=== PATIENT | male | born 1970 | race Caucasian/White ===

== ENCOUNTER → 2020-04-05 09:06 | Outpatient (BNVA) | payer OTHER, SELFPAY | PROVIDERS: Visit Provider Anesthesiology | DX: R10.31 Right lower quadrant pain (principal); R20.0 Anesthesia of skin; M16.11 Unilateral primary osteoarthritis, right hip; M79.602 Pain in left arm | CPT/HCPCS: 99204 ==

== ENCOUNTER → 2020-04-11 11:51 | Outpatient (BNVA) | payer OTHER, SELFPAY | PROVIDERS: PCP Family Medicine; Referring Provider Nurse Practitioner Adult Health; Visit Provider Physician Assistant | DX: Z01.818 Encounter for other preprocedural examination (principal); K52.9 Noninfective gastroenteritis and colitis, unspecified; Z87.19 Personal history of other diseases of the digestive system | CPT/HCPCS: 99204 ==

== ENCOUNTER → 2020-04-24 10:17 | Outpatient (BNVA) | payer OTHER, SELFPAY | PROVIDERS: PCP Family Medicine; Referring Provider Family Medicine; Visit Provider Internal Medicine Pulmonary Disease | DX: Z01.811 Encounter for preprocedural respiratory examination (principal); J44.9 Chronic obstructive pulmonary disease, unspecified; F17.210 Nicotine dependence, cigarettes, uncomplicated; Z79.52 Long term (current) use of systemic steroids; Z79.899 Other long term (current) drug therapy | CPT/HCPCS: 99204 ==

== ENCOUNTER 2020-05-02 08:07 | Outpatient (REF) | payer OTHER, SELFPAY ==
--- NOTE | 2020-05-02 09:42 | XR_ITS ---
EXAMINATION: XR HIP, RIGHT CLINICAL INFORMATION: Right hip pain. COMPARISON: Pelvis and right hip radiographs 09/16/2019, CT pelvis 10/03/2019. TECHNIQUE: Two views of the right hip. FINDINGS: There is no fracture, dislocation, destructive process. No right hip joint narrowing or erosive change or visible chondrocalcinosis. Soft tissue planes appear normal. There are some degenerative changes again noted lower lumbar spine. Bowel gas unremarkable. Change lester seen right lower quadrant. XR/XR hip RT min 2V IMPRESSION: 1. Unremarkable right hip. No joint narrowing or erosive change. 2. Mild degenerative changes lower lumbar spine.
== END 2020-05-02 08:08 | disposition home or self-care (01) ==
LOC: HO.XRAY 08:07
PROVIDERS: Visit Provider Anesthesiology
DX: R10.31 Right lower quadrant pain (principal); M79.602 Pain in left arm; M16.11 Unilateral primary osteoarthritis, right hip; G56.00 Carpal tunnel syndrome, unspecified upper limb
CPT/HCPCS: 73502; 99212

== ENCOUNTER 2020-05-03 11:12 | Outpatient (REF) | payer OTHER, SELFPAY ==
--- NOTE | 2020-05-03 | PFT_ITS ---
Forced vital capacity, FEV1, NYA16-38, and MVV are all markedly decreased. Post bronchodilator therapy, there is significant improvement in FEV1 and FCC17-71. Total lung capacity is slightly decreased. Residual volume is markedly increased. Diffusion capacity is markedly decreased. CONCLUSION: Severe obstructive airway disorder. There is a mild response to bronchodilator therapy. The patient may also have a mild degree of restrictive pulmonary disorder. Clinical correlation is recommended. MD GUEVARA Crowley/VINI / [id number]
== END 2020-05-03 11:13 | disposition home or self-care (01) ==
LOC: HO.RESP 11:12
PROVIDERS: Visit Provider Internal Medicine Pulmonary Disease
DX: J44.9 Chronic obstructive pulmonary disease, unspecified (principal)
CPT/HCPCS: 94060; 94727; 94729

== ENCOUNTER 2020-05-03 12:20 | Outpatient (REF) | payer OTHER, SELFPAY | END 2020-05-03 12:21 | disposition home or self-care (01) | LOC: HO.HAP 12:20 | PROVIDERS: PCP Family Medicine; Visit Provider Family Medicine | DX: Z13.89 Encounter for screening for other disorder (principal) | CPT/HCPCS: 92700 ==

== ENCOUNTER 2020-05-10 09:38 | Inpatient (IN) | payer OTHER, SELFPAY ==
[2020-05-10] VITALS (7 sets, daily range): BP systolic 114–144; BP diastolic 77–84; PULSE 85–107; RESP 14–20; TEMP 36.6–38.4; O2SAT 95–99; BMI 25.1
--- NOTE | 2020-05-10 10:33 | XR_ITS ---
EXAMINATION: XR CHEST CLINICAL INFORMATION: Fever, cough COMPARISON: Chest radiographs 03/28/2020, CTA chest 03/28/2020 TECHNIQUE: Portable upright AP view of the chest was obtained. FINDINGS: The lungs are clear. The vascularity is normal. There is no airspace consolidation or effusion or visible groundglass opacity. The costophrenic sulci are clear. The heart is normal in size. The hilar and mediastinal contours are normal. No visible acute bony abnormality. XR/XR chest 1V IMPRESSION: Unremarkable examination.
--- NOTE | 2020-05-10 10:35 | CT_ITS ---
EXAMINATION: CT ABDOMEN AND PELVIS WITH CONTRAST CLINICAL INFORMATION: Diffuse abdominal pain. Worse in the epigastric and suprapubic region. COMPARISON: CT abdomen 10/03/2019 TECHNIQUE: Multidetector volumetric images were obtained from the superior aspect of the liver through the pubic symphysis following administration 85 mL of Omnipaque 350 intravenous contrast. Sagittal and coronal reformatted images were obtained on the technologist's workstation. Oral contrast: No This CT examination was performed using dose optimization techniques as appropriate, variously including the following: *Automated exposure control *Adjustment of mA and/or kV according to patient size (this includes techniques or standardized protocols for targeted exams where dose is matched to indication/reason for exam; i.e. extremities or head) *Use of iterative reconstruction technique DLP: 471 mGy-cm FINDINGS: LUNG BASES: The lung bases are clear. The heart size is normal. LIVER, GALLBLADDER, AND BILIARY TREE: The liver is normal in size, shape, and hypoattenuation. No focal hepatic lesion or biliary ductal dilatation is present. The gallbladder is unremarkable with no evidence of radiopaque gallstones, gallbladder wall thickening, or obvious pericholecystic inflammatory changes. PANCREAS: Unremarkable. SPLEEN: Unremarkable. ADRENAL GLANDS: Unremarkable. KIDNEYS AND URETERS: The kidneys are normal in size, shape, and attenuation. No hydronephrosis, hydroureter, or calculi seen. No perinephric stranding. There is a 1.4 cm cyst midpole right kidney. BLADDER: Unremarkable. GASTROINTESTINAL TRACT: There is scattered stool and gas seen throughout the colon without significant distention. There is diffuse mural thickening involving the sigmoid colon the rectum likely proctitis/colitis. Incidental noted is a small area of air-fluid collection adjacent to sigmoid colon, likely diverticuli or small abscess. The small bowel loops are normal caliber. There are surgical sutures at the base of the appendix likely from previous appendectomy. No free air or free fluid seen. There is not a mild mural thickening of gastric pylorus. This could be from underdistention. ABDOMINAL WALL: No significant hernia is appreciated. LYMPH NODES: Normal. VASCULAR: Unremarkable. PELVIC VISCERA: The prostate is a normal size. Periprostatic fat planes are slightly hazy. OSSEOUS STRUCTURES: There are degenerative disc changes interconnecting disc phenomenon at the L2-L3 disc level and mild loss of L5-S1 disc heights. Grade 1 retrolisthesis L2 over L3 and L3 over L4 is noted. CT/CT abdomen pelvis w con IMPRESSION: Mild mural thickening sigmoid colon with perisigmoid air-fluid collection likely small abscess or diverticula. No pericolic fat stranding seen. Also visualized is mild mural thickening involving the rectum and sigmoid colon likely from colitis. No pericolic fat stranding seen. There is no bowel obstruction. Mild mural thickening of the pylorus, likely from underdistention of the stomach. Diffuse fatty liver. Surgical sutures at the base of appendix likely from previous appendectomy.
--- NOTE | 2020-05-10 10:36 | ED_ITS ---
HPI - General Adult General Chief complaint: Fever Stated complaint: sob Time Seen by Provider: 05/10/20 10:23 Source: patient Mode of arrival: ambulatory Limitations: no limitations History of Present Illness HPI narrative: patient comes to emergency room complaining of fever of 102, shortness of breath, dysuria, hematuria and diffuse abdominal pain worse in the epigastric region. patient states ill started 4 days ago. Patient came to emergency room because his family made him come. Patient denies vomiting, no diarrhea. Patient states approximately 6 months ago he had a surgery for internal hemorrhoids, no rectal blood reported per patient. MD complaint: dyspnea, abdominal pain, hematuria Related Data Home Medications Medication Instructions Recorded Confirmed ibuprofen 200 mg capsule 400 mg PO Q8H 04/05/20 04/05/20 prednisone 5 mg tablet 5 mg PO DAILY 04/24/20 Previous Rx's Medication Instructions Recorded ipratropium 0.5 mg-albuterol 3 mg 3 ml INHALATION Q6-8H PRN 30 Days 04/24/20 (2.5 mg base)/3 mL nebulization #270 ml soln cholestyramine (with sugar) 4 gram 4 g PO BID #378 g 05/07/20 oral powder Allergies Allergy/AdvReac Type Severity Reaction Status Date / Time dog dander [dogs] Allergy Unknown Verified 05/10/20 10:01 mold Allergy Unknown Verified 04/24/20 10:27 Review of Systems Review of Systems: Constitutional : No Weight loss, complaining of fever, chills, fatigue and general malaise ENT/Mouth : No Hearing loss, No Ear Pain, No Nasal Congestion, No Sinus Pain, No Hoarseness, No sore throat, No Rhinorrhea, No Swallowing Difficulty Eyes: No Eye Pain, No Swelling, No Redness, No Foreign Body, No Discharge, No Vision Changes Cardiovascular : no chest pain or shortness of breath abdomen: complaining diffuse abdominal pain, worse in the epigastric and suprapubic area. Genitourinary : no irregular bleeding, No Dysuria, No Urinary Frequency, No Hematuria, No Urinary Incontinence, Complaining of dysuria and hematuria Musculoskeletal : No joint pain, No Myalgias, No Joint Swelling Skin : No Skin Lesions, No rash Neuro : No Weakness, No Numbness, No Paresthesias, No Loss of Consciousness, No Dizziness, No Headache Psych : No Anxiety/Panic, No Depression, No SI/HI/AH/VH, No Social Issues, Heme/Lymph: No Bruising, No Bleeding,No Lymphadenopathy Endocrine : No Polyuria, No Polydipsia, No Temperature Intolerance [facility] Past Medical History Medical History (Updated 05/10/20 @ 13:55 by Kat Heath MD) Abdominal distension Asthma Carpal tunnel syndrome Diarrhea, unspecified Elevated ALT measurement Hepatic steatosis Internal and external bleeding hemorrhoids Pelvic abscess Rectal pain Screen for colon cancer (~04/11/20) Substance abuse Surgical History H/O hemorrhoidectomy History of appendectomy History of colon resection Family History Family History Father No problems noted. Mother No problems noted. Brother No problems noted. Social History Social History Alcohol intake: current Alcohol intake frequency: 3 or more drinks per day Smoking Status: Current every day smoker Tobacco Type: Cigarette Packs Per Day: 0.5 Cigarettes Per Day: 10.0 Use of substances other than those prescribed or required for medical reasons: Yes Substance Use Type: Marijuana Advance Directives: No Advance Directives Information Provided: No Physical Exam Vital Signs: Vital Signs: Vital Signs Temp Pulse Resp BP Pulse Ox 05/10/20 10:30 99.0 F 88 20 114/79 96 05/10/20 10:01 99.0 F 85 20 114/79 97 Body Mass Index 25.1 Course Course Course Narrative: at this time, 13:53, sepsis is being considered. Patient already received 3 L of normal saline and Zosyn. Patient's source of infection is likely proctitis versus colitis versus small abscesses in the colon versus diverticula, no perforation noted at this time. I discussed the above- mentioned with the hospitalist, patient being admitted. Initially patient mentioned that he had blood in his urine, only trace red blood cells as were noted. Unlikely to have a UTI. Medical Decision Making Lab Data Result diagrams: 05/10/20 10:43 05/10/20 10:42 Labs: Lab Results 05/10/20 05/10/20 05/10/20 Range/Units 10:42 10:42 10:42 WBC (4.8-10.8) X10*3/uL RBC (4.60-5.80) X10*6/uL Hgb (14.0-18.0) g/dl Hct (42-52) % MCV (80-98) fL MCH (27.0-33.0) pg MCHC (31.0-36.0) g/dl RDW (11.0-16.0) % Plt Count (160-400) X10*3/uL MPV (9.4-12.4) fL Immature Gran % (Auto) (0.0-0.4) % Neut % (Auto) (45-73) % Lymph % (Auto) (20-40) % [place] % (Auto) (2-11) % Eos % (Auto) (0-4) % Baso % (Auto) (0-2) % Lymph # (Auto) (1.2-4.9) X10*3/uL [place] # (Auto) (0.1-1.2) X10*3/uL Eos # (Auto) (0.0-0.4) X10*3/uL Baso # (Auto) (0.0-0.2) X10*3/uL Abs Immat Gran (auto) (0.00-0.03) X10*3/uL Absolute Neuts (auto) (2.0-8.3) X10*3/uL Absolute Nucleated RBC (0.0-0.012) X10*3/uL Nucleated RBC % (auto) (0.0-0.2) /100WBC Sodium 135 (135-145) mmol/L Potassium 2.4 L* (3.3-5.1) mmol/l Chloride 94 L (96-108) mmol/L Carbon Dioxide 19 L (22-29) mmol/L Anion Gap 24 H (12-20) BUN 4 L (9-16) mg/dL Creatinine 0.81 (0.5-1.4) mg/dL Estim Creat Clear Calc 112.6 Estimated GFR > 60 Random Glucose 146 H (60-115) mg/dL Lactic Acid 7.8 H* (0.5-2.0) mmol/L Lactic Acid Fup @ 2Hr (0.5-2.0) mmol/L Calcium 7.2 L (8.4-10.2) mg/dL Total Bilirubin 1.9 H (0.0-1.0) mg/dL Direct Bilirubin 1.6 H (0.0-0.5) mg/dL AST 139 H (5-37) U/L ALT 91 H (0-40) U/L Alkaline Phosphatase 178 H (39-117) U/L Total Protein 6.3 L (6.5-8.0) g/dL Albumin 3.4 L (3.5-5.0) g/dL Lipase 8 (8-78) U/L Urine Color Urine Appearance Urine pH (5.0-8.0) Ur Specific [place] (1.005-1.025) Urine Protein (NEG-TRACE) MG/DL Urine Glucose (UA) (NEG) MG/DL Urine Ketones (NEG) MG/DL Urine Blood (NEG) Urine Nitrite (NEG) Ur Leukocyte Esterase (NEG) Urine RBC (0) /HPF Urine WBC (0-4) /HPF Ur Squamous Epith Cells /LPF Urine Bacteria /LPF Urine Mucus /LPF Coronavirus (PCR) NEGATIVE (Negative) 05/10/20 05/10/20 05/10/20 Range/Units 10:43 12:36 13:14 WBC 13.7 H (4.8-10.8) X10*3/uL RBC 3.95 L (4.60-5.80) X10*6/uL Hgb 14.3 (14.0-18.0) g/dl Hct 39.8 L (42-52) % MCV 100.8 H (80-98) fL MCH 36.2 H (27.0-33.0) pg MCHC 35.9 (31.0-36.0) g/dl RDW 13.1 (11.0-16.0) % Plt Count 111 L (160-400) X10*3/uL MPV 9.8 (9.4-12.4) fL Immature Gran % (Auto) 0.7 H (0.0-0.4) % Neut % (Auto) 84.1 H (45-73) % Lymph % (Auto) 5.1 L (20-40) % [place] % (Auto) 9.7 (2-11) % Eos % (Auto) 0.0 (0-4) % Baso % (Auto) 0.4 (0-2) % Lymph # (Auto) 0.7 L (1.2-4.9) X10*3/uL [place] # (Auto) 1.3 H (0.1-1.2) X10*3/uL Eos # (Auto) 0.0 (0.0-0.4) X10*3/uL Baso # (Auto) 0.1 (0.0-0.2) X10*3/uL Abs Immat Gran (auto) 0.09 H (0.00-0.03) X10*3/uL Absolute Neuts (auto) 11.5 H (2.0-8.3) X10*3/uL Absolute Nucleated RBC 0.000 (0.0-0.012) X10*3/uL Nucleated RBC % (auto) 0.0 (0.0-0.2) /100WBC Sodium (135-145) mmol/L Potassium (3.3-5.1) mmol/l Chloride (96-108) mmol/L Carbon Dioxide (22-29) mmol/L Anion Gap (12-20) BUN (9-16) mg/dL Creatinine (0.5-1.4) mg/dL Estim Creat Clear Calc Estimated GFR Random Glucose (60-115) mg/dL Lactic Acid (0.5-2.0) mmol/L Lactic Acid Fup @ 2Hr 5.5 H* (0.5-2.0) mmol/L Calcium (8.4-10.2) mg/dL Total Bilirubin (0.0-1.0) mg/dL Direct Bilirubin (0.0-0.5) mg/dL AST (5-37) U/L ALT (0-40) U/L Alkaline Phosphatase (39-117) U/L Total Protein (6.5-8.0) g/dL Albumin (3.5-5.0) g/dL Lipase (8-78) U/L Urine Color YELLOW Urine Appearance HAZY Urine pH 6.0 (5.0-8.0) Ur Specific [place] <= 1.005 (1.005-1.025) Urine Protein NEG (NEG-TRACE) MG/DL Urine Glucose (UA) NEG (NEG) MG/DL Urine Ketones NEG (NEG) MG/DL Urine Blood TRACE (NEG) Urine Nitrite NEG (NEG) Ur Leukocyte Esterase 1+ H (NEG) Urine RBC 0-2 (0) /HPF Urine WBC 5-9 H (0-4) /HPF Ur Squamous Epith Cells TRACE /LPF Urine Bacteria NONE /LPF Urine Mucus TRACE /LPF Coronavirus (PCR) (Negative) Imaging Data Chest x-ray: Radiologist's impression: The lungs are clear. The vascularity is normal. There is no airspace consolidation or effusion or visible groundglass opacity. The costophrenic sulci are clear. The heart is normal in size. The hilar and mediastinal contours are normal. No visible acute bony abnormality. ECG Data Attestation: I personally reviewed and interpreted this ECG as follows: ( sinus rhythm, heart rate 85, no ST segment depressions or elevations, no T-wave inversions.) Discharge Plan Discharge Clinical Impression: Colitis, Acute hypokalemia Sepsis Qualifiers: Sepsis type: sepsis due to unspecified organism Sepsis acute organ dysfunction status: unspecified Qualified Code(s): A41.9 - Sepsis, unspecified organism Prescriptions: No Action cholestyramine (with sugar) 4 gram powder 4 g PO BID Qty: 378 RF: 0 ipratropium-albuterol 0.5 mg-3 mg(2.5 mg base)/3 mL solution for nebulization 3 ml inhalation Q6-8H PRN (Reason: wheezing) 30 Days Qty: 270 RF: 6 ibuprofen 200 mg capsule 400 mg PO Q8H RF: 0
[2020-05-10 10:53] LABS: MANUAL DIFF FLAG NO
[2020-05-10 10:55] LABS: Basophils Absolute Auto 0.1 X10*3/uL (0.0-0.2); Basophils Percent Auto 0.4 % (0-2); Hematocrit 39.8 % (42-52); Hemoglobin 14.3 g/dl (14.0-18.0); Imm Gran Abs Auto 0.09 X10*3/uL (0.00-0.03); Imm Gran Pct Auto 0.7 % (0.0-0.4); Lymphocytes Absolute Auto 0.7 X10*3/uL (1.2-4.9); Lymphocytes Percent Auto 5.1 % (20-40); Mean Corpuscular HGB Conc 35.9 g/dl (31.0-36.0); Mean Corpuscular Hemoglobin 36.2 pg (27.0-33.0); Mean Corpuscular Volume 100.8 fL (80-98); Mean Platelet Volume 9.8 fL (9.4-12.4); Monocytes Absolute Auto 1.3 X10*3/uL (0.1-1.2); Monocytes Percent Auto 9.7 % (2-11); Neutrophils Absolute Auto 11.5 X10*3/uL (2.0-8.3); Neutrophils Percent Auto 84.1 % (45-73); Platelet Count 111 X10*3/uL (160-400); Red Blood Count 3.95 X10*6/uL (4.60-5.80); Red Cell Distribution Width 13.1 % (11.0-16.0); White Blood Count 13.7 X10*3/uL (4.8-10.8)
[2020-05-10 11:24] LABS: Lactic Acid 7.8 mmol/L (0.5-2.0)
[2020-05-10 11:38] LABS: Alanine Aminotransferase 91 U/L (0-40); Albumin Level 3.4 g/dL (3.5-5.0); Alkaline Phosphatase 178 U/L (39-117); Anion Gap 24 (12-20); Aspartate Amino Transferase 139 U/L (5-37); Bilirubin Direct 1.6 mg/dL (0.0-0.5); Bilirubin Total 1.9 mg/dL (0.0-1.0); Blood Urea Nitrogen 4 mg/dL (9-16); Calcium 7.2 mg/dL (8.4-10.2); Carbon Dioxide 19 mmol/L (22-29); Chloride 94 mmol/L (96-108); Creatinine Clr Calc Pharmacy 112.6; Estimated Glomerular Filt Rate > 60; Glucose Random 146 mg/dL (60-115); Lipase 8 U/L (8-78); Potassium 2.4 mmol/l (3.3-5.1); Sodium 135 mmol/L (135-145); Total Protein 6.3 g/dL (6.5-8.0)
[2020-05-10] MEDS: 0.9 % Sodium Chloride 1,000 ML 999 ML IVCONT ×3 (11:39→13:29)
[2020-05-10] MEDS: Piperacillin Sodium/Tazobactam 3.375 GM in 0.9 % Sodium Chloride 50 ML IV ×2 (11:39→18:25)
--- NOTE | 2020-05-10 11:40 | PC.NURSE ---
computer in bed 2, will not scan meds properly.
[2020-05-10 11:52] LABS: SARS COV2 PCR INHOUSE NEGATIVE (Negative)
[2020-05-10] MEDS: iohexoL 350 MG/ML 100 ML INFUS..BTL IV (12:25)
[2020-05-10 12:53] LABS: Reflex Lactate? Lactic Acid Added
[2020-05-10 13:10] LABS: Glucose Urine UA NEG (NEG); Leukocyte Esterase Urine 1+ (NEG); Nitrite Urine NEG (NEG); Specific Gravity - Urine <= 1.005 (1.005-1.025); Urine Blood TRACE (NEG); Urine Ketones NEG (NEG); Urine Protein NEG (NEG-TRACE)
[2020-05-10 13:11] LABS: Appearance Urine HAZY; Color Urine YELLOW
[2020-05-10 13:18] LABS: Mucus Urine TRACE /LPF; RBC Urine 0-2 /HPF (0); Squamous Epithelial Cell Urine TRACE /LPF
[2020-05-10 13:49] LABS: ~Lactic Acid-LAB USE ONLY 5.5 mmol/L (0.5-2.0)
--- NOTE | 2020-05-10 14:02 | ECG_ITS ---
Test Reason : CHEST PAIN Blood Pressure : / mmHG Vent. Rate : 085 BPM Atrial Rate : 085 BPM P-R Int : 152 ms QRS Dur : 090 ms QT Int : 380 ms P-R-T Axes : 075 092 076 degrees QTc Int : 452 ms Normal sinus rhythm Rightward axis Borderline ECG When compared with ECG of 28-MAR-2020 12:15, No significant change was found Referred By: Kat Heath Electronically Signed By:TAYE RODRIGUEZ MD
[2020-05-10] MEDS: Potassium Chloride ER 20 MEQ TAB.ER.PRT 60 MEQ PO (14:08)
--- NOTE | 2020-05-10 14:49 | PM.EVENT ---
Event Note Date of Service: 05/10/2020 Event Note: Patient seen and examined. Case discussed with ELDON Garcia. Agree with her history and physical + plan. This is a 50-year-old male with a past medical history of alcohol abuse and dependence, reports he drinks 1 pt daily and has had previous withdrawal seizures. He presents to the hospital with cough fevers for the last 3 days for which he has taken ibuprofen. He also reports hematuria, kenzie and so he presents to the hospital. Workup in the hospital shows CT findings of ? small perisigmoid abscess versus small diverticula. afebrile in the emergency room but does have leukocytosis. Also lactate is significantly elevated. He reports chronic diarrhea and chronic abdominal pain which is unchanged. Abdominal examine difficult but has diffuse tenderness without rebound, +bowel sounds. A/P 50 yo M with history of EtOh abuse/dependence being admitted for multiple issues. Colitis/? perisigmoid abscess -- d/w Dr. Mao, will see the patient in the ED -- IV zosyn for now, f/u cultures Electrolyte abnormalitis - replete K IV and PO; check Mag and replete if needed Abrnomal LFTs -- 2/2 to alcohol abuse, advised him to stop drinking. reported hematuria -- UA does not show this, recheck if it reoccurs Alcohol abuse/dependence -- low dose phenobarb Remainder per H&P
--- NOTE | 2020-05-10 15:04 | P.CONGS_ITS ---
History of Present Illness Consult details Narrative: 50-year-old male who is in the emergency room referred to me because of an abdominal CAT scan of the colon. He is well known to me for hemorrhoid surgery earlier this year. He has multiple medical problems including alcohol abuse, mood disorder and came in the emergency room today because of what he described as hematuria. He said he had seen blood at the tip of his meatus. In the ER he still so mention that he was having abdominal pain. He describes mostly in the epigastric area. He had some fever of 102. He did not have any diarrhea,constipation nor rectal bleeding although he does have a history of chronic diarrhea. He denied vomiting at home although states that here in the ER, he had 1 episode of emesis. He had a history of me in [facility] last year for what was described a perforated ileitis. He had bowel resection at that time. I have been consulted because of a CT scan finding showing thickening of a part of the sigmoid along with what seems to be a fluid filled area that may be a diverticulum or small abscess. He however states this pain is on the epigastric area at this time. He denies any pain in the left lower quadrant. Review of Systems Constitutional: Constitutional: Denies chills and Reports fever(s) Cardiovascular: Cardiovascular: Denies chest pain, Denies dyspnea and Denies dyspnea on exertion Respiratory: Respiratory: Denies cough, Denies dyspnea and Denies dyspnea on exertion Gastrointestinal: Gastrointestinal: Denies hematochezia and Denies change in bowel habits Genitourinary: Genitourinary: Reports hematuria (At the meatus) and Denies difficulty urinating Musculoskeletal: Musculoskeletal: Denies back pain and Denies limited range of motion Neurologic: Denies focal weakness and Denies convulsions Psychiatric: Psychiatric: Denies depression and Denies mood swings [facility] Past Medical History Medical History Abdominal distension Asthma Carpal tunnel syndrome Diarrhea, unspecified Elevated ALT measurement Hepatic steatosis Internal and external bleeding hemorrhoids Mood disorder Pelvic abscess Rectal pain Screen for colon cancer (~04/11/20) Substance abuse Family History Family History Father No problems noted. Mother No problems noted. Brother No problems noted. Surgical History Surgical History H/O hemorrhoidectomy History of appendectomy History of colon resection Social History Social History Alcohol intake: current Alcohol intake frequency: 3 or more drinks per day Smoking Status: Current every day smoker Tobacco Type: Cigarette Packs Per Day: 0.5 Cigarettes Per Day: 10.0 Use of substances other than those prescribed or required for medical reasons: Yes Substance Use Type: Marijuana Advance Directives: No Advance Directives Information Provided: No Meds Allergies Allergy/AdvReac Type Severity Reaction Status Date / Time dog dander [dogs] Allergy Unknown Verified 05/10/20 10:01 mold Allergy Unknown Verified 04/24/20 10:27 Home Medications Medication Instructions Recorded Confirmed Type ibuprofen 200 mg capsule 400 mg PO Q8H 04/05/20 04/05/20 History prednisone 5 mg tablet 5 mg PO DAILY 04/24/20 History Physical Exam Vital Signs: Vital Signs: Last Vital Signs Temp 99.0 F 05/10/20 10:30 Pulse 88 05/10/20 10:30 Resp 20 05/10/20 10:30 BP 114/79 05/10/20 10:30 Pulse Ox 96 05/10/20 10:30 Body Mass Index 25.1 Const: Other: Appears she is however and intoxicated a little bit General: no acute distress Orientation/consciousness: patient oriented x3 Neck: Neck: Yes no lymphadenopathy Resp: Auscultation: clear to auscultation bilaterally Cardio: Rhythm: regular rhythm GI: Palpation (GI): Soft to palpation, Tenderness to palpation present (GI) (On the epigastric area) and no guarding Rectal Exam - Male: Yes Visual inspection abnormal (External hemorrhoid, not inflamed, nonthrombosed) Neuro: General: patient oriented x3 Results Labs Result diagrams: 05/10/20 10:43 05/10/20 10:42 Labs: Abnormal lab results 05/10/20 05/10/20 05/10/20 Range/Units 10:42 10:42 10:43 WBC 13.7 H (4.8-10.8) X10*3/uL RBC 3.95 L (4.60-5.80) X10*6/uL Hct 39.8 L (42-52) % MCV 100.8 H (80-98) fL MCH 36.2 H (27.0-33.0) pg Plt Count 111 L (160-400) X10*3/uL Immature Gran % (Auto) 0.7 H (0.0-0.4) % Neut % (Auto) 84.1 H (45-73) % Lymph % (Auto) 5.1 L (20-40) % Lymph # (Auto) 0.7 L (1.2-4.9) X10*3/uL [place] # (Auto) 1.3 H (0.1-1.2) X10*3/uL Abs Immat Gran (auto) 0.09 H (0.00-0.03) X10*3/uL Absolute Neuts (auto) 11.5 H (2.0-8.3) X10*3/uL Potassium 2.4 L* (3.3-5.1) mmol/l Chloride 94 L (96-108) mmol/L Carbon Dioxide 19 L (22-29) mmol/L Anion Gap 24 H (12-20) BUN 4 L (9-16) mg/dL Random Glucose 146 H (60-115) mg/dL Lactic Acid 7.8 H* (0.5-2.0) mmol/L Lactic Acid Fup @ 2Hr (0.5-2.0) mmol/L Calcium 7.2 L (8.4-10.2) mg/dL Total Bilirubin 1.9 H (0.0-1.0) mg/dL Direct Bilirubin 1.6 H (0.0-0.5) mg/dL AST 139 H (5-37) U/L ALT 91 H (0-40) U/L Alkaline Phosphatase 178 H (39-117) U/L Total Protein 6.3 L (6.5-8.0) g/dL Albumin 3.4 L (3.5-5.0) g/dL Ur Leukocyte Esterase (NEG) Urine WBC (0-4) /HPF 05/10/20 05/10/20 Range/Units 12:36 13:14 WBC (4.8-10.8) X10*3/uL RBC (4.60-5.80) X10*6/uL Hct (42-52) % MCV (80-98) fL MCH (27.0-33.0) pg Plt Count (160-400) X10*3/uL Immature Gran % (Auto) (0.0-0.4) % Neut % (Auto) (45-73) % Lymph % (Auto) (20-40) % Lymph # (Auto) (1.2-4.9) X10*3/uL [place] # (Auto) (0.1-1.2) X10*3/uL Abs Immat Gran (auto) (0.00-0.03) X10*3/uL Absolute Neuts (auto) (2.0-8.3) X10*3/uL Potassium (3.3-5.1) mmol/l Chloride (96-108) mmol/L Carbon Dioxide (22-29) mmol/L Anion Gap (12-20) BUN (9-16) mg/dL Random Glucose (60-115) mg/dL Lactic Acid (0.5-2.0) mmol/L Lactic Acid Fup @ 2Hr 5.5 H* (0.5-2.0) mmol/L Calcium (8.4-10.2) mg/dL Total Bilirubin (0.0-1.0) mg/dL Direct Bilirubin (0.0-0.5) mg/dL AST (5-37) U/L ALT (0-40) U/L Alkaline Phosphatase (39-117) U/L Total Protein (6.5-8.0) g/dL Albumin (3.5-5.0) g/dL Ur Leukocyte Esterase 1+ H (NEG) Urine WBC 5-9 H (0-4) /HPF Short CBC 05/10/20 Range/Units 10:43 WBC 13.7 H (4.8-10.8) X10*3/uL Hgb 14.3 (14.0-18.0) g/dl Hct 39.8 L (42-52) % Plt Count 111 L (160-400) X10*3/uL BMP 05/10/20 10:42 Sodium 135 Potassium 2.4 L* Chloride 94 L Carbon Dioxide 19 L BUN 4 L Creatinine 0.81 Calcium 7.2 L Liver Function 05/10/20 Range/Units 10:42 Total Bilirubin 1.9 H (0.0-1.0) mg/dL Direct Bilirubin 1.6 H (0.0-0.5) mg/dL AST 139 H (5-37) U/L ALT 91 H (0-40) U/L Alkaline Phosphatase 178 H (39-117) U/L Albumin 3.4 L (3.5-5.0) g/dL Urine 05/10/20 Range/Units 12:36 Urine Color YELLOW Urine Appearance HAZY Urine pH 6.0 (5.0-8.0) Ur Specific [place] <= 1.005 (1.005-1.025) Urine Protein NEG (NEG-TRACE) MG/DL Urine Glucose (UA) NEG (NEG) MG/DL All other labs normal. Assessment and Plan (1) Colitis: Status: Acute 50-year-old male admitted by the hospitalist service because of multiple complaints. He has known alcohol abuse and had a binge last night until 02:00 o'clock this morning. He came in today because of what he said was blood in his urethra. He was also noted to have fever earlier at 01:02. He is currently afebrile. He describes pain and tenderness epigastric area. I have reviewed his CAT scan and there was note of some thickening of the sigmoid along with what appears to be an area with air-fluid level suggestive of a diverticulum versus a small abscess. In view of his fever, I would recommend doing this as an abscess with IV Zosyn. This does not appear to require CT drainage at this time. He also also has other issues including his ETOH abuse, blood in the urethral meatus, and electrolyte imbalance. These are all being addressed by the primary service. I will follow along while he is in the hospital. Thank you for the courtesy of the referral.
--- NOTE | 2020-05-10 15:09 | P.HPIM_ITS ---
History of Present Illness Date of Service: 05/10/20 Chief Complaint: Fever this is a 50-year-old male presents to the emergency department with multiple complaints. He reports a fever for the past 3 days. He also reports hematuria and blood dripping from his penis. he reports shortness of breath which has b een ongoing for the past 4 months. He also reports abdominal pain. He has been recently seen by outpatient pulmonology. In the emergency department he underwent a cat scan of the abdomen which showed mural thickening of the sigmoid colon with possible small abscess. lab work was significant for leukocytosis of 13.7. He was given a dose of IV Zosyn. He was also noted to have elevated lactic acid, elevated LFTs, potassium of 2.4. he received oral potassium replacement and IV fluid and the decision was made to admit him for further management. Review of Systems Review of Systems: Yes all other systems are reviewed and are negative Cardiovascular: Cardiovascular: Reports dyspnea Respiratory: Respiratory: Denies cough and Reports dyspnea Gastrointestinal: Gastrointestinal: Reports abdominal pain, Denies nausea and Denies vomiting Genitourinary: Genitourinary: Reports hematuria [facility] Medical History (Updated 05/10/20 @ 15:37 by ELDON Trinidad) Alcohol dependence Alcohol withdrawal seizure Asthma Carpal tunnel syndrome Diarrhea, unspecified Elevated ALT measurement Hepatic steatosis Internal and external bleeding hemorrhoids Mood disorder Pelvic abscess Rectal pain Screen for colon cancer (~04/11/20) Functional capacity: independent ambulation Family History Father No problems noted. Mother No problems noted. Brother No problems noted. Surgical History H/O hemorrhoidectomy History of appendectomy History of colon resection Social History (Updated 05/10/20 @ 15:36 by ELDON Trinidad) Alcohol intake: current Alcohol intake frequency: 3 or more drinks per day Alcohol type: hard liquor Smoking Status: Current every day smoker Tobacco Type: Cigarette Packs Per Day: 0.5 Cigarettes Per Day: 10.0 Use of substances other than those prescribed or required for medical reasons: Yes Substance Use Type: Marijuana Advance Directives: No Advance Directives Information Provided: No Meds Allergies Allergy/AdvReac Type Severity Reaction Status Date / Time dog dander [dogs] Allergy Unknown Verified 05/10/20 10:01 mold Allergy Unknown Verified 04/24/20 10:27 Home Medications Medication Instructions Recorded Confirmed Type prednisone 5 mg tablet 5 mg PO DAILY 04/24/20 History Physical Exam Vital Signs and Narrative: Vital Signs: Last Vital Signs Temp 99.0 F 05/10/20 10:30 Pulse 88 05/10/20 10:30 Resp 20 05/10/20 10:30 BP 114/79 05/10/20 10:30 Pulse Ox 96 05/10/20 10:30 Body Mass Index 25.1 Const: Nutritional Appearance: well nourished Orientation/consciousness: patient oriented x3 HENMT: Head: Yes normocephalic and Yes atraumatic Eyes: Sclerae: sclerae normal Chest: Chest palpation & inspection: normal inspection of the chest Resp: Effort & Inspection: normal respiratory effort and no respiratory distress Auscultation: clear to auscultation bilaterally Cardio: Rate: regular rate Rhythm: regular rhythm GI: Palpation (GI): Soft to palpation and Tenderness to palpation present (GI) Skin: General skin exam: no rashes or lesions noted Neuro: General: patient oriented x3 Cranial nerves: Yes CN's II-XII intact bilaterally and Yes Bilaterally intact EOM present Extrem: General: Yes normal to inspection Results Labs Labs: Laboratory Tests 05/10/20 05/10/20 05/10/20 10:42 10:42 10:42 WBC RBC Hgb Hct MCV MCH MCHC RDW Plt Count MPV Immature Gran % (Auto) Neut % (Auto) Lymph % (Auto) Hemphill % (Auto) Eos % (Auto) Baso % (Auto) Lymph # (Auto) Hemphill # (Auto) Eos # (Auto) Baso # (Auto) Abs Immat Gran (auto) Absolute Neuts (auto) Absolute Nucleated RBC Nucleated RBC % (auto) Sodium 135 Potassium 2.4 L* Chloride 94 L Carbon Dioxide 19 L Anion Gap 24 H BUN 4 L Creatinine 0.81 Estim Creat Clear Calc 112.6 Estimated GFR > 60 Random Glucose 146 H Lactic Acid 7.8 H* Lactic Acid Fup @ 2Hr Calcium 7.2 L Total Bilirubin 1.9 H Direct Bilirubin 1.6 H AST 139 H ALT 91 H Alkaline Phosphatase 178 H Total Protein 6.3 L Albumin 3.4 L Lipase 8 Urine Color Urine Appearance Urine pH Ur Specific Pfeifer Urine Protein Urine Glucose (UA) Urine Ketones Urine Blood Urine Nitrite Ur Leukocyte Esterase Urine RBC Urine WBC Ur Squamous Epith Cells Urine Bacteria Urine Mucus Coronavirus (PCR) NEGATIVE 05/10/20 05/10/20 05/10/20 10:43 12:36 13:14 WBC 13.7 H RBC 3.95 L Hgb 14.3 Hct 39.8 L MCV 100.8 H MCH 36.2 H MCHC 35.9 RDW 13.1 Plt Count 111 L MPV 9.8 Immature Gran % (Auto) 0.7 H Neut % (Auto) 84.1 H Lymph % (Auto) 5.1 L Hemphill % (Auto) 9.7 Eos % (Auto) 0.0 Baso % (Auto) 0.4 Lymph # (Auto) 0.7 L Hemphill # (Auto) 1.3 H Eos # (Auto) 0.0 Baso # (Auto) 0.1 Abs Immat Gran (auto) 0.09 H Absolute Neuts (auto) 11.5 H Absolute Nucleated RBC 0.000 Nucleated RBC % (auto) 0.0 Sodium Potassium Chloride Carbon Dioxide Anion Gap BUN Creatinine Estim Creat Clear Calc Estimated GFR Random Glucose Lactic Acid Lactic Acid Fup @ 2Hr 5.5 H* Calcium Total Bilirubin Direct Bilirubin AST ALT Alkaline Phosphatase Total Protein Albumin Lipase Urine Color YELLOW Urine Appearance HAZY Urine pH 6.0 Ur Specific Pfeifer <= 1.005 Urine Protein NEG Urine Glucose (UA) NEG Urine Ketones NEG Urine Blood TRACE Urine Nitrite NEG Ur Leukocyte Esterase 1+ H Urine RBC 0-2 Urine WBC 5-9 H Ur Squamous Epith Cells TRACE Urine Bacteria NONE Urine Mucus TRACE Coronavirus (PCR) Imaging Radiologist's Impressions: Impressions Chest X-Ray 05/10/20 10:33 IMPRESSION: Unremarkable examination. Abdomen/Pelvis CT 05/10/20 10:35 IMPRESSION: Mild mural thickening sigmoid colon with perisigmoid air-fluid collection likely small abscess or diverticula. No pericolic fat stranding seen. Also visualized is mild mural thickening involving the rectum and sigmoid colon likely from colitis. No pericolic fat stranding seen. There is no bowel obstruction. Mild mural thickening of the pylorus, likely from underdistention of the stomach. Diffuse fatty liver. Surgical sutures at the base of appendix likely from previous appendectomy. Assessment and Plan (1) Colitis: Status: Acute (2) Alcohol dependence: Status: Acute this is a 50-year-old male with a history of alcohol dependence, asthma, chronic pain who presents to the emergency department with multiple complaints found to have colitis colitis with ?abscess pain, diarrhea chronic however given his CT scan will treat - clear liquid diet, IV fluid - pain management - General surgery consult - IV antibiotics alcohol dependence does not appear to be in alcohol withdrawal at this time although high risk due to history of alcohol withdrawal seizure - start phenobarbital, will lower dose given elevated LFTs. - thiamine, folate supplementation elevated lactic acid likely secondary to liver dysfunction. no severe sepsis hypokalemia - will replace prn - no EKG changes - check magnesium reported hematuria urinalysis unremarkable elevated LFTs related to alcohol use DVT prophylaxis- mechanical devices code status- full code this case was discussed with Dr. Dias
[2020-05-10 15:18] LABS: Reflex Lactate? 2 Y
[2020-05-10 15:31] LABS: Magnesium 0.9 mg/dL (1.6-2.6)
[2020-05-10] MEDS: Magnesium Sulfate/H2O 2 GM/50 ML PIGGYBACK IV ×2 (16:31→18:24)
[2020-05-10 17:20] LABS: ~Lactic Acid-LAB USE ONLY 4.3 mmol/L (0.5-2.0)
[2020-05-10 18:20] LABS: Hematocrit 37.1 % (42-52); Hemoglobin 13.2 g/dl (14.0-18.0); Mean Corpuscular HGB Conc 35.6 g/dl (31.0-36.0); Mean Corpuscular Hemoglobin 36.4 pg (27.0-33.0); Mean Corpuscular Volume 102.2 fL (80-98); Mean Platelet Volume 9.2 fL (9.4-12.4); Red Blood Count 3.63 X10*6/uL (4.60-5.80); Red Cell Distribution Width 13.2 % (11.0-16.0); White Blood Count 8.3 X10*3/uL (4.8-10.8)
[2020-05-10] MEDS: 0.9 % Sodium Chloride 1,000 ML 100 ML IVCONT (18:24)
[2020-05-10 18:30] LABS: Platelet Count 98 X10*3/uL (160-400)
[2020-05-10 18:46] LABS: Anion Gap 18 (12-20); Blood Urea Nitrogen 4 mg/dL (9-16); Calcium 6.8 mg/dL (8.4-10.2); Carbon Dioxide 24 mmol/L (22-29); Chloride 102 mmol/L (96-108); Estimated Glomerular Filt Rate > 60; Glucose Random 103 mg/dL (60-115); Potassium 3.3 mmol/l (3.3-5.1); Sodium 141 mmol/L (135-145)
[2020-05-10] MEDS: PHENobarbitaL sodium 130 MG/ML VIAL 175 MG IM (19:44)
[2020-05-10] MEDS: Albuterol Sulfate (0.042%) 1.25 MG/3 ML VIAL.NEB INHALE (21:39)
[2020-05-10] MEDS: Calcium Carbonate 750 MG TAB.CHEW PO (21:55)
[2020-05-10] MEDS: PHENobarbitaL sodium 130 MG/ML VIAL IM (23:06)
[2020-05-11] VITALS (7 sets, daily range): BP systolic 119–139; BP diastolic 72–80; PULSE 72–93; RESP 16–20; TEMP 36.7–37.2; O2SAT 96–99
[2020-05-11] MEDS: Acetaminophen 325 MG TABLET 650 MG PO ×3 (00:02→17:43)
[2020-05-11] MEDS: Magnesium Hydrox/Alum Hydrox 30 ML ORAL.SUSP 15 ML PO (00:03)
[2020-05-11] MEDS: 0.9 % Sodium Chloride Flush 3 ML SYRINGE IVFLUSH ×3 (00:05→16:33)
[2020-05-11] MEDS: Piperacillin Sodium/Tazobactam 3.375 GM in 0.9 % Sodium Chloride 50 ML IV ×4 (00:05→20:30)
--- NOTE | 2020-05-11 00:36 | PC.NURSE ---
@ 2327, Oral temp 101.2, hr 107, pt also c/o heartburn. Notified Dr. Juan Cordova via [employer] [facility]. Order placed for tylenol and maalox. Continue to monitor vitals.
[2020-05-11] MEDS: PHENobarbitaL sodium 130 MG/ML VIAL IM (01:25)
[2020-05-11] MEDS: 0.9 % Sodium Chloride 1,000 ML 100 ML IVCONT ×2 (05:39→16:26)
[2020-05-11 06:52] LABS: Anion Gap 17 (12-20); Basophils Percent Auto 0.6 % (0-2); Blood Urea Nitrogen 3 mg/dL (9-16); Calcium 6.7 mg/dL (8.4-10.2); Carbon Dioxide 23 mmol/L (22-29); Chloride 98 mmol/L (96-108); Creatinine Clr Calc Pharmacy 147.1; Estimated Glomerular Filt Rate > 60; Glucose Random 82 mg/dL (60-115); Hematocrit 37.8 % (42-52); Hemoglobin 12.9 g/dl (14.0-18.0); Imm Gran Abs Auto 0.02 X10*3/uL (0.00-0.03); Imm Gran Pct Auto 0.4 % (0.0-0.4); Lymphocytes Absolute Auto 0.4 X10*3/uL (1.2-4.9); Lymphocytes Percent Auto 8.2 % (20-40); MANUAL DIFF FLAG SCAN; Magnesium 1.5 mg/dL (1.6-2.6); Mean Corpuscular HGB Conc 34.1 g/dl (31.0-36.0); Mean Corpuscular Hemoglobin 35.8 pg (27.0-33.0); Mean Platelet Volume 10.1 fL (9.4-12.4); Monocytes Absolute Auto 0.3 X10*3/uL (0.1-1.2); Monocytes Percent Auto 7.4 % (2-11); Neutrophils Absolute Auto 3.9 X10*3/uL (2.0-8.3); Neutrophils Percent Auto 83.4 % (45-73); Potassium 3.1 mmol/l (3.3-5.1); Red Cell Distribution Width 13.2 % (11.0-16.0); SCAN SMEAR FLAG 1; Sodium 135 mmol/L (135-145); White Blood Count 4.6 X10*3/uL (4.8-10.8)
[2020-05-11 07:43] LABS: Platelet Count 89 X10*3/uL (160-400)
[2020-05-11 07:44] LABS: SLIDE REVIEW VERIFIED
[2020-05-11] MEDS: PHENobarbitaL 15 MG TABLET 45 MG PO ×2 (09:04→20:31)
[2020-05-11] MEDS: Folic Acid 1 MG TABLET PO (09:05)
[2020-05-11] MEDS: Thiamine HCL 100 MG TABLET PO (09:05)
--- NOTE | 2020-05-11 09:31 | PM.PNGS ---
Subjective Subjective Interval history: much more calm today still anxious - says he has been drinking ETOH lately because of stress with dispute with neighbors c/o epigastric pain Physical Exam Vital Signs: Vital Signs: Last Vital Signs Temp 98.5 F 05/11/20 07:16 Pulse 91 05/11/20 07:16 Resp 19 05/11/20 07:16 BP 128/79 05/11/20 07:16 Pulse Ox 98 05/11/20 07:16 Body Mass Index 25.1 Chemistry 05/10/20 05/10/20 05/11/20 10:42 18:07 05:39 Sodium 135 141 135 Potassium 2.4 L* 3.3 D 3.1 L Carbon Dioxide 19 L 24 23 BUN 4 L 4 L 3 L Creatinine 0.81 0.73 0.62 Calcium 7.2 L 6.8 L 6.7 L Hematology 05/10/20 05/10/20 05/11/20 10:43 18:07 05:39 WBC 13.7 H 8.3 4.6 L Hgb 14.3 13.2 L 12.9 L Plt Count 111 L 98 L 89 L Urinalysis 05/10/20 12:36 Urine Color YELLOW Urine Appearance HAZY Urine pH 6.0 Ur Specific Gravit y <= 1.005 Urine Protein NEG Urine Glucose (UA) NEG Urine Ketones NEG Urine Blood TRACE Urine Nitrite NEG Ur Leukocyte Noemi ase 1+ H Urine RBC 0-2 Urine WBC 5-9 H Ur Squamous Epith Cells TRACE Const: Other: anxious, a little jittery Cardio: Rhythm: regular rhythm GI: Other: soft, some point tenderness on epig area, no guarding or rebound Progress Note: A&P Assessment and plan (1) Epigastric pain: Status: Acute Assessment and Plan: CT reviewed with Dr. Stewart - thickening of duodenal bulb c/w duodenitis from ETOH, can explain epig pain pt not tender on lower abdomen- ?diverticulum vs abscess in sigmoid some thickening in sigmoid suggestive of colitis keep on clear liquids today K still low WBC normal other medical issues managed by Hospitalist Fall Risk Details Current Medications: Current Medications Generic Name Dose Route Start Last Admin Trade Name Freq PRN Reason Stop Dose Admin Folic Acid 1 mg 05/11/20 09:00 05/11/20 09:05 Folic Acid 1 Mg Tablet PO 1 mg DAILY PHILL Administration Piperacillin Sod/Tazobactam 50 mls @ 100 mls/hr 05/10/20 19:00 05/11/20 06:39 Sod 3.375 gm/ Sodium Chloride IV Infused Q6H PHILL Infusion Sodium Chloride 1,000 mls @ 100 mls/hr 05/10/20 17:52 05/11/20 05:39 Ns IVCONT 100 mls/hr .Q10H PHILL Administration Medication 1 each 05/11/20 09:00 No Benzodiazepines MISCELLANE DAILY PHILL Morphine Sulfate 2 mg 05/10/20 17:52 Morphine Sulfate 2 Mg/Ml Cartridge IVPUSH Q4H PRN Pain, Severe (Pain Scale 7-10) Pharmacy Consult 1 each 05/10/20 14:15 Consult Rx Perform Med Rec MISCELLANE ONCE PRN Consult order Phenobarbital 45 mg 05/11/20 09:00 05/11/20 09:04 Phenobarbital 15 Mg Tablet PO 05/12/20 21:01 45 mg BID PHILL Administration Phenobarbital 15 mg 05/13/20 09:00 Phenobarbital 15 Mg Tablet PO 05/14/20 21:01 BID PHILL Phenobarbital 15 mg 05/15/20 09:00 Phenobarbital 15 Mg Tablet PO 05/16/20 09:01 DAILY PHILL Sodium Chloride 3 ml 05/10/20 17:52 05/11/20 09:04 0.9 % Sodium Chloride Flush 3 Ml Syringe IVFLUSH 3 ml QSHIFT PHILL Administration Thiamine HCl 100 mg 05/11/20 09:00 05/11/20 09:05 Thiamine Hcl 100 Mg Tablet PO 100 mg DAILY PHILL Administration Time Spent With Patient Time: Total time spent is greater than 50% in coordination of care (as documented) at patient's floor/unit and/or counseling patient: Time with patient: 15 - 24 minutes
--- NOTE | 2020-05-11 10:10 | MHC.CM.PN ---
met with pt who had no servciex priro to admisison and that he has his own transportaion [facility] he has a primary care dr in [facility] who he doesnt remeber the name of but has an appt in 2 months he has his own transportaion home
[2020-05-11] MEDS: Nicotine 14 MG PATCH.TD24 TRANSDERMA (10:32)
[2020-05-11] MEDS: Magnesium Sulfate/H2O 2 GM/50 ML PIGGYBACK IV (10:33)
[2020-05-11] MEDS: Potassium Chloride Packet 20 MEQ PACKET 40 MEQ PO (10:38)
[2020-05-11] MEDS: Omeprazole 20 MG CAPSULE.DR PO (10:39)
[2020-05-11 11:00] LABS: Alanine Aminotransferase 83 U/L (0-40); Alkaline Phosphatase 149 U/L (39-117); Aspartate Amino Transferase 173 U/L (5-37); Bilirubin Direct 1.9 mg/dL (0.0-0.5); Bilirubin Total 2.5 mg/dL (0.0-1.0); Total Protein 5.5 g/dL (6.5-8.0)
--- NOTE | 2020-05-11 14:40 | P.PNIM_ITS ---
Subjective Subjective Date of Service: 05/11/20 Interval History: seen and examined this Am no lower abd pain today, but more in the epigastric pain also reports multiple bouts of non-bloody, watery diarrhea also request nebs / nicoderm patch denies fvers or chills Review of Systems General - no fevers or chills Cardiovascular - no chest pain Respiratory - no shortness of breath or cough Abdominal- no abdominal pain, nausea, vomiting, diarrhea Physical Exam Vital Signs: Vital Signs: Last Vital Signs Temp 98.3 F 05/11/20 11:14 Pulse 87 05/11/20 11:14 Resp 19 05/11/20 11:14 BP 130/72 05/11/20 11:14 Pulse Ox 97 05/11/20 11:14 Body Mass Index 25.1 General - no acute distress, appears comfortable Cardiovascular - regular rate and rhythm, S1-S2 Lungs - normal respiratory effort, clear to auscultation bilaterally, no wheezing Abdomen - epigastric tenderness, no rebound; +mid line scar Extremities - no edema bilaterally Neuro - awake and alert, no focal deficits Objective Data Current Medications Generic Name Dose Route Start Last Admin Trade Name Freq PRN Reason Stop Dose Admin Albuterol/Ipratropium 3 ml 05/11/20 09:53 Albuterol/Iprat 2.5/0.5mg 3 Ml Ampul.Neb INHALE RQ4H PRN Shortness of Breath/Wheezing Folic Acid 1 mg 05/11/20 09:00 05/11/20 09:05 Folic Acid 1 Mg Tablet PO 1 mg DAILY PHILL Administration Piperacillin Sod/Tazobactam 50 mls @ 100 mls/hr 05/10/20 19:00 05/11/20 13:29 Sod 3.375 gm/ Sodium Chloride IV Infused Q6H PHILL Infusion Sodium Chloride 1,000 mls @ 100 mls/hr 05/10/20 17:52 05/11/20 05:39 Ns IVCONT 100 mls/hr .Q10H PHILL Administration Magnesium Oxide 400 mg 05/11/20 17:30 Magnesium Oxide 400 Mg Tablet PO BIDPC PHILL Medication 1 each 05/11/20 09:00 No Benzodiazepines MISCELLANE DAILY PHILL Morphine Sulfate 2 mg 05/10/20 17:52 Morphine Sulfate 2 Mg/Ml Cartridge IVPUSH Q4H PRN Pain, Severe (Pain Scale 7-10) Nicotine 14 mg 05/11/20 10:00 05/11/20 10:32 Nicotine 14 Mg Patch.Td24 TRANSDERMA 14 mg DAILY [facility] Administration Pantoprazole Sodium 40 mg 05/11/20 14:30 Pantoprazole Sodium 40 Mg/10 Ml Vial IVPUSH DAILY@0630 [facility] Pharmacy Consult 1 each 05/10/20 14:15 Consult Rx Perform Med Rec MISCELLANE ONCE PRN Consult order Phenobarbital 45 mg 05/11/20 09:00 05/11/20 09:04 Phenobarbital 15 Mg Tablet PO 05/12/20 21:01 45 mg BID [facility] Administration Phenobarbital 15 mg 05/13/20 09:00 Phenobarbital 15 Mg Tablet PO 05/14/20 21:01 BID [facility] Phenobarbital 15 mg 05/15/20 09:00 Phenobarbital 15 Mg Tablet PO 05/16/20 09:01 DAILY [facility] Sodium Chloride 3 ml 05/10/20 17:52 05/11/20 09:04 0.9 % Sodium Chloride Flush 3 Ml Syringe IVFLUSH 3 ml QSHIFT [facility] Administration Thiamine HCl 100 mg 05/11/20 09:00 05/11/20 09:05 Thiamine Hcl 100 Mg Tablet PO 100 mg DAILY [facility] Administration Labs CBC & Chem 7: 05/11/20 05:39 05/11/20 05:39 Microbiology Microbiology Results: Microbiology 05/10/20 10:44 Blood - Venous Blood Culture - Preliminary No growth after 24 hours. 05/10/20 10:41 Blood - Venous Blood Culture - Preliminary No growth after 24 hours. 05/10/20 11:47 Urine clean catch - Clean Catch Midstream Urine Culture - Preliminary Gram negative millie Assessment and Plan (1) Alcohol dependence: Status: Acute Assessment and Plan: This is a 50 yo M with a PMH of heavy alcohol use and dependence, prior intra- abdominal surgery, chronic abdominal pain and diarrhea who presented to the hospital with complaints hematuria (UA not indicative of this upon admission). His work up in the ED showed colitis +/- small abscess vs divierctiula. He was admitted for further treatment. 1. colitis/question perisigmoid abscess versus small diverticula on broad-spectrum IV antibiotics Check stool studies including C diff Follow cultures General surgery on board, recommendations appreciated thrombocytopenia - 2/2 liver disease and not sepsis 2. alcohol abuse and dependence Has prior withdrawal seizures, remains at high risk Continue phenobarbital Monitor electrolytes and replete as necessary Alcohol cessation has been strongly advised to the patient MVI/thiamin/folate check b12/folate 3. epigastric pain, suspect alcoholic gastritis/ duodenitis Change Prilosec to IV PPI for the time being If no improvement, will consult gastroenterology 4. alcoholic liver disease monitor lfts 5. HyopK and hypoMg replete IV and PO as needed 6. ? hematuria ( per patient report it was gross -- UA does not indicate this repeat UA if current Full Code DVT pptx, mechanical for now due to possible hematuria
[2020-05-11 15:04] LABS: Folate 2.4 ng/mL (> or = 4.0); Vitamin B12 1061 pg/mL (200-900)
[2020-05-11] MEDS: Magnesium Oxide 400 MG TABLET PO (16:26)
[2020-05-11] MEDS: Pantoprazole Sodium 40 MG/10 ML VIAL IVPUSH (16:26)
[2020-05-12] MEDS: Piperacillin Sodium/Tazobactam 3.375 GM in 0.9 % Sodium Chloride 50 ML IV ×5 (02:41→23:35)
[2020-05-12] MEDS: 0.9 % Sodium Chloride Flush 3 ML SYRINGE IVFLUSH ×4 (02:42→20:47)
[2020-05-12 03:57] VITALS: BP 130/91; PULSE 87; RESP 16; TEMP 36.7; O2SAT 98
[2020-05-12] MEDS: Pantoprazole Sodium 40 MG/10 ML VIAL IVPUSH (06:59)
[2020-05-12] MEDS: 0.9 % Sodium Chloride 1,000 ML 100 ML IVCONT ×3 (07:13→23:40)
[2020-05-12 07:19] LABS: Basophils Percent Auto 1.2 % (0-2); Eosinophils Percent Auto 0.9 % (0-4); Hematocrit 34.6 % (42-52); Imm Gran Abs Auto 0.03 X10*3/uL (0.00-0.03); Imm Gran Pct Auto 0.9 % (0.0-0.4); Lymphocytes Absolute Auto 0.5 X10*3/uL (1.2-4.9); Lymphocytes Percent Auto 14.8 % (20-40); MANUAL DIFF FLAG SCAN; Mean Corpuscular HGB Conc 34.7 g/dl (31.0-36.0); Mean Corpuscular Hemoglobin 35.6 pg (27.0-33.0); Mean Corpuscular Volume 102.7 fL (80-98); Mean Platelet Volume 10.5 fL (9.4-12.4); Monocytes Absolute Auto 0.4 X10*3/uL (0.1-1.2); Monocytes Percent Auto 11.8 % (2-11); Neutrophils Absolute Auto 2.3 X10*3/uL (2.0-8.3); Neutrophils Percent Auto 70.4 % (45-73); Red Blood Count 3.37 X10*6/uL (4.60-5.80); SCAN SMEAR FLAG 1; White Blood Count 3.3 X10*3/uL (4.8-10.8)
[2020-05-12 07:22] LABS: Platelet Count 97 X10*3/uL (160-400)
[2020-05-12 07:32] VITALS: BP 124/83; PULSE 85; RESP 18; TEMP 37.7; O2SAT 96
[2020-05-12 08:03] LABS: SLIDE REVIEW VERIFIED
[2020-05-12 08:16] LABS: Alanine Aminotransferase 73 U/L (0-40); Albumin Level 2.8 g/dL (3.5-5.0); Alkaline Phosphatase 117 U/L (39-117); Anion Gap 11 (12-20); Aspartate Amino Transferase 155 U/L (5-37); Bilirubin Direct 1.9 mg/dL (0.0-0.5); Bilirubin Total 2.3 mg/dL (0.0-1.0); Blood Urea Nitrogen 3 mg/dL (9-16); Calcium 6.8 mg/dL (8.4-10.2); Carbon Dioxide 25 mmol/L (22-29); Chloride 99 mmol/L (96-108); Estimated Glomerular Filt Rate > 60; Glucose Random 84 mg/dL (60-115); Magnesium 1.3 mg/dL (1.6-2.6); Potassium 2.9 mmol/l (3.3-5.1); Sodium 132 mmol/L (135-145); Total Protein 5.1 g/dL (6.5-8.0)
[2020-05-12] MEDS: Potassium Chloride ER 20 MEQ TAB.ER.PRT 60 MEQ PO (08:39)
[2020-05-12] MEDS: Folic Acid 1 MG TABLET PO (08:40)
[2020-05-12] MEDS: PHENobarbitaL 15 MG TABLET 45 MG PO ×2 (08:40→20:49)
[2020-05-12] MEDS: Thiamine HCL 100 MG TABLET PO (08:40)
[2020-05-12] MEDS: Potassium Chloride/H20 10 MEQ/100 ML PIGGYBACK 100 MEQ IV ×2 (08:51→11:03)
[2020-05-12] MEDS: Magnesium Oxide 400 MG TABLET PO ×2 (08:52→19:09)
[2020-05-12] MEDS: Magnesium Sulfate/H2O 2 GM/50 ML PIGGYBACK IV (08:54)
[2020-05-12] MEDS: Nicotine 14 MG PATCH.TD24 TRANSDERMA (09:00)
[2020-05-12] MEDS: Albuterol/Iprat 2.5/0.5MG 3 ML AMPUL.NEB INHALE (09:39)
--- NOTE | 2020-05-12 10:23 | PM.PNGS ---
Subjective Subjective Interval history: Gustabo Morrow reports passing profuse watery, mucous diarrhea with minimal control. Abdominal pain is improved. Physical Exam Vital Signs: Vital Signs: Last Vital Signs Temp 99.8 F 05/12/20 07:32 Pulse 85 05/12/20 07:32 Resp 18 05/12/20 07:32 BP 124/83 05/12/20 07:32 Pulse Ox 96 05/12/20 07:32 Body Mass Index 25.1 Const: Other: Anxious appearing, pressured speech, jittery Resp: Other: breathing comfortably on room air GI: Other: soft, active bowel sounds, no tenderness, no rebound, no guarding Skin: Other: warm and dry, no rash Psych: Speech and movement: Pressured speech present Affect: Anxious affect present Attitude: cooperative Progress Note: A&P Assessment and plan (1) Epigastric pain: Status: Acute Assessment and Plan: Gustabo presents with profuse watery diarrhea, CT reveals thickening of the sigmoid colon wall suggestive of a localized colitis. Abdominal pain does seem improved, no peritoneal signs. C. diff pending. Fall Risk Details Current Medications: Current Medications Generic Name Dose Route Start Last Admin Trade Name Freq PRN Reason Stop Dose Admin Albuterol/Ipratropium 3 ml 05/11/20 09:53 05/12/20 09:39 Albuterol/Iprat 2.5/0.5mg 3 Ml Ampul.Neb INHALE 3 ml RQ4H PRN Administration Shortness of Breath/Wheezing Folic Acid 1 mg 05/11/20 09:00 05/12/20 08:40 Folic Acid 1 Mg Tablet PO 1 mg DAILY PHILL Administration Piperacillin Sod/Tazobactam 50 mls @ 100 mls/hr 05/10/20 19:00 05/12/20 07:40 Sod 3.375 gm/ Sodium Chloride IV Infused Q6H PHILL Infusion Sodium Chloride 1,000 mls @ 100 mls/hr 05/10/20 17:52 05/12/20 08:14 Ns IVCONT Infused .Q10H PHILL Infusion Potassium Chloride 10 meq in 100 mls @ 100 mls/hr 05/12/20 08:30 05/12/20 08:51 IV 05/12/20 10:29 100 mls/hr Q1H PHILL Administration Magnesium Oxide 400 mg 05/11/20 17:30 05/12/20 08:52 Magnesium Oxide 400 Mg Tablet PO 400 mg BIDPC PHILL Administration Medication 1 each 05/11/20 09:00 No Benzodiazepines MISCELLANE DAILY PHILL Morphine Sulfate 2 mg 05/10/20 17:52 Morphine Sulfate 2 Mg/Ml Cartridge IVPUSH Q4H PRN Pain, Severe (Pain Scale 7-10) Nicotine 14 mg 05/11/20 10:00 05/12/20 09:00 Nicotine 14 Mg Patch.Td24 TRANSDERMA 14 mg DAILY PHILL Administration Pantoprazole Sodium 40 mg 05/11/20 14:30 05/12/20 06:59 Pantoprazole Sodium 40 Mg/10 Ml Vial IVPUSH 40 mg DAILY@0630 PHILL Administration Pharmacy Consult 1 each 05/10/20 14:15 Consult Rx Perform Med Rec MISCELLANE ONCE PRN Consult order Phenobarbital 45 mg 05/11/20 09:00 05/12/20 08:40 Phenobarbital 15 Mg Tablet PO 05/12/20 21:01 45 mg BID PHILL Administration Phenobarbital 15 mg 05/13/20 09:00 Phenobarbital 15 Mg Tablet PO 05/14/20 21:01 BID PHILL Phenobarbital 15 mg 05/15/20 09:00 Phenobarbital 15 Mg Tablet PO 05/16/20 09:01 DAILY PHILL Sodium Chloride 3 ml 05/10/20 17:52 05/12/20 07:01 0.9 % Sodium Chloride Flush 3 Ml Syringe IVFLUSH 3 ml QSHIFT PHILL Administration Thiamine HCl 100 mg 05/11/20 09:00 05/12/20 08:40 Thiamine Hcl 100 Mg Tablet PO 100 mg DAILY PHILL Administration Time Spent With Patient Time: Total time spent is greater than 50% in coordination of care (as documented) at patient's floor/unit and/or counseling patient: Time with patient: 15 - 24 minutes
[2020-05-12 11:16] VITALS: BP 127/92; PULSE 80; RESP 18; TEMP 37.4; O2SAT 96
--- NOTE | 2020-05-12 14:04 | P.PNIM_ITS ---
Subjective Subjective Interval History: seen and examined this Am no lower abd pain today, but more in the epigastric pain also reports multiple bouts of non-bloody, watery diarrhea also request nebs / nicoderm patch denies fvers or chills Physical Exam Vital Signs: Vital Signs: Last Vital Signs Temp 99.3 F 05/12/20 11:16 Pulse 80 05/12/20 11:16 Resp 18 05/12/20 11:16 BP 127/92 H 05/12/20 11:16 Pulse Ox 96 05/12/20 11:16 Body Mass Index 25.1 General - no acute distress, appears comfortable Cardiovascular - regular rate and rhythm, S1-S2 Lungs - normal respiratory effort, clear to auscultation bilaterally, no wheezing Abdomen - epigastric tenderness, no rebound; +mid line scar Extremities - no edema bilaterally Neuro - awake and alert, no focal deficits Objective Data Current Medications Generic Name Dose Route Start Last Admin Trade Name Freq PRN Reason Stop Dose Admin Albuterol/Ipratropium 3 ml 05/11/20 09:53 05/12/20 09:39 Albuterol/Iprat 2.5/0.5mg 3 Ml Ampul.Neb INHALE 3 ml RQ4H PRN Administration Shortness of Breath/Wheezing Folic Acid 1 mg 05/11/20 09:00 05/12/20 08:40 Folic Acid 1 Mg Tablet PO 1 mg DAILY PHILL Administration Piperacillin Sod/Tazobactam 50 mls @ 100 mls/hr 05/10/20 19:00 05/12/20 07:40 Sod 3.375 gm/ Sodium Chloride IV Infused Q6H PHILL Infusion Sodium Chloride 1,000 mls @ 100 mls/hr 05/10/20 17:52 05/12/20 08:14 Ns IVCONT Infused .Q10H PHILL Infusion Magnesium Oxide 400 mg 05/11/20 17:30 05/12/20 08:52 Magnesium Oxide 400 Mg Tablet PO 400 mg BIDPC PHILL Administration Medication 1 each 05/11/20 09:00 No Benzodiazepines MISCELLANE DAILY PHILL Morphine Sulfate 2 mg 05/10/20 17:52 Morphine Sulfate 2 Mg/Ml Cartridge IVPUSH Q4H PRN Pain, Severe (Pain Scale 7-10) Nicotine 14 mg 05/11/20 10:00 05/12/20 09:00 Nicotine 14 Mg Patch.Td24 TRANSDERMA 14 mg DAILY PHILL Administration Pantoprazole Sodium 40 mg 05/11/20 14:30 05/12/20 06:59 Pantoprazole Sodium 40 Mg/10 Ml Vial IVPUSH 40 mg DAILY@0630 [facility] Administration Pharmacy Consult 1 each 05/10/20 14:15 Consult Rx Perform Med Rec MISCELLANE ONCE PRN Consult order Phenobarbital 45 mg 05/11/20 09:00 05/12/20 08:40 Phenobarbital 15 Mg Tablet PO 05/12/20 21:01 45 mg BID PHILL Administration Phenobarbital 15 mg 05/13/20 09:00 Phenobarbital 15 Mg Tablet PO 05/14/20 21:01 BID PHILL Phenobarbital 15 mg 05/15/20 09:00 Phenobarbital 15 Mg Tablet PO 05/16/20 09:01 DAILY [facility] Sodium Chloride 3 ml 05/10/20 17:52 05/12/20 07:01 0.9 % Sodium Chloride Flush 3 Ml Syringe IVFLUSH 3 ml QSHIFT [facility] Administration Thiamine HCl 100 mg 05/11/20 09:00 05/12/20 08:40 Thiamine Hcl 100 Mg Tablet PO 100 mg DAILY [facility] Administration Labs CBC & Chem 7: 05/12/20 05:49 05/12/20 05:49 Microbiology Microbiology Results: Microbiology 05/10/20 10:41 Blood - Venous Blood Culture - Preliminary No growth after 48 hours. 05/10/20 11:47 Urine clean catch - Clean Catch Midstream Urine Culture - Final Escherichia coli 05/10/20 10:44 Blood - Venous Blood Culture - Preliminary Gram negative millie Assessment and Plan (1) Alcohol dependence: Status: Acute Assessment and Plan: This is a 50 yo M with a PMH of heavy alcohol use and dependence, prior intra- abdominal surgery, chronic abdominal pain and diarrhea who presented to the hospital with complaints hematuria (UA not indicative of this upon admission). His work up in the ED showed colitis +/- small abscess vs divierctiula. He was admitted for further treatment. 1. Colitis/question perisigmoid abscess versus small diverticula on broad-spectrum IV antibiotics c. diff pending continue zosyn for now Follow cultures General surgery on board, recommendations appreciated 2. alcohol abuse and dependence phenobarb per protocol folate low - continue po repletion continue thiamin/mvi monitor lytes patient appears determined to stop drinking 3.Gastritis / duodenitis continue iv ppi slowly advance diet GI consult if no improvement 4. alcoholic liver disease monitor lfts, stable 5. HyopK and hypoMg continue monitoring and repleting with both IV and PO 6. ? hematuria ( no further episodes rpeorted by the patient outpatient repeat ua in a few months Full Code DVT pptx, mechanical for now due to possible hematuria
[2020-05-12 14:31] LABS: Leukocytes Stool Qualitative NEGATIVE (NEGATIVE)
[2020-05-12 14:46] LABS: CDIFF Ag Negative (Negative); CDIFF Internal ctrl Dots and bkg OK (V); CDiff Toxin Negative (Negative)
[2020-05-12 15:19] LABS: Magnesium 1.6 mg/dL (1.6-2.6); Potassium 3.8 mmol/l (3.3-5.1)
[2020-05-12 15:36] VITALS: BP 137/94; PULSE 82; RESP 18; TEMP 36.6; O2SAT 98
[2020-05-12] MEDS: Acetaminophen 325 MG TABLET PO (16:16)
[2020-05-12] MEDS: Potassium Chloride ER 20 MEQ TAB.ER.PRT 40 MEQ PO (19:09)
[2020-05-12] MEDS: Cholestyramine (With Sugar) 4 GM POWD.PACK PO (19:43)
[2020-05-12 20:00] VITALS: BP 127/91; PULSE 81; RESP 20; TEMP 37.1; O2SAT 98
[2020-05-12] MEDS: Morphine Sulfate 2 MG/ML CARTRIDGE IVPUSH (20:47)
[2020-05-12 23:21] VITALS: BP 132/95; PULSE 77; RESP 20; TEMP 36.2; O2SAT 98
[2020-05-13] MEDS: Morphine Sulfate 2 MG/ML CARTRIDGE IVPUSH (02:02)
[2020-05-13 03:51] VITALS: BP 125/79; PULSE 70; RESP 20; TEMP 36.9; O2SAT 98
[2020-05-13] MEDS: Pantoprazole Sodium 40 MG/10 ML VIAL IVPUSH (05:35)
[2020-05-13 07:11] LABS: MANUAL DIFF FLAG NO
[2020-05-13 07:28] LABS: Basophils Percent Auto 0.4 % (0-2); Eosinophils Absolute Auto 0.1 X10*3/uL (0.0-0.4); Eosinophils Percent Auto 1.9 % (0-4); Hematocrit 33.8 % (42-52); Hemoglobin 11.8 g/dl (14.0-18.0); Imm Gran Abs Auto 0.02 X10*3/uL (0.00-0.03); Imm Gran Pct Auto 0.4 % (0.0-0.4); Lymphocytes Absolute Auto 0.8 X10*3/uL (1.2-4.9); Lymphocytes Percent Auto 17.7 % (20-40); Mean Corpuscular HGB Conc 34.9 g/dl (31.0-36.0); Mean Corpuscular Hemoglobin 36.4 pg (27.0-33.0); Mean Corpuscular Volume 104.3 fL (80-98); Mean Platelet Volume 10.1 fL (9.4-12.4); Monocytes Absolute Auto 0.8 X10*3/uL (0.1-1.2); Monocytes Percent Auto 17.2 % (2-11); Neutrophils Absolute Auto 2.9 X10*3/uL (2.0-8.3); Neutrophils Percent Auto 62.4 % (45-73); Platelet Count 108 X10*3/uL (160-400); Red Blood Count 3.24 X10*6/uL (4.60-5.80); White Blood Count 4.6 X10*3/uL (4.8-10.8)
[2020-05-13] MEDS: 0.9 % Sodium Chloride Flush 3 ML SYRINGE IVFLUSH (07:41)
[2020-05-13] MEDS: Nicotine 14 MG PATCH.TD24 TRANSDERMA (07:41)
[2020-05-13] MEDS: Folic Acid 1 MG TABLET PO (07:41)
[2020-05-13] MEDS: Thiamine HCL 100 MG TABLET PO (07:41)
[2020-05-13] MEDS: Magnesium Oxide 400 MG TABLET PO ×2 (07:41→17:52)
[2020-05-13] MEDS: Piperacillin Sodium/Tazobactam 3.375 GM in 0.9 % Sodium Chloride 50 ML IV (07:42)
[2020-05-13] MEDS: 0.9 % Sodium Chloride 1,000 ML 100 ML IVCONT (07:43)
[2020-05-13 07:59] LABS: Alanine Aminotransferase 72 U/L (0-40); Albumin Level 2.9 g/dL (3.5-5.0); Alkaline Phosphatase 136 U/L (39-117); Anion Gap 11 (12-20); Aspartate Amino Transferase 167 U/L (5-37); Bilirubin Direct 1.6 mg/dL (0.0-0.5); Bilirubin Total 1.9 mg/dL (0.0-1.0); Blood Urea Nitrogen 4 mg/dL (9-16); Calcium 7.2 mg/dL (8.4-10.2); Carbon Dioxide 24 mmol/L (22-29); Chloride 101 mmol/L (96-108); Estimated Glomerular Filt Rate > 60; Glucose Random 71 mg/dL (60-115); Potassium 3.4 mmol/l (3.3-5.1); Sodium 133 mmol/L (135-145); Total Protein 5.2 g/dL (6.5-8.0)
[2020-05-13 08:00] VITALS: BP 119/86; PULSE 86; RESP 18; TEMP 37.2; O2SAT 98
[2020-05-13 10:03] LABS: Magnesium 1.4 mg/dL (1.6-2.6)
[2020-05-13] MEDS: PHENobarbitaL 15 MG TABLET PO ×2 (10:05→20:55)
[2020-05-13 11:34] VITALS: BP 143/89; PULSE 89; RESP 18; TEMP 36.4; O2SAT 99
--- NOTE | 2020-05-13 12:00 | HO.PM.IMPN ---
Subjective Subjective Date of Service: 05/13/20 Interval History: seen and examined withdrawal symptoms resolved reports he had 1 episode of hematuria last night -- at the end of his urination, but wasnt collected abdominal pain and diarrhea bout the same tolerating diet ROS: General - no fevers or chills Cardiovascular - no chest pain Respiratory - no shortness of breath or cough Abdominal- +pain and diarrhea, no n/v - hematuria Physical Exam Vital Signs: Vital Signs: Last Vital Signs Temp 97.5 F 05/13/20 11:34 Pulse 89 05/13/20 11:34 Resp 18 05/13/20 11:34 BP 143/89 H 05/13/20 11:34 Pulse Ox 99 05/13/20 11:34 Body Mass Index 25.1 General - no acute distress, appears comfortable Cardiovascular - regular rate and rhythm, S1-S2 Lungs - normal respiratory effort, clear to auscultation bilaterally, no wheezing Abdomen - epigastric tenderness, no rebound; +mid line scar Extremities - no edema bilaterally Neuro - awake and alert, no focal deficits Objective Data Current Medications Generic Name Dose Route Start Last Admin Trade Name Freq PRN Reason Stop Dose Admin Acetaminophen 325 mg 05/12/20 14:44 05/12/20 16:16 Acetaminophen 325 Mg Tablet PO 325 mg Q6H PRN Administration Headache Albuterol/Ipratropium 3 ml 05/11/20 09:53 05/12/20 09:39 Albuterol/Iprat 2.5/0.5mg 3 Ml Ampul.Neb INHALE 3 ml RQ4H PRN Administration Shortness of Breath/Wheezing Cholestyramine Resin 4 gm 05/13/20 17:00 Cholestyramine (With Sugar) 4 Gm Powd.Pack PO BIDWM PHILL Folic Acid 1 mg 05/11/20 09:00 05/13/20 07:41 Folic Acid 1 Mg Tablet PO 1 mg DAILY PHILL Administration Sodium Chloride 1,000 mls @ 100 mls/hr 05/10/20 17:52 05/13/20 07:43 Ns IVCONT 100 mls/hr .Q10H PHILL Administration Magnesium Sulfate 2 gm in 50 mls @ 25 mls/hr 05/13/20 13:00 IV 05/13/20 14:59 ONCE ONE Ceftriaxone Sodium 1 gm/ 50 mls @ 100 mls/hr 05/13/20 12:00 Sodium Chloride IV Q24H [facility] Magnesium Oxide 400 mg 05/11/20 17:30 05/13/20 07:41 Magnesium Oxide 400 Mg Tablet PO 400 mg BIDPC [facility] Administration Medication 1 each 05/11/20 09:00 No Benzodiazepines MISCELLANE DAILY [facility] Morphine Sulfate 2 mg 05/10/20 17:52 05/13/20 02:02 Morphine Sulfate 2 Mg/Ml Cartridge IVPUSH 2 mg Q4H PRN Administration Pain, Severe (Pain Scale 7-10) Nicotine 14 mg 05/11/20 10:00 05/13/20 07:41 Nicotine 14 Mg Patch.Td24 TRANSDERMA 14 mg DAILY [facility] Administration Nicotine 21 mg 05/14/20 09:00 Nicotine 21 Mg Patch.Td24 TRANSDERMA DAILY [facility] Pantoprazole Sodium 40 mg 05/11/20 14:30 05/13/20 05:35 Pantoprazole Sodium 40 Mg/10 Ml Vial IVPUSH 40 mg DAILY@0630 [facility] Administration Pharmacy Consult 1 each 05/10/20 14:15 Consult Rx Perform Med Rec MISCELLANE ONCE PRN Consult order Phenobarbital 15 mg 05/13/20 09:00 05/13/20 10:05 Phenobarbital 15 Mg Tablet PO 05/14/20 21:01 15 mg BID [facility] Administration Phenobarbital 15 mg 05/15/20 09:00 Phenobarbital 15 Mg Tablet PO 05/16/20 09:01 DAILY [facility] Sodium Chloride 3 ml 05/10/20 17:52 05/13/20 07:41 0.9 % Sodium Chloride Flush 3 Ml Syringe IVFLUSH 3 ml QSHIFT [facility] Administration Thiamine HCl 100 mg 05/11/20 09:00 05/13/20 07:41 Thiamine Hcl 100 Mg Tablet PO 100 mg DAILY [facility] Administration Labs CBC & Chem 7: 05/13/20 05:48 05/13/20 05:48 Microbiology Microbiology Results: Microbiology 05/11/20 12:05 Stool Stool Culture - Preliminary Culture in progress. 05/10/20 10:44 Blood - Venous Blood Culture - Preliminary Escherichia coli 05/10/20 10:41 Blood - Venous Blood Culture - Preliminary No growth after 48 hours. 05/10/20 11:47 Urine clean catch - Clean Catch Midstream Urine Culture - Final Escherichia coli Assessment and Plan (1) Alcohol dependence: Status: Acute Assessment and Plan: This is a 50 yo M with a PMH of heavy alcohol use and dependence, prior intra-abdominal surgery, chronic abdominal pain and diarrhea who presented to the hospital with complaints hematuria (UA not indicative of this upon admission). His work up in the ED showed colitis +/- small abscess vs divierctiula. He was admitted for further treatment. 1. Gram Negative bacteremia, ? colitis/small abscess His initial presentation was concerning for intraabdominl source of his infection due to CT findings. Now UA showing E. Coli and 1/2 Blood cx bottles -- sensitive to rocephin stop zosyn and switch to rocephin will get ID input Gen Surg input apprecaited 2. UTI / Hematuria reports another episode of hematuria yesterday, post void suspected 2/2 to UTI antibiotics as above and urology input as well 3. alcohol abuse and dependence, alcoholic liver dx phenobarb per protocol continue thiamin/mvi monitor lytes patient appears determined to stop drinking monitor LFTs 4.Gastritis / duodenitis tolerating solids change to PO PPI 5. HyopK and hypoMg continue monitoring and repleting with both IV and PO Full Code DVT pptx, mechanical due to hematuria
[2020-05-13] MEDS: cefTRIAXone sodium 1 GM in 0.9 % Sodium Chloride 50 ML IV (13:15)
[2020-05-13] MEDS: Magnesium Sulfate/H2O 2 GM/50 ML PIGGYBACK IV (14:26)
[2020-05-13 15:38] VITALS: BP 120/82; PULSE 75; RESP 18; TEMP 36.3; O2SAT 98
[2020-05-13] MEDS: Albuterol/Iprat 2.5/0.5MG 3 ML AMPUL.NEB INHALE (16:32)
[2020-05-13] MEDS: Potassium Chloride ER 20 MEQ TAB.ER.PRT PO (17:52)
[2020-05-13] MEDS: hydrOXYzine HCL 50 MG TABLET PO (17:53)
[2020-05-13] MEDS: Nicotine 21 MG PATCH.TD24 TRANSDERMA (18:34)
[2020-05-13 19:11] VITALS: BP 123/92; PULSE 88; RESP 22; TEMP 36.7; O2SAT 96
[2020-05-13 20:45] LABS: Glucose Urine UA NEG (NEG); Leukocyte Esterase Urine NEG (NEG); Nitrite Urine NEG (NEG); Urine Blood 3+ (NEG); Urine Ketones NEG (NEG); Urine Protein NEG (NEG-TRACE)
[2020-05-13 20:49] LABS: Appearance Urine HAZY; Color Urine YELLOW
[2020-05-13] MEDS: Melatonin 3 MG TABLET PO (20:55)
[2020-05-13 21:08] LABS: Bacteria Urine 1+ /LPF; RBC Urine 30-49 /HPF (0); WBC Urine 0 /HPF (0-4)
[2020-05-14] VITALS: BP 116/71; PULSE 78; RESP 19; TEMP 36.3; O2SAT 100
[2020-05-14] MEDS: Acetaminophen 325 MG TABLET PO (00:23)
[2020-05-14] MEDS: 0.9 % Sodium Chloride Flush 3 ML SYRINGE IVFLUSH ×2 (00:24→08:52)
[2020-05-14 03:05] VITALS: BP 128/90; PULSE 79; RESP 18; TEMP 36.6; O2SAT 100
[2020-05-14] MEDS: hydrOXYzine HCL 50 MG TABLET PO (03:07)
[2020-05-14 04:07] VITALS: RESP 20
[2020-05-14] MEDS: Morphine Sulfate 2 MG/ML CARTRIDGE IVPUSH (04:07)
--- NOTE | 2020-05-14 04:43 | PC.ADMIT ---
pt has c/o of 10/10 diffuse abdominal pain. he is very animated and conversational. he tells an extensive tale involving his bowel perforation and life events. he states that when he urinates and he will experience kenzie blood at the end of his urine stream. abdomen is semisoft and diffusely tender. pt has well healed medial and transverse abdominal scars. medicated with morphine 2 mg iv for 10/10 abdomnal pain.
[2020-05-14 06:20] LABS: Hematocrit 37.4 % (42-52); Hemoglobin 12.8 g/dl (14.0-18.0); Mean Corpuscular HGB Conc 34.2 g/dl (31.0-36.0); Mean Corpuscular Hemoglobin 35.8 pg (27.0-33.0); Mean Corpuscular Volume 104.5 fL (80-98); Mean Platelet Volume 10.3 fL (9.4-12.4); Platelet Count 123 X10*3/uL (160-400); Red Blood Count 3.58 X10*6/uL (4.60-5.80); Red Cell Distribution Width 13.2 % (11.0-16.0); White Blood Count 5.2 X10*3/uL (4.8-10.8)
[2020-05-14] MEDS: Pantoprazole Sodium 40 MG/10 ML VIAL IVPUSH (06:33)
[2020-05-14 06:57] LABS: Alanine Aminotransferase 84 U/L (0-40); Albumin Level 3.2 g/dL (3.5-5.0); Alkaline Phosphatase 163 U/L (39-117); Anion Gap 11 (12-20); Aspartate Amino Transferase 200 U/L (5-37); Bilirubin Direct 1.5 mg/dL (0.0-0.5); Bilirubin Total 1.8 mg/dL (0.0-1.0); Blood Urea Nitrogen 6 mg/dL (9-16); Carbon Dioxide 27 mmol/L (22-29); Chloride 100 mmol/L (96-108); Estimated Glomerular Filt Rate > 60; Glucose Random 106 mg/dL (60-115); Magnesium 1.5 mg/dL (1.6-2.6); Potassium 3.9 mmol/l (3.3-5.1); Sodium 134 mmol/L (135-145); Total Protein 5.7 g/dL (6.5-8.0)
[2020-05-14] MEDS: Albuterol/Iprat 2.5/0.5MG 3 ML AMPUL.NEB INHALE (06:59)
[2020-05-14 07:42] VITALS: BP 117/74; PULSE 84; RESP 18; TEMP 36.5; O2SAT 96
--- NOTE | 2020-05-14 08:26 | PM.UROCN ---
History of Present Illness Consult details Narrative: 50-year-old male admit through ER with multiple issues. He reports a fever for the past 3 days. He also reports hematuria and blood dripping from his penis. he reports shortness of breath which has been ongoing for the past 4 months. He also reports abdominal pain. Hematuria at begining and end of urination Treated with Abx Culture pending Add cytology Can do outpatient cystoscopy Review of Systems Review of Systems: Yes all other systems are reviewed and are negative Neurologic: Denies focal weakness and Denies convulsions [facility] Past Medical History Medical History (Updated 05/14/20 @ 08:24 by Rob Orlando MD) Alcohol dependence Alcohol withdrawal seizure Asthma Carpal tunnel syndrome Diarrhea, unspecified Elevated ALT measurement Epigastric pain Hepatic steatosis Internal and external bleeding hemorrhoids Mood disorder Pelvic abscess Rectal pain Screen for colon cancer (~04/11/20) Functional capacity: independent ambulation Family History Family History Father No problems noted. Mother No problems noted. Brother No problems noted. Surgical History Surgical History H/O hemorrhoidectomy History of appendectomy History of colon resection Social History Social History (Updated 05/10/20 @ 15:36 by ELDON Trinidad) Household Members: Significant Other Housing: House Alcohol intake: current Alcohol intake frequency: 3 or more drinks per day Alcohol type: hard liquor Smoking Status: Current every day smoker Tobacco Type: Cigarette Packs Per Day: 0.5 Cigarettes Per Day: 10.0 Use of substances other than those prescribed or required for medical reasons: Yes Substance Use Type: Marijuana Currently Displaying Signs/Symptoms of Drug Intoxication Withdrawal: No Have you been hit, kicked, punched, or otherwise hurt by someone within the past year? If so, by whom?: No Do you feel safe in your current relationship?: Yes Is there a partner from a previous relationship who is making you feel unsafe now?: No Are you made to feel afraid or neglected: No Advance Directives: No Advance Directives Information Provided: No Do you have thoughts of harming others: None Do you have a plan to hurt others: No Plan Recently lost weight without trying: No service: No Meds Allergies Allergy/AdvReac Type Severity Reaction Status Date / Time dog dander [dogs] Allergy Unknown Verified 05/10/20 10:01 mold Allergy Unknown Verified 04/24/20 10:27 Home Medications Medication Instructions Recorded Confirmed Type prednisone 5 mg tablet 5 mg PO DAILY 04/24/20 05/10/20 History Physical Exam Vital Signs: Vital Signs: Last Vital Signs Temp 97.7 F 05/14/20 07:42 Pulse 84 05/14/20 07:42 Resp 18 05/14/20 07:42 BP 117/74 05/14/20 07:42 Pulse Ox 96 05/14/20 07:42 Body Mass Index 25.1 Const: General: cooperative, healthy appearing, comfortable and no acute distress Nutritional Appearance: average body habitus Orientation/consciousness: oriented to person, oriented to place and oriented to time Eyes: General: appearance normal, both eyes and all related structures Chest: Chest palpation & inspection: normal inspection of the chest Resp: Effort & Inspection: normal respiratory effort Cardio: Rate: regular rate GI: Inspection: Yes normal to inspection Skin: Hair: normal Neuro: General: oriented to person, oriented to place and oriented to time Extrem: General: Yes normal to inspection Results Labs Result diagrams: 05/14/20 05:20 05/14/20 05:20 Labs: Abnormal lab results 05/13/20 05/13/20 05/14/20 Range/Units 05:48 20:00 05:20 RBC 3.58 L (4.60-5.80) X10*6/uL Hgb 12.8 L (14.0-18.0) g/dl Hct 37.4 L (42-52) % MCV 104.5 H (80-98) fL MCH 35.8 H (27.0-33.0) pg Plt Count 123 L (160-400) X10*3/uL Sodium (135-145) mmol/L Anion Gap (12-20) BUN (9-16) mg/dL Calcium (8.4-10.2) mg/dL Magnesium 1.4 L* (1.6-2.6) mg/dL Total Bilirubin (0.0-1.0) mg/dL Direct Bilirubin (0.0-0.5) mg/dL AST (5-37) U/L ALT (0-40) U/L Alkaline Phosphatase (39-117) U/L Total Protein (6.5-8.0) g/dL Albumin (3.5-5.0) g/dL Urine Blood 3+ H (NEG) Urine RBC 30-49 H (0) /HPF 05/14/20 Range/Units 05:20 RBC (4.60-5.80) X10*6/uL Hgb (14.0-18.0) g/dl Hct (42-52) % MCV (80-98) fL MCH (27.0-33.0) pg Plt Count (160-400) X10*3/uL Sodium 134 L (135-145) mmol/L Anion Gap 11 L (12-20) BUN 6 L (9-16) mg/dL Calcium 8.0 L D (8.4-10.2) mg/dL Magnesium 1.5 L (1.6-2.6) mg/dL Total Bilirubin 1.8 H (0.0-1.0) mg/dL Direct Bilirubin 1.5 H (0.0-0.5) mg/dL AST 200 H (5-37) U/L ALT 84 H (0-40) U/L Alkaline Phosphatase 163 H (39-117) U/L Total Protein 5.7 L (6.5-8.0) g/dL Albumin 3.2 L (3.5-5.0) g/dL Urine Blood (NEG) Urine RBC (0) /HPF Short CBC 05/14/20 Range/Units 05:20 WBC 5.2 (4.8-10.8) X10*3/uL Hgb 12.8 L (14.0-18.0) g/dl Hct 37.4 L (42-52) % Plt Count 123 L (160-400) X10*3/uL BMP 05/14/20 05:20 Sodium 134 L Potassium 3.9 Chloride 100 Carbon Dioxide 27 BUN 6 L Creatinine 0.60 Calcium 8.0 L D Liver Function 05/14/20 Range/Units 05:20 Total Bilirubin 1.8 H (0.0-1.0) mg/dL Direct Bilirubin 1.5 H (0.0-0.5) mg/dL AST 200 H (5-37) U/L ALT 84 H (0-40) U/L Alkaline Phosphatase 163 H (39-117) U/L Albumin 3.2 L (3.5-5.0) g/dL Urine 05/10/20 05/13/20 Range/Units 12:36 20:00 Urine Color YELLOW YELLOW Urine Appearance HAZY HAZY Urine pH 6.0 7.0 (5.0-8.0) Ur Specific [place] <= 1.005 1.010 (1.005-1.025) Urine Protein NEG NEG (NEG-TRACE) MG/DL Urine Glucose (UA) NEG NEG (NEG) MG/DL All other labs normal. Bladder and kidney normal on CT KIDNEYS AND URETERS: The kidneys are normal in size, shape, and attenuation. No hydronephrosis, hydroureter, or calculi seen. No perinephric stranding. There is a 1.4 cm cyst midpole right kidney. BLADDER: Unremarkable. Assessment and Plan (1) Gross hematuria: Status: Acute Hematuria Check cytology Cystoscopy as outpatient
--- NOTE | 2020-05-14 08:27 | PM.PNGS ---
Subjective Subjective Interval history: tolerating diet says he continues to have hematuria some epig pain but better Physical Exam Vital Signs: Vital Signs: Last Vital Signs Temp 97.7 F 05/14/20 07:42 Pulse 84 05/14/20 07:42 Resp 18 05/14/20 07:42 BP 117/74 05/14/20 07:42 Pulse Ox 96 05/14/20 07:42 Body Mass Index 25.1 Const: Other: looks anxious General: comfortable Cardio: Rate: regular rate GI: Palpation (GI): Soft to palpation, not firm and nontender Progress Note: A&P Assessment and plan (1) Epigastric pain: Status: Acute Assessment and Plan: epigastric pain likely from duodenitis, secondary to ETOH as suggested by CT ?diverticulum vs abscess next to sigmoid- no tenderness awaiting workup for hematuria - cysto as per abdominal exam benign Fall Risk Details Current Medications: Current Medications Generic Name Dose Route Start Last Admin Trade Name Freq PRN Reason Stop Dose Admin Acetaminophen 325 mg 05/12/20 14:44 05/14/20 00:23 Acetaminophen 325 Mg Tablet PO 325 mg Q6H PRN Administration Headache Albuterol/Ipratropium 3 ml 05/11/20 09:53 05/14/20 06:59 Albuterol/Iprat 2.5/0.5mg 3 Ml Ampul.Neb INHALE 3 ml RQ4H PRN Administration Shortness of Breath/Wheezing Cholestyramine Resin 4 gm 05/13/20 17:00 05/13/20 17:54 Cholestyramine (With Sugar) 4 Gm Powd.Pack PO Not Given BIDWM PHILL Folic Acid 1 mg 05/11/20 09:00 05/13/20 07:41 Folic Acid 1 Mg Tablet PO 1 mg DAILY PHILL Administration Hydroxyzine HCl 50 mg 05/13/20 12:09 05/14/20 03:07 Hydroxyzine Hcl 50 Mg Tablet PO 50 mg Q6H PRN Administration Anxiety Ceftriaxone Sodium 1 gm/ 50 mls @ 100 mls/hr 05/13/20 12:00 05/13/20 14:26 Sodium Chloride IV Infused Q24H PHILL Infusion Magnesium Sulfate 2 gm in 50 mls @ 25 mls/hr 05/14/20 07:11 IV 05/14/20 09:10 ONCE ONE Magnesium Oxide 400 mg 05/11/20 17:30 05/13/20 17:52 Magnesium Oxide 400 Mg Tablet PO 400 mg BIDPC PHILL Administration Medication 1 each 05/11/20 09:00 No Benzodiazepines MISCELLANE DAILY PHILL Melatonin 3 mg 05/13/20 21:00 05/13/20 20:55 Melatonin 3 Mg Tablet PO 3 mg BEDTIME PHILL Administration Nicotine 21 mg 05/13/20 18:05 05/13/20 18:34 Nicotine 21 Mg Patch.Td24 TRANSDERMA 21 mg DAILY PHILL Administration Pantoprazole Sodium 40 mg 05/11/20 14:30 05/14/20 06:33 Pantoprazole Sodium 40 Mg/10 Ml Vial IVPUSH 40 mg DAILY@0630 PHILL Administration Pharmacy Consult 1 each 05/10/20 14:15 Consult Rx Perform Med Rec MISCELLANE ONCE PRN Consult order Phenobarbital 15 mg 05/13/20 09:00 05/13/20 20:55 Phenobarbital 15 Mg Tablet PO 05/14/20 21:01 15 mg BID PHILL Administration Phenobarbital 15 mg 05/15/20 09:00 Phenobarbital 15 Mg Tablet PO 05/16/20 09:01 DAILY PHILL Potassium Chloride 20 meq 05/13/20 17:30 05/13/20 17:52 Potassium Chloride Er 20 Meq Tab.Er.Prt PO 20 meq BIDPC PHILL Administration Sodium Chloride 3 ml 05/10/20 17:52 05/14/20 00:24 0.9 % Sodium Chloride Flush 3 Ml Syringe IVFLUSH 3 ml QSHIFT PHILL Administration Thiamine HCl 100 mg 05/11/20 09:00 05/13/20 07:41 Thiamine Hcl 100 Mg Tablet PO 100 mg DAILY PHILL Administration Time Spent With Patient Time: Total time spent is greater than 50% in coordination of care (as documented) at patient's floor/unit and/or counseling patient: Time with patient: less than 15 minutes
[2020-05-14] MEDS: Magnesium Sulfate/H2O 2 GM/50 ML PIGGYBACK IV (08:49)
[2020-05-14] MEDS: Nicotine 21 MG PATCH.TD24 TRANSDERMA (08:51)
[2020-05-14] MEDS: Potassium Chloride ER 20 MEQ TAB.ER.PRT PO (08:51)
[2020-05-14] MEDS: Magnesium Oxide 400 MG TABLET PO (08:51)
[2020-05-14] MEDS: Cholestyramine (With Sugar) 4 GM POWD.PACK PO (08:51)
[2020-05-14] MEDS: PHENobarbitaL 15 MG TABLET PO (08:52)
[2020-05-14] MEDS: Thiamine HCL 100 MG TABLET PO (08:52)
[2020-05-14] MEDS: Folic Acid 1 MG TABLET PO (08:52)
[2020-05-14 11:16] VITALS: BP 121/75; PULSE 94; RESP 20; TEMP 36.6; O2SAT 98
[2020-05-14 12:18] LABS: Urine Cytology See Pathology rpt
--- NOTE | 2020-05-14 12:38 | MHC.CM.PN ---
Patient is being discharged home today no services. GF will be providing transport.
[2020-05-14 14:50] LABS: Urine Cytology See Pathology rpt
--- NOTE | 2020-05-14 18:41 | P.DS_ITS ---
DS: Providers Provider Date of admission: 05/10/20 15:06 Primary care physician: None Physician Consults: 05/10/20 14:53 Consult to General Surgery Routine Consulting Provider: Carlos Mao Reason for consultation: ? perisigmoid abscess 05/12/20 15:36 Consult to Infectious Diseases Routine Consulting Provider: Lyndsay Gagnon Reason for consultation: bacteremia -- urine vs gi source 05/13/20 11:38 Consult to Urology Routine Consulting Provider: Rob Orlando Reason for consultation: hematuria, uti DS: Diagnosis Discharge Diagnosis (1) Gross hematuria: Status: Acute (2) E coli bacteremia: Status: Acute (3) UTI (urinary tract infection): Status: Acute (4) Colitis: Status: Acute (5) Alcohol withdrawal: Status: Acute (6) Electrolyte abnormality: Status: Acute DS: Summary Hospital Course Hospital Course: Patient presented to the hospital with multitude full complaints including diarrhea and hematuria along with abdominal pain. His urinalysis at the time of admission was not impressive for hematuria however his CT scan of the abdomen and pelvis did show colitis with the possibility of a small helen sigmoid abscess versus Diverticula. He was evaluated by General surgery who felt that he could be treated with intravenous antibiotics and so he was admitted under the medical services for and started on IV Zosyn. Over the course of his hospitalization, patient's abdominal symptoms improved and his diet was advanced from clear liquids to solids which he tolerated. His hospital course further revealed that he did indeed have kenzie hematuria and his urine and blood cultures both grew E coli which was sensitive to cephalosporins. He was transitioned from IV Zosyn to IV ceftriaxone and ultimately to oral cefuroxime 500 mg twice daily for total of 14 days under the guidance of Infectious Disease. For his hematuria he was seen by Urology who recommended a outpatient cystoscopy and will be followed by Dr. Orlando. Additionally, cytology has been added to his urinalysis again to be followed by Dr. Orlando. His hospital course was further complicated by alcohol withdrawal for which he was initiated on phenobarbital. His electrolytes were monitored and repleted as necessary. Time Spent with Patient Time attestation: Total time spent providing and/or coordinating discharge services: Physical Exam Vital Signs: Vital Signs: Last Vital Signs Temp 97.8 F 05/14/20 11:16 Pulse 94 05/14/20 11:16 Resp 20 05/14/20 11:16 BP 121/75 11/09/20 11:16 Pulse Ox 98 05/14/20 11:16 Body Mass Index 25.1 General - no acute distress, appears comfortable Cardiovascular - regular rate and rhythm, S1-S2 Lungs - normal respiratory effort, clear to auscultation bilaterally, no wheezing Abdomen - soft, nontender, no rebound regarding Extremities - no edema bilaterally Neuro - awake and alert, no focal deficits DS: Data Data Completed and Pending Labs on day of discharge: 05/10/20 10:33 XR chest 1V Stat 05/10/20 10:35 CT abdomen pelvis w con Stat 05/10/20 10:42 Basic Metabolic Panel Stat Lactic Acid Stat Lipase Stat Liver Panel Stat Magnesium Stat SARS COV2 PCR INHOUSE Stat 05/10/20 10:43 Complete Blood Count Auto Diff Stat Piperacillin Sodium/Tazobactam [Zosyn] 3.375 gm 0.9 % Sodium Chloride [Ns] 50 ml IV ONCE 05/10/20 10:45 0.9 % Sodium Chloride [Ns] 1,000 ml IVCONT 999 mls/hr 05/10/20 11:24 Piperacillin Sodium/Tazobactam [Zosyn] 3.375 gm IV .STK-MED ONE 05/10/20 11:30 0.9 % Sodium Chloride [Ns] 1,000 ml IVCONT 999 mls/hr 0.9 % Sodium Chloride [Ns] 1,000 ml IVCONT 999 mls/hr 05/10/20 11:47 Urine Culture Routine 05/10/20 12:01 Communication Order NOW 05/10/20 12:25 iohexoL 350 MG/ML [Omnipaque 350 MG/ML] 100 ml IV ONCE ONE 05/10/20 13:14 ~Lactic Acid-LAB USE ONLY Stat 05/10/20 13:38 Potassium Chloride ER [Klor-con] 60 meq PO ONCE ONE 05/10/20 14:02 ECG 12 lead EKG Stat EKG Documentation DIRECTED 05/10/20 14:15 Consult Rx Perform Med Rec 1 each MISCELLANE ONCE PRN 05/10/20 14:47 Transfer Order Routine 05/10/20 14:48 Code Status Routine 05/10/20 15:15 Add Laboratory Test Stat KCl 20 mEq in 0.9 % Sodium Chl 20 meq in 1,000 ml IVCONT 42 mls/hr 05/10/20 15:30 Magnesium Sulfate/H2O 2 gm in 50 ml IV ONCE 05/10/20 Lunch Clear Liquid Diet 05/10/20 16:47 ~Lactic Acid-LAB USE ONLY Stat 05/10/20 17:52 0.9 % Sodium Chloride Flush [NS Flush] 3 ml IVFLUSH QSHIFT 0.9 % Sodium Chloride [Ns] 1,000 ml IVCONT 100 mls/hr Consult Rx EtOH Phenob Dosing 1 each MISCELLANE ONCE ONE Morphine Sulfate 2 mg IVPUSH Q4H PRN 05/10/20 17:52 Ambulate QSHIFT WHILE AWAKE Compression Therapy QSHIFT Cont. Telemetry w/Vital Sign limit Q4HR IV insert/maintain Q4HR Intake and Output QSHIFTE Pulse Oximetry Q4HR Vital Signs Q4HR 05/10/20 17:53 Magnesium Sulfate/H2O 2 gm in 50 ml IV ONCE 05/10/20 18:07 Basic Metabolic Panel Routine Complete Blood Count no Diff Stat 05/10/20 18:12 Piperacillin Sodium/Tazobactam [Zosyn] 3.375 gm IV .STK-MED ONE 05/10/20 18:30 PHENobarbitaL sodium 175 mg IM ONCE ONE 05/10/20 19:00 Piperacillin Sodium/Tazobactam [Zosyn] 3.375 gm 0.9 % Sodium Chloride [Ns] 50 ml IV Q6H 05/10/20 20:44 Albuterol Sulfate (0.042%) [Ventolin (0.042%)] 1.25 mg INHALE ONCE ONE Calcium Carbonate [Tums EX] 750 mg PO ONCE ONE Promethazine HCL [Phenergan] 6.25 mg 0.9 % Sodium Chloride [Ns] 50 ml IV ONCE 05/10/20 21:30 PHENobarbitaL sodium 130 mg IM Q3H 05/10/20 21:42 Promethazine HCL [Phenergan] 25 mg IV .STK-MED ONE 05/10/20 23:43 Acetaminophen [Tylenol] 650 mg PO ONCE ONE Magnesium Hydrox/Alum Hydrox [Maalox] 15 ml PO ONCE ONE 05/10/20 23:55 Piperacillin Sodium/Tazobactam [Zosyn] 3.375 gm IV .STK-MED ONE 05/11/20 05:39 Basic Metabolic Panel DAILY@0600 Complete Blood Count Auto Diff DAILY@0600 Liver Panel Routine Magnesium Routine SLIDE REVIEW Routine Vitamin B12 and Folate Routine 05/11/20 06:02 Acetaminophen [Tylenol] 650 mg PO ONCE ONE 05/11/20 06:05 Piperacillin Sodium/Tazobactam [Zosyn] 3.375 gm IV .STK-MED ONE 05/11/20 09:00 Folic Acid 1 mg PO DAILY NO Benzodiazepines 1 each MISCELLANE DAILY PHENobarbitaL 45 mg PO BID Thiamine HCL [Vitamin B-1] 100 mg PO DAILY 05/11/20 09:53 Albuterol/Iprat 2.5/0.5MG 3 ML [Duoneb] 3 ml INHALE RQ4H PRN 05/11/20 09:55 Magnesium Sulfate/H2O 2 gm in 50 ml IV ONCE Potassium Chloride Packet [Klor-Con Packet] 40 meq PO ONCE ONE 05/11/20 10:00 Nicotine [Nicoderm] 14 mg TRANSDERMA DAILY Omeprazole [PriLOSEC] 20 mg PO DAILY@0630 05/11/20 10:20 Add Laboratory Test Routine Add Laboratory Test Routine 05/11/20 12:41 Piperacillin Sodium/Tazobactam [Zosyn] 3.375 gm IV .STK-MED ONE 05/11/20 14:27 CDiff with Reflex to PCR Routine Leukocytes Stool Qualitative Routine 05/11/20 14:30 Pantoprazole Sodium [Protonix] 40 mg IVPUSH DAILY@0630 05/11/20 16:58 Acetaminophen [Tylenol] 650 mg PO ONCE ONE 05/11/20 17:30 Magnesium Oxide [Mag-Ox] 400 mg PO BIDPC 05/11/20 20:26 Piperacillin Sodium/Tazobactam [Zosyn] 3.375 gm IV .STK-MED ONE 05/12/20 02:36 Piperacillin Sodium/Tazobactam [Zosyn] 3.375 gm IV .STK-MED ONE 05/12/20 05:49 Basic Metabolic Panel DAILY@0600 Complete Blood Count Auto Diff DAILY@0600 Liver Panel DAILY@0600 Magnesium Routine SLIDE REVIEW Routine 05/12/20 06:47 Piperacillin Sodium/Tazobactam [Zosyn] 3.375 gm IV .STK-MED ONE 05/12/20 08:17 Magnesium Sulfate/H2O 2 gm in 50 ml IV ONCE 05/12/20 08:18 Potassium Chloride ER [Klor-con] 60 meq PO ONCE ONE 05/12/20 08:30 Potassium Chloride/H20 10 meq in 100 ml IV Q1H 05/12/20 14:14 Piperacillin Sodium/Tazobactam [Zosyn] 3.375 gm IV .STK-MED ONE 05/12/20 14:29 Magnesium Routine Potassium Routine 05/12/20 14:44 Acetaminophen [Tylenol] 325 mg PO Q6H PRN 05/12/20 16:55 Cholestyramine (With Sugar) [Questran] 4 gm PO ONCE ONE 05/12/20 17:23 Nicotine [Nicoderm] 7 mg TRANSDERMA ONCE ONE 05/12/20 17:24 Potassium Chloride ER [Klor-con] 40 meq PO ONCE ONE 05/12/20 19:03 Piperacillin Sodium/Tazobactam [Zosyn] 3.375 gm IV .STK-MED ONE 05/12/20 23:34 Piperacillin Sodium/Tazobactam [Zosyn] 3.375 gm IV .STK-MED ONE 05/13/20 05:48 Basic Metabolic Panel DAILY@0600 Complete Blood Count Auto Diff DAILY@0600 Liver Panel DAILY@0600 Magnesium Routine 05/13/20 07:36 Piperacillin Sodium/Tazobactam [Zosyn] 3.375 gm IV .STK-MED ONE 05/13/20 09:00 PHENobarbitaL 15 mg PO BID 05/13/20 09:37 Add Laboratory Test Routine 05/13/20 12:00 cefTRIAXone sodium [Rocephin] 1 gm 0.9 % Sodium Chloride [Ns] 50 ml IV Q24H 05/13/20 12:09 hydrOXYzine HCL [Atarax] 50 mg PO Q6H PRN 05/13/20 13:00 Magnesium Sulfate/H2O 2 gm in 50 ml IV ONCE 05/13/20 13:08 cefTRIAXone sodium [Rocephin] 1 gm .ROUTE .STK-MED ONE 05/13/20 17:00 Cholestyramine (With Sugar) [Questran] 4 gm PO BIDWM 05/13/20 17:30 Potassium Chloride ER [Klor-con] 20 meq PO BIDPC 05/13/20 18:05 Nicotine [Nicoderm] 21 mg TRANSDERMA DAILY 05/13/20 20:00 Urine Cytology Routine 05/13/20 21:00 Melatonin 3 mg PO BEDTIME 05/14/20 05:20 Basic Metabolic Panel DAILY@0600 Complete Blood Count no Diff DAILY@0600 Liver Panel DAILY@0600 Magnesium Routine 05/14/20 07:11 Magnesium Sulfate/H2O 2 gm in 50 ml IV ONCE 05/14/20 09:00 Nicotine [Nicoderm] 21 mg TRANSDERMA DAILY 05/14/20 14:48 Urine Cytology Routine 05/15/20 09:00 PHENobarbitaL 15 mg PO DAILY Laboratory Last Values WBC 5.2 X10*3/uL (4.8-10.8) 05/14/20 05:20 RBC 3.58 X10*6/uL (4.60-5.80) L 05/14/20 05:20 Hgb 12.8 g/dl (14.0-18.0) L 05/14/20 05:20 Hct 37.4 % (42-52) L 05/14/20 05:20 MCV 104.5 fL (80-98) H 05/14/20 05:20 MCH 35.8 pg (27.0-33.0) H 05/14/20 05:20 MCHC 34.2 g/dl (31.0-36.0) 05/14/20 05:20 RDW 13.2 % (11.0-16.0) 05/14/20 05:20 Plt Count 123 X10*3/uL (160-400) L 05/14/20 05:20 MPV 10.3 fL (9.4-12.4) 05/14/20 05:20 Immature Gran % (Auto) 0.4 % (0.0-0.4) 05/13/20 05:48 Neut % (Auto) 62.4 % (45-73) 05/13/20 05:48 Lymph % (Auto) 17.7 % (20-40) L 05/13/20 05:48 [place] % (Auto) 17.2 % (2-11) H 05/13/20 05:48 Eos % (Auto) 1.9 % (0-4) 05/13/20 05:48 Baso % (Auto) 0.4 % (0-2) 05/13/20 05:48 Lymph # (Auto) 0.8 X10*3/uL (1.2-4.9) L 05/13/20 05:48 [place] # (Auto) 0.8 X10*3/uL (0.1-1.2) 05/13/20 05:48 Eos # (Auto) 0.1 X10*3/uL (0.0-0.4) 05/13/20 05:48 Baso # (Auto) 0.0 X10*3/uL (0.0-0.2) 05/13/20 05:48 Abs Immat Gran (auto) 0.02 X10*3/uL (0.00-0.03) 05/13/20 05:48 Absolute Neuts (auto) 2.9 X10*3/uL (2.0-8.3) 05/13/20 05:48 Absolute Nucleated RBC 0.000 X10*3/uL (0.0-0.012) 05/14/20 05:20 Nucleated RBC % (auto) 0.0 /100WBC (0.0-0.2) 05/14/20 05:20 Smear Tech's Comments VERIFIED 05/12/20 05:49 D-Dimer Cancelled 05/13/20 19:44 Sodium 134 mmol/L (135-145) L 05/14/20 05:20 Potassium 3.9 mmol/l (3.3-5.1) 05/14/20 05:20 Chloride 100 mmol/L (96-108) 05/14/20 05:20 Carbon Dioxide 27 mmol/L (22-29) 05/14/20 05:20 Anion Gap 11 (12-20) L 05/14/20 05:20 BUN 6 mg/dL (9-16) L 05/14/20 05:20 Creatinine 0.60 mg/dL (0.5-1.4) 05/14/20 05:20 Estim Creat Clear Calc 152.0 05/14/20 05:20 Estimated GFR > 60 05/14/20 05:20 Random Glucose 106 mg/dL (60-115) D 05/14/20 05:20 Lactic Acid 7.8 mmol/L (0.5-2.0) H* 05/10/20 10:42 Lactic Acid Fup @ 2Hr 5.5 mmol/L (0.5-2.0) H* 05/10/20 13:14 Lactic Acid Fup @ 4Hr 4.3 mmol/L (0.5-2.0) H* 05/10/20 16:47 Calcium 8.0 mg/dL (8.4-10.2) L D 05/14/20 05:20 Magnesium 1.5 mg/dL (1.6-2.6) L 05/14/20 05:20 Total Bilirubin 1.8 mg/dL (0.0-1.0) H 05/14/20 05:20 Direct Bilirubin 1.5 mg/dL (0.0-0.5) H 05/14/20 05:20 AST 200 U/L (5-37) H 05/14/20 05:20 ALT 84 U/L (0-40) H 05/14/20 05:20 Alkaline Phosphatase 163 U/L (39-117) H 05/14/20 05:20 Total Protein 5.7 g/dL (6.5-8.0) L 05/14/20 05:20 Albumin 3.2 g/dL (3.5-5.0) L 05/14/20 05:20 Lipase 8 U/L (8-78) 05/10/20 10:42 Vitamin B12 1061 pg/mL (200-900) H 05/11/20 05:39 Folate 2.4 ng/mL (> or = 4.0) L 05/11/20 05:39 Urine Color YELLOW 05/13/20 20:00 Urine Appearance HAZY 05/13/20 20:00 Urine pH 7.0 (5.0-8.0) 05/13/20 20:00 Ur Specific Foley 1.010 (1.005-1.025) 05/13/20 20:00 Urine Protein NEG MG/DL (NEG-TRACE) 05/13/20 20:00 Urine Glucose (UA) NEG MG/DL (NEG) 05/13/20 20:00 Urine Ketones NEG MG/DL (NEG) 05/13/20 20:00 Urine Blood 3+ (NEG) H 05/13/20 20:00 Urine Nitrite NEG (NEG) 05/13/20 20:00 Ur Leukocyte Esterase NEG (NEG) 05/13/20 20:00 Urine RBC 30-49 /HPF (0) H 05/13/20 20:00 Urine WBC 0 /HPF (0-4) 05/13/20 20:00 Ur Squamous Epith Cells NONE /LPF 05/13/20 20:00 Urine Bacteria 1+ /LPF 05/13/20 20:00 Urine Mucus TRACE /LPF 05/10/20 12:36 Stool Leukocytes, Qual NEGATIVE (NEGATIVE) 05/12/20 12:05 C. difficile Toxin A&B Negative (Negative) 05/12/20 12:05 C. difficile Antigen Negative (Negative) 05/12/20 12:05 C. difficile Interpret SEE NOTE 05/12/20 12:05 Coronavirus (PCR) NEGATIVE (Negative) 05/10/20 10:42 Preliminary micro results at discharge 05/11/20 12:05 Stool Culture - Preliminary Stool Culture in progress. 05/10/20 10:44 Blood Culture - Preliminary Blood - Venous Escherichia coli 05/10/20 10:41 Blood Culture - Preliminary Blood - Venous No growth after 48 hours. Discharge Plan Discharge Patient Disposition: Home, Self-Care Referrals: Rob Orlando MD [Physician] - (Call office for appt) Physician,None [Primary Care Provider] - Discharge Medications: New hydroxyzine HCl 50 mg Tablet 50 mg PO Q6H PRN (Reason: Anxiety) Qty: 30 RF: 0 potassium chloride [Klor-Con M20] 20 mEq Tablet,Er Particles/Crystals 20 meq PO DAILY Qty: 10 RF: 0 magnesium oxide 400 mg (241.3 mg magnesium) Tablet 400 mg PO BIDPC Qty: 20 RF: 0 omeprazole 40 mg capsule,delayed release(DR/EC) 40 mg PO DAILY Qty: 30 RF: 0 cefuroxime axetil 500 mg tablet 500 mg PO Q12H Qty: 28 RF: 0 Continued cholestyramine (with sugar) 4 gram powder 4 g PO BID Qty: 378 RF: 0 ipratropium-albuterol 0.5 mg-3 mg(2.5 mg base)/3 mL solution for nebulization 3 ml inhalation Q6-8H PRN (Reason: wheezing) 30 Days Qty: 270 RF: 6 Discontinued prednisone 5 mg tablet 5 mg PO DAILY RF: 0 Discharge Orders: Discharge Order (Routine); Ordered 05/14/20 Ordered By: López Dias Diet: advance to your usual diet Activity on Discharge: As tolerated Discharge Date/Time: 05/14/20 14:03 Visit Report Forms: Patient Portal Discharge page Care Plan Goals: To stay healthy and out of the hospital. Health Concerns: Alcohol abuse and dependence -- do no drink alcohol. Follow up with addiction medicine. Blood stream infection / UTI / Blood in urine -- complete 14 more days of antibiotics. Follow up with Dr. Orlando for hematuria Diarrhea / abdominal pain -- follow up with Dr. Benitez Plan of Treatment: Alcohol abuse and dependence -- do no drink alcohol Blood stream infection / UTI / Blood in urine -- complete 14 more days of a ntibiotics. Follow up with Dr. Orlando for hematuria Diarrhea / abdominal pain -- follow up with Dr. Benitez
== END 2020-05-14 14:03 | disposition home or self-care (01) | DRG 720 ==
LOC: HO.ED 13:55 → HO.IMC 15:56
PROVIDERS: Physician Assistant Medical; Urology; Admitting Provider Family Medicine; Emergency Provider Emergency Medicine; Visit Provider Family Medicine
DX: A41.51 Sepsis due to Escherichia coli [E. coli] (principal); E83.42 Hypomagnesemia; N39.0 Urinary tract infection, site not specified; K29.20 Alcoholic gastritis without bleeding; K52.9 Noninfective gastroenteritis and colitis, unspecified; E87.6 Hypokalemia; J45.909 Unspecified asthma, uncomplicated; Z20.828 Contact with and (suspected) exposure to other viral communicable diseases; R31.9 Hematuria, unspecified; F10.239 Alcohol dependence with withdrawal, unspecified; K29.00 Acute gastritis without bleeding; F17.210 Nicotine dependence, cigarettes, uncomplicated; Z71.6 Tobacco abuse counseling; R31.0 Gross hematuria; B96.20 Unspecified Escherichia coli [E. coli] as the cause of diseases classified elsewhere; Z79.899 Other long term (current) drug therapy
CPT/HCPCS: 36415; 71045; 74177; 80048; 80076; 81001; 82607; 82746; 83605; 83690; 83735; 84132; 85025; 85027; 85379; 87040; 87045; 87046; 87077; 87086; 87088; 87186; 87324; 87449; 88112; 89055; 93005; 94640; 99284; 99285; J0696; J2270; J2543; J2560; J3475; Q9967; U0003

== ENCOUNTER 2020-05-17 07:51 | Outpatient (REF) | payer OTHER, SELFPAY | END 2020-05-17 07:52 | disposition home or self-care (01) | LOC: HO.HAP 07:51 | PROVIDERS: PCP Family Medicine; Referring Provider Family Medicine; Visit Provider Family Medicine | DX: Z46.1 Encounter for fitting and adjustment of hearing aid (principal); H90.3 Sensorineural hearing loss, bilateral; H93.13 Tinnitus, bilateral; F10.20 Alcohol dependence, uncomplicated | CPT/HCPCS: 92700; 99202; 99211 ==

== ENCOUNTER → 2020-05-24 13:18 | Outpatient (BNVA) | payer OTHER, SELFPAY | PROVIDERS: PCP Family Medicine; Visit Provider Internal Medicine Pulmonary Disease | DX: F10.20 Alcohol dependence, uncomplicated (principal); J44.9 Chronic obstructive pulmonary disease, unspecified; Z79.899 Other long term (current) drug therapy; Z91.09 Other allergy status, other than to drugs and biological substances | CPT/HCPCS: 80305; 99212 ==

== ENCOUNTER 2020-05-29 13:00 | Outpatient (REF) | payer OTHER, SELFPAY ==
--- NOTE | 2020-05-29 13:03 | FL_ITS ---
EXAMINATION: XR FLUOROSCOPY WITH IMAGES CLINICAL INFORMATION: M51.36 - Other intervertebral disc degeneration, lumbar region COMPARISON: CT abdomen and pelvis 05/10/2020 TECHNIQUE: Fluoroscopy performed by Kat Valentin NP. Fluoroscopy time: 0.67 minutes Total dose: 11.22 mGy Images: 1 FINDINGS: There is interlaminar spinal needle with epidural contrast seen upper lumbar region, approximately level L1-L2. FL/FL guidance in treatment room IMPRESSION: Fluoroscopy for pain management procedure.
== END 2020-05-29 13:01 | disposition home or self-care (01) ==
LOC: HO.RADIR 13:00
PROVIDERS: Visit Provider Anesthesiology
DX: M51.36 Other intervertebral disc degeneration, lumbar region (principal)
CPT/HCPCS: 64483; J1100; J2250; Q9967

== ENCOUNTER → 2020-06-07 09:58 | Outpatient (BNVA) | payer OTHER, SELFPAY | PROVIDERS: Visit Provider Urology | DX: N39.0 Urinary tract infection, site not specified (principal); F17.210 Nicotine dependence, cigarettes, uncomplicated; F12.90 Cannabis use, unspecified, uncomplicated | CPT/HCPCS: 52000; 99212 ==

== ENCOUNTER → 2020-06-14 14:59 | Outpatient (BNVA) | payer OTHER, SELFPAY | PROVIDERS: Visit Provider Nurse Practitioner Psychiatric/Mental Health | DX: F10.11 Alcohol abuse, in remission (principal) ==

== ENCOUNTER 2020-06-21 09:57 | Day surgery (SDC) | payer OTHER, SELFPAY ==
[2020-06-15 13:39] VITALS: BMI 25.0
--- NOTE | 2020-06-20 13:14 | P.CONAN_ITS ---
Documented by User: Michela Gay 06/20/20 13:21 HPI - Anesthesia Eval Consult details Narrative: 50yo M for Colonoscopy ETOH abuse PMFSH Past Medical History Medical History Alcohol dependence Alcohol withdrawal seizure Asthma Carpal tunnel syndrome Diarrhea, unspecified Disc degeneration, lumbar Elevated ALT measurement Epigastric pain Hepatic steatosis Internal and external bleeding hemorrhoids Mood disorder Pelvic abscess Rectal pain Screen for colon cancer (~04/11/20) Family History Family History Father No problems noted. Mother No problems noted. Brother No problems noted. Surgical History Surgical History H/O hemorrhoidectomy History of appendectomy History of colon resection Social History Social History Household Members: Significant Other Housing: House Alcohol intake: current Alcohol intake frequency: 3 or more drinks per day Alcohol type: hard liquor Smoking Status: Current every day smoker Tobacco Type: Cigarette Packs Per Day: 0.5 Cigarettes Per Day: 15 Years Smoked: 35 Use of substances other than those prescribed or required for medical reasons: Yes Substance Use Type: Marijuana Substance Use Frequency: Occasionally Advance Directives: No Advance Directives Information Provided: Yes service: No Meds Allergies Allergy/AdvReac Type Severity Reaction Status Date / Time horse dander Allergy Intermediate hives Verified 06/21/20 10:12 dog dander [dogs] Allergy Unknown Verified 06/21/20 10:12 mold Allergy Unknown Verified 06/21/20 10:12 Home Medications Medication Instructions Recorded Confirmed Type prazosin 1 mg capsule 1 mg PO BEDTIME 05/24/20 06/21/20 History sertraline 25 mg tablet 25 mg PO DAILY 05/24/20 06/21/20 History Exam Exam Date and Time: June 20, 2020 1314 Height,Weight and Vital Signs: Height 5 ft 10 in Weight 79 kg Pertinent Lab Results Pertinent Lab Results: Laboratory Tests 05/14/20 05/14/20 05:20 05:20 WBC 5.2 Hgb 12.8 L Hct 37.4 L Plt Count 123 L Sodium 134 L Potassium 3.9 Chloride 100 Carbon Dioxide 27 BUN 6 L Creatinine 0.60 Calcium 8.0 L D Magnesium 1.5 L Total Bilirubin 1.8 H Direct Bilirubin 1.5 H AST 200 H ALT 84 H Alkaline Phosphatase 163 H Narrative Narrative: EKG 05/2020: Normal sinus rhythm Rightward axis Borderline ECG When compared with ECG of 28-MAR-2020 12:15, No significant change was found Assessment and Plan Assessment Anesthesia Assessment: Chart Reviewed Documented by User: Nette Anti 06/21/20 12:02 [facility] Past Medical History Medical History Alcohol dependence Alcohol withdrawal seizure Asthma Carpal tunnel syndrome Diarrhea, unspecified Disc degeneration, lumbar Elevated ALT measurement Epigastric pain Hepatic steatosis Internal and external bleeding hemorrhoids Mood disorder Pelvic abscess Rectal pain Screen for colon cancer (~04/11/20) Family History Family History Father No problems noted. Mother No problems noted. Brother No problems noted. Surgical History Surgical History H/O hemorrhoidectomy History of appendectomy History of colon resection Social History Social History Household Members: Significant Other Housing: House Alcohol intake: current Alcohol intake frequency: 3 or more drinks per day Alcohol type: hard liquor Smoking Status: Current every day smoker Tobacco Type: Cigarette Packs Per Day: 0.5 Cigarettes Per Day: 15 Years Smoked: 35 Use of substances other than those prescribed or required for medical reasons: Yes Substance Use Type: Marijuana Substance Use Frequency: Occasionally Advance Directives: No Advance Directives Information Provided: Yes service: No Meds Allergies Allergy/AdvReac Type Severity Reaction Status Date / Time horse dander Allergy Intermediate hives Verified 06/21/20 10:12 dog dander [dogs] Allergy Unknown Verified 06/21/20 10:12 mold Allergy Unknown Verified 06/21/20 10:12 Home Medications Medication Instructions Recorded Confirmed Type prazosin 1 mg capsule 1 mg PO BEDTIME 05/24/20 06/21/20 History sertraline 25 mg tablet 25 mg PO DAILY 05/24/20 06/21/20 History Exam Airway Mallampati Class: II TM Dist: >3cm Neck ROM: Full Loose/Missing/Broken Teeth: No Heart: RRR Lungs: scattered wheezing and rhonchi Assessment and Plan Assessment Anesthesia Assessment: Anesthesia Plan Discussed Final Anesthetic Review NPO: Yes ASA Class: III Final Preanesthetic Review: Meds/Allgs Chart Reviewed, Consent Obtained/Reviewed and Anes Risks/Benef Reviewed Patient Risk: Intermediate Procedure Risk: Low Anesthetic Plan Anesthetic Plan: MAC: Disposition: Standard PACU
[2020-06-21 10:16] VITALS: BMI 25.1
[2020-06-21 10:29] VITALS: BP 124/71; PULSE 79; RESP 16; TEMP 36.5; O2SAT 94
[2020-06-21] MEDS: Lactated Ringers 1,000 ML 100 ML IVCONT (10:31)
--- NOTE | 2020-06-21 11:13 | P.HPSUR_ITS ---
Pre-Procedural Eval Section B Chief Complaint: Screening Details of Present Illness: colon cancer screening, hx rectal bleeding and diarrhea Relevant Family History (Specify if Yes): No Relevant Social History: Other (specify) (daily smoker, hx of ETOH, S/P substance use) Present Medications: see Short Stay Collaborative assessment Medical History: Significant History (Anxiety,Hepatic steatosis.) Allergies: Allergies Allergy/AdvReac Type Severity Reaction Status Date / Time horse dander Allergy Intermediate hives Verified 06/21/20 10:12 dog dander [dogs] Allergy Unknown Verified 06/21/20 10:12 mold Allergy Unknown Verified 06/21/20 10:12 Review of Systems Sugical H&P ROS: Negative: Constitution, Cardiovascular, Respiratory and Endocrine and Yes, Specify: Psychiatric (Panic attk, anxiety) and Gastrointestinal (diarrhea) Exam Surgical H&P Exam: Normal: HEENT, Normal: Heart, Normal: Lungs, Normal: Ex tremities, Normal: Abdomen and Normal: Skin Plan Diagnosis/Plan: Unchanged I have reviewed the history and physical and performed a pertinent physical examination on my patient. No changes have occurred unless specified.yes
--- NOTE | 2020-06-21 11:13 | PM.OP ---
Brief Operative Note Date of Service: 06/21/20 Pre-op diagnosis: Colon Cancer Screening, Diarrhea, intermittent rectal bleeding. Post-op diagnosis: other (Negative for polyps. BX done to assess for microscopic colitis.) Procedure: Colonoscopy with biopsies @ several levels Implants: NONE Surgeon: Elva Valerio MD Anesthesia: MAC (MD Kevan) Estimated blood loss (mL): 5 Pathology: other (BX ileal, transverse colon, descending, rectosigmoid) Condition: stable Disposition: PACU
[2020-06-21 11:51] VITALS: BP 106/63; PULSE 87; RESP 16; TEMP 37.1; O2SAT 97
[2020-06-21 12:06] VITALS: BP 113/72; PULSE 82; RESP 14; TEMP 37.1; O2SAT 98
[2020-06-21 12:12] LABS: MANUAL DIFF FLAG NO
[2020-06-21 12:14] LABS: Basophils Percent Auto 0.7 % (0-2); Eosinophils Absolute Auto 0.3 X10*3/uL (0.0-0.4); Eosinophils Percent Auto 7.6 % (0-4); Hematocrit 39.2 % (42-52); Hemoglobin 13.7 g/dl (14.0-18.0); Imm Gran Abs Auto 0.01 X10*3/uL (0.00-0.03); Imm Gran Pct Auto 0.2 % (0.0-0.4); Lymphocytes Absolute Auto 1.6 X10*3/uL (1.2-4.9); Lymphocytes Percent Auto 39.1 % (20-40); Mean Corpuscular HGB Conc 34.9 g/dl (31.0-36.0); Mean Corpuscular Hemoglobin 33.9 pg (27.0-33.0); Mean Platelet Volume 8.5 fL (9.4-12.4); Monocytes Absolute Auto 0.3 X10*3/uL (0.1-1.2); Monocytes Percent Auto 8.1 % (2-11); Neutrophils Absolute Auto 1.8 X10*3/uL (2.0-8.3); Neutrophils Percent Auto 44.3 % (45-73); Platelet Count 177 X10*3/uL (160-400); Red Blood Count 4.04 X10*6/uL (4.60-5.80); Red Cell Distribution Width 12.7 % (11.0-16.0); White Blood Count 4.1 X10*3/uL (4.8-10.8)
[2020-06-21 12:41] LABS: Alanine Aminotransferase 21 U/L (0-40); Albumin Level 3.5 g/dL (3.5-5.0); Alkaline Phosphatase 103 U/L (39-117); Anion Gap 14 (12-20); Aspartate Amino Transferase 36 U/L (5-37); Bilirubin Total 0.4 mg/dL (0.0-1.0); Blood Urea Nitrogen 5 mg/dL (9-16); Carbon Dioxide 23 mmol/L (22-29); Chloride 105 mmol/L (96-108); Creatinine Clr Calc Pharmacy 138.2; Estimated Glomerular Filt Rate > 60; Gamma Glutamyl Transpeptidase 180 U/L (11-51); Glucose Random 83 mg/dL (60-115); Potassium 3.4 mmol/l (3.3-5.1); Sodium 139 mmol/L (135-145); Total Protein 6.2 g/dL (6.5-8.0)
--- NOTE | 2020-06-21 12:49 | HO.POSTANES ---
Post Anesthesia Evaluation Post Anesthesia Evaluation Vital Signs: Vital Signs Temp Pulse Resp BP Pulse Ox 06/21/20 12:06 98.8 F 82 14 113/72 98 06/21/20 11:51 98.8 F 87 16 106/63 97 06/21/20 10:29 97.7 F 79 16 124/71 94 Anesthesia: Monitored Mental Status: Awake Pain Control: Satisfactory Hydration: Adequate Anesthesia-Related Issues: No Anes. Related Issues
--- NOTE | 2020-06-21 12:54 | PC.NURSE ---
critical magnesium level reported by MIGUEL ANGEL in chemistry. Mag level 1.[address] Valerio notified. to put in orders for 2gm IV magnesium.
[2020-06-21 12:55] LABS: Magnesium 1.4 mg/dL (1.6-2.6)
[2020-06-21] MEDS: Magnesium Sulfate/H2O 2 GM/50 ML PIGGYBACK IV (13:29)
--- NOTE | 2020-06-21 16:06 | OP_ITS ---
SURGEON: Elva Valerio MD PROCEDURE PERFORMED: Colonoscopy with multiple biopsies. ESTIMATED BLOOD LOSS: Less than 5 mL. COMPLICATIONS: No complications. ANESTHESIA: Monitored. ANESTHESIOLOGIST: Dr. Mathur ASSISTANTS: No licensed occupational therapy assistant. SPECIMENS: Specimens removed: biopsy--TI; biopsy--80 cm; biopsy-- rectosigmoid. PREOPERATIVE DIAGNOSES: Colon cancer screening, history of diarrhea, has had some intermittent episodes of rectal bleeding. The latter has resolved significant with removal of internal hemorrhoids prior to this procedure. POSTOPERATIVE DIAGNOSES: Normal mucosa, hemicolectomy from earlier in the summer, anastomosis well visualized. COMMERCIAL TIRE SERVICE TECHNICIAN: Dr. Valerio. CONDITION: Postprocedure, stable. FINDINGS: Digital rectal exam revealed prostate to be unremarkable. Video colonoscope was introduced without difficulty. It was navigated into the rectosigmoid and sigmoid on up through descending, transverse colon to the level of the anastomosis. As we approached the anastomosis, there was an area of postsurgical scarring and then immediately to the 9 o'clock position was the entrance of the small bowel. Villi appeared normal, but was intubated for approximately 15 cm. There was no clear inflammatory change. Biopsies of the terminal ileum were obtained and sequential biopsies were taken in the colon to assess for microscopic colitis. The patient did have a lot of motility during the procedure. Anorectal verge was clear. PLAN: I ordered blood work on the patient due to his history of anemia, his intermittent alcohol use/abuse, and past history of hypokalemia and hypomagnesemia. His Magnesium came back at 1.4. He was given 2 g of Magnesium IV at the completion of the procedure. The patient will be followed up by my office. Further imaging of his liver will be appropriate in the next 6 to 12 months. His repeat colon cancer screening with complexity of his underlying medical condition is going to be 5 years. GRAFT OR IMPLANTS: No grafts or implants. Elva Valerio MD MEN/MODL / [id number]
== END 2020-06-21 15:38 | disposition home or self-care (01) ==
PROVIDERS: Visit Provider Internal Medicine Gastroenterology
PROC: 0DJD8ZZ Inspection of Lower Intestinal Tract, Via Natural or Artificial Opening Endoscopic (ICD-10-PCS; CPT 45378; principal; 2020-06-21 12:10)
DX: Z12.11 Encounter for screening for malignant neoplasm of colon (principal); R19.7 Diarrhea, unspecified; D64.9 Anemia, unspecified; E87.6 Hypokalemia; E83.42 Hypomagnesemia; F10.20 Alcohol dependence, uncomplicated; K76.0 Fatty (change of) liver, not elsewhere classified; Z87.19 Personal history of other diseases of the digestive system; Z79.899 Other long term (current) drug therapy; Z98.0 Intestinal bypass and anastomosis status
CPT/HCPCS: 45380; 36415; 80053; 82977; 83735; 85025; 88305; J2250; J3475

== ENCOUNTER → 2020-06-28 10:17 | Outpatient (BNVA) | payer OTHER, SELFPAY | PROVIDERS: PCP Family Medicine; Visit Provider Nurse Practitioner Psychiatric/Mental Health | DX: F10.20 Alcohol dependence, uncomplicated (principal) | CPT/HCPCS: 99212 ==

== ENCOUNTER 2020-07-03 14:24 | Emergency (ER) | payer OTHER, SELFPAY ==
[2020-07-03 15:01] VITALS: BP 108/79; PULSE 81; RESP 20; TEMP 36.2; O2SAT 97; BMI 52.2
--- NOTE | 2020-07-03 16:46 | ED.EYEPROB ---
HPI - Eye Problem General Chief complaint: Eye Problems Stated complaint: vision problem Time Seen by Provider: 07/03/20 16:35 Source: patient Mode of arrival: ambulatory Limitations: no limitations History of Present Illness HPI Narrative: 50 y/o male presenting with bilateral eye pain, redness and discharge for the last 3 weeks. He was recently prescribed antibiotic drops with some resolution initially but it came back after he was using the same bottle in both eyes. He denies vision changes, foreign body sensation. Does not wear contact. chief complaint: eye pain and eye redness Onset (ago): week(s) (3) Onset description: gradual and awoke with symptoms Duration: constant Location: both eyes Eye Symptoms: burning, redness, pain and discharge Place: home Mechanism: none Severity: moderate If Pain, Quality: burning Associated symptoms: none Treatments Prior to Arrival: OTC eye drops Related Data Patient tetanus UTD: Yes Home Medications Medication Instructions Recorded Confirmed prazosin 1 mg capsule 1 mg PO BEDTIME 05/24/20 06/21/20 sertraline 25 mg tablet 25 mg PO DAILY 05/24/20 06/21/20 Previous Rx's Medication Instructions Recorded ipratropium 0.5 mg-albuterol 3 mg 3 ml INHALATION Q6-8H PRN 30 Days 04/24/20 (2.5 mg base)/3 mL nebulization #270 ml soln cefuroxime axetil 500 mg PO Q12H #28 tab 05/14/20 hydroxyzine HCl 50 mg PO Q6H PRN #30 tab 05/14/20 magnesium oxide 400 mg PO BIDPC #20 tab 05/14/20 omeprazole 40 mg PO DAILY #30 cap 05/14/20 potassium chloride [Klor-Con M20] 20 meq PO DAILY #10 tab 05/14/20 naltrexone 50 mg tablet 50 mg PO DAILY #30 tab 05/17/20 azithromycin 250 mg tablet See Rx Instructions PO .COMPLEX #6 05/24/20 tab fluticasone furoate 200 1 inh INHALATION Q24H 30 Days #1 ea 05/24/20 mcg-vilanterol 25 mcg/dose inhalation powder tamsulosin 0.4 mg capsule 0.4 mg PO BEDTIME #90 cap 06/07/20 bisacodyl 5 mg tablet,delayed 10 mg PO ONCE 1 Days #2 tab 06/14/20 release polyethylene glycol 3350 17 238 g PO ONCE 1 Days #238 g 06/14/20 gram/dose oral powder cholestyramine (with sugar) 4 gram 4 g PO BID #378 g 06/28/20 oral powder erythromycin 0.5 inch OPHTHALMIC (EYE) TID #3.5 07/03/20 g erythromycin 0.5 inch OPHTHALMIC-LEFT TID #3.5 g 07/03/20 Allergies Allergy/AdvReac Type Severity Reaction Status Date / Time horse dander Allergy Intermediate hives Verified 06/21/20 10:12 dog dander [dogs] Allergy Unknown Verified 06/21/20 10:12 mold Allergy Unknown Verified 06/21/20 10:12 Review of Systems Review of Systems: Constitutional: No Fever, No Chills ENT/Mouth: No sore throat, No Rhinorrhea, No Swallowing Difficulty Eyes: + Eye Pain, +No Swelling, + Redness, +discharge Cardiovascular: No Chest Pain, No SOB Respiratory: No Cough, No Sputum Gastrointestinal: No Nausea, No Vomiting Genitourinary: No Dysuria, No Urinary Frequency, No Hematuria Musculoskeletal: No joint pain, No Myalgias Skin: No Skin Lesions, No rash Neuro: No Weakness, No Numbness, No Dizziness, No Headache PMFSH Past Medical History Medical History Alcohol dependence Alcohol withdrawal seizure Asthma Carpal tunnel syndrome Diarrhea, unspecified Disc degeneration, lumbar Elevated ALT measurement Epigastric pain Hepatic steatosis Internal and external bleeding hemorrhoids Mood disorder Pelvic abscess Rectal pain Screen for colon cancer (~04/11/20) Surgical History H/O hemorrhoidectomy History of appendectomy History of colon resection Family History Family History Father No problems noted. Mother No problems noted. Brother No problems noted. Social History Social History Household Members: Significant Other Housing: House Alcohol intake: never Smoking Status: Current every day smoker Tobacco Type: Cigarette Packs Per Day: 0.5 Cigarettes Per Day: 15 Years Smoked: 35 Smoked in Last 30 Days: No Use of substances other than those prescribed or required for medical reasons: No Substance Use Type: Marijuana Advance Directives: No Advance Directives Information Provided: No service: No Physical Exam Vital Signs: Vital Signs: Last Vital Signs Temp 97.1 F 07/03/20 15:01 Pulse 81 07/03/20 15: Resp 20 07/03/20 15:01 BP 108/79 07/03/20 15:01 Pulse Ox 97 07/03/20 15:01 Body Mass Index 52.2 Appearance: Alert. Oriented X3. No acute distress. HEENT: bilateral conjunctival injection. negative fluoscene exam. EOMI, PERRLA. VA noted. CVS: Normal heart rate and rhythm. Pulses normal. Respiratory: No respiratory distress. Skin: Skin warm and dry. Normal skin color. Normal skin turgor. No rashes. Extremities: atraumatic. Neuro: Oriented X 3. No motor deficit. No sensory deficit. Course Course Course Narrative: 50 y/o presenting with redness, burning and discharge consistent with bacterial conjunctivitis. Will change treatment to Erythromycin ointment - 2 different Rx's were ordered so no cross contamination. Will refer to [facility]. Stable for d/c. MDM - Eye Problem Differential Diagnosis Differential diagnosis: Likely corneal abrasion, conjunctivitis, acute iritis, periorbital cellulitis, subconjunctival hemorrhage and glaucoma Discharge Plan Discharge Clinical Impression: Bacterial conjunctivitis Patient Disposition: Home, Self-Care Instructions: Conjunctivitis (ED) Additional Instructions: Your exam today is consistent with bacterial conjunctivitis. Use the prescribed eye ointment - use 1 tube for 1 eye and the other other for the other eye. Do not cross contaminate. Follow up with Dr. Ace tomorrow. If you develop worsening pain or vision changes come back to the ER for further evaluation. Prescriptions: New erythromycin 5 mg/gram (0.5 %) ointment 0.5 inch ophthalmic (eye) TID Qty: 3.5 RF: 0 erythromycin 5 mg/gram (0.5 %) ointment 0.5 inch ophthalmic-Left TID Qty: 3.5 RF: 0 No Action polyethylene glycol 3350 [Miralax] 17 gram/dose powder 238 g PO ONCE 1 Days Qty: 238 RF: 0 bisacodyl [Dulcolax (bisacodyl)] 5 mg tablet,delayed release (DR/EC) 10 mg PO ONCE 1 Days Qty: 2 RF: 0 cholestyramine (with sugar) 4 gram powder 4 g PO BID Qty: 378 RF: 0 hydroxyzine HCl 50 mg Tablet 50 mg PO Q6H PRN (Reason: Anxiety) Qty: 30 RF: 0 potassium chloride [Klor-Con M20] 20 mEq Tablet,Er Particles/Crystals 20 meq PO DAILY Qty: 10 RF: 0 magnesium oxide 400 mg (241.3 mg magnesium) Tablet 400 mg PO BIDPC Qty: 20 RF: 0 omeprazole 40 mg capsule,delayed release(DR/EC) 40 mg PO DAILY Qty: 30 RF: 0 cefuroxime axetil 500 mg tablet 500 mg PO Q12H Qty: 28 RF: 0 ipratropium-albuterol 0.5 mg-3 mg(2.5 mg base)/3 mL solution for nebulization 3 ml inhalation Q6-8H PRN (Reason: wheezing) 30 Days Qty: 270 RF: 6 Breo Ellipta 200-25 mcg/dose blister with device 1 inh inhalation Q24H 30 Days Qty: 1 RF: 6 azithromycin 250 mg tablet See Rx Instructions PO .COMPLEX Qty: 6 RF: 0 naltrexone 50 mg tablet 50 mg PO DAILY Qty: 30 RF: 1 tamsulosin 0.4 mg capsule 0.4 mg PO BEDTIME Qty: 90 RF: 0 prazosin 1 mg capsule 1 mg PO BEDTIME RF: 0 sertraline 25 mg tablet 25 mg PO DAILY RF: 0 Referrals: Nathaniel Ace [Physician] - 2 days (persistent conjunctivitis) Interventions: ED Discharge Assessment Last Done: 07/03/20 17:13 Discharge Date/Time: 07/03/20 17:15
[2020-07-03] MEDS: Fluorescein Sodium STRIP 2 STRIP EYE-BOTH (16:50)
[2020-07-03] MEDS: Tetracaine HCl/PF 0.5% Oph Sol 4 ML DROPS 3 DROP EYE-BOTH (16:50)
== END 2020-07-03 17:15 | disposition home or self-care (01) ==
PROVIDERS: Emergency Provider Emergency Medicine; PCP Family Medicine
DX: H10.33 Unspecified acute conjunctivitis, bilateral (principal); H57.13 Ocular pain, bilateral; Z79.899 Other long term (current) drug therapy; F17.210 Nicotine dependence, cigarettes, uncomplicated; Z71.6 Tobacco abuse counseling
CPT/HCPCS: 99283; 99284

== ENCOUNTER → 2020-07-18 11:56 | Outpatient (BNVA) | payer OTHER, SELFPAY | PROVIDERS: PCP Family Medicine; Visit Provider Internal Medicine Gastroenterology | DX: Z76.89 Persons encountering health services in other specified circumstances (principal) ==

== ENCOUNTER → 2020-07-19 10:29 | Outpatient (BNVA) | payer OTHER, SELFPAY | PROVIDERS: Visit Provider Nurse Practitioner Psychiatric/Mental Health | DX: Z76.89 Persons encountering health services in other specified circumstances (principal) ==

== ENCOUNTER → 2020-08-16 10:47 | Outpatient (BNVA) | payer OTHER, SELFPAY | PROVIDERS: Visit Provider Nurse Practitioner Psychiatric/Mental Health ==

== ENCOUNTER → 2020-08-23 14:54 | Outpatient (BNVA) | payer OTHER, SELFPAY | PROVIDERS: Visit Provider Nurse Practitioner Psychiatric/Mental Health | DX: F10.20 Alcohol dependence, uncomplicated (principal) | CPT/HCPCS: 99212 ==

== ENCOUNTER → 2020-08-24 09:37 | Outpatient (BNVA) | payer OTHER, SELFPAY | PROVIDERS: Visit Provider Nurse Practitioner Family | DX: M51.36 Other intervertebral disc degeneration, lumbar region (principal); R10.31 Right lower quadrant pain | CPT/HCPCS: 99212 ==

== ENCOUNTER 2020-09-24 08:47 | Outpatient (REF) | payer OTHER, SELFPAY ==
[2020-09-24 10:39] LABS: MANUAL DIFF FLAG NO
[2020-09-24 10:46] LABS: Basophils Absolute Auto 0.1 X10*3/uL (0.0-0.2); Basophils Percent Auto 1.2 % (0-2); Eosinophils Absolute Auto 0.2 X10*3/uL (0.0-0.4); Eosinophils Percent Auto 2.1 % (0-4); Hematocrit 38.5 % (42-52); Hemoglobin 13.3 g/dl (14.0-18.0); Imm Gran Abs Auto 0.04 X10*3/uL (0.00-0.03); Imm Gran Pct Auto 0.4 % (0.0-0.4); Lymphocytes Absolute Auto 1.9 X10*3/uL (1.2-4.9); Lymphocytes Percent Auto 21.6 % (20-40); Mean Corpuscular HGB Conc 34.5 g/dl (31.0-36.0); Mean Corpuscular Volume 98.5 fL (80-98); Mean Platelet Volume 9.4 fL (9.4-12.4); Monocytes Absolute Auto 0.7 X10*3/uL (0.1-1.2); Monocytes Percent Auto 7.8 % (2-11); Neutrophils Percent Auto 66.9 % (45-73); Platelet Count 230 X10*3/uL (160-400); Red Blood Count 3.91 X10*6/uL (4.60-5.80); Red Cell Distribution Width 20.5 % (11.0-16.0); White Blood Count 8.9 X10*3/uL (4.8-10.8)
== END 2020-09-24 08:48 | disposition home or self-care (01) ==
LOC: HO.LAB 08:47
PROVIDERS: Absent Provider Internal Medicine Pulmonary Disease; PCP Family Medicine; Visit Provider Surgery
DX: J44.9 Chronic obstructive pulmonary disease, unspecified (principal); Z91.09 Other allergy status, other than to drugs and biological substances; K60.3 Anal fistula; K64.9 Unspecified hemorrhoids
CPT/HCPCS: 36415; 82785; 85025; 86003; 99212

== ENCOUNTER 2020-09-28 08:21 | Day surgery (SDC) | payer OTHER, SELFPAY ==
--- NOTE | 2020-09-27 08:55 | HO.ANESPROP2 ---
Documented by User: Michela Gay 09/27/20 09:06 HPI - Anesthesia Eval Consult details Narrative: 50yo M for Exam Under Anesthesia, Poss Seton, Poss hemorrhoidectomy +ETOH Seen by pulm 09/24/20 with some exp wheezing. ? azithromycin rx PMFSH Active Problems Active Problems: All Active Problems (Updated 09/24/20 @ 09:18 by Carlos Mao MD) Anal fistula (Acute) Incomplete emptying of bladder due to benign prostatic hyperplasia (Acute) BPH w urinary obs/LUTS (Acute) Diarrhea (Acute) Right groin pain (Acute) Left arm pain (Acute) Unilateral primary osteoarthritis, right hip (Acute) Asthma-COPD overlap syndrome (Acute) Preop pulmonary/respiratory exam (Acute) DDD (degenerative disc disease), lumbar (Acute) Gross hematuria (Acute) E coli bacteremia (Acute) UTI (urinary tract infection) (Acute) Alcohol withdrawal (Acute) Electrolyte abnormality (Acute) Alcohol use disorder, severe, dependence (Acute) Environmental allergies (Acute) Bladder outlet obstruction (Acute) Disc degeneration, lumbar (Acute) Alcohol dependence (Acute) Carpal tunnel syndrome (Acute) Screen for colon cancer (Acute ~04/11/20) Past Medical History Medical History Alcohol dependence Alcohol withdrawal seizure Anal fistula Asthma Carpal tunnel syndrome Diarrhea, unspecified Disc degeneration, lumbar Elevated ALT measurement Epigastric pain Hepatic steatosis Internal and external bleeding hemorrhoids Mood disorder Pelvic abscess Rectal pain Screen for colon cancer (~04/11/20) Family History Family History Father No problems noted. Mother No problems noted. Brother No problems noted. Surgical History Surgical History H/O hemorrhoidectomy History of appendectomy History of colon resection History of colonoscopy Social History Social History Household Members: Significant Other Housing: House Alcohol intake: never Smoking Status: Current every day smoker Tobacco Type: Cigarette Packs Per Day: 0.5 Cigarettes Per Day: 15 Years Smoked: 35 Use of substances other than those prescribed or required for medical reasons: No Substance Use Type: Marijuana Have you been hit, kicked, punched, or otherwise hurt by someone within the past year? If so, by whom?: No Advance Directives: No Advance Directives Information Provided: Yes Recently lost weight without trying: No service: No Meds Allergies Allergy/AdvReac Type Severity Reaction Status Date / Time horse dander Allergy Intermediate hives Verified 09/24/20 09:38 dog dander [dogs] Allergy Unknown Verified 09/24/20 09:38 mold Allergy Unknown Verified 09/24/20 09:38 Home Medications Medication Instructions Recorded Confirmed Last Taken Type prazosin 1 mg capsule 1 mg PO BEDTIME 05/24/20 08/05/20 Unknown History sertraline 25 mg tablet 25 mg PO DAILY 05/24/20 08/24/20 Unknown History albuterol sulfate 90 mcg/actuation 2 puff INHALATION Q6H PRN 07/18/20 08/24/20 Unknown History aerosol inhaler gabapentin 300 mg capsule mg PO 07/18/20 08/05/20 Unknown History quetiapine 50 mg tablet 0 mg PO 07/18/20 08/24/20 Unknown History valacyclovir 1 gram tablet mg PO 07/18/20 08/05/20 Unknown History neomycin 3.5 mg/g-polymyxin B 0.25 OPHTHALMIC (EYE) TID 08/16/20 Unknown History 10,000 unit/g-dexameth 0.1 % eye oint erythromycin 5 mg/gram (0.5 %) eye OPHTHALMIC (EYE) BID 09/24/20 Unknown History ointment Exam Exam Date and Time: September 27, 2020 0855 Pertinent Lab Results Pertinent Lab Results: Laboratory Tests 09/24/20 10:17 WBC 8.9 Hgb 13.3 L Hct 38.5 L Plt Count 230 D Narrative Narrative: EKG 05/2020 Vent. Rate : 085 BPM Atrial Rate : 085 BPM P-R Int : 152 ms QRS Dur : 090 ms QT Int : 380 ms P-R-T Axes : 075 092 076 degrees QTc Int : 452 ms Normal sinus rhythm Rightward axis Borderline ECG When compared with ECG of 28-MAR-2020 12:15, No significant change was found Assessment and Plan Assessment Anesthesia Assessment: Chart Reviewed Documented by User: Cindi Menezes 09/28/20 11:54 [facility] Past Medical History Medical History Alcohol dependence Alcohol withdrawal seizure Anal fistula Asthma Carpal tunnel syndrome Diarrhea, unspecified Disc degeneration, lumbar Elevated ALT measurement Epigastric pain Hepatic steatosis Internal and external bleeding hemorrhoids Mood disorder Pelvic abscess Rectal pain Screen for colon cancer (~04/11/20) Family History Family History Father No problems noted. Mother No problems noted. Brother No problems noted. Surgical History Surgical History H/O hemorrhoidectomy History of appendectomy History of colon resection History of colonoscopy Social History Social History Household Members: Significant Other Housing: House Alcohol intake: never Smoking Status: Current every day smoker Tobacco Type: Cigarette Packs Per Day: 0.5 Cigarettes Per Day: 15 Years Smoked: 35 Use of substances other than those prescribed or required for medical reasons: No Substance Use Type: Marijuana Have you been hit, kicked, punched, or otherwise hurt by someone within the past year? If so, by whom?: No Advance Directives: No Advance Directives Information Provided: Yes Recently lost weight without trying: No service: No Meds Allergies Allergy/AdvReac Type Severity Reaction Status Date / Time horse dander Allergy Intermediate hives Verified 09/24/20 09:38 dog dander [dogs] Allergy Unknown Verified 09/24/20 09:38 mold Allergy Unknown Verified 09/24/20 09:38 Home Medications Medication Instructions Recorded Confirmed Last Taken Type prazosin 1 mg capsule 1 mg PO BEDTIME 05/24/20 08/05/20 Unknown History sertraline 25 mg tablet 25 mg PO DAILY 05/24/20 08/24/20 Unknown History albuterol sulfate 90 mcg/actuation 2 puff INHALATION Q6H PRN 07/18/20 08/24/20 Unknown History aerosol inhaler gabapentin 300 mg capsule mg PO 07/18/20 08/05/20 Unknown History quetiapine 50 mg tablet 0 mg PO 07/18/20 08/24/20 Unknown History valacyclovir 1 gram tablet mg PO 07/18/20 08/05/20 Unknown History neomycin 3.5 mg/g-polymyxin B 0.25 OPHTHALMIC (EYE) TID 08/16/20 Unknown History 10,000 unit/g-dexameth 0.1 % eye oint erythromycin 5 mg/gram (0.5 %) eye OPHTHALMIC (EYE) BID 09/24/20 Unknown History ointment Exam Airway Mallampati Class: II TM Dist: >3cm Neck ROM: Full Assessment and Plan Assessment Anesthesia Assessment: Anesthesia Plan Discussed and Chart Reviewed Final Anesthetic Review NPO: Yes ASA Class: III Final Preanesthetic Review: No Changes in Pt Med Stat, Meds/Allgs Chart Reviewed, Consent Obtained/Reviewed and Anes Risks/Benef Reviewed Patient Risk: Intermediate Procedure Risk: Low Assessment/Block/Sedation in SS: Assess/Block/Sedation-SS Anesthetic Plan Anesthetic Plan: MAC: Disposition: Standard PACU
[2020-09-27 10:04] VITALS: BMI 22.6
[2020-09-28 08:33] VITALS: BP 124/82; PULSE 94; RESP 20; TEMP 36.1; O2SAT 98
[2020-09-28] MEDS: Lactated Ringers 1,000 ML 100 ML IVCONT (09:14)
--- NOTE | 2020-09-28 09:14 | PC.NURSE ---
hold labs per dr tubbs anesthesia
--- NOTE | 2020-09-28 12:15 | MHC.SHP ---
Pre-Procedural Eval Section B Chief Complaint: Anal Fistula Allergies: Allergies Allergy/AdvReac Type Severity Reaction Status Date / Time horse dander Allergy Intermediate hives Verified 09/24/20 09:38 dog dander [dogs] Allergy Unknown Verified 09/24/20 09:38 mold Allergy Unknown Verified 09/24/20 09:38 Plan I have reviewed the history and physical and performed a pertinent physical examination on my patient. No changes have occurred unless specified.
--- NOTE | 2020-09-28 13:07 | W.PM.OPN ---
Operative Note Operative Note Date of Service: 09/28/20 Narrative: Preop diagnosis: Anal fistula Postop diagnosis: Anal fistula Procedure: Exam under anesthesia, placement of a seton Surgeon: Carlos Mao MD The patient is a 50-year-old male who was seen in the office because of anal pain and drainage. He describes drainage with what he described as pus whenever he applied pressure on the left side of his anus. He was also tender so I could not do a good examination in the office. I therefore explained to him that the best thing to do would be to bring him to the OR for an exam under anesthesia and likely seton placement. He understood the technique of procedure. He was aware of the risks, benefits, and alternatives. His was withhim during the discussion. He was brought to the operating room and placed in prone lisset-knife position under monitored anesthesia care. The buttocks were retracted with wide tape laterally. The perianal area was prepped and draped in the usual sterile fashion. A surgical time-out was done the patient received Cefotan 2 g IV preoperatively. Examination of the anal orifice revealed what appeared to be an external sinus opening in the left perianal area about 2 cm from the verge. I inserted the Troy Robison retractor. I examined the anal canal circumferentially. He did have bulky internal and external hemorrhoidal columns both on the left and the right side. I applied a probe through the external sinus and gently advanced through the tract. This seemed to lead into the left lateral anal canal along the dentate line. I injected the external sinus with hydrogen peroxide using an Angiocath and the effluent was noted radially at the level of the dentate line. This was therefore identified as the internal fistulous opening. I therefore reinserted the probe and this was gently advanced into the internal sinus opening. This came through without difficulty. We passed a yellow vessel loop as a seton through this anal fistula. We then looped this together using silk 2-0 ties. I shortened the fistula tract by cauterizing the overlying skin adjacent to the external sinus. The patient did have hemorrhoidal tissue surrounding this tract and there was note of significant oozing from these hemorrhoidal tissue. I therefore had to cauterize the inside of the tract to achieve hemostasis. I then observed for about 2 minutes. Hemostasis was eventually confirmed and I proceeded to infiltrate the perianal area with Marcaine 0.5% for postop analgesia. The procedure was then completed The patient tolerated the procedure well. There were no immediate complications noted. Initial and final counts of sponges and instruments were correct. Estimated blood loss was about 25 cc. The patient was awakened without difficulty and transferred to the recovery room with stable vital signs.
--- NOTE | 2020-09-28 13:12 | PM.OP ---
Brief Operative Note Date of Service: 09/28/20 Pre-op diagnosis: Anal fistula Post-op diagnosis: same Procedure: Exam under anesthesia, seton placement Surgeon: Carlos Mao MD Anesthesia: MAC Estimated blood loss (mL): 25 Pathology: none sent Condition: stable Disposition: PACU
[2020-09-28 13:14] VITALS: BP 148/72; PULSE 87; RESP 16; TEMP 37.1; O2SAT 96
[2020-09-28 13:29] VITALS: BP 133/86; PULSE 83; RESP 20; TEMP 37.1; O2SAT 97
== END 2020-09-28 14:09 ==
LOC: HO.SSS 08:23
PROVIDERS: PCP Family Medicine; Visit Provider Surgery
PROC: (CPT 46020; principal; 2020-09-28 11:40)
DX: K60.3 Anal fistula (principal); K64.8 Other hemorrhoids; K59.00 Constipation, unspecified; K76.0 Fatty (change of) liver, not elsewhere classified; J45.909 Unspecified asthma, uncomplicated; F10.20 Alcohol dependence, uncomplicated; Z90.49 Acquired absence of other specified parts of digestive tract; Z79.899 Other long term (current) drug therapy
CPT/HCPCS: 46020; J2250; J2405; J3010

== ENCOUNTER 2020-10-10 08:58 | Outpatient (REF) | payer OTHER, SELFPAY ==
[2020-10-10 11:47] LABS: MANUAL DIFF FLAG NO
[2020-10-10 11:54] LABS: Basophils Absolute Auto 0.1 X10*3/uL (0.0-0.2); Eosinophils Percent Auto 0.4 % (0-4); Hematocrit 37.1 % (42-52); Hemoglobin 12.8 g/dl (14.0-18.0); Imm Gran Abs Auto 0.01 X10*3/uL (0.00-0.03); Imm Gran Pct Auto 0.2 % (0.0-0.4); Lymphocytes Percent Auto 20.6 % (20-40); Mean Corpuscular HGB Conc 34.5 g/dl (31.0-36.0); Mean Corpuscular Hemoglobin 35.9 pg (27.0-33.0); Mean Corpuscular Volume 103.9 fL (80-98); Mean Platelet Volume 9.9 fL (9.4-12.4); Monocytes Absolute Auto 0.6 X10*3/uL (0.1-1.2); Monocytes Percent Auto 11.8 % (2-11); Neutrophils Absolute Auto 3.2 X10*3/uL (2.0-8.3); Platelet Count 143 X10*3/uL (160-400); Red Blood Count 3.57 X10*6/uL (4.60-5.80); Red Cell Distribution Width 14.5 % (11.0-16.0); White Blood Count 4.9 X10*3/uL (4.8-10.8)
[2020-10-10 18:04] LABS: Alanine Aminotransferase 114 U/L (0-40); Albumin Level 3.3 g/dL (3.5-5.0); Alkaline Phosphatase 363 U/L (39-117); Anion Gap 15 (12-20); Aspartate Amino Transferase 449 U/L (5-37); Bilirubin Total 6.2 mg/dL (0.0-1.0); Blood Urea Nitrogen 6 mg/dL (9-16); Calcium 8.2 mg/dL (8.4-10.2); Carbon Dioxide 35 mmol/L (22-29); Chloride 95 mmol/L (96-108); Estimated Glomerular Filt Rate > 60; Gamma Glutamyl Transpeptidase 1698 U/L (11-51); Glucose Random 127 mg/dL (60-115); Magnesium 1.6 mg/dL (1.6-2.6); Potassium 2.8 mmol/L (3.3-5.1); Sodium 142 mmol/L (135-145); Total Protein 6.5 g/dL (6.5-8.0)
[2020-10-12 21:07] LABS: Immunoglobulin E 2677 kU/L (<OR=114)
[2020-10-13 13:06] LABS: Vitamin B1 13 nmol/L (8-30)
== END 2020-10-10 08:59 | disposition home or self-care (01) ==
LOC: HO.LAB 08:58
PROVIDERS: Internal Medicine Pulmonary Disease; Absent Provider Internal Medicine Gastroenterology; PCP Family Medicine; Visit Provider Surgery
DX: F10.20 Alcohol dependence, uncomplicated (principal); R19.7 Diarrhea, unspecified; K60.3 Anal fistula; Z91.09 Other allergy status, other than to drugs and biological substances
CPT/HCPCS: 36415; 80053; 82785; 82977; 83735; 84425; 85025; 99212

== ENCOUNTER 2020-10-13 07:19 | Inpatient (IN) | payer OTHER, SELFPAY ==
[2020-10-13] VITALS (8 sets, daily range): BP systolic 101–126; BP diastolic 56–88; PULSE 73–114; RESP 12–20; TEMP 36.4–37.1; O2SAT 93–100; BMI 22.2
--- NOTE | ~2020-10-13 | XR_ITS ---
EXAMINATION: XR CHEST CLINICAL INFORMATION: Wheezing. Suspected pneumonia. COMPARISON: Chest done on 05/10/2020. TECHNIQUE: Frontal view of the chest was obtained. FINDINGS: No significant abnormality is noted involving the heart, lungs, mediastinum, bony thorax or soft tissues. XR/XR chest 1V IMPRESSION: Unremarkable examination. No radiographic evidence of pneumonia.
--- NOTE | ~2020-10-13 | US_ITS ---
EXAMINATION: US ABDOMEN COMPLETE CLINICAL INFORMATION: Liver failure. COMPARISON: Previous CT of the abdomen and pelvis May 2020 and abdominal ultrasound May 2019 TECHNIQUE: Real-time imaging of the abdominal viscera. FINDINGS: PANCREAS: Normal. ABDOMINAL AORTA: The proximal, mid, and distal segments are normal in caliber. INFERIOR VENA CAVA: Visualized portions are normal. LIVER: Liver echotexture is increased probably representing fatty infiltration. The liver is enlarged. The liver is normal in contour. No focal hepatic lesion. There is no intrahepatic biliary duct dilatation seen. GALLBLADDER: The patient is nonfasting. The gallbladder wall is thickened measuring 0.9 cm. No gallbladder wall thickening or pericholecystic fluid is seen. No gallstones are seen. The isotope technologist reports that the patient is tender over the gallbladder. COMMON BILE DUCT: Normal in caliber measuring 0.4 cm in diameter. RIGHT KIDNEY: Normal. No hydronephrosis. No renal calculi or focal parenchymal lesions. The kidney measures 12.9 cm in maximum dimension. LEFT KIDNEY: Normal. No hydronephrosis. No renal calculi or focal parenchymal lesions. The kidney measures 12 cm in maximum dimension. SPLEEN: Normal. The spleen measures 14.2 cm in maximum dimension. FREE FLUID: None. US/US abdomen complete IMPRESSION: Enlarged echogenic liver probably representing fatty infiltration. Gallbladder wall thickening. Differential would include nonfasting status, reactive changes related to liver disease, cholangitis, low albumin and acalculus cholecystitis. No gallstone seen. Enlarged spleen.
--- NOTE | 2020-10-13 08:04 | ECG_ITS ---
Test Reason : LOW POTASSIUM Blood Pressure : / mmHG Vent. Rate : 077 BPM Atrial Rate : 078 BPM P-R Int : 162 ms QRS Dur : 088 ms QT Int : 432 ms P-R-T Axes : 061 081 061 degrees QTc Int : 488 ms Normal sinus rhythm Prolonged QT Abnormal ECG When compared with ECG of 10-MAY-2020 14:24, QT has lengthened Referred By: Joaquín Saleem Electronically Signed By:BRANDI AMATO
--- NOTE | 2020-10-13 08:05 | ED_ITS ---
HPI - General Adult General Chief complaint: Recheck/Abnormal Lab/Rx Stated complaint: ABNORMAL LABS Time Seen by Provider: 10/13/20 07:49 Source: patient Mode of arrival: ambulatory Limitations: no limitations History of Present Illness HPI narrative: 50-year-old male who presents emergency department for evaluation of a low potassium. The patient states that he had a anal fistula repair done by Dr. Fox as 2 weeks prior. He had a follow-up appointment with his PCP Dr. Valerio 3 days prior and was informed that his potassium was low and that he needed to come to the emergency department for evaluation. The patient states that he is feeling weak. Patient states he has had low potassiums and low magnesium is a in the past secondary to alcohol abuse and has required hospitalization for IV magnesium and IV potassium. The patient states that he was having vomiting once a day for the last 2 weeks but was started on anti nausea an anti GERD medication with improvement of his symptoms. He states that he was having daily diarrhea but this is resolved since his fistula surgery. He states he has been feeling constipated is only had small bowel movements. He had a perforated bowel recently complicated by sepsis and since then he states that he has had no appetite. The patient continues to drink alcohol. He states that he drinks 8 nips of vodka per day and he last drank at 4:00 a.m. The patient has not had a COVID-19 infection. He has not been vaccinated for COVID-19. He denies fever, chills, chest pain, shortness of breath, nausea, vomiting or diarrhea. Related Data Home Medications Medication Instructions Recorded Confirmed prazosin 1 mg capsule 1 mg PO BEDTIME 05/24/20 10/13/20 sertraline 25 mg tablet 25 mg PO DAILY 05/24/20 10/13/20 albuterol sulfate 90 mcg/actuation 2 puff INHALATION Q6H PRN 07/18/20 10/13/20 aerosol inhaler quetiapine 50 mg tablet 50 mg PO DAILY 07/18/20 10/13/20 neomycin 3.5 mg/g-polymyxin B 0.25 inch OPHTHALMIC (EYE) TID 08/16/20 10/13/20 10,000 unit/g-dexameth 0.1 % eye oint erythromycin 5 mg/gram (0.5 %) eye 1 mg OPHTHALMIC (EYE) BID 09/24/20 10/13/20 ointment cholestyramine (with sugar) 4 g PO BID 10/13/20 10/13/20 fluticasone propionate 1 spray INTRANASAL DAILY 10/13/20 10/13/20 quetiapine 100 mg PO BEDTIME 10/13/20 10/13/20 Previous Rx's Medication Instructions Recorded ipratropium 0.5 mg-albuterol 3 mg 3 ml INHALATION Q6-8H PRN 30 Days 04/24/20 (2.5 mg base)/3 mL nebulization #270 ml soln magnesium oxide 400 mg PO BIDPC #20 tab 05/14/20 potassium chloride [Klor-Con M20] 20 meq PO DAILY #10 tab 05/14/20 nicotine (polacrilex) 2 mg gum 2 mg BUCCAL Q2H #50 ea 07/19/20 thiamine HCl (vitamin B1) 100 mg 100 mg PO DAILY #30 tab 07/19/20 tablet naltrexone 50 mg tablet 50 mg PO DAILY #30 tab 08/16/20 tamsulosin 0.4 mg capsule 0.4 mg PO BEDTIME #90 cap 08/31/20 lidocaine 5 % topical cream 1 appl TOPICAL TID PRN #15 g 09/24/20 montelukast 10 mg tablet 10 mg PO DAILY 30 Days #30 tab 09/24/20 tramadol 50 mg tablet 50 mg PO TID PRN #14 tab 09/24/20 oxycodone-acetaminophen [Percocet] 1 - 2 tab PO Q4-6H PRN #30 tab 09/28/20 docusate sodium 100 mg capsule 100 mg PO BID #60 cap 10/10/20 famotidine 40 mg tablet 40 mg PO BEDTIME 30 Days #30 tab 10/10/20 Allergies Allergy/AdvReac Type Severity Reaction Status Date / Time horse dander Allergy Intermediate hives Verified 10/10/20 09:06 dog dander [dogs] Allergy Unknown Verified 10/10/20 09:06 mold Allergy Unknown Verified 10/10/20 09:06 Review of Systems Review of Systems: Yes all other systems are reviewed and are negative FORMERLY [facility], [facility]–1983 Past Medical History FORMERLY [facility], [facility]–1983 Narrative: The patient does smoke cigarettes, he drinks alcohol daily, he smokes marijuana occasionally, he denies other drug use. Medical History Alcohol dependence Alcohol withdrawal seizure Anal fistula Asthma Carpal tunnel syndrome Diarrhea, unspecified Disc degeneration, lumbar Elevated ALT measurement Epigastric pain Hepatic steatosis History of anal fissures Internal and external bleeding hemorrhoids Mood disorder Pelvic abscess Rectal pain Screen for colon cancer (~04/11/20) Surgical History H/O hemorrhoidectomy History of appendectomy History of colon resection History of colonoscopy Family History Family History Father No problems noted. Mother No problems noted. Brother No problems noted. Social History Social History Household Members: Significant Other Housing: House Alcohol intake: current Alcohol intake frequency: 3 or more drinks per day Alcohol type: hard liquor Smoking Status: Current every day smoker Tobacco Type: Cigarette Packs Per Day: 0.5 Cigarettes Per Day: 15 Years Smoked: 35 Use of substances other than those prescribed or required for medical reasons: No Substance Use Type: Marijuana Advance Directives: No Advance Directives Information Provided: No service: No Physical Exam Vital Signs: Vital Signs: Last Vital Signs Temp 97.6 F 10/13/20 11:42 Pulse 79 10/13/20 11:42 Resp 12 10/13/20 11:42 BP 116/78 10/13/20 11:42 Pulse Ox 98 10/13/20 11:42 Body Mass Index 22.2 Const: General: cooperative and healthy appearing Orientation/consciousness: oriented to person and oriented to place Limitations: no limitations HENMT: Head: Yes normal to inspection, Yes normocephalic and Yes atraumatic Ears: external ears normal General nose exam: Normal external nose present Face and sinus: Yes normal facial exam Mouth: Normal oral and palatal mucosa present Throat: Yes posterior oropharynx normal Eyes: Periorbital: periorbital findings normal Eyelids: Yes eyelids normal Conjunctivae: conjunctivae normal Sclerae: sclerae normal Corneas: corneas normal Pupils: Equal, round and reactive pupils present Direct Ophthalmoscopy: normal light reflex Neck: Neck: Yes full ROM, Yes no lymphadenopathy, Yes no meningeal signs, Yes trachea midline and Yes supple Chest: Chest palpation & inspection: normal inspection of the chest and normal palpation of entire chest wall Resp: Effort & Inspection: normal respiratory effort and able to speak in complete sentences Auscultation: wheezes (Diffuse wheezing) Cardio: Rate: regular rate Rhythm: regular rhythm Heart sounds: S1 normal heart sound present, S2 normal heart sound present and no murmurs GI: Inspection: Yes normal to inspection Palpation (GI): Soft to palpation, Tenderness to palpation present (GI) (Moderate, diffuse tenderness), no guarding, not rigid and No hepatosplenomegaly present Auscultation: normal bowel sounds : General: Yes no CVA tenderness Back/Spine/Pelvis: Back: no CVA tenderness Cervical Spine: normal cervical lordosis Thoracic/Lumbar Spine: thoracic and lumbar spine normal to inspection Skin: Lesions: no lesions Rashes: no rashes Wounds: no wounds Neuro: General: oriented to person, oriented to place and no meningeal signs Cranial nerves: Yes CN's II-XII intact bilaterally and Yes Equal, round and reactive pupils present Cognition (Neuro): normal cognition Motor exam (neuro): 5/5 motor strength present throughout Extrem: General: Yes normal to inspection and Yes full ROM Psych: Appearance: well kempt Mental Status: mental status grossly normal Speech and movement: Normal speech and movement present Affect: normal affect Attitude: cooperative Thought process: Normal thought process present Thought content: Normal thought content present Course Course Course Narrative: 50-year-old male who presents emergency department for evaluation possible hypokalemia with a potassium 2.8 on October 10, 2020 with a normal magnesium of 1.6. The patient's physical examination did reveal diffuse abdominal tenderness and wheezing on his lung exam otherwise was unremarkable. I ordered a CBC, CMP, magnesium, alcohol level and EKG. Patient's wheezing will be treated with an albuterol inhaler 6 puffs. 0936: The patient's laboratory evaluation revealed a pancytopenia WBC 3000, H&H 11.8 and 34.7, platelet count a 104,000 with elevated MCV of 104 work consistent with his alcohol use disorder. Patient's potassium was low at 2.7, magnesium was low at 1.2. LFTs were abnormal with an AST and ALT of 321 and 97 with an alk-phos of 298. Total bilirubin was 6.4. Given these findings and the fact the patient has had to be admitted in the past for repletion of his magnesium and electrolytes, I will discuss the patient's presentation with the hospitalist. I did order magnesium 2 g IV, potassium 40 mEq orally, potassium 10 mEq IV x2 and Ativan 1 mg IV. I will check a chest x-ray on this patient and a COVID-19 test. 0945: Did discuss the patient's presentation with the covering hospitalist, Dr. Maxwell and the patient will be admitted for further management of his electrolyte abnormalities. 1237: Chest x-ray was unremarkable, COVID-19 test was negative. Medical Decision Making Lab Data Result diagrams: 10/13/20 08:22 10/13/20 08:22 Labs: Lab Results 10/13/20 10/13/20 10/13/20 Range/Units 08:22 08:22 08:22 WBC 3.0 L (4.8-10.8) X10*3/uL RBC 3.33 L (4.60-5.80) X10*6/uL Hgb 11.8 L (14.0-18.0) g/dl Hct 34.7 L (42-52) % MCV 104.2 H (80-98) fL MCH 35.4 H (27.0-33.0) pg MCHC 34.0 (31.0-36.0) g/dl RDW 14.2 (11.0-16.0) % Plt Count 105 L D (160-400) X10*3/uL MPV 10.1 (9.4-12.4) fL Immature Gran % (Auto) 0.3 (0.0-0.4) % Neut % (Auto) 62.8 (45-73) % Lymph % (Auto) 20.9 (20-40) % [place] % (Auto) 12.6 H (2-11) % Eos % (Auto) 1.7 (0-4) % Baso % (Auto) 1.7 (0-2) % Lymph # (Auto) 0.6 L (1.2-4.9) X10*3/uL [place] # (Auto) 0.4 (0.1-1.2) X10*3/uL Eos # (Auto) 0.1 (0.0-0.4) X10*3/uL Baso # (Auto) 0.1 (0.0-0.2) X10*3/uL Abs Immat Gran (auto) 0.01 (0.00-0.03) X10*3/uL Absolute Neuts (auto) 1.9 L (2.0-8.3) X10*3/uL Absolute Nucleated RBC 0.000 (0.0-0.012) X10*3/uL Nucleated RBC % (auto) 0.0 (0.0-0.2) /100WBC Smear Tech's Comments VERIFIED PT 14.0 H (10.8-13.0) SEC INR 1.2 H (0.9-1.1) APTT 37.2 (24.1-38.0) SEC Sodium 140 (135-145) mmol/L Potassium 2.7 L (3.3-5.1) mmol/L Chloride 97 (96-108) mmol/L Carbon Dioxide 27 (22-29) mmol/L Anion Gap 19 (12-20) BUN 6 L (9-16) mg/dL Creatinine 0.54 (0.5-1.4) mg/dL Estim Creat Clear Calc 162.7 Estimated GFR > 60 Random Glucose 80 D (60-115) mg/dL Calcium 7.6 L D (8.4-10.2) mg/dL Magnesium 1.2 L* (1.6-2.6) mg/dL Total Bilirubin 6.4 H (0.0-1.0) mg/dL AST 321 H (5-37) U/L ALT 92 H (0-40) U/L Alkaline Phosphatase 295 H (39-117) U/L Total Protein 5.8 L (6.5-8.0) g/dL Albumin 2.9 L (3.5-5.0) g/dL Lipase 7 L (8-78) U/L Ethyl Alcohol mg/dL 10/13/20 Range/Units 08:23 WBC (4.8-10.8) X10*3/uL RBC (4.60-5.80) X10*6/uL Hgb (14.0-18.0) g/dl Hct (42-52) % MCV (80-98) fL MCH (27.0-33.0) pg MCHC (31.0-36.0) g/dl RDW (11.0-16.0) % Plt Count (160-400) X10*3/uL MPV (9.4-12.4) fL Immature Gran % (Auto) (0.0-0.4) % Neut % (Auto) (45-73) % Lymph % (Auto) (20-40) % [place] % (Auto) (2-11) % Eos % (Auto) (0-4) % Baso % (Auto) (0-2) % Lymph # (Auto) (1.2-4.9) X10*3/uL [place] # (Auto) (0.1-1.2) X10*3/uL Eos # (Auto) (0.0-0.4) X10*3/uL Baso # (Auto) (0.0-0.2) X10*3/uL Abs Immat Gran (auto) (0.00-0.03) X10*3/uL Absolute Neuts (auto) (2.0-8.3) X10*3/uL Absolute Nucleated RBC (0.0-0.012) X10*3/uL Nucleated RBC % (auto) (0.0-0.2) /100WBC Smear Tech's Comments PT (10.8-13.0) SEC INR (0.9-1.1) APTT (24.1-38.0) SEC Sodium (135-145) mmol/L Potassium (3.3-5.1) mmol/L Chloride (96-108) mmol/L Carbon Dioxide (22-29) mmol/L Anion Gap (12-20) BUN (9-16) mg/dL Creatinine (0.5-1.4) mg/dL Estim Creat Clear Calc Estimated GFR Random Glucose (60-115) mg/dL Calcium (8.4-10.2) mg/dL Magnesium (1.6-2.6) mg/dL Total Bilirubin (0.0-1.0) mg/dL AST (5-37) U/L ALT (0-40) U/L Alkaline Phosphatase (39-117) U/L Total Protein (6.5-8.0) g/dL Albumin (3.5-5.0) g/dL Lipase (8-78) U/L Ethyl Alcohol 242 mg/dL ECG Data Attestation: I personally reviewed and interpreted this ECG as follows: Interpretation: 0822: Normal sinus rhythm with a rate of 77, norm ME and QRS intervals, prolonged QTC of 488 milliseconds. No T-wave abnormalities, no ST segment elevation or depression. No old EKG for comparison Discharge Plan Discharge Clinical Impression: Acute hypokalemia, Hypomagnesemia, Acute alcoholic hepatitis Alcohol intoxication Qualifiers: Complication of substance-induced condition: uncomplicated Qualified Code(s): F10.920 - Alcohol use, unspecified with intoxication, uncomplicated Patient Disposition: Home, Self-Care
--- NOTE | 2020-10-13 08:29 | PC.NURSE ---
PT RESTING ON STRETCHER, ALERT + ORIENTED, SKIN JAUNDICE, SCLERA JAUNDICE. PT REPORTS BEING CHRONIC DRINKER, LAST DRINK 4AM THIS MORNING, NORMAL SINUS ON MONITOR. GIRLFRIEND AT BEDSIDE LEFT PHONE NUMBER ([phone]).
[2020-10-13 08:32] LABS: Basophils Absolute Auto 0.1 X10*3/uL (0.0-0.2); Basophils Percent Auto 1.7 % (0-2); Eosinophils Absolute Auto 0.1 X10*3/uL (0.0-0.4); Eosinophils Percent Auto 1.7 % (0-4); Hematocrit 34.7 % (42-52); Hemoglobin 11.8 g/dl (14.0-18.0); Imm Gran Abs Auto 0.01 X10*3/uL (0.00-0.03); Imm Gran Pct Auto 0.3 % (0.0-0.4); Lymphocytes Absolute Auto 0.6 X10*3/uL (1.2-4.9); Lymphocytes Percent Auto 20.9 % (20-40); MANUAL DIFF FLAG SCAN; Mean Corpuscular Hemoglobin 35.4 pg (27.0-33.0); Mean Corpuscular Volume 104.2 fL (80-98); Mean Platelet Volume 10.1 fL (9.4-12.4); Monocytes Absolute Auto 0.4 X10*3/uL (0.1-1.2); Monocytes Percent Auto 12.6 % (2-11); Neutrophils Absolute Auto 1.9 X10*3/uL (2.0-8.3); Neutrophils Percent Auto 62.8 % (45-73); Platelet Count 105 X10*3/uL (160-400); Red Blood Count 3.33 X10*6/uL (4.60-5.80); Red Cell Distribution Width 14.2 % (11.0-16.0); SCAN SMEAR FLAG 1
[2020-10-13 08:38] LABS: INTERNATIONAL NORM RATIO 1.2 (0.9-1.1)
[2020-10-13 08:41] LABS: Partial Thromboplastin Time 37.2 SEC (24.1-38.0)
[2020-10-13 08:54] LABS: SLIDE REVIEW VERIFIED
[2020-10-13] MEDS: Albuterol Sulfate 90 MCG 8 GM INHALER 6 PUFF INHALE (08:54)
[2020-10-13 08:56] LABS: Ethanol 242 mg/dL
[2020-10-13 09:02] LABS: Alanine Aminotransferase 92 U/L (0-40); Albumin Level 2.9 g/dL (3.5-5.0); Alkaline Phosphatase 295 U/L (39-117); Anion Gap 19 (12-20); Aspartate Amino Transferase 321 U/L (5-37); Bilirubin Total 6.4 mg/dL (0.0-1.0); Blood Urea Nitrogen 6 mg/dL (9-16); Calcium 7.6 mg/dL (8.4-10.2); Carbon Dioxide 27 mmol/L (22-29); Chloride 97 mmol/L (96-108); Creatinine Clr Calc Pharmacy 162.7; Estimated Glomerular Filt Rate > 60; Glucose Random 80 mg/dL (60-115); Lipase 7 U/L (8-78); Magnesium 1.2 mg/dL (1.6-2.6); Potassium 2.7 mmol/L (3.3-5.1); Sodium 140 mmol/L (135-145); Total Protein 5.8 g/dL (6.5-8.0)
[2020-10-13] MEDS: LORazepam 2 MG/ML VIAL 1 MG IVPUSH (09:31)
[2020-10-13] MEDS: Thiamine HCL 100 MG TABLET PO (09:31)
[2020-10-13] MEDS: Folic Acid 1 MG TABLET PO (09:31)
[2020-10-13] MEDS: Potassium Chloride Packet 20 MEQ PACKET 40 MEQ PO (09:31)
[2020-10-13] MEDS: Magnesium Sulfate/H2O 2 GM/50 ML PIGGYBACK IV ×3 (10:13→11:49)
--- NOTE | 2020-10-13 10:16 | PC.NURSE ---
hospitalist at bedside evluating pt, pt appears to be sleepy after the ativan, needs to be awoke by touch, sats drop down to 89% when sleeping, pt put on nasal cannual 2l
[2020-10-13] MEDS: PHENobarbitaL sodium 130 MG/ML VIAL 225 MG IM (11:30)
[2020-10-13] MEDS: Potassium Chloride/H20 10 MEQ/100 ML PIGGYBACK 100 MEQ IV (11:45)
[2020-10-13 12:20] LABS: COVID-19 Test Negative (Negative); IDNOW Serial# 9DD0AD1C
--- NOTE | 2020-10-13 12:30 | PC.NURSE ---
pt refusing for this rn to check his wound draining that is located on the rectal area
[2020-10-13] MEDS: Dextrose 5 % and 0.9 % NaCl 1,000 ML 100 ML IVCONT ×2 (13:09→19:52)
[2020-10-13 14:09] LABS: Anion Gap 18 (12-20); Blood Urea Nitrogen 6 mg/dL (9-16); Carbon Dioxide 24 mmol/L (22-29); Chloride 99 mmol/L (96-108); Creatinine Clr Calc Pharmacy 195.2; Estimated Glomerular Filt Rate > 60; Glucose Random 70 mg/dL (60-115); Magnesium 2.1 mg/dL (1.6-2.6); Potassium 3.4 mmol/L (3.3-5.1); Sodium 138 mmol/L (135-145)
[2020-10-13] MEDS: PHENobarbitaL sodium 130 MG/ML VIAL 169 MG IM ×2 (14:21→18:17)
--- NOTE | 2020-10-13 15:58 | PC.NURSE ---
CALLED [facility] [place] STILL NO ANSWER AT THIS TIME
[2020-10-13] MEDS: 0.9 % Sodium Chloride Flush 3 ML SYRINGE IVFLUSH ×2 (16:18→20:15)
--- NOTE | 2020-10-13 16:22 | PC.NURSE ---
REPORT GIVEN TO HECTOR MARY
--- NOTE | 2020-10-13 17:41 | HP_ITS ---
DATE OF SERVICE: 10/13/2020 CHIEF COMPLAINT: Weakness. HISTORY OF PRESENTING ILLNESS: This is a 50-year-old gentleman with known history of alcohol abuse and alcohol withdrawal seizure, who underwent anal fistula repair by Dr. Mao 2 weeks ago and also had a followup with Dr. Valerio, director of premium seat sales 3 days ago and was informed that he has a low potassium and referred him to the ER, however, the patient continued to be at home and was drinking 8 nips daily. This morning, he felt weak, therefore came to the emergency room. According to the patient, he did have nausea, vomiting in the last several days, that has now resolved. He also had diarrhea that has resolved since his fistula surgery. He denies any abdominal pain. Denies any fever, chills, or rigors. His workup in the emergency room revealed a low magnesium of 1.2 and low potassium of 2.7. His calcium is low at 7.6. He was also noted to have elevated total bilirubin of 6.4, elevated AST, ALT, and alkaline phosphatase that has chronically been elevated. In the emergency room, the patient has been treated with IV magnesium 4 g p.o. and intravenous potassium. The patient also received Ativan this morning since he was noted to be intoxicated with alcohol. Currently, he is somnolent, arousable, but then goes back to sleep. His alcohol level is 242. The patient also complaining of bilateral eye infection, complaining of burning in eye and photophobia, therefore using dark glasses. Symptoms are going on for couple of weeks. PAST MEDICAL HISTORY: Significant for: 1. History of alcohol dependence and history of alcohol withdrawal seizure. 2. History of asthma. 3. History of carpal tunnel syndrome. 4. History of diarrhea. 5. History of hepatic steatosis. 6. History of mood disorder. 7. History of pelvic abscess. 8. History of internal and external bleeding hemorrhoids. FAMILY HISTORY: The patient's parents are . They had no medical issues. Brother also has no medical problems. PAST SURGICAL HISTORY: He is status post hemorrhoidectomy, status post appendectomy, and status post colon resection. SOCIAL HISTORY: The patient drinks alcohol daily, usually used hard liquor 8 nips per day. Last drink was 4 a.m. today. He also smokes half pack of cigarettes daily and also uses marijuana. ALLERGIES: HE IS ALLERGIC TO HORSE DANDER THAT CAUSE HIVES. ALSO, DOG DANDER AND MOLD, UNKNOWN ALLERGY. HOME MEDICATIONS: Albuterol 2 puff inhaler q.6 hours, cholestyramine 4 g p.o. b.i.d., Colace 100 mg b.i.d., erythromycin eye ointment twice daily, famotidine 40 mg at bedtime, fluticasone 1 spray intranasally daily, ipratropium inhalation every 6 to 8 hours as needed, topical lidocaine cream, magnesium 400 b.i.d., Singulair 10 mg daily, naltrexone 50 mg daily, neomycin eye ointment 3 times a day, nicotine gum every 2 hours as needed, Percocet 1 tablet every 4 to 6 hours, potassium chloride 20 mEq daily, prazosin 1 mg at bedtime, Seroquel 100 mg at bedtime and Seroquel 50 mg daily, Flomax 0.4 daily, thiamine 100 mg daily, and tramadol 50 mg t.i.d. p.r.n. Medications needs to be reconciled. PHYSICAL EXAMINATION: GENERAL: The patient is resting comfortably, somnolent, but easily arousable. Speech is stuttering likely due to intoxication. NECK: Supple. HEENT: Sclerae are icteric. There is no redness or drainage noted. CARDIOVASCULAR: Heart is regular rate and rhythm. LUNGS: Clear to auscultation bilaterally. No wheeze or rhonchi. ABDOMEN: Soft, nontender. EXTREMITIES: Without edema. NEURO: The patient is moving all 4 extremities. No tremors noted. SKIN: Jaundiced. LABORATORY DATA: Showed WBC of 3, hematocrit 34.7, MCV of 104, platelet count 105. Sodium 140, potassium 2.7, creatinine 0.54, magnesium 1.2, calcium 7.6, AST 321, alkaline phosphatase 295, albumin of 2.9. Chest x-ray showed no acute abnormality. ASSESSMENT AND PLAN: This is a 50-year-old gentleman with history of alcohol dependence, asthma, chronic pain, presented to ER with multiple complaints of weakness, nausea, vomiting, and diarrhea that has now resolved and the patient has been found to have hypomagnesemia and hypokalemia and has elevated alcohol level of 242. 1. Alcohol dependence and withdrawal. Since the patient has prior history of alcohol withdrawal seizure with high likelihood of withdrawal, the patient will be placed on phenobarbital protocol. We will place the patient on thiamine, folate, elevated MCV. We will review prior record of vitamin B12 and folate deficiency. 2. Elevated LFTs/alcoholic hepatitis will trend LFTs and strongly recommend to abstain from alcohol. 3. Hypokalemia likely due to poor p.o. intake and recent bout of GI loss. We will replace aggressively and follow potassium in 4 hours. 4. Hypomagnesemia. due to poor by mouth intake and GI loss, magnesium will be replaced aggressively and we will follow level at am. 5. Deep vein thrombosis prophylaxis with mechanical device. MD DYLLAN Mendiola/VINI / [id number] MTDD
[2020-10-13] MEDS: Magnesium Oxide 400 MG TABLET PO (18:18)
[2020-10-13] MEDS: Erythromycin Base 0.5% Oph Oin 1 GM TUBE 1 CM EYE-BOTH (20:13)
[2020-10-13] MEDS: Cholestyramine (With Sugar) 4 GM POWD.PACK PO (20:13)
[2020-10-13] MEDS: traMADoL HCL 50 MG TABLET PO (20:14)
[2020-10-13] MEDS: Tamsulosin HCL 0.4 MG CAPSULE PO (20:14)
[2020-10-13] MEDS: Docusate Sodium 100 MG CAPSULE PO (20:14)
[2020-10-13] MEDS: Albuterol Sulfate 90 MCG 8 GM INHALER 2 PUFF INHALE (20:15)
[2020-10-13 20:19] LABS: Glucose Urine UA NEG (NEG); Leukocyte Esterase Urine NEG (NEG); Nitrite Urine NEG (NEG); PH 6.5 (5.0-8.0); Specific Gravity - Urine >= 1.030 (1.005-1.025); Urine Blood NEG (NEG); Urine Ketones 15 MG/DL (NEG); Urine Protein NEG (NEG-TRACE)
[2020-10-13 20:21] LABS: Appearance Urine CLEAR; Color Urine AMBER
[2020-10-13] MEDS: Nicotine 21 MG PATCH.TD24 TRANSDERMA (20:23)
[2020-10-13] MEDS: Acetaminophen 325 MG TABLET 650 MG PO (23:32)
[2020-10-14] VITALS: BP 131/76; PULSE 97; RESP 16; TEMP 37.2; O2SAT 97
[2020-10-14] MEDS: Dextrose 5 % and 0.9 % NaCl 1,000 ML 100 ML IVCONT (03:34)
[2020-10-14] MEDS: Omeprazole 20 MG CAPSULE.DR PO (03:34)
[2020-10-14] MEDS: Lidocaine 5 % Ointment 35 GM 1 APPL TOPICAL (03:35)
[2020-10-14 03:38] VITALS: BP 117/80; PULSE 91; RESP 16; TEMP 36.6; O2SAT 99
[2020-10-14 07:47] VITALS: BP 112/77; PULSE 93; RESP 19; TEMP 36.6; O2SAT 96
[2020-10-14 07:59] LABS: Hematocrit 29.1 % (42-52); Hemoglobin 10.1 g/dl (14.0-18.0); Mean Corpuscular HGB Conc 34.7 g/dl (31.0-36.0); Mean Corpuscular Hemoglobin 36.5 pg (27.0-33.0); Mean Corpuscular Volume 105.1 fL (80-98); Mean Platelet Volume 10.6 fL (9.4-12.4); Platelet Count 103 X10*3/uL (160-400); Red Blood Count 2.77 X10*6/uL (4.60-5.80); White Blood Count 3.7 X10*3/uL (4.8-10.8)
[2020-10-14 08:42] LABS: Alanine Aminotransferase 68 U/L (0-40); Albumin Level 2.6 g/dL (3.5-5.0); Alkaline Phosphatase 247 U/L (39-117); Anion Gap 16 (12-20); Aspartate Amino Transferase 229 U/L (5-37); Bilirubin Direct 5.7 mg/dL (0.0-0.5); Bilirubin Total 7.8 mg/dL (0.0-1.0); Blood Urea Nitrogen 4 mg/dL (9-16); Calcium 7.3 mg/dL (8.4-10.2); Carbon Dioxide 25 mmol/L (22-29); Chloride 95 mmol/L (96-108); Creatinine Clr Calc Pharmacy 186.9; Estimated Glomerular Filt Rate > 60; Glucose Random 85 mg/dL (60-115); Magnesium 1.2 mg/dL (1.6-2.6); Potassium 2.9 mmol/L (3.3-5.1); Sodium 133 mmol/L (135-145); Total Protein 5.2 g/dL (6.5-8.0)
[2020-10-14] MEDS: Cholestyramine (With Sugar) 4 GM POWD.PACK PO ×2 (09:17→19:46)
[2020-10-14] MEDS: Folic Acid 1 MG TABLET PO (09:17)
[2020-10-14] MEDS: Erythromycin Base 0.5% Oph Oin 1 GM TUBE 1 CM EYE-BOTH ×2 (09:18→19:46)
[2020-10-14] MEDS: PHENobarbitaL 15 MG TABLET 45 MG PO ×3 (09:18→19:46)
[2020-10-14] MEDS: traMADoL HCL 50 MG TABLET PO ×3 (09:18→19:46)
[2020-10-14] MEDS: Montelukast Sodium 10 MG TABLET PO (09:19)
[2020-10-14] MEDS: Magnesium Oxide 400 MG TABLET PO ×2 (09:19→17:35)
[2020-10-14] MEDS: Docusate Sodium 100 MG CAPSULE PO ×2 (09:19→19:46)
[2020-10-14] MEDS: Nicotine 21 MG PATCH.TD24 TRANSDERMA (09:19)
[2020-10-14] MEDS: Thiamine HCL 100 MG TABLET PO (09:19)
[2020-10-14] MEDS: Fluticasone Propionate Nasal 16 GM SPRAY 1 SPRAY NOSTRIL-B (09:27)
--- NOTE | 2020-10-14 09:31 | PC.NURSE ---
Patient took morning medications and immediately vomited into trash. aware.
--- NOTE | 2020-10-14 11:13 | P.PNIM_ITS ---
Subjective Subjective Date of Service: 10/14/20 Interval History: Patient complaining of epigastric pain vomited his medication, no diarrhea, feels shaky and tremulous, no other acute issues, feels eye symptoms of burning and photophobia improving. ROS General no headache, no dizziness, no fever chills. CVS no chest pain, no palpitation. Respiratory no cough, no sob Gastrointestinal nausea, vomiting, epigastric pain Physical Exam Vital Signs: Vital Signs: Last Vital Signs Temp 97.9 F 10/14/20 07:47 Pulse 93 10/14/20 07:47 Resp 19 10/14/20 07:47 BP 112/77 10/14/20 07:47 Pulse Ox 96 10/14/20 07:47 Body Mass Index 22.2 General patient resting comfortably, no acute distress. eyes icteric sclera, no drainage Neck supple, no JVD. CVS regular rate rhythm, Respiratory lungs clear, to auscultation, no respiratory distress, no wheeze, no rhonchi. Gastrointestinal abdomen soft, epigastric tenderness, bowel sounds audible,no guarding , no rigidity. Extremities no clubbing, cyanosis or edema. Neuro nonfocal ,no tremors , speech clear. Skin no rash Objective Data Current Medications Generic Name Dose Route Start Last Admin Trade Name Freq PRN Reason Stop Dose Admin Acetaminophen 650 mg 10/13/20 12:52 10/13/20 23:32 Acetaminophen 325 Mg Tablet PO 650 mg Q6H PRN Administration Pain, Mild (Pain Scale 1-3) Al Hydroxide/Mg Hydroxide 30 ml 10/14/20 11:05 Magnesium Hydrox/Alum Hydrox 30 Ml Oral.Susp PO Q4H PRN heart burn Albuterol Sulfate 2 puff 10/13/20 12:52 10/13/20 20:15 Albuterol Sulfate 90 Mcg 8 Gm Inhaler INHALE 2 puff Q6H PRN Administration Wheezing Albuterol/Ipratropium 3 ml 10/13/20 12:52 Albuterol/Iprat 2.5/0.5mg 3 Ml Ampul.Neb INHALE Q6H PRN wheezing Cholestyramine Resin 4 gm 10/13/20 21:00 10/14/20 09:17 Cholestyramine (With Sugar) 4 Gm Powd.Pack PO 4 gm BID PHILL Administration Docusate Sodium 100 mg 10/13/20 21:00 10/14/20 09:19 Docusate Sodium 100 Mg Capsule PO 100 mg BID PHILL Administration Erythromycin 1 cm 10/13/20 21:00 10/14/20 09:18 Erythromycin Base 0.5% Oph Oin 1 Gm Tube EYE-BOTH 1 cm BID PHILL Administration Fluticasone Propionate 1 spray 10/14/20 09:00 10/14/20 09:27 Fluticasone Propionate Nasal 16 Gm [place] NOSTRIL-B 1 spray DAILY PHILL Administration Folic Acid 1 mg 10/14/20 09:00 10/14/20 09:17 Folic Acid 1 Mg Tablet PO 1 mg DAILY PHILL Administration Dextrose/Sodium Chloride 1,000 mls @ 100 mls/hr 10/13/20 10:30 10/14/20 03:34 D5ns IVCONT 100 mls/hr .Q10H PHILL Administration Magnesium Sulfate 2 gm in 50 mls @ 25 mls/hr 10/14/20 11:06 IV 10/14/20 13:05 ONCE ONE Lidocaine 1 appl 10/13/20 13:06 10/14/20 03:35 Lidocaine 5 % Ointment 35 Gm TOPICAL 1 appl TID PRN Administration pain Magnesium Oxide 400 mg 10/13/20 17:30 10/14/20 09:19 Magnesium Oxide 400 Mg Tablet PO 400 mg BIDPC PHILL Administration Magnesium Oxide 400 mg 10/14/20 17:30 Magnesium Oxide 400 Mg Tablet PO BIDPC PHILL Montelukast Sodium 10 mg 10/14/20 09:00 10/14/20 09:19 Montelukast Sodium 10 Mg Tablet PO 10 mg DAILY PHILL Administration Nicotine 21 mg 10/13/20 20:15 10/14/20 09:19 Nicotine 21 Mg Patch.Td24 TRANSDERMA 21 mg DAILY PHILL Administration Nicotine Polacrilex 2 mg 10/13/20 16:30 Nicotine Polacrilex 2 Mg Gum BUCCAL Q2H PRN Nicotine Cravings Omeprazole 20 mg 10/14/20 06:30 10/14/20 03:34 Omeprazole 20 Mg Capsule. PO 20 mg DAILY@0630 PHILL Administration Ondansetron HCl 4 mg 10/14/20 11:05 Ondansetron Hcl 4 Mg/2 Ml Vial IVPUSH Q6H PRN nausea Pharmacy Consult 1 each 10/13/20 10:18 Consult Rx Etoh Phenob Dosing MISCELLANE ONCE PRN Consult order Protocol Phenobarbital 45 mg 04/11/21 09:00 10/14/20 09:18 Phenobarbital 15 Mg Tablet PO 10/15/20 21:01 45 mg BID PHILL Administration Protocol Phenobarbital 30 mg 10/16/20 09:00 Phenobarbital 30 Mg Tablet PO 10/17/20 21:01 BID PHILL Protocol Phenobarbital 30 mg 10/18/20 09:00 Phenobarbital 30 Mg Tablet PO 10/19/20 09:01 DAILY PHILL Protocol Sodium Chloride 3 ml 10/13/20 16:00 10/14/20 09:17 0.9 % Sodium Chloride Flush 3 Ml Syringe IVFLUSH Not Given QSHIFT PHILL Tamsulosin HCl 0.4 mg 10/13/20 21:00 10/13/20 20:14 Tamsulosin Hcl 0.4 Mg Capsule PO 0.4 mg BEDTIME PHILL Administration Thiamine HCl 100 mg 10/14/20 09:00 10/14/20 09:19 Thiamine Hcl 100 Mg Tablet PO 100 mg DAILY PHILL Administration Tramadol HCl 50 mg 10/13/20 16:20 10/14/20 09:18 Tramadol Hcl 50 Mg Tablet PO 50 mg TID PRN Administration pain Labs CBC & Chem 7: 10/14/20 06:56 10/14/20 06:56 Assessment and Plan (1) Acute hypokalemia: Status: Acute (2) Hypomagnesemia: Status: Acute (3) Alcohol intoxication: Status: Acute (4) Acute alcoholic hepatitis: Status: Acute (5) Nausea and vomiting: Status: Acute Assessment and Plan: 50-year-old gentleman with history of alcohol dependence, asthma, chronic pain, presented to ER with multiple complaints of weakness, nausea, vomiting, and diarrhea that has now resolved and the patient has been found to have hypomagnesemia and hypokalemia and has elevated alcohol level of 242. 1. Alcohol dependence and withdrawal. Alcohol level 242 on arrival to ED Patient complaining of withdrawal symptoms with nausea vomiting shakiness continue phenobarb protocol, on thiamine, folate, elevated MCV, check vitamin B12 and folate level Care team consult prior to discharge. Discussed complete abstinence from alcohol. 2. Alcoholic hepatitis, LFTs, trending down advise complete abstinence from alcohol continue supportive care with IV Zofran, IV fluids, will trend LFTs and strongly recommend to abstain from alcohol. 3. Hypokalemia likely due to poor p.o. intake and recent bout of GI loss. Potassium improved initially but trended down to 2.9 likely due to persistent nausea vomiting, will aggressively replace and follow BMP. 4. Hypomagnesemia. replaced magnesium intravenously and by mouth and follow level likely due to decreased by mouth intake and GI loss with recent bout of nausea vomiting and diarrhea. 5. Epigastric pain /nausea and vomiting likely due to gastritis will treat with PPI, anti emetics and supportive care. 6. Tobacco use disorder continue nicotine 7. Conjunctivitis diagnosed as outpatient, improving, continue eyedrops. 8.Deep vein thrombosis prophylaxis with mechanical device.
[2020-10-14 11:35] VITALS: BP 141/95; PULSE 100; RESP 18; TEMP 36.6; O2SAT 98
[2020-10-14] MEDS: Magnesium Sulfate/H2O 2 GM/50 ML PIGGYBACK IV (12:05)
[2020-10-14] MEDS: ondansetron HCL 4 MG/2 ML VIAL IVPUSH (12:05)
[2020-10-14 15:23] VITALS: BP 118/82; PULSE 91; RESP 18; TEMP 36.5; O2SAT 96
[2020-10-14] MEDS: Potassium Chloride ER 20 MEQ TAB.ER.PRT 40 MEQ PO (17:36)
--- NOTE | 2020-10-14 19:27 | PC.NURSE ---
At 1655 pt Iv infusion of D5 Normal Saline found to be infiltrated in right forearm. Pt had been sleeping and did not notice any discomfort. Iv infusion stopped and Iv drawn back on. IV removed, pt tolerated well. R arm elevated on pillows and heat applied. Dr. Urban made aware, in to see patient, instructed patient to now apply cold to help with swelling.
[2020-10-14 19:42] VITALS: BP 128/91; PULSE 96; RESP 18; TEMP 36.9; O2SAT 98
[2020-10-14] MEDS: Tamsulosin HCL 0.4 MG CAPSULE PO (19:46)
[2020-10-14] MEDS: 0.9 % Sodium Chloride Flush 3 ML SYRINGE IVFLUSH (19:50)
[2020-10-15] VITALS (8 sets, daily range): BP systolic 111–129; BP diastolic 69–82; PULSE 87–100; RESP 18–20; TEMP 36.8–37.3; O2SAT 97–99
[2020-10-15] MEDS: Omeprazole 20 MG CAPSULE.DR PO (05:11)
[2020-10-15 06:20] LABS: MANUAL DIFF FLAG NO
[2020-10-15 07:03] LABS: Basophils Percent Auto 0.5 % (0-2); Eosinophils Absolute Auto 0.1 X10*3/uL (0.0-0.4); Eosinophils Percent Auto 2.3 % (0-4); Hematocrit 30.5 % (42-52); Hemoglobin 10.3 g/dl (14.0-18.0); Imm Gran Abs Auto 0.03 X10*3/uL (0.00-0.03); Imm Gran Pct Auto 0.7 % (0.0-0.4); Lymphocytes Absolute Auto 0.7 X10*3/uL (1.2-4.9); Lymphocytes Percent Auto 16.9 % (20-40); Mean Corpuscular HGB Conc 33.8 g/dl (31.0-36.0); Mean Corpuscular Hemoglobin 36.1 pg (27.0-33.0); Mean Platelet Volume 10.6 fL (9.4-12.4); Monocytes Absolute Auto 0.5 X10*3/uL (0.1-1.2); Neutrophils Percent Auto 68.6 % (45-73); Platelet Count 116 X10*3/uL (160-400); Red Blood Count 2.85 X10*6/uL (4.60-5.80); Red Cell Distribution Width 13.7 % (11.0-16.0); White Blood Count 4.4 X10*3/uL (4.8-10.8)
[2020-10-15 07:08] LABS: Anion Gap 14 (12-20); Blood Urea Nitrogen 4 mg/dL (9-16); Calcium 7.5 mg/dL (8.4-10.2); Carbon Dioxide 26 mmol/L (22-29); Chloride 98 mmol/L (96-108); Creatinine Clr Calc Pharmacy 186.9; Estimated Glomerular Filt Rate > 60; Glucose Random 65 mg/dL (60-115); Magnesium 1.5 mg/dL (1.6-2.6); Potassium 3.6 mmol/L (3.3-5.1); Sodium 134 mmol/L (135-145)
[2020-10-15] MEDS: Cholestyramine (With Sugar) 4 GM POWD.PACK PO ×2 (08:19→19:31)
[2020-10-15] MEDS: Montelukast Sodium 10 MG TABLET PO (08:19)
[2020-10-15] MEDS: Magnesium Oxide 400 MG TABLET PO ×2 (08:20→16:57)
[2020-10-15] MEDS: Thiamine HCL 100 MG TABLET PO (08:20)
[2020-10-15] MEDS: Folic Acid 1 MG TABLET PO (08:20)
[2020-10-15] MEDS: Erythromycin Base 0.5% Oph Oin 1 GM TUBE 1 CM EYE-BOTH ×2 (08:20→19:35)
[2020-10-15] MEDS: 0.9 % Sodium Chloride Flush 3 ML SYRINGE IVFLUSH ×2 (08:20→16:27)
[2020-10-15] MEDS: Nicotine 21 MG PATCH.TD24 TRANSDERMA (08:21)
[2020-10-15] MEDS: PHENobarbitaL 15 MG TABLET 45 MG PO ×2 (08:21→19:32)
[2020-10-15] MEDS: Fluticasone Propionate Nasal 16 GM SPRAY 1 SPRAY NOSTRIL-B (08:37)
[2020-10-15 09:32] LABS: Folate 3.3 ng/mL (> or = 4.0); Vitamin B12 1133 pg/mL (200-900)
--- NOTE | 2020-10-15 09:43 | MHC.CM.PN ---
CM MET WITH PT WHO REPORTS HE HAS HIS OWN HOME BUT HAS BEEN STAYING WITH HIS GF DUE TO HIS MEDICAL CONDITION. HE REPORTS SHE IS CARING FOR HIM. PT REPORTS THERE IS ALSO CONFLICT BETWEEN HE AND HIS NEIGHBORS WHICH IS VERY STRESSFUL. PT REPORTS HE HAS A PCP, OP MH PROVIDERS AND SEVERAL SPECIALISTS. PT REPORTS HE IS INTERESTED IN ETOH TREATMENT HE KNOWS HIS HEALTH WILL CONTINUE TO DECLINE IF HE CONTINUES TO DRINK. PT DESC
[2020-10-15] MEDS: Magnesium Sulfate/D5W 1 GM/100 ML PIGGYBACK IV (09:57)
--- NOTE | 2020-10-15 10:04 | MHC.CM.PN ---
CM MET WITH PT WHO REPORTS HE HAS HIS OWN HOME AND AT BASELINE IS FULLY INDEPENDENT HOWEVER HE HAS BEEN STAYING WITH HIS GF WHO HAS BEEN ASSISTING HIM DUE TO HIS MEDICAL CONDITIONS. PT REPORTS HE ALSO HAS SOME CONFLICT WITH HIS NEIGHBORS SO IT HAS BEEN VERY STRESSFUL TO BE AT HIS HOME. PT REPORTS HE HAS NO DME BUT HAS A PCP, OP MH PROVIDERS AND SEVERAL SPECIALISTS. PT REPORTS HE IS VERY INTERESTED IN ETOH TREATMENT HE FEELS HE IS GOING TO IF HE DOES NOT STOP DRINKING. PT REPORTS HE HAS LOOKED INTO VIVITROL AND WAS SUPPOSED TO START IT BUT THEN DEVELOPED ANOTHER MEDICAL CONDITION. PT IS INTERESTED IN DISCUSSING TREATMENT OPTIONS WITH A CARE REPORTING DEVELOPER. PT CURRENT DC PLAN IS HOME VS ETOH TREATMENT FACILITY. TRANSPORTATION TBD BY DISPOSITION. GF LIKELY TO TRANSPORT
[2020-10-15 10:59] LABS: Alanine Aminotransferase 59 U/L (0-40); Albumin Level 2.8 g/dL (3.5-5.0); Alkaline Phosphatase 221 U/L (39-117); Aspartate Amino Transferase 165 U/L (5-37); Bilirubin Direct 5.5 mg/dL (0.0-0.5); Bilirubin Total 7.4 mg/dL (0.0-1.0); Total Protein 5.3 g/dL (6.5-8.0)
--- NOTE | 2020-10-15 11:17 | P.CDIC_ITS ---
CDI Concurrent Query Service Date: 10/15/20 Documentation Clarification: Please clarify if you are treating a proba ble/suspected/likely or confirmed: Gastritis Alcoholic Gastritis Please specify if known or other Provider Response: Other Other Diagnosis: see note PLEASE DO NOT DELETE/MODIFY EXISTING CONTENT Additional information is needed in order to code to the highest accuracy and appropriate Severity of Illness (SOI). Please clarify the information noted below in your progress notes and discharge summary. Risk Factors/Clinical Indicators/Treatments PN: 10/14 - epigastric pain/nausea/vomiting likely due to gastritis, will treat with PPI, anti emetics and supportive care. Alcohol dependence with withdrawals. CDS: Tana Fontenot CCS, CDIS Contact Number: [phone]. [phone] Please Review the information above and exercise your independent professional judgment in responding to the query. If you concur, pleas document in the PROGRESS NOTES and DISCHARGE SUMMARY. If you do not agree with the query, please document in the query above. THIS QUERY IS PART OF THE PERMANENT MEDICAL RECORD
--- NOTE | 2020-10-15 12:57 | MHC.RECOVRN ---
50 year old male presented to [facility] on 10/[address] Valerio due to decreased potassium and feeling weak. Pt noted to have AUD. Pt subsequently admitted for withdrawal, hypokalemia, hypomagnesemia, and acute hepatitis.? T/w met with pt in 484 to discuss alcohol use. Pt reports first drink at age 21 and has had periods of recovery?off and on. Pt reports longest period in recovery was [id number]. During this time pt worked to occupy his time. Pt denies ATS admissions and other residential tx for AUD. Pt states I've been to AA meetings but it smells like beer and I don't drink coffee. Pt currently drinks Desiree whiskey, 7-8 nips daily x a couple years. Pt is unsure of goals for recovery and would like to discuss further with partner, Vanessa Xiong. Pt states I will call you after I talk to her. T/w discussed recovery resources with pt and provided pt with written information. Pt does have a psychologist and therapist. Next therapy appt is 10/16 at 12 pm.?Pt was given t/w card to reach out with questions or concerns and to discuss recovery further.
--- NOTE | 2020-10-15 13:59 | MHC.RECOVRN ---
After discussion with pt and pts girlfiriend, Bambi, pt would like to be referred to [facility]. Pt has also been seen at the [facility], last in August, and was prescribed naltrexone. Pt scheduled to be seen at the [facility] on 10/23 at 1 PM. Referral placed to [facility] for [facility] level of care.
--- NOTE | 2020-10-15 16:05 | P.PNIM_ITS ---
Subjective Subjective Date of Service: 10/15/20 Interval History: Patient feels better this morning less right arms swelling complaining of epigastric pain and also pain right upper quadrant, denies nausea vomiting no fever chills has been ambulating to bathroom with unsteady gait. Denies shakiness or tremors ROS General no headache, no dizziness, no fever chills. CVS no chest pain, no palpitation. Respiratory no cough, no sob Gastrointestinal nausea, vomiting, epigastric pain Physical Exam Vital Signs: Vital Signs: Last Vital Signs Temp 98.2 F 10/15/20 15:24 Pulse 100 10/15/20 15:24 Resp 20 10/15/20 15:24 BP 129/79 10/15/20 15:24 Pulse Ox 97 10/15/20 15:24 Body Mass Index 22.2 General patient resting comfortably, no acute distress. Eyes icteric sclera, no drainage Neck supple, no JVD. CVS regular rate rhythm, Respiratory lungs clear, to auscultation, no respiratory distress, no wheeze, no rhonchi. Gastrointestinal abdomen soft, epigastric tenderness, mild tenderness right upper quadrant, bowel sounds audible,no guarding , no rigidity. Extremities no clubbing, cyanosis or edema. Neuro nonfocal ,no tremors , speech clear. Skin no rash Objective Data Current Medications Generic Name Dose Route Start Last Admin Trade Name Weiq PRN Reason Stop Dose Admin Acetaminophen 650 mg 10/13/20 12:52 10/13/20 23:32 Acetaminophen 325 Mg Tablet PO 650 mg Q6H PRN Administration Pain, Mild (Pain Scale 1-3) Al Hydroxide/Mg Hydroxide 30 ml 10/14/20 11:05 Magnesium Hydrox/Alum Hydrox 30 Ml Oral.Susp PO Q4H PRN heart burn Albuterol Sulfate 2 puff 10/13/20 12:52 10/13/20 20:15 Albuterol Sulfate 90 Mcg 8 Gm Inhaler INHALE 2 puff Q6H PRN Administration Wheezing Albuterol/Ipratropium 3 ml 10/13/20 12:52 Albuterol/Iprat 2.5/0.5mg 3 Ml Ampul.Neb INHALE Q6H PRN wheezing Cholestyramine Resin 4 gm 10/13/20 21:00 10/15/20 08:19 Cholestyramine (With Sugar) 4 Gm Powd.Pack PO 4 gm BID PHILL Administration Docusate Sodium 100 mg 10/13/20 21:00 10/15/20 08:18 Docusate Sodium 100 Mg Capsule PO Not Given BID PHILL Doxycycline Hyclate 100 mg 10/14/20 18:00 10/15/20 05:10 Doxycycline Hyclate 100 Mg Tablet PO 10/16/20 18:01 100 mg Q12H PHILL Administration Erythromycin 1 cm 10/13/20 21:00 10/15/20 08:20 Erythromycin Base 0.5% Oph Oin 1 Gm Tube EYE-BOTH 1 cm BID PHILL Administration Fluticasone Propionate 1 spray 10/14/20 09:00 10/15/20 08:37 Fluticasone Propionate Nasal 16 Gm [place] NOSTRIL-B 1 spray DAILY PHILL Administration Folic Acid 1 mg 10/14/20 09:00 10/15/20 08:20 Folic Acid 1 Mg Tablet PO 1 mg DAILY PHILL Administration Lidocaine 1 appl 10/13/20 13:06 10/14/20 03:35 Lidocaine 5 % Ointment 35 Gm TOPICAL 1 appl TID PRN Administration pain Magnesium Oxide 400 mg 10/13/20 17:30 10/15/20 08:20 Magnesium Oxide 400 Mg Tablet PO 400 mg BIDPC PHILL Administration Montelukast Sodium 10 mg 10/14/20 09:00 10/15/20 08:19 Montelukast Sodium 10 Mg Tablet PO 10 mg DAILY PHILL Administration Nicotine 21 mg 10/13/20 20:15 10/15/20 08:21 Nicotine 21 Mg Patch.Td24 TRANSDERMA 21 mg DAILY PHILL Administration Nicotine Polacrilex 2 mg 10/13/20 16:30 Nicotine Polacrilex 2 Mg Gum BUCCAL Q2H PRN Nicotine Cravings Omeprazole 20 mg 10/14/20 06:30 10/15/20 05:11 Omeprazole 20 Mg Capsule. PO 20 mg DAILY@0630 PHILL Administration Ondansetron HCl 4 mg 10/14/20 11:05 10/14/20 12:05 Ondansetron Hcl 4 Mg/2 Ml Vial IVPUSH 4 mg Q6H PRN Administration nausea Pharmacy Consult 1 each 10/13/20 10:18 Consult Rx Etoh Phenob Dosing MISCELLANE ONCE PRN Consult order Protocol Phenobarbital 45 mg 10/14/20 09:00 10/15/20 08:21 Phenobarbital 15 Mg Tablet PO 10/15/20 21:01 45 mg BID PHILL Administration Protocol Phenobarbital 30 mg 10/16/20 09:00 Phenobarbital 30 Mg Tablet PO 10/17/20 21:01 BID PHILL Protocol Phenobarbital 30 mg 10/18/20 09:00 Phenobarbital 30 Mg Tablet PO 10/19/20 09:01 DAILY PHILL Protocol Sodium Chloride 3 ml 10/13/20 16:00 10/15/20 08:20 0.9 % Sodium Chloride Flush 3 Ml Syringe IVFLUSH 3 ml QSHIFT PHILL Administration Tamsulosin HCl 0.4 mg 10/13/20 21:00 10/14/20 19:46 Tamsulosin Hcl 0.4 Mg Capsule PO 0.4 mg BEDTIME PHILL Administration Thiamine HCl 100 mg 10/14/20 09:00 10/15/20 08:20 Thiamine Hcl 100 Mg Tablet PO 100 mg DAILY PHILL Administration Tramadol HCl 50 mg 10/13/20 16:20 10/14/20 19:46 Tramadol Hcl 50 Mg Tablet PO 50 mg TID PRN Administration pain Labs CBC & Chem 7: 10/15/20 05:29 10/15/20 05:29 Assessment and Plan (1) Nausea and vomiting: Status: Acute (2) Acute hypokalemia: Status: Acute (3) Hypomagnesemia: Status: Acute (4) Alcohol intoxication: Status: Acute (5) Acute alcoholic hepatitis: Status: Acute Assessment and Plan: 50-year-old gentleman with history of alcohol dependence, asthma, chronic pain, presented to ER with multiple complaints of weakness, nausea, vomiting, and diarrhea that has now resolved and the patient has been found to have hypom agnesemia and hypokalemia and has elevated alcohol level of 242. 1. Alcohol dependence and withdrawal. Alcohol level 242 on arrival to ED Feels better nausea, vomiting and shakiness resolved, continue phenobarb protocol, on thiamine, folate, elevated MCV, normal vitamin B12 and low folate level Will place on folic acid 1 mg daily Patient seen by Care team discussed complete abstinence from alcohol. 2. Alcoholic hepatitis, persistent elevation of total bili, AST and ALT trending down, patient with mild abdominal pain strongly advise to complete abstinence from alcohol continue supportive care with IV Zofran, IV fluids, will trend LFTs and strongly recommend to abstain from alcohol. Obtain abdominal ultrasound if no further improvement in LFTs. 3. Hypokalemia likely due to poor p.o. intake and recent bout of GI loss. Potassium improved with replacement. 4. Hypomagnesemia. Persistent low magnesium continue to replace and follow, placed on by mouth magnesium. 5. Alcoholic gastritis Epigastric pain /nausea and vomiting improving continue PPI, anti emetics and supportive care. 6. Tobacco use disorder continue nicotine 7. Conjunctivitis diagnosed as outpatient, improving, continue eyedrops. 8.Deep vein thrombosis prophylaxis with mechanical device. Encourage ambulation.
[2020-10-15] MEDS: Lactated Ringers 1,000 ML 100 ML IVCONT (16:27)
[2020-10-15] MEDS: traMADoL HCL 50 MG TABLET PO (16:57)
[2020-10-15] MEDS: Docusate Sodium 100 MG CAPSULE PO (19:32)
[2020-10-15] MEDS: Tamsulosin HCL 0.4 MG CAPSULE PO (19:32)
[2020-10-15] MEDS: Acetaminophen 325 MG TABLET 650 MG PO (19:34)
[2020-10-15] MEDS: Albuterol/Iprat 2.5/0.5MG 3 ML AMPUL.NEB INHALE (20:14)
[2020-10-16 03:54] VITALS: BP 134/72; PULSE 83; RESP 20; TEMP 36.9; O2SAT 97
[2020-10-16 06:19] LABS: Eosinophils Absolute Auto 0.1 X10*3/uL (0.0-0.4); Imm Gran Abs Auto 0.02 X10*3/uL (0.00-0.03); Imm Gran Pct Auto 0.5 % (0.0-0.4); MANUAL DIFF FLAG SCAN; PLT CLUMP 1; Red Cell Distribution Width 13.7 % (11.0-16.0); SCAN SMEAR FLAG 1
[2020-10-16 06:21] LABS: Basophils Percent Auto 0.5 % (0-2); Eosinophils Percent Auto 2.2 % (0-4); Hematocrit 28.6 % (42-52); Hemoglobin 9.5 g/dl (14.0-18.0); Lymphocytes Absolute Auto 0.7 X10*3/uL (1.2-4.9); Lymphocytes Percent Auto 16.5 % (20-40); Mean Corpuscular HGB Conc 33.2 g/dl (31.0-36.0); Mean Corpuscular Volume 108.3 fL (80-98); Mean Platelet Volume 10.4 fL (9.4-12.4); Monocytes Absolute Auto 0.5 X10*3/uL (0.1-1.2); Monocytes Percent Auto 12.8 % (2-11); Neutrophils Absolute Auto 2.7 X10*3/uL (2.0-8.3); Neutrophils Percent Auto 67.5 % (45-73); Platelet Count 133 X10*3/uL (160-400); Red Blood Count 2.64 X10*6/uL (4.60-5.80); White Blood Count 4.1 X10*3/uL (4.8-10.8)
[2020-10-16] MEDS: 0.9 % Sodium Chloride Flush 3 ML SYRINGE IVFLUSH (06:27)
[2020-10-16] MEDS: Lactated Ringers 1,000 ML 100 ML IVCONT ×2 (06:28→20:14)
[2020-10-16] MEDS: Omeprazole 20 MG CAPSULE.DR PO (06:30)
[2020-10-16 06:45] LABS: SLIDE REVIEW VERIFIED
[2020-10-16 07:08] LABS: Alanine Aminotransferase 50 U/L (0-40); Albumin Level 2.7 g/dL (3.5-5.0); Alkaline Phosphatase 192 U/L (39-117); Anion Gap 11 (12-20); Aspartate Amino Transferase 131 U/L (5-37); Bilirubin Total 7.9 mg/dL (0.0-1.0); Blood Urea Nitrogen 4 mg/dL (9-16); Calcium 7.6 mg/dL (8.4-10.2); Carbon Dioxide 26 mmol/L (22-29); Chloride 99 mmol/L (96-108); Estimated Glomerular Filt Rate > 60; Glucose Random 76 mg/dL (60-115); Magnesium 1.3 mg/dL (1.6-2.6); Potassium 3.2 mmol/L (3.3-5.1); Sodium 133 mmol/L (135-145); Total Protein 5.2 g/dL (6.5-8.0)
[2020-10-16 07:27] VITALS: BP 120/78; PULSE 95; RESP 18; TEMP 37; O2SAT 97
[2020-10-16] MEDS: Magnesium Sulfate/H2O 2 GM/50 ML PIGGYBACK IV ×2 (08:45→10:42)
[2020-10-16] MEDS: Cholestyramine (With Sugar) 4 GM POWD.PACK PO ×2 (08:46→20:08)
[2020-10-16] MEDS: Folic Acid 1 MG TABLET PO (08:47)
[2020-10-16] MEDS: PHENobarbitaL 30 MG TABLET PO ×2 (08:47→20:08)
[2020-10-16] MEDS: Thiamine HCL 100 MG TABLET PO (08:47)
[2020-10-16] MEDS: Montelukast Sodium 10 MG TABLET PO (08:47)
[2020-10-16] MEDS: Magnesium Oxide 400 MG TABLET PO ×2 (08:47→17:10)
[2020-10-16] MEDS: Erythromycin Base 0.5% Oph Oin 1 GM TUBE 1 CM EYE-BOTH ×2 (08:47→20:08)
[2020-10-16] MEDS: Nicotine 21 MG PATCH.TD24 TRANSDERMA (08:47)
[2020-10-16 11:39] VITALS: BP 121/85; PULSE 103; RESP 20; TEMP 37.1; O2SAT 97
--- NOTE | 2020-10-16 13:32 | P.PNIM_ITS ---
Subjective Subjective Date of Service: 10/16/20 Interval History: Seen in f/u for alcohol withdrawal, alcoholic hepatitis Review of Systems diarrhea, some abd discomfort no fever, Physical Exam Vital Signs: Vital Signs: Last Vital Signs Temp 98.7 F 10/16/20 11:39 Pulse 103 H 10/16/20 11:39 Resp 20 10/16/20 11:39 BP 121/85 10/16/20 11:39 Pulse Ox 97 10/16/20 11:39 Body Mass Index 22.2 General: AO X 3, no acute distress HEEN: sclera icteris Resp: CTA bilateral CVS: S1,S2,RRR GI: +BS, NT, no distention Skin: No rash Neuro: motor grossly intact Psych: appropriate affect Objective Data Current Medications Generic Name Dose Route Start Last Admin Trade Name Freq PRN Reason Stop Dose Admin Acetaminophen 650 mg 10/13/20 12:52 10/15/20 19:34 Acetaminophen 325 Mg Tablet PO 650 mg Q6H PRN Administration Pain, Mild (Pain Scale 1-3) Al Hydroxide/Mg Hydroxide 30 ml 10/14/20 11:05 Magnesium Hydrox/Alum Hydrox 30 Ml Oral.Susp PO Q4H PRN heart burn Albuterol Sulfate 2 puff 10/13/20 12:52 10/13/20 20:15 Albuterol Sulfate 90 Mcg 8 Gm Inhaler INHALE 2 puff Q6H PRN Administration Wheezing Albuterol/Ipratropium 3 ml 10/13/20 12:52 10/15/20 20:14 Albuterol/Iprat 2.5/0.5mg 3 Ml Ampul.Neb INHALE 3 ml Q6H PRN Administration wheezing Cholestyramine Resin 4 gm 10/13/20 21:00 10/16/20 08:46 Cholestyramine (With Sugar) 4 Gm Powd.Pack PO 4 gm BID PHILL Administration Docusate Sodium 100 mg 10/13/20 21:00 10/16/20 08:48 Docusate Sodium 100 Mg Capsule PO Not Given BID PHILL Doxycycline Hyclate 100 mg 10/14/20 18:00 10/16/20 06:30 Doxycycline Hyclate 100 Mg Tablet PO 10/16/20 18:01 100 mg Q12H PHILL Administration Erythromycin 1 cm 10/13/20 21:00 10/16/20 08:47 Erythromycin Base 0.5% Oph Oin 1 Gm Tube EYE-BOTH 1 cm BID PHILL Administration Fluticasone Propionate 1 spray 10/14/20 09:00 10/16/20 08:50 Fluticasone Propionate Nasal 16 Gm [place] NOSTRIL-B Not Given DAILY PHILL Folic Acid 1 mg 10/16/20 09:00 10/16/20 08:47 Folic Acid 1 Mg Tablet PO 10/18/20 09:01 1 mg DAILY PHILL Administration Lactated Ringer's 1,000 mls @ 100 mls/hr 10/15/20 16:30 10/16/20 12:31 Lr IVCONT Not Given .Q10H PHILL Lidocaine 1 appl 10/13/20 13:06 10/14/20 03:35 Lidocaine 5 % Ointment 35 Gm TOPICAL 1 appl TID PRN Administration pain Magnesium Oxide 400 mg 10/13/20 17:30 10/16/20 08:47 Magnesium Oxide 400 Mg Tablet PO 400 mg BIDPC PHILL Administration Montelukast Sodium 10 mg 10/14/20 09:00 10/16/20 08:47 Montelukast Sodium 10 Mg Tablet PO 10 mg DAILY PHILL Administration Nicotine 21 mg 10/13/20 20:15 10/16/20 08:47 Nicotine 21 Mg Patch.Td24 TRANSDERMA 21 mg DAILY PHILL Administration Nicotine Polacrilex 2 mg 10/13/20 16:30 Nicotine Polacrilex 2 Mg Gum BUCCAL Q2H PRN Nicotine Cravings Omeprazole 20 mg 10/14/20 06:30 10/16/20 06:30 Omeprazole 20 Mg Capsule. PO 20 mg DAILY@0630 PHILL Administration Ondansetron HCl 4 mg 10/14/20 11:05 10/14/20 12:05 Ondansetron Hcl 4 Mg/2 Ml Vial IVPUSH 4 mg Q6H PRN Administration nausea Pharmacy Consult 1 each 10/13/20 10:18 Consult Rx Etoh Phenob Dosing MISCELLANE ONCE PRN Consult order Protocol Phenobarbital 30 mg 10/16/20 09:00 10/16/20 08:47 Phenobarbital 30 Mg Tablet PO 10/17/20 21:01 30 mg BID PHILL Administration Protocol Phenobarbital 30 mg 10/18/20 09:00 Phenobarbital 30 Mg Tablet PO 10/19/20 09:01 DAILY [facility] Protocol Sodium Chloride 3 ml 10/13/20 16:00 10/16/20 09:12 0.9 % Sodium Chloride Flush 3 Ml Syringe IVFLUSH Not Given QSHIFT PHILL Tamsulosin HCl 0.4 mg 10/13/20 21:00 10/15/20 19:32 Tamsulosin Hcl 0.4 Mg Capsule PO 0.4 mg BEDTIME PHILL Administration Thiamine HCl 100 mg 10/14/20 09:00 10/16/20 08:47 Thiamine Hcl 100 Mg Tablet PO 100 mg DAILY PHILL Administration Tramadol HCl 50 mg 10/13/20 16:20 10/15/20 16:57 Tramadol Hcl 50 Mg Tablet PO 50 mg TID PRN Administration pain Labs CBC & Chem 7: 10/16/20 05:40 10/16/20 05:40 Assessment and Plan (1) Nausea and vomiting: Status: Acute (2) Acute hypokalemia: Status: Acute (3) Hypomagnesemia: Status: Acute (4) Alcohol intoxication: Status: Acute (5) Acute alcoholic hepatitis: Status: Acute Assessment and Plan: 50-year-old gentleman with history of alcohol dependence, asthma, chronic pain, presented to ER with multiple complaints of weakness, nausea, vomiting, and diarrhea that has now resolved and the patient has been found to have hypomagnesemia and hypokalemia and has elevated alcohol level of 242. 1. Alcohol dependence and withdrawal. Not actively withdrawing -continue Phenobarb -Strick abstience discussed -Thiamine and folate -CARE team has offered resources 2. Alcoholic hepatitis. Bili is still high, persistent elevation of total bili, AST and ALT trending down. US of abdomen today 3. HypOkalemia likely due to poor p.o. intake and recent bout of GI loss. 3.2 today, give KCL 40 and correct mag 4. Hypomagnesemia. 1.3 today, give 4 gram of Mag Sulfate 5. Alcoholic gastritis Epigastric pain /nausea and vomiting improving continue PPI, anti emetics and supportive care. 6. Tobacco use disorder continue nicotine 7. Conjunctivitis diagnosed as outpatient, improving, continue eyedrops, almost all gone. 8.Deep vein thrombosis prophylaxis with mechanical device. Encourage ambulation. Discharge tomorow
[2020-10-16] MEDS: Potassium Chloride Packet 20 MEQ PACKET 40 MEQ PO (14:28)
[2020-10-16 15:07] LABS: Alanine Aminotransferase 54 U/L (0-40); Albumin Level 2.8 g/dL (3.5-5.0); Alkaline Phosphatase 200 U/L (39-117); Aspartate Amino Transferase 139 U/L (5-37); Bilirubin Direct 6.2 mg/dL (0.0-0.5); Bilirubin Total 8.7 mg/dL (0.0-1.0); Total Protein 5.7 g/dL (6.5-8.0)
[2020-10-16 16:00] VITALS: BP 134/80; PULSE 93; RESP 15; TEMP 36.5; O2SAT 99
--- NOTE | 2020-10-16 16:01 | PM.GIPN ---
Subjective Subjective Date of Service: 10/16/20 Interval History: 50 yo male well known to me. He was in my office last week. He looked ill. He had recently been drinking and not really eating well. He was sent for labs. On return he was contacted and was instructed to come to the ER. He was admitted due to Electrolyte abnormalities and what looked like Acute Alcohol Induced Steatohepatitis. (Alcohol level on admission was >200). Today he is alert, mildly tremulous but ambulatory. He is still jaundiced. He is aware of how sick he is. He says he is not ready to . He is willing to go to Rehab. He is ready to put in the work. Physical Exam Vital Signs: Vital Signs: Last Vital Signs Temp 98.7 F 10/16/20 11:39 Pulse 103 H 10/16/20 11:39 Resp 20 10/16/20 11:39 BP 121/85 10/16/20 11:39 Pulse Ox 97 10/16/20 11:39 Body Mass Index 22.2 Const: General: cooperative, alert, anxious and ill appearing Orientation/consciousness: patient oriented x3 Limitations: no limitations Resp: Other: Smoker--hx chronic asthmatic bronchitis. Effort & Inspection: normal respiratory effort and able to speak in complete sentences Cardio: Rate: regular rate and tachycardic Rhythm: regular rhythm GI: Palpation (GI): Soft to palpation, no guarding, no masses and Other GI palpation findings present (distended.) Percussion: Yes Other Neuro: Other: tremulous. General: patient oriented x3 Extrem: Other: Scatterer ecchymoses legs and arm. General: Yes edema Objective Data Labs CBC & Chem 7: 10/16/20 05:40 10/17/20 05:25 Labs: Laboratory Results - last 24 hr 10/16/20 10/16/20 10/16/20 05:40 05:40 14:26 WBC 4.1 L RBC 2.64 L Hgb 9.5 L Hct 28.6 L MCV 108.3 H MCH 36.0 H MCHC 33.2 RDW 13.7 Plt Count 133 L MPV 10.4 Immature Gran % (Auto) 0.5 H Neut % (Auto) 67.5 Lymph % (Auto) 16.5 L [place] % (Auto) 12.8 H Eos % (Auto) 2.2 Baso % (Auto) 0.5 Lymph # (Auto) 0.7 L [place] # (Auto) 0.5 Eos # (Auto) 0.1 Baso # (Auto) 0.0 Abs Immat Gran (auto) 0.02 Absolute Neuts (auto) 2.7 Absolute Nucleated RBC 0.000 Nucleated RBC % (auto) 0.0 Smear Tech's Comments VERIFIED Sodium 133 L Potassium 3.2 L Chloride 99 Carbon Dioxide 26 Anion Gap 11 L BUN 4 L Creatinine 0.48 L Estim Creat Clear Calc 183.0 Estimated GFR > 60 Random Glucose 76 Calcium 7.6 L Magnesium 1.3 L Total Bilirubin 7.9 H 8.7 H Direct Bilirubin 6.0 H 6.2 H AST 131 H 139 H ALT 50 H 54 H Alkaline Phosphatase 192 H 200 H Total Protein 5.2 L 5.7 L Albumin 2.7 L 2.8 L Progress Note: A&P Assessment and plan (1) Acute alcoholic hepatitis: Status: Acute Assessment and Plan: Patient has not been doing well @ home. This is the worst he has been for months. He seems to be improving slightly from the trend down of the transaminases. This is usually when the Jaundice worsens. He is significantly hypoalbuminemic. I COUNSELLED PATIENT THAT HIS CONDITION HAS A VERY HIGH MORTALITY RATE UNLESS HE STABILIZES AND ALSO STOPS DRINKING. Focus on protein calorie nutrition. Encourage Alcohol Rehab program. Needs to put the work in for recovery if he really wants to get better. If cholestasis continues he may need a 4 week course of steroids. Diarrhea is multifactorial: alcohol, hypoalbuminemia, check for WBC, C. Diff. Anemia should stabilize. daily BILI, INR and glucose to monitor severity of the Steatohepatitis. On discharge he should be seen by me or in my office in 2-4 weeks depending on his stability. (2) Hypomagnesemia: Status: Resolved Assessment and Plan: Replace and monitor daily (3) Diarrhea: Status: Resolved Assessment and Plan: Multifactorial. If does not tolerate Questran he can be given Carafate up to 1gm QID. (4) Alcohol use disorder, severe, dependence: Status: Acute Assessment and Plan: Patient is working with the substance abuse clinical engineering manager to pursue post hospitalization treatment. Fall Risk Details Current Medications: Current Medications Generic Name Dose Route Start Last Admin Trade Name Freq PRN Reason Stop Dose Admin Acetaminophen 650 mg 10/13/20 12:52 10/15/20 19:34 Acetaminophen 325 Mg Tablet PO 650 mg Q6H PRN Administration Pain, Mild (Pain Scale 1-3) Al Hydroxide/Mg Hydroxide 30 ml 10/14/20 11:05 Magnesium Hydrox/Alum Hydrox 30 Ml Oral.Susp PO Q4H PRN heart burn Albuterol Sulfate 2 puff 10/13/20 12:52 10/13/20 20:15 Albuterol Sulfate 90 Mcg 8 Gm Inhaler INHALE 2 puff Q6H PRN Administration Wheezing Albuterol/Ipratropium 3 ml 10/13/20 12:52 10/15/20 20:14 Albuterol/Iprat 2.5/0.5mg 3 Ml Ampul.Neb INHALE 3 ml Q6H PRN Administration wheezing Cholestyramine Resin 4 gm 10/13/20 21:00 10/16/20 08:46 Cholestyramine (With Sugar) 4 Gm Powd.Pack PO 4 gm BID PHILL Administration Docusate Sodium 100 mg 10/13/20 21:00 10/16/20 08:48 Docusate Sodium 100 Mg Capsule PO Not Given BID PHILL Doxycycline Hyclate 100 mg 10/14/20 18:00 10/16/20 06:30 Doxycycline Hyclate 100 Mg Tablet PO 10/16/20 18:01 100 mg Q12H PHILL Administration Erythromycin 1 cm 10/13/20 21:00 10/16/20 08:47 Erythromycin Base 0.5% Oph Oin 1 Gm Tube EYE-BOTH 1 cm BID PHILL Administration Fluticasone Propionate 1 spray 10/14/20 09:00 10/16/20 08:50 Fluticasone Propionate Nasal 16 Gm [place] NOSTRIL-B Not Given DAILY PHILL Folic Acid 1 mg 10/16/20 09:00 10/16/20 08:47 Folic Acid 1 Mg Tablet PO 10/18/20 09:01 1 mg DAILY PHILL Administration Lactated Ringer's 1,000 mls @ 100 mls/hr 10/15/20 16:30 10/16/20 12:31 Lr IVCONT Not Given .Q10H PHILL Lidocaine 1 appl 10/13/20 13:06 10/14/20 03:35 Lidocaine 5 % Ointment 35 Gm TOPICAL 1 appl TID PRN Administration pain Magnesium Oxide 400 mg 10/13/20 17:30 10/16/20 08:47 Magnesium Oxide 400 Mg Tablet PO 400 mg BIDPC PHILL Administration Montelukast Sodium 10 mg 10/14/20 09:00 10/16/20 08:47 Montelukast Sodium 10 Mg Tablet PO 10 mg DAILY PHILL Administration Nicotine 21 mg 10/13/20 20:15 10/16/20 08:47 Nicotine 21 Mg Patch.Td24 TRANSDERMA 21 mg DAILY PHILL Administration Nicotine Polacrilex 2 mg 10/13/20 16:30 Nicotine Polacrilex 2 Mg Gum BUCCAL Q2H PRN Nicotine Cravings Omeprazole 20 mg 10/14/20 06:30 10/16/20 06:30 Omeprazole 20 Mg Capsule. PO 20 mg DAILY@0630 [facility] Administration Ondansetron HCl 4 mg 10/14/20 11:05 10/14/20 12:05 Ondansetron Hcl 4 Mg/2 Ml Vial IVPUSH 4 mg Q6H PRN Administration nausea Pharmacy Consult 1 each 10/13/20 10:18 Consult Rx Etoh Phenob Dosing MISCELLANE ONCE PRN Consult order Protocol Phenobarbital 30 mg 10/16/20 09:00 10/16/20 08:47 Phenobarbital 30 Mg Tablet PO 10/17/20 21:01 30 mg BID PHILL Administration Protocol Phenobarbital 30 mg 10/18/20 09:00 Phenobarbital 30 Mg Tablet PO 10/19/20 09:01 DAILY [facility] Protocol Sodium Chloride 3 ml 10/13/20 16:00 10/16/20 15:09 0.9 % Sodium Chloride Flush 3 Ml Syringe IVFLUSH Not Given QSHIFT [facility] Tamsulosin HCl 0.4 mg 10/13/20 21:00 10/15/20 19:32 Tamsulosin Hcl 0.4 Mg Capsule PO 0.4 mg BEDTIME PHILL Administration Thiamine HCl 100 mg 10/14/20 09:00 10/16/20 08:47 Thiamine Hcl 100 Mg Tablet PO 100 mg DAILY [facility] Administration Tramadol HCl 50 mg 10/13/20 16:20 10/15/20 16:57 Tramadol Hcl 50 Mg Tablet PO 50 mg TID PRN Administration pain Time Spent With Patient Time: Total time spent is greater than 50% in coordination of care (as documented) at patient's floor/unit and/or counseling patient: Time with patient: 15 - 24 minutes
[2020-10-16] MEDS: traMADoL HCL 50 MG TABLET PO (17:10)
[2020-10-16] MEDS: Acetaminophen 325 MG TABLET 650 MG PO (17:10)
[2020-10-16 19:54] VITALS: BP 122/84; PULSE 90; RESP 12; TEMP 36.7; O2SAT 97
[2020-10-16] MEDS: Docusate Sodium 100 MG CAPSULE PO (20:08)
[2020-10-16] MEDS: Tamsulosin HCL 0.4 MG CAPSULE PO (20:08)
[2020-10-17] VITALS (8 sets, daily range): BP systolic 108–136; BP diastolic 56–89; PULSE 77–99; RESP 16–20; TEMP 36.6–37.4; O2SAT 96–100
[2020-10-17] MEDS: Acetaminophen 325 MG TABLET 650 MG PO ×3 (00:07→23:01)
[2020-10-17] MEDS: traMADoL HCL 50 MG TABLET PO ×3 (00:29→23:00)
[2020-10-17] MEDS: Lactated Ringers 1,000 ML 100 ML IVCONT ×2 (04:57→17:13)
[2020-10-17] MEDS: Omeprazole 20 MG CAPSULE.DR PO (05:03)
[2020-10-17 07:15] LABS: Anion Gap 11 (12-20); Blood Urea Nitrogen 4 mg/dL (9-16); Calcium 8.1 mg/dL (8.4-10.2); Carbon Dioxide 24 mmol/L (22-29); Chloride 101 mmol/L (96-108); Estimated Glomerular Filt Rate > 60; Glucose Random 77 mg/dL (60-115); Potassium 3.6 mmol/L (3.3-5.1); Sodium 132 mmol/L (135-145)
[2020-10-17] MEDS: Nicotine 21 MG PATCH.TD24 TRANSDERMA (08:31)
[2020-10-17] MEDS: Erythromycin Base 0.5% Oph Oin 1 GM TUBE 1 CM EYE-BOTH ×2 (08:31→20:18)
[2020-10-17] MEDS: Thiamine HCL 100 MG TABLET PO (08:33)
[2020-10-17] MEDS: PHENobarbitaL 30 MG TABLET PO ×2 (08:33→20:21)
[2020-10-17] MEDS: Folic Acid 1 MG TABLET PO (08:33)
[2020-10-17] MEDS: Docusate Sodium 100 MG CAPSULE PO ×2 (08:33→20:22)
[2020-10-17] MEDS: Montelukast Sodium 10 MG TABLET PO (08:33)
[2020-10-17] MEDS: Magnesium Oxide 400 MG TABLET PO ×2 (08:36→17:14)
[2020-10-17] MEDS: Cholestyramine (With Sugar) 4 GM POWD.PACK PO ×2 (08:37→20:19)
[2020-10-17] MEDS: 0.9 % Sodium Chloride Flush 3 ML SYRINGE IVFLUSH ×2 (08:37→17:13)
[2020-10-17 12:03] LABS: Magnesium 1.5 mg/dL (1.6-2.6)
--- NOTE | 2020-10-17 13:13 | MHC.CM.PN ---
Patient continues on IV flds and PO Phenobarbital for ETOH. Care team has sent referrals to 2 [facility] centers for discharge. CM will continue to follow patient for discharge needs.
[2020-10-17 15:42] LABS: Alanine Aminotransferase 52 U/L (0-40); Albumin Level 2.8 g/dL (3.5-5.0); Alkaline Phosphatase 186 U/L (39-117); Aspartate Amino Transferase 136 U/L (5-37); Bilirubin Direct 6.3 mg/dL (0.0-0.5); Bilirubin Total 8.8 mg/dL (0.0-1.0); Total Protein 5.4 g/dL (6.5-8.0)
[2020-10-17] MEDS: Magnesium Sulfate/H2O 2 GM/50 ML PIGGYBACK IV (17:07)
--- NOTE | 2020-10-17 17:10 | HO.PM.IMPN ---
Subjective Subjective Date of Service: 10/18/20 Interval History: f/u on alcoholic hepatitis, LFTS remains high but overall he is doing better Review of Systems Gen: no fever Resp: no sob, no cough CV: no chest, no ARMENTA, no leg edema GI: No n/v, no abd pain Neuro: No confusion Physical Exam Vital Signs: Vital Signs: Last Vital Signs Temp 98 F 10/17/20 15:14 Pulse 85 10/17/20 15:14 Resp 18 10/17/20 15:14 BP 126/81 10/17/20 15:14 Pulse Ox 99 10/17/20 15:14 Body Mass Index 22.2 General: AO X 3, no acute distress Heent: sclera icteris Resp: CTA bilateral CVS: S1,S2,RRR GI: +BS, NT, no distention Skin: No rash Neuro: motor grossly intact Psych: appropriate affect Objective Data Current Medications Generic Name Dose Route Start Last Admin Trade Name Freq PRN Reason Stop Dose Admin Acetaminophen 650 mg 10/13/20 12:52 10/17/20 08:39 Acetaminophen 325 Mg Tablet PO 650 mg Q6H PRN Administration Pain, Mild (Pain Scale 1-3) Al Hydroxide/Mg Hydroxide 30 ml 10/14/20 11:05 Magnesium Hydrox/Alum Hydrox 30 Ml Oral.Susp PO Q4H PRN heart burn Albuterol Sulfate 2 puff 10/13/20 12:52 10/13/20 20:15 Albuterol Sulfate 90 Mcg 8 Gm Inhaler INHALE 2 puff Q6H PRN Administration Wheezing Albuterol/Ipratropium 3 ml 10/13/20 12:52 10/15/20 20:14 Albuterol/Iprat 2.5/0.5mg 3 Ml Ampul.Neb INHALE 3 ml Q6H PRN Administration wheezing Cholestyramine Resin 4 gm 10/13/20 21:00 10/17/20 08:37 Cholestyramine (With Sugar) 4 Gm Powd.Pack PO 4 gm BID PHILL Administration Docusate Sodium 100 mg 10/13/20 21:00 10/17/20 08:33 Docusate Sodium 100 Mg Capsule PO 100 mg BID PHILL Administration Erythromycin 1 cm 10/13/20 21:00 10/17/20 08:31 Erythromycin Base 0.5% Oph Oin 1 Gm Tube EYE-BOTH 1 cm BID PHILL Administration Fluticasone Propionate 1 spray 10/14/20 09:00 10/17/20 08:36 Fluticasone Propionate Nasal 16 Gm [place] NOSTRIL-B Not Given DAILY PHILL Folic Acid 1 mg 10/16/20 09:00 10/17/20 08:33 Folic Acid 1 Mg Tablet PO 10/18/20 09:01 1 mg DAILY PHILL Administration Lactated Ringer's 1,000 mls @ 100 mls/hr 10/15/20 16:30 10/17/20 04:57 Lr IVCONT 100 mls/hr .Q10H PHILL Administration Magnesium Sulfate 2 gm in 50 mls @ 25 mls/hr 10/17/20 15:11 IV 10/17/20 17:10 ONCE ONE Lidocaine 1 appl 10/13/20 13:06 10/14/20 03:35 Lidocaine 5 % Ointment 35 Gm TOPICAL 1 appl TID PRN Administration pain Magnesium Oxide 400 mg 10/13/20 17:30 10/17/20 08:36 Magnesium Oxide 400 Mg Tablet PO 400 mg BIDPC PHILL Administration Montelukast Sodium 10 mg 10/14/20 09:00 10/17/20 08:33 Montelukast Sodium 10 Mg Tablet PO 10 mg DAILY PHILL Administration Nicotine 21 mg 10/13/20 20:15 10/17/20 08:31 Nicotine 21 Mg Patch.Td24 TRANSDERMA 21 mg DAILY PHILL Administration Nicotine Polacrilex 2 mg 10/13/20 16:30 Nicotine Polacrilex 2 Mg Gum BUCCAL Q2H PRN Nicotine Cravings Omeprazole 20 mg 10/14/20 06:30 10/17/20 05:03 Omeprazole 20 Mg Capsule. PO 20 mg DAILY@0630 PHILL Administration Ondansetron HCl 4 mg 10/14/20 11:05 10/14/20 12:05 Ondansetron Hcl 4 Mg/2 Ml Vial IVPUSH 4 mg Q6H PRN Administration nausea Pharmacy Consult 1 each 10/13/20 10:18 Consult Rx Etoh Phenob Dosing MISCELLANE ONCE PRN Consult order Protocol Phenobarbital 30 mg 10/16/20 09:00 10/17/20 08:33 Phenobarbital 30 Mg Tablet PO 10/17/20 21:01 30 mg BID PHILL Administration Protocol Phenobarbital 30 mg 10/18/20 09:00 Phenobarbital 30 Mg Tablet PO 10/19/20 09:01 DAILY REPLACED BY [facility] Protocol Sodium Chloride 3 ml 10/13/20 16:00 10/17/20 08:37 0.9 % Sodium Chloride Flush 3 Ml Syringe IVFLUSH 3 ml QSHIFT PHILL Administration Tamsulosin HCl 0.4 mg 10/13/20 21:00 10/16/20 20:08 Tamsulosin Hcl 0.4 Mg Capsule PO 0.4 mg BEDTIME PHILL Administration Thiamine HCl 100 mg 10/14/20 09:00 10/17/20 08:33 Thiamine Hcl 100 Mg Tablet PO 100 mg DAILY PHILL Administration Tramadol HCl 50 mg 10/13/20 16:20 10/17/20 08:40 Tramadol Hcl 50 Mg Tablet PO 50 mg TID PRN Administration pain Labs CBC & Chem 7: 10/16/20 05:40 10/17/20 05:25 Assessment and Plan (1) Nausea and vomiting: Status: Acute (2) Acute hypokalemia: Status: Acute (3) Hypomagnesemia: Status: Acute (4) Alcohol intoxication: Status: Acute (5) Acute alcoholic hepatitis: Status: Acute Assessment and Plan: 50-year-old gentleman with history of alcohol dependence, asthma, chronic pain, presented to ER with multiple complaints of weakness, nausea, vomiting, and diarrhea that has now resolved and the patient has been found to have hypomagnesemia and hypokalemia and has elevated alcohol level of 242. 1. Alcohol dependence and withdrawal. Not actively withdrawing -continue Phenobarb -Strick abstience discussed -Thiamine and folate -CARE team has offered resources (He wants to go to rehab but now maybe changing his mind 2. Alcoholic hepatitis. Bili is hihger, persistent elevation of total bili, AST and ALT trending down. US of abdomen today 3. HypOkalemia. K is normal 4. Hypomagnesemia. 1.5 today after 4 grams yesterday, will give 2 grams today 5. Alcoholic gastritis Epigastric pain /nausea and vomiting improving continue PPI, anti emetics and supportive care. 6. Tobacco use disorder continue nicotine 7. Conjunctivitis diagnosed as outpatient, improving, continue eyedrops, almost all gone. 8.Deep vein thrombosis prophylaxis with mechanical device. Encourage ambulation. Discharge tomorow
[2020-10-17] MEDS: Tamsulosin HCL 0.4 MG CAPSULE PO (20:17)
[2020-10-17] MEDS: Albuterol/Iprat 2.5/0.5MG 3 ML AMPUL.NEB INHALE (21:32)
[2020-10-18] MEDS: Lactated Ringers 1,000 ML 100 ML IVCONT (03:33)
[2020-10-18 04:00] VITALS: BP 128/89; PULSE 83; RESP 20; TEMP 36.6; O2SAT 100
[2020-10-18] MEDS: Omeprazole 20 MG CAPSULE.DR PO (06:13)
[2020-10-18 06:20] LABS: INTERNATIONAL NORM RATIO 1.2 (0.9-1.1); Prothrombin Time 14.2 SEC (10.8-13.0)
[2020-10-18 06:34] LABS: Magnesium 1.6 mg/dL (1.6-2.6)
[2020-10-18 06:47] LABS: Alanine Aminotransferase 52 U/L (0-40); Alkaline Phosphatase 191 U/L (39-117); Aspartate Amino Transferase 122 U/L (5-37); Bilirubin Direct 6.3 mg/dL (0.0-0.5); Bilirubin Total 8.2 mg/dL (0.0-1.0); Total Protein 5.8 g/dL (6.5-8.0)
[2020-10-18 07:29] VITALS: BP 140/70; PULSE 81; RESP 20; TEMP 37; O2SAT 97
[2020-10-18] MEDS: Docusate Sodium 100 MG CAPSULE PO (09:33)
[2020-10-18] MEDS: Erythromycin Base 0.5% Oph Oin 1 GM TUBE 1 CM EYE-BOTH (09:33)
[2020-10-18] MEDS: Montelukast Sodium 10 MG TABLET PO (09:33)
[2020-10-18] MEDS: Folic Acid 1 MG TABLET PO (09:33)
[2020-10-18] MEDS: Magnesium Oxide 400 MG TABLET PO (09:33)
[2020-10-18] MEDS: Cholestyramine (With Sugar) 4 GM POWD.PACK PO (09:33)
[2020-10-18] MEDS: Nicotine 21 MG PATCH.TD24 TRANSDERMA (09:33)
[2020-10-18] MEDS: Thiamine HCL 100 MG TABLET PO (09:33)
[2020-10-18] MEDS: PHENobarbitaL 30 MG TABLET PO (09:33)
[2020-10-18] MEDS: 0.9 % Sodium Chloride Flush 3 ML SYRINGE IVFLUSH (09:34)
[2020-10-18] MEDS: traMADoL HCL 50 MG TABLET PO (10:07)
--- NOTE | 2020-10-18 11:39 | PM.DS ---
DS: Providers Provider Date of Service: 11/06/20 Date of admission: 10/13/20 10:15 Primary care physician: Rita Edwards MD DS: Diagnosis Discharge Diagnosis (1) Nausea and vomiting: Status: Resolved (2) Acute hypokalemia: Status: Resolved (3) Hypomagnesemia: Status: Resolved (4) Alcohol intoxication: Status: Resolved (5) Acute alcoholic hepatitis: Status: Acute DS: Medications Discharge Medications Home Medications: Home Medications Medication Instructions Recorded Confirmed prazosin 1 mg capsule 1 mg PO BEDTIME 05/24/20 10/13/20 sertraline 25 mg tablet 25 mg PO DAILY 05/24/20 10/13/20 albuterol sulfate 90 mcg/actuation 2 puff INHALATION Q6H PRN 07/18/20 10/13/20 aerosol inhaler quetiapine 50 mg tablet 50 mg PO DAILY 07/18/20 10/13/20 neomycin 3.5 mg/g-polymyxin B 0.25 inch OPHTHALMIC (EYE) TID 08/16/20 10/13/20 10,000 unit/g-dexameth 0.1 % eye oint erythromycin 5 mg/gram (0.5 %) eye 1 mg OPHTHALMIC (EYE) BID 09/24/20 10/13/20 ointment cholestyramine (with sugar) 4 g PO BID 10/13/20 10/13/20 fluticasone propionate 1 spray INTRANASAL DAILY 10/13/20 10/13/20 quetiapine 100 mg PO BEDTIME 10/13/20 10/13/20 Previous Rx's Medication Instructions Recorded ipratropium 0.5 mg-albuterol 3 mg 3 ml INHALATION Q6-8H PRN 30 Days 04/24/20 (2.5 mg base)/3 mL nebulization #270 ml soln magnesium oxide 400 mg PO BIDPC #20 tab 05/14/20 potassium chloride [Klor-Con M20] 20 meq PO DAILY #10 tab 05/14/20 nicotine (polacrilex) 2 mg gum 2 mg BUCCAL Q2H #50 ea 07/19/20 thiamine HCl (vitamin B1) 100 mg 100 mg PO DAILY #30 tab 07/19/20 tablet naltrexone 50 mg tablet 50 mg PO DAILY #30 tab 08/16/20 tamsulosin 0.4 mg capsule 0.4 mg PO BEDTIME #90 cap 08/31/20 lidocaine 5 % topical cream 1 appl TOPICAL TID PRN #15 g 09/24/20 montelukast 10 mg tablet 10 mg PO DAILY 30 Days #30 tab 09/24/20 tramadol 50 mg tablet 50 mg PO TID PRN #14 tab 09/24/20 oxycodone-acetaminophen [Percocet] 1 - 2 tab PO Q4-6H PRN #30 tab 09/28/20 docusate sodium 100 mg capsule 100 mg PO BID #60 cap 10/10/20 famotidine 40 mg tablet 40 mg PO BEDTIME 30 Days #30 tab 10/10/20 DS: Summary Hospital Course Hospital Course: This is a 50-year-old gentleman with known history of alcohol abuse and alcohol withdrawal seizure, who underwent anal fistula repair by Dr. Mao 2 weeks ago and also had a followup with Dr. Valerio, mechanical equipment sales engineer 3 days ago and was informed that he has a low potassium and referred him to the ER, however, the patient continued to be at home and was drinking 8 nips daily. This morning, he felt weak, therefore came to the emergency room. According to the patient, he did have nausea, vomiting in the last several days, that has now resolved. He also had diarrhea that has resolved since his fistula surgery. He denies any abdominal pain. Denies any fever, chills, or rigors. His workup in the emergency room revealed a low magnesium of 1.2 and low potassium of 2.7. His calcium is low at 7.6. He was also noted to have elevated total bilirubin of 6.4, elevated AST, ALT, and alkaline phosphatase that has chronically been elevated. In the emergency room, the patient has been treated with IV magnesium 4 g p.o. and intravenous potassium. The patient also received Ativan this morning since he was noted to be intoxicated with alcohol. Currently, he is somnolent, arousable, but then goes back to sleep. His alcohol level is 242. The patient also complaining of bilateral eye infection, complaining of burning in eye and photophobia, therefore using dark glasses. Symptoms are going on for couple of weeks. PAST MEDICAL HISTORY: Significant for: 1. History of alcohol dependence and history of alcohol withdrawal seizure. 2. History of asthma. 3. History of carpal tunnel syndrome. 4. History of diarrhea. 5. History of hepatic steatosis. 6. History of mood disorder. 7. History of pelvic abscess. 8. History of internal and external bleeding hemorrhoids. Hospital course: 1. Alcohol dependence and withdrawal. He has been treated with Phenobarbital and therefore has gone into full blown alcohol withdrawal. Was given suplemental folate and thiamine and strongly advised to stop driking as he risk full blown liver failure and early . To that effect, he has been evaluatd by the CARE team and been given resouces to stay absitent, including rehab. Unfortunately no mechanism to place in rehab from here and he prefers taking his own initiative after discharge. 2. Alcoholic hepatitis. Bili is hihg as 8.8 and is trending down presently at 8.2, down from 8.8 the day prior. AST has been as high as 449 (10/10) but is now down to 122 today 10/18 3. HypOkalemia. Replaced and is now normal 4. Hypomagnesemia. due to chronic alcohol use, gi wasting, has been agresively corrected and is now 1.6 and will discharge with oral magnesium supplement 5. Alcoholic gastritis Epigastric pain /nausea and vomiting improving was on PPI but will change to H2 blockers as PPI makes low magnesium worse 6. Tobacco use disorder continue nicotine 7. Conjunctivitis diagnosed as outpatient, improving, continue eyedrops, almost all gone. 8.Deep vein thrombosis prophylaxis with mechanical device. Encourage ambulation. Time Spent with Patient Time attestation: Total time spent providing and/or coordinating discharge services: Discharge coordination time: Greater than 30 minutes Physical Exam Vital Signs: Vital Signs: Last Vital Signs Temp 98.6 F 10/18/20 07:29 Pulse 81 10/18/20 07:29 Resp 20 10/18/20 07:29 BP 140/70 H 10/18/20 07:29 Pulse Ox 97 10/18/20 07:29 Body Mass Index 22.2 Const: Other: General: AO X 3, no acute distress Heent: sclera icteris Resp: CTA bilateral CVS: S1,S2,RRR GI: +BS, NT, no distention Skin: No rash Neuro: motor grossly intact Psych: appropriate affect DS: Data Data Completed and Pending Completed studies during hospitalization [Text1]: Procedures Detoxification Services for Substance Abuse Treatment (05/10/20) Labs on day of discharge: Laboratory Results - last 24 hr 10/17/20 10/18/20 10/18/20 05:25 05:20 05:20 PT 14.2 H INR 1.2 H Magnesium 1.5 L Total Bilirubin 8.8 H 8.2 H Direct Bilirubin 6.3 H 6.3 H AST 136 H 122 H ALT 52 H 52 H Alkaline Phosphatase 186 H 191 H Total Protein 5.4 L 5.8 L Albumin 2.8 L 3.0 L 10/18/20 05:20 PT INR Magnesium 1.6 Total Bilirubin Direct Bilirubin AST ALT Alkaline Phosphatase Total Protein Albumin Discharge Plan Discharge Anticipated Discharge Date/Time: 10/18/20 11:31 Patient Disposition: Home, Self-Care Discharge Diagnosis: Acute alcoholic hepatitis, alcohol dependency, low potassium, low magnesium Referrals: Rita Edwards MD [Primary Care Provider] - Discharge Medications: New magnesium oxide 400 mg (241.3 mg magnesium) Tablet 400 mg PO BIDPC Qty: 60 RF: 0 famotidine [Pepcid] 40 mg tablet 40 mg PO DAILY Qty: 30 RF: 0 Continued thiamine HCl (vitamin B1) 100 mg tablet 100 mg PO DAILY Qty: 30 RF: 0 docusate sodium [Colace] 100 mg capsule 100 mg PO BID Qty: 60 RF: 3 potassium chloride [Klor-Con M20] 20 mEq Tablet,Er Particles/Crystals 20 meq PO DAILY Qty: 10 RF: 0 cholestyramine (with sugar) 4 gram powder 4 g PO BID RF: 0 fluticasone propionate 50 mcg/actuation spray,suspension 1 spray intranasal DAILY RF: 0 quetiapine 50 mg Tablet 100 mg PO BEDTIME RF: 0 ipratropium-albuterol 0.5 mg-3 mg(2.5 mg base)/3 mL solution for nebulization 3 ml inhalation Q6-8H PRN (Reason: wheezing) 30 Days Qty: 270 RF: 6 quetiapine 50 mg tablet 50 mg PO DAILY RF: 0 albuterol sulfate [Ventolin HFA] 90 mcg/actuation HFA aerosol inhaler 2 puff inhalation Q6H PRN (Reason: Wheezing) RF: 0 prazosin 1 mg capsule 1 mg PO BEDTIME RF: 0 tramadol 50 mg tablet 50 mg PO TID PRN (Reason: pain) Qty: 14 RF: 0 lidocaine 5 % cream 1 appl topical TID PRN (Reason: pain) Qty: 15 RF: 0 montelukast 10 mg tablet 10 mg PO DAILY 30 Days Qty: 30 RF: 6 No Action escitalopram oxalate 5 mg tablet 5 mg PO QAM RF: 0 diazepam 2 mg tablet 2 mg PO BEDTIME PRNRF: 0 acamprosate 333 mg tablet,delayed release (DR/EC) 666 mg PO TID Qty: 84 RF: 0 Discharge Orders: Discharge Order (Routine); Ordered 10/18/20 Ordered By: Bharathi Zarate Diet: advance to usual diet Activity on Discharge: As tolerated Stand Alone Forms: Patient Portal Discharge page Care Plan Goals: Prevent worsening of liver condition, liver failure Health Concerns: Cirrhosis, lifver failure Plan of Treatment: Avoid alcohol at all cost Assessment: Acute alcoholic hepatitis and alcohol dependency, follow up [facility] Dr. Valerio Discharge Date/Time: 10/18/20 13:55
[2020-10-18 11:49] VITALS: BP 118/55; PULSE 73; RESP 16; TEMP 37.1; O2SAT 94
--- NOTE | 2020-10-18 13:05 | MHC.CM.PN ---
Patient will be discharge home no services. S.O. will provide transportation. Patient and nurse are aware.
== END 2020-10-18 13:55 | disposition home or self-care (01) | DRG 280 ==
LOC: HO.ED 09:47 → HO.EDOVER 10:34 → HO.IMC 14:44
PROVIDERS: Physician Assistant Medical; Admitting Provider Hospitalist; Emergency Provider Emergency Medicine Emergency Medical Services; PCP Family Medicine; Visit Provider Internal Medicine
DX: K70.10 Alcoholic hepatitis without ascites (principal); E83.42 Hypomagnesemia; E87.6 Hypokalemia; K29.20 Alcoholic gastritis without bleeding; F10.239 Alcohol dependence with withdrawal, unspecified; Y90.8 Blood alcohol level of 240 mg/100 ml or more; F10.220 Alcohol dependence with intoxication, uncomplicated; F17.210 Nicotine dependence, cigarettes, uncomplicated; H10.9 Unspecified conjunctivitis; Z71.6 Tobacco abuse counseling; Z20.822 Contact with and (suspected) exposure to COVID-19; Z79.52 Long term (current) use of systemic steroids; Z79.899 Other long term (current) drug therapy
CPT/HCPCS: 36415; 71045; 76700; 80048; 80053; 80076; 80320; 81003; 82607; 82746; 83690; 83735; 85025; 85027; 85610; 85730; 87635; 93005; 94640; 96365; 96366; 96368; 96375; 99285; J2060; J2405; J2560; J3475

== ENCOUNTER → 2020-11-01 09:10 | Outpatient (BNVA) | payer OTHER, SELFPAY | PROVIDERS: Visit Provider Nurse Practitioner Psychiatric/Mental Health | DX: F10.20 Alcohol dependence, uncomplicated (principal) | CPT/HCPCS: 80305; 99212 ==

== ENCOUNTER → 2020-11-05 07:25 | Outpatient (REF) | payer OTHER, SELFPAY ==
[2020-11-05 11:32] LABS: MANUAL DIFF FLAG NO
[2020-11-05 11:41] LABS: Basophils Absolute Auto 0.1 X10*3/uL (0.0-0.2); Eosinophils Absolute Auto 0.4 X10*3/uL (0.0-0.4); Eosinophils Percent Auto 3.9 % (0-4); Hematocrit 41.5 % (42-52); Imm Gran Abs Auto 0.05 X10*3/uL (0.00-0.03); Imm Gran Pct Auto 0.5 % (0.0-0.4); Lymphocytes Absolute Auto 1.2 X10*3/uL (1.2-4.9); Mean Corpuscular HGB Conc 32.5 g/dl (31.0-36.0); Mean Corpuscular Hemoglobin 34.5 pg (27.0-33.0); Mean Corpuscular Volume 106.1 fL (80-98); Mean Platelet Volume 9.3 fL (9.4-12.4); Monocytes Absolute Auto 0.6 X10*3/uL (0.1-1.2); Monocytes Percent Auto 6.6 % (2-11); Neutrophils Absolute Auto 7.1 X10*3/uL (2.0-8.3); Platelet Count 303 X10*3/uL (160-400); Red Blood Count 3.91 X10*6/uL (4.60-5.80); Red Cell Distribution Width 12.5 % (11.0-16.0); White Blood Count 9.4 X10*3/uL (4.8-10.8)
[2020-11-05 11:43] LABS: INTERNATIONAL NORM RATIO 1.3 (0.9-1.1); Prothrombin Time 15.7 SEC (10.8-13.0)
[2020-11-05 12:15] LABS: Hemoglobin 13.5 g/dl (14.0-18.0)
[2020-11-05 12:45] LABS: Alanine Aminotransferase 64 U/L (0-40); Alkaline Phosphatase 194 U/L (39-117); Anion Gap 11 (12-20); Aspartate Amino Transferase 179 U/L (5-37); Bilirubin Direct 2.9 mg/dL (0.0-0.5); Blood Urea Nitrogen 6 mg/dL (9-16); Calcium 8.7 mg/dL (8.4-10.2); Carbon Dioxide 28 mmol/L (22-29); Chloride 100 mmol/L (96-108); Estimated Glomerular Filt Rate > 60; Glucose Random 96 mg/dL (60-115); Potassium 4.2 mmol/L (3.3-5.1); Sodium 135 mmol/L (135-145); Total Protein 6.2 g/dL (6.5-8.0)
[2020-11-05 18:37] LABS: Magnesium 1.7 mg/dL (1.6-2.6)
== END ==
LOC: HO.SL 07:25
PROVIDERS: Absent Provider Internal Medicine Gastroenterology; PCP Family Medicine; Visit Provider Internal Medicine Pulmonary Disease
DX: K70.10 Alcoholic hepatitis without ascites (principal); K72.90 Hepatic failure, unspecified without coma
CPT/HCPCS: 36415; 80053; 80076; 82248; 83735; 85025; 85610; 95806; 96372

== ENCOUNTER 2020-11-05 07:28 | Outpatient (REF) | payer OTHER, SELFPAY | END 2020-11-05 07:29 | disposition home or self-care (01) | LOC: HO.MDS 07:28 | PROVIDERS: PCP Family Medicine; Visit Provider Internal Medicine Pulmonary Disease | DX: J45.50 Severe persistent asthma, uncomplicated (principal) | CPT/HCPCS: J2357 ==

== ENCOUNTER → 2020-11-07 14:42 | Outpatient (BNVA) | payer OTHER, SELFPAY | PROVIDERS: PCP Family Medicine; Referring Provider Family Medicine; Visit Provider Surgery | DX: K60.3 Anal fistula (principal) | CPT/HCPCS: 99212 ==

== ENCOUNTER 2020-11-22 07:36 | Outpatient (REF) | payer OTHER, SELFPAY | END 2020-11-22 07:37 | disposition home or self-care (01) | LOC: HO.MDS 07:36 | PROVIDERS: PCP Family Medicine; Visit Provider Internal Medicine Pulmonary Disease | DX: J45.50 Severe persistent asthma, uncomplicated (principal) | CPT/HCPCS: 96372; J2357 ==

== ENCOUNTER → 2020-11-30 10:03 | Outpatient (BNVA) | payer OTHER, SELFPAY | PROVIDERS: PCP Physician Assistant; Visit Provider Internal Medicine Gastroenterology ==

== ENCOUNTER 2020-12-05 07:13 | Outpatient (REF) | payer OTHER, SELFPAY ==
[2020-12-05 07:57] LABS: Basophils Absolute Auto 0.1 X10*3/uL (0.0-0.2); Hemoglobin 13.9 g/dl (14.0-18.0); Imm Gran Abs Auto 0.02 X10*3/uL (0.00-0.03); Imm Gran Pct Auto 0.3 % (0.0-0.4); MANUAL DIFF FLAG SCAN; Mean Corpuscular Volume 94.8 fL (80-98); PLT CLUMP 1; Red Cell Distribution Width 13.2 % (11.0-16.0); SCAN SMEAR FLAG 1
[2020-12-05 07:59] LABS: Eosinophils Absolute Auto 0.1 X10*3/uL (0.0-0.4); Hematocrit 40.5 % (42-52); Lymphocytes Absolute Auto 1.3 X10*3/uL (1.2-4.9); Lymphocytes Percent Auto 18.9 % (20-40); Mean Corpuscular HGB Conc 34.3 g/dl (31.0-36.0); Mean Corpuscular Hemoglobin 32.6 pg (27.0-33.0); Mean Platelet Volume 9.5 fL (9.4-12.4); Monocytes Absolute Auto 0.5 X10*3/uL (0.1-1.2); Monocytes Percent Auto 6.7 % (2-11); Neutrophils Percent Auto 72.1 % (45-73); Platelet Count 105 X10*3/uL (160-400); Red Blood Count 4.27 X10*6/uL (4.60-5.80); White Blood Count 6.9 X10*3/uL (4.8-10.8)
[2020-12-05 08:14] LABS: INTERNATIONAL NORM RATIO 1.2 (0.9-1.1); Prothrombin Time 14.6 SEC (10.8-13.0)
[2020-12-05 08:47] LABS: Alanine Aminotransferase 42 U/L (0-40); Albumin Level 2.8 g/dL (3.5-5.0); Alkaline Phosphatase 350 U/L (39-117); Anion Gap 18 (12-20); Aspartate Amino Transferase 189 U/L (5-37); Bilirubin Direct 1.9 mg/dL (0.0-0.5); Bilirubin Total 2.8 mg/dL (0.0-1.0); Blood Urea Nitrogen 7 mg/dL (9-16); Calcium 8.4 mg/dL (8.4-10.2); Carbon Dioxide 25 mmol/L (22-29); Chloride 97 mmol/L (96-108); Estimated Glomerular Filt Rate > 60; Glucose Random 101 mg/dL (60-115); Magnesium 1.2 mg/dL (1.6-2.6); Potassium 2.9 mmol/L (3.3-5.1); Sodium 137 mmol/L (135-145); Total Protein 6.4 g/dL (6.5-8.0)
[2020-12-05 09:03] LABS: Ferritin 796 ng/mL (20-250); Vitamin D 25-OH Total 8.4 ng/mL (>30)
[2020-12-05 09:58] LABS: SLIDE REVIEW VERIFIED
[2020-12-05 10:07] LABS: Folate 3.3 ng/mL (> or = 4.0); Vitamin B12 913 pg/mL (200-900)
[2020-12-07 23:01] LABS: Zinc 46 mcg/dL (60-130)
[2020-12-09 03:52] LABS: Fecal Fat Qualitative Normal (Normal)
[2020-12-10 01:21] LABS: Vitamin A 9 mcg/dL (38-98)
[2020-12-10 08:32] LABS: Vitamin B6 3.2 ng/mL (2.1-21.7)
[2020-12-10 16:11] LABS: Alpha-Tocopherol 6.8 mg/L (5.7-19.9)
[2020-12-10 17:52] LABS: Nicotinamide <20 ng/mL; Vit B3 - Nicotinic Acid <20 ng/mL
[2020-12-11 14:22] LABS: Vitamin C 0.1 mg/dL (0.2-2.1)
[2020-12-12 10:26] LABS: Vitamin B5 (Pantothenic Acid) <40 ng/mL (<275)
[2020-12-12 20:56] LABS: Vitamin K1 145 pg/mL (130-1500)
[2020-12-13 22:31] LABS: Pancreatic Elastase-1 494 mcg/g
== END 2020-12-05 07:14 | disposition home or self-care (01) ==
LOC: HO.LAB 07:13
PROVIDERS: Absent Provider Nurse Practitioner Psychiatric/Mental Health; Visit Provider Internal Medicine Gastroenterology
DX: K70.10 Alcoholic hepatitis without ascites (principal); F10.20 Alcohol dependence, uncomplicated; K75.81 Nonalcoholic steatohepatitis (NASH)
CPT/HCPCS: 36415; 80053; 80076; 82180; 82248; 82306; 82607; 82656; 82705; 82728; 82746; 83735; 84207; 84446; 84590; 84591; 84597; 84630; 85025; 85610

== ENCOUNTER 2020-12-12 08:33 | Outpatient (REF) | payer OTHER, SELFPAY ==
[2020-12-12 09:29] LABS: MANUAL DIFF FLAG NO
[2020-12-12 09:36] LABS: Basophils Percent Auto 0.8 % (0-2); Eosinophils Absolute Auto 0.1 X10*3/uL (0.0-0.4); Eosinophils Percent Auto 2.6 % (0-4); Hematocrit 36.1 % (42-52); Hemoglobin 11.7 g/dl (14.0-18.0); Imm Gran Abs Auto 0.01 X10*3/uL (0.00-0.03); Imm Gran Pct Auto 0.3 % (0.0-0.4); Lymphocytes Absolute Auto 0.5 X10*3/uL (1.2-4.9); Lymphocytes Percent Auto 13.6 % (20-40); Mean Corpuscular HGB Conc 32.4 g/dl (31.0-36.0); Mean Corpuscular Hemoglobin 32.8 pg (27.0-33.0); Mean Corpuscular Volume 101.1 fL (80-98); Monocytes Absolute Auto 0.5 X10*3/uL (0.1-1.2); Monocytes Percent Auto 12.6 % (2-11); Neutrophils Absolute Auto 2.7 X10*3/uL (2.0-8.3); Neutrophils Percent Auto 70.1 % (45-73); Red Blood Count 3.57 X10*6/uL (4.60-5.80); Red Cell Distribution Width 14.6 % (11.0-16.0); White Blood Count 3.8 X10*3/uL (4.8-10.8)
[2020-12-12 09:37] LABS: INTERNATIONAL NORM RATIO 1.3 (0.9-1.1); Platelet Count 76 X10*3/uL (160-400); Prothrombin Time 15.8 SEC (10.8-13.0)
[2020-12-12 10:26] LABS: Anion Gap 10 (12-20); Blood Urea Nitrogen 10 mg/dL (9-16); Calcium 8.2 mg/dL (8.4-10.2); Carbon Dioxide 29 mmol/L (22-29); Chloride 100 mmol/L (96-108); Estimated Glomerular Filt Rate > 60; Glucose Random 91 mg/dL (60-115); Potassium 4.3 mmol/L (3.3-5.1); Sodium 135 mmol/L (135-145)
[2020-12-12 10:27] LABS: Alanine Aminotransferase 39 U/L (0-40); Albumin Level 2.6 g/dL (3.5-5.0); Alkaline Phosphatase 301 U/L (39-117); Aspartate Amino Transferase 138 U/L (5-37); Bilirubin Total 4.1 mg/dL (0.0-1.0); Magnesium 1.8 mg/dL (1.6-2.6); Total Protein 5.9 g/dL (6.5-8.0)
== END 2020-12-12 08:34 | disposition home or self-care (01) ==
LOC: HO.MDS 08:33
PROVIDERS: Absent Provider Internal Medicine Gastroenterology; PCP Family Medicine; Visit Provider Internal Medicine Pulmonary Disease
DX: J45.50 Severe persistent asthma, uncomplicated (principal); K70.10 Alcoholic hepatitis without ascites
CPT/HCPCS: 36415; 80053; 83735; 85025; 85610; 96372; 99212; J2357

== ENCOUNTER 2020-12-14 07:18 | Day surgery (SDC) | payer OTHER, SELFPAY ==
--- NOTE | ~2020-12-14 | US_ITS ---
EXAMINATION: US-GUIDED PARACENTESIS CLINICAL INFORMATION: Alcohol abuse. Ascites. Abdominal pain. COMPARISON: None TECHNIQUE: Following explaining ultrasound-guided paracentesis procedure, benefits and risk, a written consent was obtained. Patient was placed supine on an ultrasound stretcher and preliminary ultrasound imaging was obtained through the abdomen. An optimal site was selected and marked along the right midabdomen. The marked site was cleaned and draped in the usual sterile manner. 1% lidocaine was injected at the puncture site. Through a small skin incision, a 5 [place] [employer] catheter was advanced into the peritoneal space. After observing fluid return, stylet was withdrawn and catheter connected to vacuum bottles via connecting cannula. After obtaining all fluid and observing no more fluid return, catheter was withdrawn and complete hemostasis achieved at puncture site. Sterile dressing applied postprocedure. Patient tolerated procedure extremely well. Patient was monitored during the exam. FINDINGS: On preliminary ultrasound imaging, there is diffuse moderate ascites. A very echogenic liver is noted. Approximately 2.5 L of yellowish fluid was drained from right lower quadrant. Part of this fluid was sent to lab. US/US paracentesis abd w/image IMPRESSION: Successful ultrasound-guided diagnostic and therapeutic paracentesis performed without immediate complications.
[2020-12-14 08:20] VITALS: BMI 23.9
[2020-12-14 10:12] VITALS: BP 119/67; PULSE 90; RESP 18; TEMP 37.1; O2SAT 97
[2020-12-14 10:40] VITALS: BP 115/76; PULSE 104; RESP 18; O2SAT 96
[2020-12-14 10:56] LABS: MN% 83.5 %; PMN% 16.5 %; WBC Peritoneal Fluid 0.157 X10*3/uL
[2020-12-14 10:57] LABS: RBC Peritoneal Fluid < 0.002 X10*6/uL
[2020-12-14 10:58] LABS: BF Shift QC OK YES; Man Diluent Bkgrd OK YES
[2020-12-14 11:10] VITALS: BP 104/68; PULSE 97; RESP 18; O2SAT 96
[2020-12-14 11:40] VITALS: BP 102/69; PULSE 98; RESP 18; O2SAT 97
[2020-12-14 11:52] LABS: Neutrophils Peritoneal Fluid 6 %
[2020-12-14 11:53] LABS: Lymphocyte Peritoneal Fl 4 %; Monocytes Peritoneal Fl 9 %; Other Peritioneal Fl 81 %
[2020-12-14 11:59] VITALS: BP 109/70; PULSE 97; RESP 18; O2SAT 97
[2020-12-18 03:10] LABS: Glucose Peritoneal Fluid 97; LDH Peritoneal Fluid 58; Total Protein Peritoneal Fluid 1.9
== END 2020-12-14 12:07 | disposition home or self-care (01) ==
PROVIDERS: Internal Medicine Gastroenterology; Radiology Diagnostic Radiology; PCP Family Medicine; Visit Provider Radiology Diagnostic Radiology
DX: R18.8 Other ascites (principal); M54.5 Low back pain; K76.0 Fatty (change of) liver, not elsewhere classified; N23 Unspecified renal colic; F10.20 Alcohol dependence, uncomplicated; F12.90 Cannabis use, unspecified, uncomplicated
CPT/HCPCS: 49083; 82042; 82945; 83615; 84157; 87070; 87073; 87205; 89051

== ENCOUNTER 2020-12-21 13:14 | Outpatient (REF) | payer OTHER, SELFPAY ==
[2020-12-21 14:48] LABS: MANUAL DIFF FLAG NO
[2020-12-21 14:57] LABS: Basophils Absolute Auto 0.1 X10*3/uL (0.0-0.2); Basophils Percent Auto 1.1 % (0-2); Eosinophils Absolute Auto 0.1 X10*3/uL (0.0-0.4); Eosinophils Percent Auto 1.4 % (0-4); Hematocrit 39.7 % (42-52); Hemoglobin 12.6 g/dl (14.0-18.0); Imm Gran Abs Auto 0.02 X10*3/uL (0.00-0.03); Imm Gran Pct Auto 0.4 % (0.0-0.4); Lymphocytes Absolute Auto 0.8 X10*3/uL (1.2-4.9); Lymphocytes Percent Auto 14.4 % (20-40); Mean Corpuscular HGB Conc 31.7 g/dl (31.0-36.0); Mean Corpuscular Hemoglobin 32.2 pg (27.0-33.0); Mean Corpuscular Volume 101.5 fL (80-98); Mean Platelet Volume 9.3 fL (9.4-12.4); Monocytes Absolute Auto 0.5 X10*3/uL (0.1-1.2); Monocytes Percent Auto 8.9 % (2-11); Neutrophils Absolute Auto 4.2 X10*3/uL (2.0-8.3); Neutrophils Percent Auto 73.8 % (45-73); Platelet Count 288 X10*3/uL (160-400); Red Blood Count 3.91 X10*6/uL (4.60-5.80); Red Cell Distribution Width 15.5 % (11.0-16.0); White Blood Count 5.6 X10*3/uL (4.8-10.8)
[2020-12-21 15:34] LABS: Alanine Aminotransferase 44 U/L (0-40); Albumin Level 2.8 g/dL (3.5-5.0); Alkaline Phosphatase 234 U/L (39-117); Anion Gap 13 (12-20); Aspartate Amino Transferase 136 U/L (5-37); Bilirubin Total 2.9 mg/dL (0.0-1.0); Blood Urea Nitrogen 6 mg/dL (9-16); Calcium 8.5 mg/dL (8.4-10.2); Carbon Dioxide 25 mmol/L (22-29); Chloride 104 mmol/L (96-108); Estimated Glomerular Filt Rate > 60; Glucose Random 116 mg/dL (60-115); Potassium 3.6 mmol/L (3.3-5.1); Sodium 138 mmol/L (135-145); Total Protein 6.3 g/dL (6.5-8.0)
== END 2020-12-21 13:15 | disposition home or self-care (01) ==
LOC: HO.LAB 13:14
PROVIDERS: PCP Family Medicine; Visit Provider Internal Medicine Gastroenterology
DX: K70.10 Alcoholic hepatitis without ascites (principal); K75.81 Nonalcoholic steatohepatitis (NASH)
CPT/HCPCS: 36415; 80053; 85025

== ENCOUNTER 2020-12-27 13:49 | Outpatient (REF) | payer OTHER, SELFPAY | END 2020-12-27 13:50 | disposition home or self-care (01) | LOC: HO.MDS 13:49 | PROVIDERS: Visit Provider Internal Medicine Pulmonary Disease | DX: J45.50 Severe persistent asthma, uncomplicated (principal) | CPT/HCPCS: 80305; 96372; 99212; J2357 ==

== ENCOUNTER 2020-12-28 07:24 | Day surgery (SDC) | payer OTHER, SELFPAY ==
--- NOTE | ~2020-12-28 | US_ITS ---
EXAMINATION: US ABDOMEN LIMITED CLINICAL INFORMATION: Alcohol abuse. Ascites. Paracentesis ordered.. COMPARISON: Previous exam most recent 12/14/2020 TECHNIQUE: Limited 4 quadrant abdominal ultrasound FINDINGS: There is a very small amount of ascites. Paracentesis was not performed. US/US abdomen limited IMPRESSION: Small amount of ascites. Paracentesis not performed.
--- NOTE | ~2020-12-28 | US_ITS ---
EXAMINATION: US VENOUS ULTRASOUND WITH DOPPLER LOWER EXTREMITY, BILATERAL CLINICAL INFORMATION: Bilateral lower extremity edema. COMPARISON: None TECHNIQUE: Ultrasound of the deep veins is performed from the hip to the calf with compression sonography and color and pulse Doppler assessment. Spectral analysis with color-flow imaging is performed. FINDINGS: RIGHT: There is normal venous compression and respiratory variation and augmented flow. The visualized common femoral vein, superficial femoral vein, profunda femoral vein, popliteal vein, and the trifurcation region shows no evidence of deep venous thrombosis. There is no significant popliteal fossa cyst. LEFT: There is normal venous compression and respiratory variation and augmented flow. The visualized common femoral vein, superficial femoral vein, profunda femoral vein, popliteal vein, and the trifurcation region shows no evidence of deep venous thrombosis. There is no significant popliteal fossa cyst. Additional note is made of prominent bilateral groin lymph nodes. US/US venous duplex LE BI IMPRESSION: No DVT demonstrated in the bilateral lower extremity.
[2020-12-28 07:59] VITALS: BMI 23.5
[2020-12-28 09:40] VITALS: BP 113/69; PULSE 91; RESP 20; TEMP 36.9; O2SAT 96
== END 2020-12-28 09:50 | disposition home or self-care (01) ==
LOC: HO.SSS 07:24
PROVIDERS: PCP Family Medicine; Visit Provider Radiology Diagnostic Radiology
DX: R18.8 Other ascites (principal); Z53.8 Procedure and treatment not carried out for other reasons
CPT/HCPCS: 76705; 93970

== ENCOUNTER 2021-01-10 07:38 | Outpatient (REF) | payer OTHER, SELFPAY | END 2021-01-10 07:39 | disposition home or self-care (01) | LOC: HO.MDS 07:38 | PROVIDERS: PCP Family Medicine; Visit Provider Internal Medicine Pulmonary Disease | DX: J45.50 Severe persistent asthma, uncomplicated (principal) | CPT/HCPCS: 96372; J2357 ==

== ENCOUNTER → 2021-01-17 14:10 | Outpatient (BNVA) | payer OTHER, SELFPAY | PROVIDERS: PCP Family Medicine; Visit Provider Nurse Practitioner Psychiatric/Mental Health | DX: Z51.81 Encounter for therapeutic drug level monitoring (principal) ==

== ENCOUNTER 2021-01-24 10:41 | Outpatient (REF) | payer OTHER, SELFPAY | END 2021-01-24 10:42 | disposition home or self-care (01) | LOC: HO.MDS 10:41 | PROVIDERS: PCP Family Medicine; Visit Provider Internal Medicine Pulmonary Disease | DX: J45.50 Severe persistent asthma, uncomplicated (principal) | CPT/HCPCS: 96372; J2357 ==

== ENCOUNTER → 2021-02-05 10:18 | Outpatient (BNVA) | payer OTHER, SELFPAY | PROVIDERS: PCP Family Medicine; Visit Provider Internal Medicine Gastroenterology ==

== ENCOUNTER 2021-02-07 12:54 | Outpatient (REF) | payer OTHER, SELFPAY ==
[2021-02-07 14:17] LABS: MANUAL DIFF FLAG NO
[2021-02-07 14:20] LABS: Basophils Percent Auto 0.6 % (0-2); Eosinophils Absolute Auto 0.1 X10*3/uL (0.0-0.4); Eosinophils Percent Auto 2.3 % (0-4); Hematocrit 37.6 % (42-52); Hemoglobin 12.7 g/dl (14.0-18.0); Imm Gran Abs Auto 0.01 X10*3/uL (0.00-0.03); Imm Gran Pct Auto 0.3 % (0.0-0.4); Lymphocytes Absolute Auto 0.9 X10*3/uL (1.2-4.9); Lymphocytes Percent Auto 26.2 % (20-40); Mean Corpuscular HGB Conc 33.8 g/dl (31.0-36.0); Mean Corpuscular Hemoglobin 34.7 pg (27.0-33.0); Mean Corpuscular Volume 102.7 fL (80-98); Mean Platelet Volume 9.5 fL (9.4-12.4); Monocytes Absolute Auto 0.4 X10*3/uL (0.1-1.2); Monocytes Percent Auto 11.6 % (2-11); Red Blood Count 3.66 X10*6/uL (4.60-5.80); Red Cell Distribution Width 13.8 % (11.0-16.0); White Blood Count 3.4 X10*3/uL (4.8-10.8)
[2021-02-07 14:25] LABS: Platelet Count 90 X10*3/uL (160-400)
[2021-02-07 14:33] LABS: INTERNATIONAL NORM RATIO 1.2 (0.9-1.1); Prothrombin Time 14.1 SEC (9.9-13.0)
[2021-02-07 14:47] LABS: Alanine Aminotransferase 21 U/L (0-40); Albumin Level 3.6 g/dL (3.5-5.0); Alkaline Phosphatase 305 U/L (39-117); Anion Gap 15 (12-20); Aspartate Amino Transferase 95 U/L (5-37); Bilirubin Total 2.5 mg/dL (0.0-1.0); Blood Urea Nitrogen 10 mg/dL (9-16); Calcium 8.8 mg/dL (8.4-10.2); Carbon Dioxide 24 mmol/L (22-29); Chloride 103 mmol/L (96-108); Estimated Glomerular Filt Rate > 60; Glucose Random 99 mg/dL (60-115); Magnesium 1.9 mg/dL (1.6-2.6); Potassium 3.7 mmol/L (3.3-5.1); Sodium 138 mmol/L (135-145); Total Protein 7.7 g/dL (6.5-8.0)
== END 2021-02-07 12:55 | disposition home or self-care (01) ==
LOC: HO.MDS 12:54
PROVIDERS: Absent Provider Internal Medicine Gastroenterology; PCP Family Medicine; Visit Provider Internal Medicine Pulmonary Disease
DX: J45.50 Severe persistent asthma, uncomplicated (principal); R18.8 Other ascites; K70.10 Alcoholic hepatitis without ascites
CPT/HCPCS: 36415; 80053; 83735; 85025; 85610; 96372; J2357

== ENCOUNTER → 2021-02-13 09:09 | Outpatient (BNVA) | payer OTHER, SELFPAY | PROVIDERS: PCP Family Medicine; Referring Provider Family Medicine; Visit Provider Surgery ==

== ENCOUNTER 2021-02-21 08:22 | Outpatient (REF) | payer OTHER, SELFPAY | END 2021-02-21 08:23 | disposition home or self-care (01) | LOC: HO.MDS 08:22 | PROVIDERS: PCP Family Medicine; Visit Provider Internal Medicine Pulmonary Disease | DX: J45.50 Severe persistent asthma, uncomplicated (principal) | CPT/HCPCS: 96372; J2357 ==

== ENCOUNTER → 2021-03-06 11:12 | Outpatient (BNVA) | payer OTHER, SELFPAY | PROVIDERS: PCP Family Medicine; Referring Provider Family Medicine; Visit Provider Surgery | DX: R10.31 Right lower quadrant pain (principal); G89.29 Other chronic pain | CPT/HCPCS: 99212 ==

== ENCOUNTER 2021-03-08 09:04 | Outpatient (REF) | payer OTHER, SELFPAY | END 2021-03-08 09:05 | disposition home or self-care (01) | LOC: HO.MDS 09:04 | PROVIDERS: PCP Family Medicine; Visit Provider Internal Medicine Pulmonary Disease | DX: J45.50 Severe persistent asthma, uncomplicated (principal) | CPT/HCPCS: 96372; J2357 ==

== ENCOUNTER → 2021-03-13 11:22 | Outpatient (BNVA) | payer OTHER, SELFPAY | PROVIDERS: PCP Family Medicine; Visit Provider Anesthesiology | DX: M51.36 Other intervertebral disc degeneration, lumbar region (principal); R10.31 Right lower quadrant pain | CPT/HCPCS: 99212 ==

== ENCOUNTER 2021-04-05 09:29 | Outpatient (REF) | payer OTHER, SELFPAY | END 2021-04-05 09:30 | disposition home or self-care (01) | LOC: HO.MDS 09:29 | PROVIDERS: PCP Family Medicine; Visit Provider Internal Medicine Pulmonary Disease | DX: J45.50 Severe persistent asthma, uncomplicated (principal) | CPT/HCPCS: 96372; J2357 ==

== ENCOUNTER 2021-04-05 11:09 | Outpatient (REF) | payer OTHER, SELFPAY ==
--- NOTE | ~2021-04-05 | MR_ITS ---
EXAMINATION: MR CERVICAL SPINE WITHOUT CONTRAST CLINICAL INFORMATION: Cervical disc degeneration. COMPARISON: No relevant prior imaging. TECHNIQUE: MRI of the cervical spine was obtained using routine sequences without contrast. FINDINGS: There is 2 mm retrolisthesis of C5 on C6. Alignment is otherwise normal. Vertebral body heights are preserved. There are mixed predominantly type II degenerative endplate changes at C5-C6. Bone marrow signal intensity is otherwise unremarkable. There is loss of intervertebral disc height and T2 signal intensity at multiple levels related to disc degeneration. There is no cord compression or abnormal intramedullary signal changes. The cervicomedullary junction is normal. Limited visualization of the posterior fossa reveals no abnormal finding. The occipital condyles and lateral C1 masses are intact. There is degenerative arthrosis of the atlantodental joint. C1-C2 articular facets are unremarkable. At C2-C3 the annular contour is normal. No canal or neuroforaminal compromise. At C3-C4 there is a slightly bulging disc. No canal stenosis. No canal stenosis. There is minimal uncovertebral joint spurring on the right. No substantial neuroforaminal encroachment. At C4-C5 there is a slightly bulging disc. No canal stenosis. Minimal uncovertebral joint spurring. No neuroforaminal encroachment. At C5-C6 there is a bulging disc. No canal stenosis. Uncovertebral joint spurring and facet degenerative change causes moderate bilateral neuroforaminal encroachment, slightly greater on the right. At C6-C7 there is a slightly bulging disc. No canal stenosis. Uncovertebral joint spurring and facet degenerative change causes mild right neuroforaminal encroachment. At C7-T1 the annular contour is normal. No canal or neuroforaminal compromise. Visualized soft tissues of the neck are normal. MR/MR cervical spine wo con IMPRESSION: There is multilevel degenerative spondylosis the cervical spine. No canal compromise or cord compression. Uncovertebral joint spurring and facet degenerative change at C5-C6 causes moderate bilateral neuroforaminal encroachment, slightly greater on the right.
--- NOTE | ~2021-04-05 | XR_ITS ---
EXAMINATION: PRE-MRI SKULL. CLINICAL INFORMATION: Evaluate for foreign body. COMPARISON: None TECHNIQUE: 3 views. FINDINGS: No radiopaque foreign body seen in the orbits. The paranasal sinuses and the mastoid air cells are well-aerated. No gross bony abnormality. XR/XR pre mri screening IMPRESSION: No radiopaque foreign body seen in the orbits.
== END 2021-04-05 11:10 | disposition home or self-care (01) ==
LOC: HO.MRI 11:09
PROVIDERS: Visit Provider Anesthesiology
DX: M50.30 Other cervical disc degeneration, unspecified cervical region (principal)
CPT/HCPCS: 72141

== ENCOUNTER 2021-04-11 08:25 | Observation (INO) | payer OTHER, SELFPAY ==
--- NOTE | ~2021-04-11 | US_ITS ---
EXAMINATION: US SCROTUM CLINICAL INFORMATION: Testicular pain. COMPARISON: None TECHNIQUE: A sonogram of the scrotum was performed assessing guerrero-scale appearance and color Doppler flow. Spectral Doppler analysis of the arterial and venous flow were performed in the testes bilaterally. FINDINGS: RIGHT: Right testicle measures 4.7 x 2.2 x 2.9 cm, volume 16 mL. No focal testicular parenchymal lesions are visualized. Spectral Doppler analysis of the arterial and venous flow is normal in the right testis. Right epididymal head is normal in size. There is a 1.1 x 0.6 x 0.7 cm epididymal head cyst. No right hydrocele. Right epididymal Doppler flow is normal. There is a small right varicocele. LEFT: Left testicle measures 4.3 x 1.8 x 2.9 cm, volume 11.4 mL. No focal testicular parenchymal lesions are visualized. Spectral Doppler analysis of the arterial and venous flow is normal in the left testis. Left epididymal head is normal in size. There is a 5 mm epididymal head cyst. No left hydrocele. Left epididymal Doppler flow is normal. There is a left varicocele. There is echogenic material seen in the left inguinal canal suggestive of a lipoma of the cord or fat-containing hernia. US/US scrotum doppler IMPRESSION: No evidence of torsion. Bilateral epididymal head cysts. Bilateral varicoceles, left greater than right. Fat in the left inguinal canal questionable for a fat-containing inguinal hernia versus lipoma of the cord.
--- NOTE | ~2021-04-11 | US_ITS ---
EXAMINATION: US SCROTUM CLINICAL INFORMATION: Testicular pain. COMPARISON: None TECHNIQUE: A sonogram of the scrotum was performed assessing guerrero-scale appearance and color Doppler flow. Spectral Doppler analysis of the arterial and venous flow were performed in the testes bilaterally. FINDINGS: RIGHT: Right testicle measures 4.7 x 2.2 x 2.9 cm, volume 16 mL. No focal testicular parenchymal lesions are visualized. Spectral Doppler analysis of the arterial and venous flow is normal in the right testis. Right epididymal head is normal in size. There is a 1.1 x 0.6 x 0.7 cm epididymal head cyst. No right hydrocele. Right epididymal Doppler flow is normal. There is a small right varicocele. LEFT: Left testicle measures 4.3 x 1.8 x 2.9 cm, volume 11.4 mL. No focal testicular parenchymal lesions are visualized. Spectral Doppler analysis of the arterial and venous flow is normal in the left testis. Left epididymal head is normal in size. There is a 5 mm epididymal head cyst. No left hydrocele. Left epididymal Doppler flow is normal. There is a left varicocele. There is echogenic material seen in the left inguinal canal suggestive of a lipoma of the cord or fat-containing hernia. US/US scrotum IMPRESSION: No evidence of torsion. Bilateral epididymal head cysts. Bilateral varicoceles, left greater than right. Fat in the left inguinal canal questionable for a fat-containing inguinal hernia versus lipoma of the cord.
--- NOTE | ~2021-04-11 | US_ITS ---
EXAMINATION: US ABDOMEN LIMITED CLINICAL INFORMATION: Transaminitis. Jaundice. History of alcohol use and otitis.. COMPARISON: Previous exam October 2020 TECHNIQUE: Real-time imaging of the right upper quadrant abdominal viscera. FINDINGS: PANCREAS: Not well visualized due to bowel gas. LIVER: The liver is enlarged. Liver echotexture is increased. Liver is normal in contour. No focal liver lesion or biliary duct dilatation. GALLBLADDER: The gallbladder is normal in size. The gallbladder wall is appears thickened measuring 0.7 cm. This is similar to previous exam. No gallstones are seen. COMMON BILE DUCT: Normal in caliber measuring 0.2 cm in diameter. RIGHT KIDNEY: There is a 1 cm cyst in the midpole. No hydronephrosis. No renal calculi. The kidney measures 11.9 cm in maximum dimension. FREE FLUID: None. US/US abdomen limited IMPRESSION: Enlarged echogenic liver. Mild gallbladder wall thickening. This may be related to liver disease. No gallstones seen. No ascites.
--- NOTE | 2021-04-11 08:39 | ED.MALEGU ---
HPI - Male Genitourinary General Chief complaint: Urogenital-Male Stated complaint: TESTICLE PAIN Time Seen by Provider: 04/11/21 08:36 Source: patient Mode of arrival: ambulatory Limitations: no limitations History of Present Illness HPI Narrative: 51 y/o male alcohol abuse and dependence, history of acute alcoholic hepatitis, history of bowel perforation, history of UTI with E coli bacteremia, SEAN, who presents to the ER from home with testicular pain for the last 1 month. He was also evaluated by his PCP last week however he developed a low-grade fever required COVID testing, which was negative. He has been unable to make another appointment. He has also has a follow-up with Dr. Orlando who is booked full. He reports an aching in both of his testicles. It has been going on for several weeks. He margy reports discomfort with urinary but not burning. He reports the pain radiates up into his lower abdomen. Patient on arrival to the ER appears to be jaundice with several spider angiomata all over his face and chest. He has some scleral icterus. This is new per his girlfiend. He reports ongoing alcohol use, at least 1 pt per day, last intake was this morning. He desires detox. MD Complaint: testicle pain Onset (ago): month(s) (1) Duration: constant Location: right testicle and left testicle Radiation: abdomen Severity: moderate Severity scale (1-10): 6 Quality: aching Relieving factors: none Exacerbating factors: movement Associated symptoms: Reports denies other symptoms and fever Related Data Sexually active: No Home Medications Medication Instructions Recorded Confirmed albuterol sulfate 90 mcg/actuation 2 puff INHALATION Q6H PRN 07/18/20 04/11/21 aerosol inhaler (Ventolin HFA) olanzapine 2.5 mg tablet 2.5 tab PO BEDTIME 12/28/20 04/11/21 ketoconazole 2 % topical cream 1 appl TOPICAL BID PRN 02/05/21 04/11/21 artifi.tears(hypromellose)(PF) 0.3 1 drp OPHTHALMIC (EYE) Q4H PRN 04/11/21 04/11/21 % eye drops loperamide 2 mg tablet 2 mg PO Q6H PRN 04/11/21 04/11/21 olanzapine 2.5 mg tablet 2.5 mg PO DAILY PRN 04/11/21 04/11/21 Previous Rx's Medication Instructions Recorded ipratropium 0.5 mg-albuterol 3 mg 3 ml INHALATION Q6-8H PRN 30 Days 04/24/20 (2.5 mg base)/3 mL nebulization #270 ml soln montelukast 10 mg tablet 10 mg PO DAILY 30 Days #30 tab 09/24/20 tramadol 50 mg tablet 50 mg PO TID PRN #14 tab 09/24/20 fluticasone furoate 200 1 inh INHALATION DAILY #60 cap 02/25/21 mcg-vilanterol 25 mcg/dose inhalation powder (Breo Ellipta) pantoprazole 40 mg tablet,delayed 40 mg PO DAILY #30 tab 02/25/21 release spironolactone 25 mg tablet 25 mg PO DAILY #30 tab 03/04/21 magnesium oxide 400 mg (241.3 mg 400 mg PO BID #60 tab 03/19/21 magnesium) tablet Allergies Allergy/AdvReac Type Severity Reaction Status Date / Time horse dander Allergy Intermediate hives Verified 03/06/21 11:33 pollen extracts Allergy Mild Runny Verified 03/06/21 11:33 nose, watery eyes dog dander [dogs] Allergy Unknown Verified 03/06/21 11:33 mold Allergy Unknown Verified 03/06/21 11:33 Review of Systems Review of Systems: Constitutional: No Fever, No Chills ENT/Mouth: No sore throat, No Rhinorrhea, No Swallowing Difficulty Cardiovascular: No Chest Pain, No SOB, No Orthopnea, No Edema Respiratory: No Cough, No Sputum, No Wheezing, No dyspnea Gastrointestinal: + Nausea, No Vomiting, No Diarrhea, + abdominal Pain, No Hematochezia, No Melena Genitourinary: No Dysuria, No Urinary Frequency, No Hematuria, +testicular pain Musculoskeletal: No joint pain, No Myalgias Skin: No Skin Lesions, No rash Neuro: No Weakness, No Numbness, No Dizziness, + Headache Psych: + Anxiety/Panic, + Depression Heme/Lymph: No Bruising, No Lymphadenopathy Endocrine: No Polyuria, No Polydipsia PMFSH Past Medical History Medical History (Updated 04/11/21 @ 12:46 by ELDON Carpenter) Alcohol dependence Alcohol withdrawal seizure Anal fistula Asthma Carpal tunnel syndrome Chronic pain of right groin Degeneration, intervertebral disc, cervical Diarrhea, unspecified Disc degeneration, lumbar Elevated ALT measurement Epigastric pain GERD (gastroesophageal reflux disease) Hepatic steatosis History of anal fissures Internal and external bleeding hemorrhoids Mood disorder Pelvic abscess Rectal pain Screen for colon cancer (~04/11/20) Surgical History H/O hemorrhoidectomy History of appendectomy History of colon resection History of colonoscopy Family History Family History Father No problems noted. Mother No problems noted. Brother No problems noted. Social History Social History Household Members: Significant Other Housing: House Do you presently have visiting nurse or other home services: No Alcohol intake: current Alcohol intake frequency: 3 or more drinks per day Alcohol type: hard liquor Cigarette Packs Per Day: 1 Cigarettes Per Day: 20.0 Years Smoked: 35 Second Hand Smoke Exposure: Yes Substance Use Type: Marijuana Advance Directives: Yes Advance Directives Information Provided: Yes Advance Directives on File: No Advance Directives Date on File: 12/14/20 service: No Current occupational status: unemployed Physical Exam Vital Signs: Vital Signs: Last Vital Signs Temp 97.9 F 04/11/21 12:32 Pulse 81 04/11/21 12:32 Resp 15 04/11/21 12:32 BP 117/71 04/11/21 12:32 Pulse Ox 97 04/11/21 12:32 Body Mass Index 22.9 Appearance: Alert. Oriented X3. Jaundiced Eyes: Pupils equal, round and reactive to light. Scleral icterus bilaterally ENT: Pharynx normal. Neck: Normal inspection. Neck supple. CVS: Normal heart rate and rhythm. Pulses normal. Respiratory: No respiratory distress. Breath sounds normal. Abdomen: Well healed longitudinal surgical scar, Soft with suprapubic tenderness, RUQ tenderness. +BS x4 Skin: Skin warm and dry. Jaundiced Normal skin turgor. Spider angiomata all over face, chest, arms Extremities: No lower extremity edema. Neuro: Oriented X 3. No motor deficit. No sensory deficit. Course Course Course Narrative: 51-year-old male with history of alcoholic hepatitis with ongoing alcohol abuse who presents to the ER with ongoing testicular pain for about a month. He is jaundiced which is new for him. Concern for recurring alcoholic hepatitis and liver failure. No palpable inguinal hernia on exam but his scrotum is very full and swollen. It is tender throughout. Doubt torsion. Will get ultrasound for further evaluation & will get labs. Reevaluation(s) Reevaluation #1: Patient's lab work is showing worsening liver functions, worsening thrombocytopenia and mild coagulopathy. Recurrent hypomagnesemia, getting IV mag. U/S Showed enlarged liver. Clinical presentation is consistent with recurrence of acute alcoholic hepatitis. His discriminant function has been calculated is only 14. There is no use of systemic glucocorticoids at this time. His liver functions need to be trended. Case was d/w Dr. Benitez - recommending admitting for observation given risk of further decompensation. Dr. Puga to admit. Will start empiric phenobarb to help prevent alcohol withdrawal. Consultations Consultation #1: Dr. Benitez MDM - Male Genitourinary Lab Data Result diagrams: 04/11/21 09:53 04/11/21 09:53 Labs: Lab Results 04/11/21 04/11/21 04/11/21 Range/Units 09:53 09:53 09:53 WBC 3.8 L (4.8-10.8) X10*3/uL RBC 3.54 L (4.60-5.80) X10*6/uL Hgb 12.1 L (14.0-18.0) g/dl Hct 34.6 L (42-52) % MCV 97.7 (80-98) fL MCH 34.2 H (27.0-33.0) pg MCHC 35.0 (31.0-36.0) g/dl RDW 14.8 (11.0-16.0) % Plt Count 59 L D (160-400) X10*3/uL MPV 9.6 (9.4-12.4) fL Immature Gran % (Auto) 0.0 (0.0-0.4) % Neut % (Auto) 62.2 (45-73) % Lymph % (Auto) 23.1 (20-40) % [place] % (Auto) 10.9 (2-11) % Eos % (Auto) 2.7 (0-4) % Baso % (Auto) 1.1 (0-2) % Lymph # (Auto) 0.9 L (1.2-4.9) X10*3/uL [place] # (Auto) 0.4 (0.1-1.2) X10*3/uL Eos # (Auto) 0.1 (0.0-0.4) X10*3/uL Baso # (Auto) 0.0 (0.0-0.2) X10*3/uL Abs Immat Gran (auto) 0.00 (0.00-0.03) X10*3/uL Absolute Neuts (auto) 2.3 (2.0-8.3) X10*3/uL Absolute Nucleated RBC 0.000 (0.0-0.012) X10*3/uL Nucleated RBC % (auto) 0.0 (0.0-0.2) /100WBC PT (9.9-13.0) SEC INR (0.9-1.1) APTT (24.1-38.0) SEC Sodium 138 (135-145) mmol/L Potassium 3.6 (3.3-5.1) mmol/L Chloride 99 (96-108) mmol/L Carbon Dioxide 26 (22-29) mmol/L Anion Gap 17 (12-20) BUN 9 (9-16) mg/dL Creatinine 0.61 (0.5-1.4) mg/dL Estim Creat Clear Calc 147.0 Estimated GFR > 60 Random Glucose 102 (60-115) mg/dL Lactic Acid 2.0 (0.5-2.0) mmol/L Calcium 8.5 (8.4-10.2) mg/dL Magnesium 1.4 L* (1.6-2.6) mg/dL Total Bilirubin 5.7 H (0.0-1.0) mg/dL Direct Bilirubin 3.9 H (0.0-0.5) mg/dL AST 116 H (5-37) U/L ALT 22 (0-40) U/L Alkaline Phosphatase 282 H (39-117) U/L Total Protein 7.8 (6.5-8.0) g/dL Albumin 3.9 (3.5-5.0) g/dL Lipase 16 (8-78) U/L Urine Color Urine Appearance Urine pH (5.0-8.0) Ur Specific [place] (1.005-1.025) Urine Protein (NEG-TRACE) MG/DL Urine Glucose (UA) (NEG) MG/DL Urine Ketones (NEG) MG/DL Urine Blood (NEG) Urine Nitrite (NEG) Ur Leukocyte Esterase (NEG) Urine Opiates Screen (Not Detect) Urine Fentanyl Screen (Not Detect) Ur Barbiturates Screen (Not Detect) Ur Phencyclidine Scrn (Not Detect) Ur Amphetamines Screen (Not Detect) U Benzodiazepines Scrn (Not Detect) Urine Cocaine Screen (Not Detect) U Marijuana (THC) Screen (Not Detect) Ethyl Alcohol mg/dL COVID-19 ([place]) (Negative) COVID-19 Clin Com 04/11/21 04/11/21 04/11/21 Range/Units 09:53 09:53 11:12 WBC (4.8-10.8) X10*3/uL RBC (4.60-5.80) X10*6/uL Hgb (14.0-18.0) g/dl Hct (42-52) % MCV (80-98) fL MCH (27.0-33.0) pg MCHC (31.0-36.0) g/dl RDW (11.0-16.0) % Plt Count (160-400) X10*3/uL MPV (9.4-12.4) fL Immature Gran % (Auto) (0.0-0.4) % Neut % (Auto) (45-73) % Lymph % (Auto) (20-40) % [place] % (Auto) (2-11) % Eos % (Auto) (0-4) % Baso % (Auto) (0-2) % Lymph # (Auto) (1.2-4.9) X10*3/uL [place] # (Auto) (0.1-1.2) X10*3/uL Eos # (Auto) (0.0-0.4) X10*3/uL Baso # (Auto) (0.0-0.2) X10*3/uL Abs Immat Gran (auto) (0.00-0.03) X10*3/uL Absolute Neuts (auto) (2.0-8.3) X10*3/uL Absolute Nucleated RBC (0.0-0.012) X10*3/uL Nucleated RBC % (auto) (0.0-0.2) /100WBC PT 13.7 H (9.9-13.0) SEC INR 1.2 H (0.9-1.1) APTT 48.8 H (24.1-38.0) SEC Sodium (135-145) mmol/L Potassium (3.3-5.1) mmol/L Chloride (96-108) mmol/L Carbon Dioxide (22-29) mmol/L Anion Gap (12-20) BUN (9-16) mg/dL Creatinine (0.5-1.4) mg/dL Estim Creat Clear Calc Estimated GFR Random Glucose (60-115) mg/dL Lactic Acid (0.5-2.0) mmol/L Calcium (8.4-10.2) mg/dL Magnesium (1.6-2.6) mg/dL Total Bilirubin (0.0-1.0) mg/dL Direct Bilirubin (0.0-0.5) mg/dL AST (5-37) U/L ALT (0-40) U/L Alkaline Phosphatase (39-117) U/L Total Protein (6.5-8.0) g/dL Albumin (3.5-5.0) g/dL Lipase (8-78) U/L Urine Color Urine Appearance Urine pH (5.0-8.0) Ur Specific [place] (1.005-1.025) Urine Protein (NEG-TRACE) MG/DL Urine Glucose (UA) (NEG) MG/DL Urine Ketones (NEG) MG/DL Urine Blood (NEG) Urine Nitrite (NEG) Ur Leukocyte Esterase (NEG) Urine Opiates Screen (Not Detect) Urine Fentanyl Screen (Not Detect) Ur Barbiturates Screen (Not Detect) Ur Phencyclidine Scrn (Not Detect) Ur Amphetamines Screen (Not Detect) U Benzodiazepines Scrn (Not Detect) Urine Cocaine Screen (Not Detect) U Marijuana (THC) Screen (Not Detect) Ethyl Alcohol 314 H* mg/dL COVID-19 ([place]) Negative (Negative) COVID-19 Clin Com See Note 04/11/21 04/11/21 Range/Units 11:32 11:32 WBC (4.8-10.8) X10*3/uL RBC (4.60-5.80) X10*6/uL Hgb (14.0-18.0) g/dl Hct (42-52) % MCV (80-98) fL MCH (27.0-33.0) pg MCHC (31.0-36.0) g/dl RDW (11.0-16.0) % Plt Count (160-400) X10*3/uL MPV (9.4-12.4) fL Immature Gran % (Auto) (0.0-0.4) % Neut % (Auto) (45-73) % Lymph % (Auto) (20-40) % [place] % (Auto) (2-11) % Eos % (Auto) (0-4) % Baso % (Auto) (0-2) % Lymph # (Auto) (1.2-4.9) X10*3/uL [place] # (Auto) (0.1-1.2) X10*3/uL Eos # (Auto) (0.0-0.4) X10*3/uL Baso # (Auto) (0.0-0.2) X10*3/uL Abs Immat Gran (auto) (0.00-0.03) X10*3/uL Absolute Neuts (auto) (2.0-8.3) X10*3/uL Absolute Nucleated RBC (0.0-0.012) X10*3/uL Nucleated RBC % (auto) (0.0-0.2) /100WBC PT (9.9-13.0) SEC INR (0.9-1.1) APTT (24.1-38.0) SEC Sodium (135-145) mmol/L Potassium (3.3-5.1) mmol/L Chloride (96-108) mmol/L Carbon Dioxide (22-29) mmol/L Anion Gap (12-20) BUN (9-16) mg/dL Creatinine (0.5-1.4) mg/dL Estim Creat Clear Calc Estimated GFR Random Glucose (60-115) mg/dL Lactic Acid (0.5-2.0) mmol/L Calcium (8.4-10.2) mg/dL Magnesium (1.6-2.6) mg/dL Total Bilirubin (0.0-1.0) mg/dL Direct Bilirubin (0.0-0.5) mg/dL AST (5-37) U/L ALT (0-40) U/L Alkaline Phosphatase (39-117) U/L Total Protein (6.5-8.0) g/dL Albumin (3.5-5.0) g/dL Lipase (8-78) U/L Urine Color YELLOW Urine Appearance CLEAR Urine pH 7.0 (5.0-8.0) Ur Specific [place] <= 1.005 (1.005-1.025) Urine Protein NEG (NEG-TRACE) MG/DL Urine Glucose (UA) NEG (NEG) MG/DL Urine Ketones NEG (NEG) MG/DL Urine Blood NEG (NEG) Urine Nitrite NEG (NEG) Ur Leukocyte Esterase NEG (NEG) Urine Opiates Screen Not Detected (Not Detect) Urine Fentanyl Screen Not Detected (Not Detect) Ur Barbiturates Screen Not Detected (Not Detect) Ur Phencyclidine Scrn Not Detected (Not Detect) Ur Amphetamines Screen Not Detected (Not Detect) U Benzodiazepines Scrn Not Detected (Not Detect) Urine Cocaine Screen Not Detected (Not Detect) U Marijuana (THC) Screen POSITIVE H (Not Detect) Ethyl Alcohol mg/dL COVID-19 ([place]) (Negative) COVID-19 Clin Com Discharge Plan Discharge Clinical Impression: Alcohol use disorder, severe, dependence, Acute alcoholic hepatitis, Inguinal hernia, Hypomagnesemia Patient Disposition: Admitted As Inpatient
[2021-04-11 09:14] VITALS: BP 116/66; PULSE 82; RESP 18; TEMP 36.8; O2SAT 96; BMI 22.9
[2021-04-11 09:59] LABS: MANUAL DIFF FLAG NO
[2021-04-11 10:01] LABS: Basophils Percent Auto 1.1 % (0-2); Eosinophils Absolute Auto 0.1 X10*3/uL (0.0-0.4); Eosinophils Percent Auto 2.7 % (0-4); Hematocrit 34.6 % (42-52); Hemoglobin 12.1 g/dl (14.0-18.0); Lymphocytes Absolute Auto 0.9 X10*3/uL (1.2-4.9); Lymphocytes Percent Auto 23.1 % (20-40); Mean Corpuscular Hemoglobin 34.2 pg (27.0-33.0); Mean Corpuscular Volume 97.7 fL (80-98); Monocytes Absolute Auto 0.4 X10*3/uL (0.1-1.2); Monocytes Percent Auto 10.9 % (2-11); Neutrophils Absolute Auto 2.3 X10*3/uL (2.0-8.3); Neutrophils Percent Auto 62.2 % (45-73); Red Blood Count 3.54 X10*6/uL (4.60-5.80); Red Cell Distribution Width 14.8 % (11.0-16.0); White Blood Count 3.8 X10*3/uL (4.8-10.8)
[2021-04-11 10:16] LABS: Ethanol 314 mg/dL
[2021-04-11 10:22] LABS: Alanine Aminotransferase 22 U/L (0-40); Albumin Level 3.9 g/dL (3.5-5.0); Alkaline Phosphatase 282 U/L (39-117); Anion Gap 17 (12-20); Aspartate Amino Transferase 116 U/L (5-37); Bilirubin Direct 3.9 mg/dL (0.0-0.5); Bilirubin Total 5.7 mg/dL (0.0-1.0); Blood Urea Nitrogen 9 mg/dL (9-16); COVID-19 Test Negative (Negative); Calcium 8.5 mg/dL (8.4-10.2); Carbon Dioxide 26 mmol/L (22-29); Chloride 99 mmol/L (96-108); Estimated Glomerular Filt Rate > 60; Glucose Random 102 mg/dL (60-115); Lipase 16 U/L (8-78); Magnesium 1.4 mg/dL (1.6-2.6); Potassium 3.6 mmol/L (3.3-5.1); Sodium 138 mmol/L (135-145); Total Protein 7.8 g/dL (6.5-8.0)
[2021-04-11 10:31] LABS: Platelet Count 59 X10*3/uL (160-400)
--- NOTE | 2021-04-11 10:35 | PHA.MEDREC ---
Pharmacy Consult ? Medication Reconciliation Pharmacy has completed the medication reconciliation. There are no remarkable issues for provider's attention. Patient's girlfirend reports he [place] [facility] [place] gummies. Jerri Dominguez, PharmD
[2021-04-11 10:38] LABS: Mean Platelet Volume 9.6 fL (9.4-12.4)
[2021-04-11] MEDS: Magnesium Sulfate/H2O 2 GM/50 ML PIGGYBACK IV (11:01)
[2021-04-11 11:30] LABS: INTERNATIONAL NORM RATIO 1.2 (0.9-1.1); Prothrombin Time 13.7 SEC (9.9-13.0)
[2021-04-11 11:33] LABS: Partial Thromboplastin Time 48.8 SEC (24.1-38.0)
[2021-04-11 11:45] LABS: Appearance Urine CLEAR; Glucose Urine UA NEG (NEG); Leukocyte Esterase Urine NEG (NEG); Nitrite Urine NEG (NEG); Specific Gravity - Urine <= 1.005 (1.005-1.025); Urine Blood NEG (NEG); Urine Ketones NEG (NEG); Urine Protein NEG (NEG-TRACE)
[2021-04-11 11:47] LABS: Color Urine YELLOW
[2021-04-11 11:55] LABS: Amphetamine Screen Urine Not Detected (Not Detect); Barbiturates, Urine Not Detected (Not Detect); Benzodiazepines Screen Urine Not Detected (Not Detect); Cannabinoid Screen Urine POSITIVE (Not Detect); Cocaine Screen Urine Not Detected (Not Detect); Fentanyl, urine Not Detected (Not Detect); Opiate Screen Urine Not Detected (Not Detect); Phencyclidine Screen Urine Not Detected (Not Detect)
[2021-04-11 12:32] VITALS: BP 117/71; PULSE 81; RESP 15; TEMP 36.6; O2SAT 97
[2021-04-11] MEDS: PHENobarbitaL sodium 130 MG/ML VIAL 234 MG IM (12:34)
--- NOTE | 2021-04-11 13:08 | MHC.RECOVSUP ---
? Reason for consult:Continuity of care o Current location: ED 4 o Identified substance use concern: ETOH - Withdrawal - Seeking ATS (detox) - Support ? Intervention: o ATS bed search started/completed/in process o MAT started or to be started o Community resources provided o Harm reduction discussion ? Plan: o Referral to [facility] o Bed search in progress to o Patient to follow up with [facility] after discharge ? Additional information:Pt. seeking detox, pt.told there were no beds and referred to the [facility]. Pt. is a patient of [facility] and on MAT already.
--- NOTE | 2021-04-11 13:20 | P.HPHOSP_ITS ---
History of Present Illness Date of Service: 04/11/21 Attending physician on admission: Bekah Puga Chief Complaint: Alcoholic hepatitis, hypomagnesemia, chronic back pain. 51-year-old male chronic alcoholic, during almost a pint of alcohol almost every day per the patient-came to the hospital because of sacral pain which is chronic, he also has back pain with for which she follows up with Dr. lawrence patiently for pain management- also found to have slightly elevated LFTs since the previous values-but review of chemistry shows like his LFTs are fluctuating in that level chronically on top of that he keep drinking alcohol. ED physician have given admission for mild worsening of LFTs and hypomagnesemia, as well as scrotal pain. 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 lawrnece-not to picker packer heavy weights but due to his work issues situation-is continue to pick weights and that makes is chronic pain more worse. But he still can walk and could able to stand freely. He also has chronic pain in the inguinal area-there is no fullness or any mass on palpation. Lab imaging reviewed and personally interpreted: As chronic thrombocytopenia slightly worsen, component of leukopenia Abdominal ultrasound: No ascites, enlarged liver, mild a large the thickening Scrotal ultrasound:Bilateral varicoceles, left greater than right.? No torsion Chemistry de la torre: Hypo kalemia: Slightly elevated bilirubin from previous value-but seems like fluctuating if chronically AST and ALT seems similar range, alkaline phosphatase seems better than before. Review of Systems Review of Systems: Denies any new complaint of chest pain or shortness of breath or abdominal pain or fever or chills or nausea or vomiting Denies any cough Denies any weakness or numbness. FORMERLY [facility] Medical History Alcohol dependence Alcohol withdrawal seizure Anal fistula Asthma Carpal tunnel syndrome Chronic pain of right groin Degeneration, intervertebral disc, cervical Diarrhea, unspecified Disc degeneration, lumbar Elevated ALT measurement Epigastric pain GERD (gastroesophageal reflux disease) Hepatic steatosis History of anal fissures Internal and external bleeding hemorrhoids Mood disorder Pelvic abscess Rectal pain Screen for colon cancer (~04/11/20) Family History Father No problems noted. Mother No problems noted. Brother No problems noted. Pertinent family history: Father as per the patient report-valvular heart di sease for that he needed cardiac transplant. As per him both the parents had history of alcohol use. Surgical History H/O hemorrhoidectomy History of appendectomy History of colon resection History of colonoscopy Social History Household Members: Significant Other Housing: House Do you presently have visiting nurse or other home services: No Alcohol intake: current Alcohol intake frequency: 3 or more drinks per day Alcohol type: hard liquor Cigarette Packs Per Day: 1 Cigarettes Per Day: 20.0 Years Smoked: 35 Second Hand Smoke Exposure: Yes Substance Use Type: Marijuana Advance Directives: Yes Advance Directives Information Provided: Yes Advance Directives on File: No Advance Directives Date on File: 12/14/20 service: No Current occupational status: unemployed Meds Allergies Allergy/AdvReac Type Severity Reaction Status Date / Time horse dander Allergy Intermediate hives Verified 03/06/21 11:33 pollen extracts Allergy Mild Runny Verified 03/06/21 11:33 nose, watery eyes dog dander [dogs] Allergy Unknown Verified 03/06/21 11:33 mold Allergy Unknown Verified 03/06/21 11:33 Active Medications: Current Medications Albuterol Sulfate (Albuterol Sulfate 90 Mcg 8 Gm Inhaler) 2 puff INHALE Q6H PRN PRN Reason: Wheezing Albuterol/Ipratropium (Albuterol/Iprat 2.5/0.5mg 3 Ml Ampul.Neb) 3 ml INHALE Q6-8H PRN PRN Reason: wheezing Fluticasone/Vilanterol (Fluticasone/Vilanterol 200/25 Blst.W.Dev) 1 puff INHALE DAILY [facility] Lidocaine (Lidocaine 4 % Patch Adh..Patch) 1 patch TRANSDERMA DAILY [facility]; Protocol Magnesium Oxide (Magnesium Oxide 400 Mg Tablet) 800 mg PO BID [facility] Medication (No Benzodiazepines) 1 each MISCELLANE DAILY [facility] Montelukast Sodium (Montelukast Sodium 10 Mg Tablet) 10 mg PO DAILY [facility] Morphine Sulfate (Morphine Sulfate 2 Mg/Ml Cartridge) 2 mg IVPUSH Q4H [facility]; Protocol Non-Formulary Medication (Artifi.Tears(Hypromellose)(Pf)) 1 drop EYE-BOTH Q4H PRN PRN Reason: Dry Eye(S) Non-Formulary Medication (Ketoconazole) 1 appl TOPICAL BID PRN PRN Reason: fungal infetion - foot Non-Formulary Medication (Loperamide) 2 mg PO Q6H PRN PRN Reason: Diarrhea Non-Formulary Medication (Pantoprazole) 40 mg PO DAILY [facility] Olanzapine (Olanzapine 2.5 Mg Tablet) 2.5 mg PO DAILY PRN PRN Reason: Anxiety Olanzapine (Olanzapine 2.5 Mg Tablet) 6.25 mg PO BEDTIME [facility] Omeprazole (Omeprazole 20 Mg Capsule.Dr) 20 mg PO DAILY@0630 [facility] Pharmacy Consult (Consult Rx Perform Med Rec) 1 each MISCELLANE ONCE PRN PRN Reason: Consult order Phenobarbital (Phenobarbital 15 Mg Tablet) 45 mg PO BID [facility]; Protocol Stop: 04/13/21 09:01 Phenobarbital (Phenobarbital 30 Mg Tablet) 30 mg PO BID [facility]; Protocol Stop: 04/15/21 09:01 Phenobarbital (Phenobarbital 30 Mg Tablet) 30 mg PO DAILY [facility]; Protocol Stop: 04/17/21 09:01 Phenobarbital Sodium (Phenobarbital Sodium 130 Mg/Ml Vial) 174 mg IM Q3H [facility]; Protocol Stop: 04/11/21 18:31 Spironolactone (Spironolactone 25 Mg Tablet) 25 mg PO DAILY [facility]; Protocol Tramadol HCl (Tramadol Hcl 50 Mg Tablet) 50 mg PO TID PRN PRN Reason: pain Home Medications Medication Instructions Recorded Confirmed Last Taken Type albuterol sulfate 90 mcg/actuation 2 puff INHALATION Q6H PRN 07/18/20 04/11/21 Unknown History aerosol inhaler (Ventolin HFA) olanzapine 2.5 mg tablet 2.5 tab PO BEDTIME 12/28/20 04/11/21 04/10/21 History ketoconazole 2 % topical cream 1 appl TOPICAL BID PRN 02/05/21 04/11/21 Unknown History artifi.tears(hypromellose)(PF) 0.3 1 drp OPHTHALMIC (EYE) Q4H PRN 04/11/21 04/11/21 Unknown History % eye drops loperamide 2 mg tablet 2 mg PO Q6H PRN 04/11/21 04/11/21 Unknown History olanzapine 2.5 mg tablet 2.5 mg PO DAILY PRN 04/11/21 04/11/21 Unknown History Physical Exam Vital Signs and Narrative: Vital Signs: Last Vital Signs Temp 97.9 F 04/11/21 12:32 Pulse 81 04/11/21 12:32 Resp 15 04/11/21 12:32 BP 117/71 04/11/21 12:32 Pulse Ox 97 04/11/21 12:32 Body Mass Index 22.9 Appearance: Alert.? Oriented X3. Eyes: Pupils equal, round and reactive to light. Scleral mild icterus. ENT: Pharynx normal. Neck: Normal inspection.? Neck supple. CVS: Normal heart rate and rhythm.? Pulses normal. Respiratory: No respiratory distress.? Breath sounds normal. Abdomen: Well healed longitudinal surgical scar, soft , nt. +BS x4 : has ch right sided inguinal pain, also has scrotal pain-no erythema or swelling or any discharge. Skin: Skin warm and dry.? Extremities: No lower extremity edema. Neuro: Oriented X 3.? No motor deficit.? No sensory deficit Results Labs CBC and Chem 7: 04/11/21 09:53 04/11/21 09:53 Labs: Laboratory Results - last 24 hr 04/11/21 04/11/21 04/11/21 09:53 09:53 09:53 MCV 97.7 MCH 34.2 H MCHC 35.0 RDW 14.8 Plt Count 59 L D MPV 9.6 Immature Gran % (Auto) 0.0 Neut % (Auto) 62.2 Lymph % (Auto) 23.1 Carter % (Auto) 10.9 Eos % (Auto) 2.7 Baso % (Auto) 1.1 Lymph # (Auto) 0.9 L Carter # (Auto) 0.4 Eos # (Auto) 0.1 Baso # (Auto) 0.0 Abs Immat Gran (auto) 0.00 Absolute Neuts (auto) 2.3 Absolute Nucleated RBC 0.000 Nucleated RBC % (auto) 0.0 PT INR APTT Anion Gap 17 Estim Creat Clear Calc 147.0 Estimated GFR > 60 Random Glucose 102 Lactic Acid 2.0 Calcium 8.5 Magnesium 1.4 L* Total Bilirubin 5.7 H Direct Bilirubin 3.9 H AST 116 H ALT 22 Alkaline Phosphatase 282 H Total Protein 7.8 Albumin 3.9 Lipase 16 Urine Color Urine Appearance Urine pH Ur Specific [place] Urine Protein Urine Glucose (UA) Urine Ketones Urine Blood Urine Nitrite Ur Leukocyte Esterase Urine Opiates Screen Urine Fentanyl Screen Ur Barbiturates Screen Ur Phencyclidine Scrn Ur Amphetamines Screen U Benzodiazepines Scrn Urine Cocaine Screen U Marijuana (THC) Screen Ethyl Alcohol COVID-19 ([place]) COVID-19 Clin Com 04/11/21 04/11/21 04/11/21 09:53 09:53 11:12 MCV MCH MCHC RDW Plt Count MPV Immature Gran % (Auto) Neut % (Auto) Lymph % (Auto) Carter % (Auto) Eos % (Auto) Baso % (Auto) Lymph # (Auto) Carter # (Auto) Eos # (Auto) Baso # (Auto) Abs Immat Gran (auto) Absolute Neuts (auto) Absolute Nucleated RBC Nucleated RBC % (auto) PT 13.7 H INR 1.2 H APTT 48.8 H Anion Gap Estim Creat Clear Calc Estimated GFR Random Glucose Lactic Acid Calcium Magnesium Total Bilirubin Direct Bilirubin AST ALT Alkaline Phosphatase Total Protein Albumin Lipase Urine Color Urine Appearance Urine pH Ur Specific [place] Urine Protein Urine Glucose (UA) Urine Ketones Urine Blood Urine Nitrite Ur Leukocyte Esterase Urine Opiates Screen Urine Fentanyl Screen Ur Barbiturates Screen Ur Phencyclidine Scrn Ur Amphetamines Screen U Benzodiazepines Scrn Urine Cocaine Screen U Marijuana (THC) Screen Ethyl Alcohol 314 H* COVID-19 ([place]) Negative COVID-19 Clin Com See Note 04/11/21 04/11/21 11:32 11:32 MCV MCH MCHC RDW Plt Count MPV Immature Gran % (Auto) Neut % (Auto) Lymph % (Auto) Carter % (Auto) Eos % (Auto) Baso % (Auto) Lymph # (Auto) Carter # (Auto) Eos # (Auto) Baso # (Auto) Abs Immat Gran (auto) Absolute Neuts (auto) Absolute Nucleated RBC Nucleated RBC % (auto) PT INR APTT Anion Gap Estim Creat Clear Calc Estimated GFR Random Glucose Lactic Acid Calcium Magnesium Total Bilirubin Direct Bilirubin AST ALT Alkaline Phosphatase Total Protein Albumin Lipase Urine Color YELLOW Urine Appearance CLEAR Urine pH 7.0 Ur Specific [place] <= 1.005 Urine Protein NEG Urine Glucose (UA) NEG Urine Ketones NEG Urine Blood NEG Urine Nitrite NEG Ur Leukocyte Esterase NEG Urine Opiates Screen Not Detected Urine Fentanyl Screen Not Detected Ur Barbiturates Screen Not Detected Ur Phencyclidine Scrn Not Detected Ur Amphetamines Screen Not Detected U Benzodiazepines Scrn Not Detected Urine Cocaine Screen Not Detected U Marijuana (THC) Screen POSITIVE H Ethyl Alcohol COVID-19 ([place]) COVID-19 Clin Com Imaging Radiologist's Impressions: Impressions Scrotum Ultrasound 04/11/21 08:36 IMPRESSION: No evidence of torsion. Bilateral epididymal head cysts. Bilateral varicoceles, left greater than right. Fat in the left inguinal canal questionable for a fat-containing inguinal hernia versus lipoma of the cord. Scrotum Ultrasound 04/11/21 08:36 IMPRESSION: No evidence of torsion. Bilateral epididymal head cysts. Bilateral varicoceles, left greater than right. Fat in the left inguinal canal questionable for a fat-containing inguinal hernia versus lipoma of the cord. Abdomen Ultrasound 04/11/21 10:30 IMPRESSION: Enlarged echogenic liver. Mild gallbladder wall thickening. This may be related to liver disease. No gallstones seen. No ascites. Assessment and Plan (1) Hypomagnesemia: Status: Acute (2) Varicocele: Status: Acute 51-year-old male chronic alcoholic came with the scrotal pain, elevated LFT, hypomagnesemia. 1. 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 Says LFT seems fluctuating No ascites on ultrasound Patient was placed on phenobarb by ED-possible impending withdrawal ? Leukopenia/thrombocytopenia probably question related to alcohol use. Currently albumin level seems normal He PT PTT inr: 13.7/48/inr 1.2 plan; Says [place] scale, thiamine, folic acid On phenobarb Continue spironolactone-previously also had ascites as per the GI notes. ED physician discussed the case with GI recommended to admit the patient for monitoring LFT de [place] tor[place]. Monitor CBC for thrombocytopenia GI evaluation added 2.Alcohol abuse: On phenobarb for impending alcohol withdrawal 3. Chronic pains including inguinal/scrotal/back pain: Patient says they these pains are similar to before. Will continue patient's tramadol at home and will add small dose morphine for pain control Out of bed activity Patient is aware he needs to follow-up with Dr. lawrence outpatiently 4. asthma hx: stable Continue albuterol, flu conditions/vilanterol, singular. 5. hypomagnesemia: mag levels 1.4 will give 2 gm iv mag added po magnesium. 6. Varicocele: No urinary complaint except scrotal pain, which seems chronic Ultrasound reviewed as above. Will add urology evaluation for further recommendations. DVT prophylaxis with SCDs since has thrombocytopenia. Above management discussed with the patient in detail length including code status-patient is agreement with the above plan, time spent 70 minutes Quality Stroke Does the patient have a stroke diagnosis?: No VTE Prior VTE?: No VTE Risk Level:: Medical - moderate - high VTE Device Contraindication: Procedure Contraindicated VTE Drug Contraindication: N/A - Med Ordered (Patient has thrombocytopenia, SCD ordered)
--- NOTE | 2021-04-11 13:30 | P.CNGI_ITS ---
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 Pt has been followed by Dr. Valerio since May 2019 and more recently by Dr. Benitez. HPI Narrative: 51 y/o male alcohol abuse and dependence, history of acute alcoholic hepatitis, history of bowel perforation, history of UTI with E coli bacteremia, SEAN, who presents to the ER from home with testicular pain for the last 1 month.? He was also evaluated by his PCP last week however he developed a low-grade fever required COVID testing, which was negative.? He has been unable to make another appointment.? He has also has a follow-up with Dr. Orlando who is booked full.? He reports an aching in both of his testicles.? It has been going on for several weeks.? He margy reports discomfort with urinary but not burning.? He reports the pain radiates up into his lower abdomen. Patient on arrival to the ER appears to be jaundice with several spider angiomata all over his face and chest.? He has some scleral icterus.? This is new per his girlfiend. He reports ongoing alcohol use, at least 1 pt per day, last intake was this morning. He desires detox. Patient denies symptoms of heartburn, dysphagia, nausea, vomiting, change in appetite or weight. Pt admits to chronic diarrhea since his colon surgery 2 yrs ago and loss of control of bowel and bladder at times. Denies being on chronic anticoagulation. Patient denies known family history of colon polyps, colon cancer or other GI malignancies. 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 He lives with his GF, Vanessa - who worked as a Emt/Paramedic at [facility] in the past. Pt expressed anxiety and hx of nightmares. Attends AA meetings and denies inpatient rehab in the past. IMAGING STUDIES: ABD US SHOWED: Enlarged echogenic liver. Mild gallbladder wall thickening. This may be related to liver disease. No gallstones seen. No ascites. ENDOSCOPIC STUDIES: 06/2020 SCREENING COLONOSCOPY WAS PERFORMED BY DR. VALERIO: As we approached the anastomosis, there was an area of postsurgical scarring and then immediately to the 9 o'clock position was the entrance of the small bowel.? Villi appeared normal, but was intubated for approximately 15 cm.? There was no clear inflammatory change.? Biopsies of the terminal ileum were obtained and sequential biopsies were taken in the colon to assess for microscopic colitis.? The patient did have a lot of motility during the procedure.? Anorectal verge was clear. PAST GI HISTORY BY REVIEW OF MEDICAL RECORDS: Pt was seen by Dr Benitez in 02/2021: A/P: 1/ Alcoholic liver disease, numbers had been improving 2/ alcohol abuse, still drinking but decreased amounts 3/ ascites--controlled 4/ possible pancreatitis in the past PLAN: 1/ recheck labs now 2/ repeat US in 6 months 3/ re advised on alcohol abstinence? ? PAST GI SURGERY: He had right hemicolectomy done during ER visit in January 2019 for perforated Bowel with Sepsis. This was done Emergently. He has been experiencing post surgical watery diarrhea, with at times fecal incontinence. He was found to have elevated transaminase. CT done recently did show fatty liver. Review of records from original hospitalization showed a very complex hospitalization due to post op DT's requiring high dosing of Ativan in the ICU. He also had pelvic abscess and some increased wound drainage. (Part of the infection was associated with a Resistant E. coli.) He left hospital Review of Systems Constitutional: Constitutional: Denies fever(s), Denies headache(s) and Denies weight loss Eyes: Eyes: Denies eye discharge and Denies irritation ENT: Reports Normal hearing present, Denies dysphagia, Denies dizziness and Denies headache(s) Cardiovascular: Cardiovascular: Denies chest pain, Denies leg edema and Denies dyspnea on exertion Respiratory: Respiratory: Denies cough and Denies dyspnea on exertion Gastrointestinal: Gastrointestinal: Denies abdominal pain, Denies change in bowel habits, Denies dysphagia and Denies heartburn Genitourinary: Genitourinary: Denies dysuria and Reports testicular pain Musculoskeletal: Musculoskeletal: Reports back pain and Denies arthralgias Integumentary/Breasts: Skin/Breast: Denies pruritus, Denies rash and Reports jaundice Neurologic: Reports Normal hearing present, Denies Abnormal speech present, Denies dizziness, Denies headache(s) and Denies seizure-like activity Psychiatric: Psychiatric: Reports anxiety, Reports depression, Reports panic attacks and Reports other (night nicole) Endocrine: Endocrine: Denies cold intolerance, Denies flushing and Denies heat intolerance PMFSH Past Medical History Medical History Alcohol dependence Alcohol withdrawal seizure Anal fistula Asthma Carpal tunnel syndrome Chronic pain of right groin Degeneration, intervertebral disc, cervical Diarrhea, unspecified Disc degeneration, lumbar Elevated ALT measurement Epigastric pain GERD (gastroesophageal reflux disease) Hepatic steatosis History of anal fissures Internal and external bleeding hemorrhoids Mood disorder Pelvic abscess Rectal pain Screen for colon cancer (~04/11/20) Family History Family History Father No problems noted. Mother No problems noted. Brother No problems noted. Surgical History Surgical History H/O hemorrhoidectomy History of appendectomy History of colon resection History of colonoscopy Social History Social History Household Members: Significant Other Housing: House Do you presently have visiting nurse or other home services: No Alcohol intake: current Alcohol intake frequency: 3 or more drinks per day Alcohol type: hard liquor Cigarette Packs Per Day: 1 Cigarettes Per Day: 20.0 Years Smoked: 35 Second Hand Smoke Exposure: Yes Substance Use Type: Marijuana Advance Directives: Yes Advance Directives Information Provided: Yes Advance Directives on File: No Advance Directives Date on File: 12/14/20 service: No Current occupational status: unemployed Meds Allergies Allergy/AdvReac Type Severity Reaction Status Date / Time horse dander Allergy Intermediate hives Verified 03/06/21 11:33 pollen extracts Allergy Mild Runny Verified 03/06/21 11:33 nose, watery eyes dog dander [dogs] Allergy Unknown Verified 03/06/21 11:33 mold Allergy Unknown Verified 03/06/21 11:33 Active Medications: Current Medications Albuterol Sulfate (Albuterol Sulfate 90 Mcg 8 Gm Inhaler) 2 puff INHALE Q6H PRN PRN Reason: Wheezing Albuterol/Ipratropium (Albuterol/Iprat 2.5/0.5mg 3 Ml Ampul.Neb) 3 ml INHALE Q 6H PRN PRN Reason: wheezing Artificial Tears (Artificial Tears 15 Ml Drops) 1 drop EYE-BOTH Q4H PRN PRN Reason: Dry Eye(S) Clotrimazole (Clotrimazole 1 % Cream 15 Gm Tube) 1 appl TOPICAL BID PRN PRN Reason: fungal infection- foot Fluticasone/Vilanterol (Fluticasone/Vilanterol 200/25 Blst.W.Dev) 1 puff INHALE DAILY [facility] Lidocaine (Lidocaine 4 % Patch Adh..Patch) 1 patch TRANSDERMA DAILY [facility]; Protocol Loperamide HCl (Loperamide Hcl 2 Mg Capsule) 2 mg PO Q6H PRN PRN Reason: Diarrhea Magnesium Oxide (Magnesium Oxide 400 Mg Tablet) 800 mg PO BID [facility] Medication (No Benzodiazepines) 1 each MISCELLANE DAILY [facility] Montelukast Sodium (Montelukast Sodium 10 Mg Tablet) 10 mg PO DAILY [facility] Morphine Sulfate (Morphine Sulfate 2 Mg/Ml Cartridge) 2 mg IVPUSH Q4H [facility]; Protocol Olanzapine (Olanzapine 2.5 Mg Tablet) 2.5 mg PO DAILY PRN PRN Reason: Anxiety Olanzapine (Olanzapine 2.5 Mg Tablet) 6.25 mg PO BEDTIME [facility] Omeprazole (Omeprazole 20 Mg Capsule.Dr) 20 mg PO DAILY@0630 [facility] Pharmacy Consult (Consult Rx Perform Med Rec) 1 each MISCELLANE ONCE PRN PRN Reason: Consult order Phenobarbital (Phenobarbital 15 Mg Tablet) 45 mg PO BID [facility]; Protocol Stop: 04/13/21 09:01 Phenobarbital (Phenobarbital 30 Mg Tablet) 30 mg PO BID [facility]; Protocol Stop: 04/15/21 09:01 Phenobarbital (Phenobarbital 30 Mg Tablet) 30 mg PO DAILY [facility]; Protocol Stop: 04/17/21 09:01 Phenobarbital Sodium (Phenobarbital Sodium 130 Mg/Ml Vial) 174 mg IM Q3H [facility]; Protocol Stop: 04/11/21 18:31 Spironolactone (Spironolactone 25 Mg Tablet) 25 mg PO DAILY [facility]; Protocol Tramadol HCl (Tramadol Hcl 50 Mg Tablet) 50 mg PO TID PRN PRN Reason: pain Home Medications Medication Instructions Recorded Confirmed Last Taken Type albuterol sulfate 90 mcg/actuation 2 puff INHALATION Q6H PRN 07/18/20 04/11/21 Unknown History aerosol inhaler (Ventolin HFA) olanzapine 2.5 mg tablet 2.5 tab PO BEDTIME 12/28/20 04/11/21 04/10/21 History ketoconazole 2 % topical cream 1 appl TOPICAL BID PRN 02/05/21 04/11/21 Unknown History artifi.tears(hypromellose)(PF) 0.3 1 drp OPHTHALMIC (EYE) Q4H PRN 04/11/21 04/11/21 Unknown History % eye drops loperamide 2 mg tablet 2 mg PO Q6H PRN 04/11/21 04/11/21 Unknown History olanzapine 2.5 mg tablet 2.5 mg PO DAILY PRN 04/11/21 04/11/21 Unknown History Physical Exam Vital Signs: Vital Signs: Last Vital Signs Temp 97.9 F 04/11/21 12:32 Pulse 81 04/11/21 12:32 Resp 15 04/11/21 12:32 BP 117/71 04/11/21 12:32 Pulse Ox 97 04/11/21 12:32 Body Mass Index 22.9 Const: General: no acute distress and ill appearing Nutritional Appearance: average body habitus Orientation/consciousness: patient oriented x3 Limitations: no limitations HENMT: Head: Yes normal to inspection Ears: hearing grossly normal bilaterally Mouth: Normal oral and palatal mucosa present Eyes: Sclerae: scleral abnormal (Jaundice) Pupils: Equal, round and reactiv e pupils present Neck: Neck: Yes normal visual inspection Chest: Chest palpation & inspection: normal inspection of the chest Resp: Effort & Inspection: normal respiratory effort Auscultation: clear to auscultation bilaterally Cardio: Palpation: normal PMI Rate: regular rate Rhythm: regular rhythm Heart sounds: S1 normal heart sound present, S2 normal heart sound present an d no murmurs GI: Palpation (GI): Soft to palpation, nontender and No hepatosplenomegaly present Auscultation: normal bowel sounds Rectal Exam - Male: Yes deferred Skin: General skin exam: no rashes or lesions noted and spider nevi (Multiple on anterior chest and upper back) Neuro: General: patient oriented x3, gait normal and moves all extremities Cranial nerves: Yes Equal, round and reactive pupils present and Yes Normal hearing present Speech: No Abnormal speech present Extrem: General: Yes other (tremors of both hands without asterixis) Psych: Appearance: grossly normal Mental Status: mental status grossly normal Speech and movement: Pressured speech present Affect: Anxious affect present Results Labs CBC & Chem 7: 04/11/21 09:53 04/11/21 09:53 Labs: Short CBC 04/11/21 Range/Units 09:53 WBC 3.8 L (4.8-10.8) X10*3/uL Hgb 12.1 L (14.0-18.0) g/dl Hct 34.6 L (42-52) % Plt Count 59 L D (160-400) X10*3/uL BMP 04/11/21 09:53 Sodium 138 Potassium 3.6 Chloride 99 Carbon Dioxide 26 BUN 9 Creatinine 0.61 Calcium 8.5 Liver Function 04/11/21 Range/Units 09:53 Total Bilirubin 5.7 H (0.0-1.0) mg/dL Direct Bilirubin 3.9 H (0.0-0.5) mg/dL AST 116 H (5-37) U/L ALT 22 (0-40) U/L Alkaline Phosphatase 282 H (39-117) U/L Albumin 3.9 (3.5-5.0) g/dL Urine 04/11/21 Range/Units 11:32 Urine Color YELLOW Urine Appearance CLEAR Urine pH 7.0 (5.0-8.0) Ur Specific [place] <= 1.005 (1.005-1.025) Urine Protein NEG (NEG-TRACE) MG/DL Urine Glucose (UA) NEG (NEG) MG/DL Assessment and Plan (1) Acute alcoholic hepatitis: Status: Acute (2) Anal fistula: Status: Acute had surgery and seton placement by Dr Mao (3) Asthma-COPD overlap syndrome: Status: Acute 51 YM with alhol related liver disease complicated by ascites, asthma-COPD overlap syndrome came to [facility] with testicular pain. Pt noted to be jaundice with worsening LFT elevation. Continues to drink a pint of hard liquor daily. Blood ETOH level was 314. Hepatitis A, B and C serologies were negative in 2019 Abd US showed hepatomegaly and no ascites was detected. Himanshu discriminant function is 14 RECOMMENDATIONS: 1. [facility] protocol for ETOH withdrawl. 2. Follow LFTs 3. Rule out acute Hep A or B - order placed for tomorrow am. 4. Needs ETOH rehab - pt has anxiety living in a place other than his own house. 5. Pt has a FU appt with Dr Benitez on 06/10/21 Procedures Date of Service Date of Service: 04/11/21
[2021-04-11 13:53] LABS: CT PCR NOT DETECTED (Not Detect.); NG PCR NOT DETECTED (Not Detect.)
[2021-04-11] MEDS: Morphine Sulfate 2 MG/ML CARTRIDGE IVPUSH (14:07)
[2021-04-11] MEDS: Magnesium Oxide 400 MG TABLET 800 MG PO (14:07)
[2021-04-11] MEDS: Omeprazole 20 MG CAPSULE.DR PO (14:07)
[2021-04-11 14:08] VITALS: BP 117/71; PULSE 91
[2021-04-11] MEDS: Spironolactone 25 MG TABLET PO (14:08)
[2021-04-11 14:14] VITALS: BP 118/60; PULSE 88; RESP 19; O2SAT 96
[2021-04-11] MEDS: PHENobarbitaL sodium 130 MG/ML VIAL 174 MG IM (15:42)
--- NOTE | 2021-04-11 15:57 | PC.NURSE ---
care assumed for this pt at 1500, resting comfortably in bed at this time. medicated per emar. pt tray ordered per request. awaiting bed assignment- pt aware of plan of care.
[2021-04-11] MEDS: Thiamine HCL 100 MG TABLET PO (16:34)
[2021-04-11] MEDS: 0.9 % Sodium Chloride Flush 3 ML SYRINGE IVFLUSH (16:34)
[2021-04-11] MEDS: Folic Acid 1 MG TABLET PO (16:34)
--- NOTE | 2021-04-12 08:48 | PM.UROCN ---
History of Present Illness Consult details Consult date: 04/11/21 Narrative: Gustabo is a 51-year-old male Had been seen in Urology previously with some degree of voiding issues Consultation today regarding groin and testicle pain Has been present intermittently for number of years Triggered by an accident through work Recently had been doing physical activity with aggravation of prior injury Right inguinal tenderness consistent with groin tear at insertion point of rectus abdominus on the symphysis pubis May benefit from trigger injection Discussed with Gustabo Review of Systems Constitutional: Constitutional: Denies chills and Denies fever(s) Cardiovascular: Cardiovascular: Reports no additional cardiovascular complaints and Denies syncope Respiratory: Respiratory: Denies cough Gastrointestinal: Gastrointestinal: Denies abdominal pain and Denies heartburn Genitourinary: Genitourinary: Reports as per HPI and Denies change in libido Neurologic: Denies syncope Psychiatric: Psychiatric: Denies change in libido Endocrine: Endocrine: Denies change in libido [facility] Past Medical History Medical History Alcohol dependence Alcohol withdrawal seizure Anal fistula Asthma Carpal tunnel syndrome Chronic pain of right groin Degeneration, intervertebral disc, cervical Diarrhea, unspecified Disc degeneration, lumbar Elevated ALT measurement Epigastric pain GERD (gastroesophageal reflux disease) Hepatic steatosis History of anal fissures Internal and external bleeding hemorrhoids Mood disorder Pelvic abscess Rectal pain Screen for colon cancer (~04/11/20) Family History Family History Father No problems noted. Mother No problems noted. Brother No problems noted. Surgical History Surgical History H/O hemorrhoidectomy History of appendectomy History of colon resection History of colonoscopy Social History Social History Household Members: Significant Other Housing: House Do you presently have visiting nurse or other home services: No Alcohol intake: current Alcohol intake frequency: 3 or more drinks per day Alcohol type: hard liquor Cigarette Packs Per Day: 1 Cigarettes Per Day: 20.0 Years Smoked: 35 Second Hand Smoke Exposure: Yes Substance Use Type: Marijuana Advance Directives Date on File: 12/14/20 service: No Current occupational status: unemployed Meds Allergies Allergy/AdvReac Type Severity Reaction Status Date / Time horse dander Allergy Intermediate hives Verified 03/06/21 11:33 pollen extracts Allergy Mild Runny Verified 03/06/21 11:33 nose, watery eyes dog dander [dogs] Allergy Unknown Verified 03/06/21 11:33 mold Allergy Unknown Verified 03/06/21 11:33 Home Medications Medication Instructions Recorded Confirmed Last Taken Type albuterol sulfate 90 mcg/actuation 2 puff INHALATION Q6H PRN 07/18/20 04/11/21 Unknown History aerosol inhaler (Ventolin HFA) olanzapine 2.5 mg tablet 2.5 tab PO BEDTIME 12/28/20 04/11/21 04/10/21 History ketoconazole 2 % topical cream 1 appl TOPICAL BID PRN 02/05/21 04/11/21 Unknown History artifi.tears(hypromellose)(PF) 0.3 1 drp OPHTHALMIC (EYE) Q4H PRN 04/11/21 04/11/21 Unknown History % eye drops loperamide 2 mg tablet 2 mg PO Q6H PRN 04/11/21 04/11/21 Unknown History olanzapine 2.5 mg tablet 2.5 mg PO DAILY PRN 04/11/21 04/11/21 Unknown History Physical Exam Vital Signs: Vital Signs: Last Vital Signs Temp 97.9 F 04/11/21 12:32 Pulse 88 04/11/21 14:14 Resp 19 04/11/21 14:14 BP 118/60 04/11/21 14:14 Pulse Ox 96 04/11/21 14:14 Body Mass Index 22.9 Const: General: cooperative, healthy appearing, comfortable and no acute distress Orientation/consciousness: patient oriented x3 HENMT: Face and sinus: Yes normal facial exam Mouth: moist mucous membranes Neck: Neck: Yes normal visual inspection, Yes full ROM and Yes trachea midline Chest: Chest palpation & inspection: normal inspection of the chest Resp: Effort & Inspection: normal respiratory effort, able to speak in complete sentences and no respiratory distress GI: Inspection: Yes normal to inspection Back/Spine/Pelvis: Cervical Spine: normal cervical lordosis Thoracic/Lumbar Spine: thoracic and lumbar spine normal to inspection Skin: General skin exam: no rashes or lesions noted Neuro: General: patient oriented x3, gait normal, tone normal and moves all extremities Extrem: General: Yes normal to inspection and Yes capillary refill normal Results Labs Result diagrams: 04/11/21 09:53 04/11/21 09:53 Labs: Abnormal lab results 04/11/21 04/11/21 04/11/21 Range/Units 09:53 09:53 09:53 WBC 3.8 L (4.8-10.8) X10*3/uL RBC 3.54 L (4.60-5.80) X10*6/uL Hgb 12.1 L (14.0-18.0) g/dl Hct 34.6 L (42-52) % MCH 34.2 H (27.0-33.0) pg Plt Count 59 L D (160-400) X10*3/uL Lymph # (Auto) 0.9 L (1.2-4.9) X10*3/uL PT (9.9-13.0) SEC INR (0.9-1.1) APTT (24.1-38.0) SEC Magnesium 1.4 L* (1.6-2.6) mg/dL Total Bilirubin 5.7 H (0.0-1.0) mg/dL Direct Bilirubin 3.9 H (0.0-0.5) mg/dL AST 116 H (5-37) U/L Alkaline Phosphatase 282 H (39-117) U/L U Marijuana (THC) Screen (Not Detect) Ethyl Alcohol 314 H* mg/dL 04/11/21 04/11/21 Range/Units 11:12 11:32 WBC (4.8-10.8) X10*3/uL RBC (4.60-5.80) X10*6/uL Hgb (14.0-18.0) g/dl Hct (42-52) % MCH (27.0-33.0) pg Plt Count (160-400) X10*3/uL Lymph # (Auto) (1.2-4.9) X10*3/uL PT 13.7 H (9.9-13.0) SEC INR 1.2 H (0.9-1.1) APTT 48.8 H (24.1-38.0) SEC Magnesium (1.6-2.6) mg/dL Total Bilirubin (0.0-1.0) mg/dL Direct Bilirubin (0.0-0.5) mg/dL AST (5-37) U/L Alkaline Phosphatase (39-117) U/L U Marijuana (THC) Screen POSITIVE H (Not Detect) Ethyl Alcohol mg/dL Short CBC 04/11/21 Range/Units 09:53 WBC 3.8 L (4.8-10.8) X10*3/uL Hgb 12.1 L (14.0-18.0) g/dl Hct 34.6 L (42-52) % Plt Count 59 L D (160-400) X10*3/uL BMP 04/11/21 09:53 Sodium 138 Potassium 3.6 Chloride 99 Carbon Dioxide 26 BUN 9 Creatinine 0.61 Calcium 8.5 Liver Function 04/11/21 Range/Units 09:53 Total Bilirubin 5.7 H (0.0-1.0) mg/dL Direct Bilirubin 3.9 H (0.0-0.5) mg/dL AST 116 H (5-37) U/L ALT 22 (0-40) U/L Alkaline Phosphatase 282 H (39-117) U/L Albumin 3.9 (3.5-5.0) g/dL Urine 04/11/21 Range/Units 11:32 Urine Color YELLOW Urine Appearance CLEAR Urine pH 7.0 (5.0-8.0) Ur Specific [place] <= 1.005 (1.005-1.025) Urine Protein NEG (NEG-TRACE) MG/DL Urine Glucose (UA) NEG (NEG) MG/DL All other labs normal. Assessment and Plan (1) Deep inguinal pain, right: Status: Acute Inguinal tear right rectus abdominus pelvic attachment anti-inflammatories Procedures Date of Service Date of Service: 04/11/21
--- NOTE | 2021-04-12 13:22 | PM.EVENT ---
Event Note Date of Service: 04/12/21 Event Note: Discharge summary: Patient was admitted yesterday because of hypomagnesemia and elevated LFTs, GI recommended for admission and further monitoring lft's, varicocele seems chronic. At evening time patient decided to leave against medical advise did not wait for physician to come back and see him. Received IV magnesium 2 gmin ed .take magnesium at home also. Final diagnosis: Probable alcohol liver disease,Leukopenia/thrombocytopenia, hypomagnesemia. For labs, imaging, physical exam please refer to the H&P which is done the same day.
--- NOTE | 2021-04-15 15:22 | PM.DS ---
DS: Providers Provider Date of Service: 04/11/21 Date of admission: 04/11/21 13:07 Date of discharge: 04/11/21 Primary care physician: Rita Edwards MD Consults: 04/11/21 13:17 Consult to Gastroenterology Routine Consulting Provider: [facility] Reason for consultation: elevated liver function/alcohol abuse Has provider been notified: No DS: Diagnosis Discharge Diagnosis (1) Deep inguinal pain, right: Status: Acute DS: Summary Hospital Course Hospital Course: Please see H&P note. From same date 04/11/2021. Patient was admitted yesterday because of hypomagnesemia and elevated LFTs, GI recommended for admission and further monitoring lft's, varicocele seems chronic. At evening time patient decided to leave against medical advise did not wait for physician to come back and see him. Received IV magnesium 2 gmin ed .take magnesium at home also. Final diagnosis:? Probable alcohol liver disease,Leukopenia/thrombocytopenia, hypomagnesemia. For labs, imaging, physical exam please refer to the H&P which is done the same day. I have called the patient this afternoon and explained his condition and medical issues in detail again. He needs to follow-up with the GI, Urology, Dr. Youngblood outpatiently. Also advised to increase his magnesium 800 b.i.d. for 2 days and check his BMP and magnesium level with PCP out patiently His significant other miss Lacy have witness the conversation and she said that they will follow the above plan. Time Spent with Patient Time attestation: Total time spent providing and/or coordinating discharge services: Discharge coordination time: Greater than 30 minutes Quality: Stroke Does the patient have a stroke diagnosis?: No Physical Exam Vital Signs: Vital Signs: Last Vital Signs Temp 97.9 F 04/11/21 12:32 Pulse 88 04/11/21 14:14 Resp 19 04/11/21 14:14 BP 118/60 04/11/21 14:14 Pulse Ox 96 04/11/21 14:14 Body Mass Index 22.9 Left AMA after 7 pm: Please refer to physical exam from H&P. DS: Data Data Completed and Pending Completed studies during hospitalization [Text1]: Procedures Detoxification Services for Substance Abuse Treatment (10/13/20) Labs on day of discharge: Preliminary micro results at discharge 04/11/21 11:12 Blood Culture - Preliminary Blood - Venous No growth after 48 hours. 04/11/21 09:53 Blood Culture - Preliminary Blood - Venous No growth after 48 hours. Discharge Plan Discharge Patient Disposition: Left Against Medical Advice Discharge Diagnosis: hypomagnesemia, vericocele ch, alcoholic liver dis Discharge Medications: No Action Breo Ellipta 200-25 mcg/dose blister with device 1 inh inhalation DAILY Qty: 60 RF: 6 pantoprazole 40 mg tablet,delayed release (DR/EC) 40 mg PO DAILY Qty: 30 RF: 2 spironolactone 25 mg tablet 25 mg PO DAILY Qty: 30 RF: 1 magnesium oxide 400 mg (241.3 mg magnesium) tablet 400 mg PO BID Qty: 60 RF: 3 olanzapine 2.5 mg tablet 2.5 tab PO BEDTIME RF: 0 olanzapine 2.5 mg tablet 2.5 mg PO DAILY PRN (Reason: Anxiety) RF: 0 loperamide 2 mg Tablet 2 mg PO Q6H PRN (Reason: Diarrhea) RF: 0 GenTeal (PF) 0.3 % Drops 1 drp OPHTHALMIC (EYE) Q4H PRN (Reason: Dry Eye(S)) RF: 0 ipratropium-albuterol 0.5 mg-3 mg(2.5 mg base)/3 mL solution for nebulization 3 ml inhalation Q6-8H PRN (Reason: wheezing) 30 Days Qty: 270 RF: 6 albuterol sulfate [Ventolin HFA] 90 mcg/actuation HFA aerosol inhaler 2 puff inhalation Q6H PRN (Reason: Wheezing) RF: 0 ketoconazole 2 % cream 1 appl topical BID PRN (Reason: fungal infetion - foot) RF: 0 tramadol 50 mg tablet 50 mg PO TID PRN (Reason: pain) Qty: 14 RF: 0 montelukast 10 mg tablet 10 mg PO DAILY 30 Days Qty: 30 RF: 6 Discharge Orders: Discharge Order (Routine); Ordered 04/15/21 Ordered By: Bekah Puga Care Plan Goals: As above. Health Concerns: As above. Plan of Treatment: as above. As above. Assessment: As above. Discharge Date/Time: 04/11/21 19:04
== END 2021-04-11 19:04 | disposition left against medical advice (07) ==
LOC: HO.ED 12:13 → HO.EDOVER 13:30
PROVIDERS: Physician Assistant; Admitting Provider Internal Medicine; Emergency Provider Emergency Medicine; PCP Family Medicine; Visit Provider Internal Medicine
DX: E83.42 Hypomagnesemia (principal); I86.1 Scrotal varices; K70.10 Alcoholic hepatitis without ascites; K40.90 Unilateral inguinal hernia, without obstruction or gangrene, not specified as recurrent; K60.3 Anal fistula; R94.5 Abnormal results of liver function studies; R10.31 Right lower quadrant pain; K76.0 Fatty (change of) liver, not elsewhere classified; G40.509 Epileptic seizures related to external causes, not intractable, without status epilepticus; J44.9 Chronic obstructive pulmonary disease, unspecified; G47.33 Obstructive sleep apnea (adult) (pediatric); F10.10 Alcohol abuse, uncomplicated; Y90.8 Blood alcohol level of 240 mg/100 ml or more; F12.20 Cannabis dependence, uncomplicated; F17.210 Nicotine dependence, cigarettes, uncomplicated; F41.9 Anxiety disorder, unspecified; F51.5 Nightmare disorder; Z20.822 Contact with and (suspected) exposure to COVID-19; Z87.440 Personal history of urinary (tract) infections; J30.81 Allergic rhinitis due to animal (cat) (dog) hair and dander; T78.49XA Other allergy, initial encounter; Z79.899 Other long term (current) drug therapy; Z53.29 Procedure and treatment not carried out because of patient's decision for other reasons
CPT/HCPCS: 36415; 76705; 76870; 80048; 80076; 80307; 81003; 82077; 83605; 83690; 83735; 85025; 85610; 85730; 87040; 87491; 87591; 87635; 93975; 99219; 99284; J2270; J2560; J3475

== ENCOUNTER 2021-04-19 10:29 | Outpatient (REF) | payer OTHER, SELFPAY | END 2021-04-19 10:30 | disposition home or self-care (01) | LOC: HO.MDS 10:29 | PROVIDERS: PCP Family Medicine; Visit Provider Internal Medicine Pulmonary Disease | DX: J45.50 Severe persistent asthma, uncomplicated (principal) | CPT/HCPCS: 20551; 64425; 96372; 99212 ==

== ENCOUNTER → 2021-04-26 11:03 | Outpatient (BNVA) | payer OTHER, SELFPAY | PROVIDERS: PCP Family Medicine; Visit Provider Urology | DX: R10.31 Right lower quadrant pain (principal) | CPT/HCPCS: 64425; 99212 ==

== ENCOUNTER 2021-05-03 | Outpatient (REF) | payer OTHER, SELFPAY | END 2021-05-03 00:01 | disposition home or self-care (01) | LOC: HO.MDS | PROVIDERS: PCP Family Medicine; Visit Provider Internal Medicine Pulmonary Disease | DX: M62.08 Separation of muscle (nontraumatic), other site (principal); N39.0 Urinary tract infection, site not specified; N40.1 Benign prostatic hyperplasia with lower urinary tract symptoms; N13.8 Other obstructive and reflux uropathy; R10.31 Right lower quadrant pain; T81.30XA Disruption of wound, unspecified, initial encounter; T51.0X1A Toxic effect of ethanol, accidental (unintentional), initial encounter; Y92.9 Unspecified place or not applicable; K76.0 Fatty (change of) liver, not elsewhere classified; F17.210 Nicotine dependence, cigarettes, uncomplicated; F10.20 Alcohol dependence, uncomplicated; F10.239 Alcohol dependence with withdrawal, unspecified; J30.81 Allergic rhinitis due to animal (cat) (dog) hair and dander; J30.89 Other allergic rhinitis; Z79.899 Other long term (current) drug therapy | CPT/HCPCS: 64425; 20551; 99212 ==

== ENCOUNTER → 2021-05-08 14:40 | Outpatient (BNVA) | payer OTHER, SELFPAY | PROVIDERS: PCP Family Medicine; Referring Provider Family Medicine; Visit Provider Surgery | DX: R10.31 Right lower quadrant pain (principal); Z87.19 Personal history of other diseases of the digestive system | CPT/HCPCS: 99212 ==

== ENCOUNTER → 2021-05-09 13:33 | Outpatient (BNVA) | payer OTHER, SELFPAY | PROVIDERS: PCP Family Medicine; Visit Provider Internal Medicine Pulmonary Disease ==

== ENCOUNTER 2021-05-14 06:26 | Outpatient (REF) | payer OTHER, SELFPAY ==
--- NOTE | ~2021-05-14 | FL_ITS ---
EXAMINATION: XR FLUOROSCOPY WITH IMAGES CLINICAL INFORMATION: Pain COMPARISON: Abdomen CT from 05/10/2020 TECHNIQUE: Fluoroscopy performed by Dr. Martin. Fluoroscopy time: 0.3 minutes DAP: 3.31 Gycm2 Images: 2 fluoro images are saved FL/FL guidance in treatment room FINDINGS AND IMPRESSION: Fluoroscopic imaging guidance required during an injection procedure of the lumbar spine. Multilevel osteophyte formation and disc space narrowing of the lumbar spine. There is transforaminal injection of iodinated contrast around the region of the right L1 nerve root. Please refer to the procedure report.
== END 2021-05-14 06:27 | disposition home or self-care (01) ==
LOC: HO.RADIR 06:26
PROVIDERS: Visit Provider Anesthesiology
DX: R10.31 Right lower quadrant pain (principal); F17.210 Nicotine dependence, cigarettes, uncomplicated
CPT/HCPCS: J3300; Q9967

== ENCOUNTER 2021-05-24 04:49 | Inpatient (IN) | payer OTHER, SELFPAY ==
[2021-05-24] VITALS (50 sets, daily range): BP systolic 72–147; BP diastolic 31–89; PULSE 90–159; RESP 14–35; TEMP 35.1–39.6; O2SAT 95–100; BMI 23.4
--- NOTE | ~2021-05-24 | XR_ITS ---
EXAMINATION: XR CHEST CLINICAL INFORMATION: Hypoxia COMPARISON: Chest x-ray on 05/25/2021 TECHNIQUE: Frontal view of the chest was obtained. FINDINGS: Right internal jugular vein catheter terminates at the cavoatrial junction. Diffuse bilateral patchy airspace opacities have worsened compared to 05/24/2021. No large pleural effusions. XR/XR chest 1V IMPRESSION: Bilateral opacities have worsened since 05/24/2021.
--- NOTE | ~2021-05-24 | XR_ITS ---
EXAMINATION: XR CHEST CLINICAL INFORMATION: Central line COMPARISON: 05/24/2021 TECHNIQUE: Frontal view of the chest was obtained. FINDINGS: Right IJ central line tip lies in the region of the cavoatrial junction. The lungs are hypoinflated. There are redemonstrated patchy bilateral airspace opacities. No evidence of pneumothorax or pleural effusion. The cardiomediastinal silhouette is stable. No acute osseous findings are seen. XR/XR chest 1V IMPRESSION: Right IJ central line tip in the region of the cavoatrial junction. Redemonstrated patchy bilateral airspace opacities.
--- NOTE | ~2021-05-24 | XR_ITS ---
EXAMINATION: XR CHEST CLINICAL INFORMATION: Fever COMPARISON: 10/13/2020 TECHNIQUE: Frontal view of the chest was obtained. FINDINGS: Decreased lung volumes. Patchy bilateral interstitial and airspace opacities. Normal heart size. No pleural effusion. No pneumothorax. XR/XR chest 1V IMPRESSION: Patchy bilateral interstitial and airspace opacities new from the prior study. The appearance is consistent with an infectious or inflammatory etiology including viral COVID pneumonitis.
--- NOTE | ~2021-05-24 | XR_ITS ---
EXAMINATION: XR chest 1V CLINICAL INFORMATION: ET tube placement COMPARISON: Portable chest x-ray same day earlier TECHNIQUE: XR chest 1V Tubes and lines: Endotracheal tube tip is about 1 cm above magalie. Gastric tube passing below the diaphragm into the stomach. Right IJ central line tip remain properly positioned over the SVC/RA junction. Lungs and pleura: Bilateral pulmonary interstitial opacification unchanged. Heart and mediastinum: The mediastinum is within normal limits.. Bones/soft tissue: Skeletal structures included are normal for patient's age. XR/XR chest 1V IMPRESSION: Endotracheal tube tip is only 1 cm above magalie, consider pulling back about 3 cm for optimal positioning. Gastric tube properly passing below the diaphragm into the stomach. Right IJ central line remain in place properly positioned. Bilateral interstitial patchy opacification probably interstitial pneumonia unchanged.
--- NOTE | 2021-05-24 05:14 | ED.ABDPAIN ---
HPI - Abdominal Pain General Chief Complaint: Abdominal Pain Stated Complaint: abd/?gi bleed (hx h Time Seen by Provider: 05/24/21 05:14 Source: patient Mode of arrival: ambulatory Limitations: no limitations History of Present Illness HPI narrative: Patient with increased jaundice and rectal bleeding. Patient has had severe rectal bleeding and has a rectal instrument in place for hemorrhoids. Patient has severe alcohol hepatitis now with increased jaundice. Blood has been running out of his rectum for a few hours Onset (ago): week(s) Severity: severe Associated symptoms: hematochezia and other (jaundice) Related Data Home Medications Medication Instructions Recorded Confirmed olanzapine 2.5 mg tablet 2.5 tab PO BEDTIME 12/28/20 05/08/21 ketoconazole 2 % topical cream 1 appl TOPICAL BID PRN 02/05/21 05/08/21 artifi.tears(hypromellose)(PF) 0.3 1 drp OPHTHALMIC (EYE) Q4H PRN 04/11/21 05/08/21 % eye drops loperamide 2 mg tablet 2 mg PO Q6H PRN 04/11/21 05/08/21 olanzapine 2.5 mg tablet 2.5 mg PO DAILY PRN 04/11/21 05/08/21 Previous Rx's Medication Instructions Recorded ipratropium 0.5 mg-albuterol 3 mg 3 ml INHALATION Q6-8H PRN 30 Days 04/24/20 (2.5 mg base)/3 mL nebulization #270 ml soln tramadol 50 mg tablet 50 mg PO TID PRN #14 tab 09/24/20 fluticasone furoate 200 1 inh INHALATION DAILY #60 cap 02/25/21 mcg-vilanterol 25 mcg/dose inhalation powder (Breo Ellipta) spironolactone 25 mg tablet 25 mg PO DAILY #30 tab 03/04/21 magnesium oxide 400 mg (241.3 mg 400 mg PO BID #60 tab 03/19/21 magnesium) tablet montelukast 10 mg tablet 10 mg PO DAILY #90 tab 04/23/21 albuterol sulfate 90 mcg/actuation 2 puff INHALATION Q6H PRN 30 Days 05/09/21 aerosol inhaler (Ventolin HFA) #1 ea pantoprazole 40 mg tablet,delayed 40 mg PO DAILY #90 tab 05/21/21 release Allergies Allergy/AdvReac Type Severity Reaction Status Date / Time horse dander Allergy Intermediate hives Verified 05/14/21 13:29 pollen extracts Allergy Mild Runny Verified 05/14/21 13:29 nose, watery eyes dog dander [dogs] Allergy Unknown Verified 05/14/21 13:29 mold Allergy Unknown Verified 05/14/21 13:29 Review of Systems Constitutional: Reports no additional constitutional complaints Eyes: Reports no additional eye complaints Denies dizziness Cardiovascular: Reports no additional cardiovascular complaints Respiratory: Reports as per HPI Gastrointestinal: Reports no additional gastrointestinal complaints Musculoskeletal: Reports no additional musculoskeletal complaints Skin/Breast: Denies rash Reports system reviewed and no additional complaints, except as documented, Denies dizziness and Denies Sensory deficit (Neuro) Psychiatric: Denies anxiety Physical Exam Vital Signs: Vital Signs: Last Vital Signs Temp 97.9 F 05/24/21 08:02 Pulse 103 H 05/24/21 08:02 Resp 16 05/24/21 08:02 BP 110/54 L 05/24/21 08:02 Pulse Ox 99 05/24/21 08:02 Body Mass Index 23.4 Const: Other: very ill male, jaundiced Orientation/consciousness: oriented to person and patient oriented x3 Limitations: no limitations HENMT: Head: Yes normal to inspection Ears: external ears normal General nose exam: Normal external nose present Mouth: Normal oral and palatal mucosa present and oropharynx normal Throat: Yes posterior oropharynx normal Eyes: Other: severely icteric Neck: Other: supple Neck: Yes normal visual inspection Chest: Chest palpation & inspection: normal inspection of the chest Resp: Auscultation: clear to auscultation bilaterally Cardio: Jugular venous distension: no JVD Rate: regular rate Rhythm: regular rhythm Heart sounds: S1 normal heart sound present and S2 normal heart sound present GI: Inspection: Yes normal to inspection Palpation (GI): Soft to palpation, nontender and No hepatosplenomegaly present Auscultation: normal bowel sounds : Other: rectum leaking blood, band in place from hemorrhoid surgery Skin: Other: jaundice, diffuse spider angiomata Neuro: General: oriented to person and patient oriented x3 Cranial nerves: Yes CN's II-XII intact bilaterally Motor exam (neuro): 5/5 motor strength present throughout Sensory Exam: No Sensory deficit (Neuro) Extrem: General: Yes normal to inspection Psych: Appearance: grossly normal Course Reevaluation(s) Reevaluation #1: patient with lower GI bleed most likely from complicated hemorrhoids and surgery and coagulopathy. Discussed with Dr. Mao will admit to medicine, reverse coagulopathy and transfuse and Dr. Mao will consult. Time: 07:03 Reevaluation #2: discussed with Dr. Adhikari he would like the patient to get 200mg of albumin, pharmacy entering the order Time: 07:47 MDM - Abdominal Pain Lab Data Result diagrams: 05/24/21 05:44 05/24/21 05:44 Labs: Lab Results 05/24/21 05/24/21 05/24/21 Range/Units 05:43 05:44 05:44 WBC 15.2 H (4.8-10.8) X10*3/uL RBC 1.88 L (4.60-5.80) X10*6/uL Hgb 6.8 L* (14.0-18.0) g/dl Hct 19.9 L* (42.0-52.0) % MCV 105.9 H (80.0-98.0) fL MCH 36.2 H (27.0-33.0) pg MCHC 34.2 (31.0-36.0) g/dl RDW 18.0 H (11.0-16.0) % Plt Count 150 L (160-400) X10*3/uL MPV 10.5 (9.4-12.4) fL Immature Gran % (Auto) 5.8 H (0.0-0.4) % Neut % (Auto) 82.6 H (45-73) % Lymph % (Auto) 2.7 L (20-40) % Barbour % (Auto) 7.9 (2-11) % Eos % (Auto) 0.9 (0-4) % Baso % (Auto) 0.1 (0-2) % Lymph # (Auto) 0.4 L (1.2-4.9) X10*3/uL Barbour # (Auto) 1.2 (0.1-1.2) X10*3/uL Eos # (Auto) 0.1 (0.0-0.4) X10*3/uL Baso # (Auto) 0.0 (0.0-0.2) X10*3/uL Abs Immat Gran (auto) 0.88 H (0.00-0.03) X10*3/uL Absolute Neuts (auto) 12.5 H (2.0-8.3) x10*3/uL Absolute Nucleated RBC 0.000 (0.0-0.012) X10*3/uL Nucleated RBC % (auto) 0.0 (0.0-0.2) /100WBC Smear Tech's Comments VERIFIED PT (9.9-13.0) SEC INR (0.9-1.1) Sodium 122 L (135-145) mmol/L Potassium 3.9 (3.3-5.1) mmol/L Chloride 91 L (96-108) mmol/L Carbon Dioxide 15 L (22-29) mmol/L Anion Gap 20 (12-20) BUN 51 H D (9-16) mg/dL Creatinine 3.69 H (0.5-1.4) mg/dL Estim Creat Clear Calc 24.4 Estimated GFR 17 Random Glucose 145 H D (60-115) mg/dL Calcium 6.6 L D (8.4-10.2) mg/dL Total Bilirubin 35.6 H (0.0-1.0) mg/dL Direct Bilirubin 27.8 H (0.0-0.5) mg/dL AST 110 H (5-37) U/L ALT 56 H (0-40) U/L Alkaline Phosphatase 188 H D (39-117) U/L Troponin I High Sens (<3.5-35.0) ng/L Total Protein 4.1 L D (6.5-8.0) g/dL Albumin 2.2 L D (3.5-5.0) g/dL Lipase 40 (8-78) U/L Blood Type O Positive Antibody Screen NEGATIVE Crossmatch See Detail 05/24/21 05/24/21 Range/Units 05:44 05:44 WBC (4.8-10.8) X10*3/uL RBC (4.60-5.80) X10*6/uL Hgb (14.0-18.0) g/dl Hct (42.0-52.0) % MCV (80.0-98.0) fL MCH (27.0-33.0) pg MCHC (31.0-36.0) g/dl RDW (11.0-16.0) % Plt Count (160-400) X10*3/uL MPV (9.4-12.4) fL Immature Gran % (Auto) (0.0-0.4) % Neut % (Auto) (45-73) % Lymph % (Auto) (20-40) % Barbour % (Auto) (2-11) % Eos % (Auto) (0-4) % Baso % (Auto) (0-2) % Lymph # (Auto) (1.2-4.9) X10*3/uL Barbour # (Auto) (0.1-1.2) X10*3/uL Eos # (Auto) (0.0-0.4) X10*3/uL Baso # (Auto) (0.0-0.2) X10*3/uL Abs Immat Gran (auto) (0.00-0.03) X10*3/uL Absolute Neuts (auto) (2.0-8.3) x10*3/uL Absolute Nucleated RBC (0.0-0.012) X10*3/uL Nucleated RBC % (auto) (0.0-0.2) /100WBC Smear Tech's Comments PT 23.0 H (9.9-13.0) SEC INR 2.0 H (0.9-1.1) Sodium (135-145) mmol/L Potassium (3.3-5.1) mmol/L Chloride (96-108) mmol/L Carbon Dioxide (22-29) mmol/L Anion Gap (12-20) BUN (9-16) mg/dL Creatinine (0.5-1.4) mg/dL Estim Creat Clear Calc Estimated GFR Random Glucose (60-115) mg/dL Calcium (8.4-10.2) mg/dL Total Bilirubin (0.0-1.0) mg/dL Direct Bilirubin (0.0-0.5) mg/dL AST (5-37) U/L ALT (0-40) U/L Alkaline Phosphatase (39-117) U/L Troponin I High Sens < 3.5 (<3.5-35.0) ng/L Total Protein (6.5-8.0) g/dL Albumin (3.5-5.0) g/dL Lipase (8-78) U/L Blood Type Antibody Screen Crossmatch Critical Care Time Critical Care Time Attestation: I spent 40 minutes of critical care, with interventions, assessments, speaking to patient, consultants, and family. Discharge Plan Discharge Clinical Impression: Coagulopathy, Painless rectal bleeding Acute liver failure Qualifiers: Hepatic coma status: without hepatic coma Qualified Code(s): K72.00 - Acute and subacute hepatic failure without coma Hemorrhoids Qualifiers: Hemorrhoid type: unspecified Qualified Code(s): K64.9 - Unspecified hemorrhoids Patient Disposition: Admitted As Inpatient [facility] Past Medical History Medical History Alcohol dependence Alcohol withdrawal seizure Anal fistula Asthma Carpal tunnel syndrome Chronic pain of right groin Degeneration, intervertebral disc, cervical Diarrhea, unspecified Disc degeneration, lumbar Elevated ALT measurement Epigastric pain GERD (gastroesophageal reflux disease) Hepatic steatosis History of anal fissures Internal and external bleeding hemorrhoids Mood disorder Pelvic abscess Rectal pain Screen for colon cancer (~04/11/20) Surgical History H/O hemorrhoidectomy History of appendectomy History of colon resection History of colonoscopy Family History Family History Father No problems noted. Mother No problems noted. Brother No problems noted. Social History Social History Household Members: Significant Other Housing: House Do you presently have visiting nurse or other home services: No Alcohol intake: current Alcohol intake frequency: 3 or more drinks per day Alcohol type: hard liquor Cigarette Packs Per Day: 1 Cigarettes Per Day: 20.0 Years Smoked: 35 Second Hand Smoke Exposure: Yes Substance Use Type: Marijuana Advance Directives: Yes Advance Directives on File: Yes Advance Directives Date on File: 12/14/20 service: No Current occupational status: unemployed
--- NOTE | 2021-05-24 05:23 | ECG_ITS ---
Test Reason : HYPOTENSION Blood Pressure : / mmHG Vent. Rate : 090 BPM Atrial Rate : 090 BPM P-R Int : 156 ms QRS Dur : 086 ms QT Int : 394 ms P-R-T Axes : 057 068 056 degrees QTc Int : 481 ms Normal sinus rhythm Normal ECG When compared with ECG of 13-OCT-2020 08:22, T wave amplitude has increased in Anterior leads Referred By: Heladio Mcgarry Electronically Signed By:TAYE RODRIGUEZ MD
[2021-05-24 05:50] LABS: Basophils Percent Auto 0.1 % (0-2); Eosinophils Absolute Auto 0.1 X10*3/uL (0.0-0.4); Eosinophils Percent Auto 0.9 % (0-4); Imm Gran Abs Auto 0.88 X10*3/uL (0.00-0.03); Imm Gran Pct Auto 5.8 % (0.0-0.4); Lymphocytes Absolute Auto 0.4 X10*3/uL (1.2-4.9); Lymphocytes Percent Auto 2.7 % (20-40); Mean Corpuscular HGB Conc 34.2 g/dl (31.0-36.0); Mean Corpuscular Hemoglobin 36.2 pg (27.0-33.0); Mean Corpuscular Volume 105.9 fL (80.0-98.0); Mean Platelet Volume 10.5 fL (9.4-12.4); Monocytes Absolute Auto 1.2 X10*3/uL (0.1-1.2); Monocytes Percent Auto 7.9 % (2-11); Neutrophils Absolute Auto 12.5 x10*3/uL (2.0-8.3); Neutrophils Percent Auto 82.6 % (45-73); Platelet Count 150 X10*3/uL (160-400); Red Blood Count 1.88 X10*6/uL (4.60-5.80); SCAN SMEAR FLAG 1; White Blood Count 15.2 X10*3/uL (4.8-10.8)
[2021-05-24 06:00] LABS: MANUAL DIFF FLAG SCAN
[2021-05-24 06:02] LABS: Hematocrit 19.9 % (42.0-52.0); Hemoglobin 6.8 g/dl (14.0-18.0)
[2021-05-24 06:11] LABS: Troponin-I High Sensitivity < 3.5 ng/L (<3.5-35.0)
[2021-05-24] MEDS: 0.9 % Sodium Chloride 1,000 ML 999 ML IVCONT ×2 (06:12→06:52)
[2021-05-24 06:20] LABS: Alanine Aminotransferase 56 U/L (0-40); Albumin Level 2.2 g/dL (3.5-5.0); Alkaline Phosphatase 188 U/L (39-117); Anion Gap 20 (12-20); Aspartate Amino Transferase 110 U/L (5-37); Blood Urea Nitrogen 51 mg/dL (9-16); Calcium 6.6 mg/dL (8.4-10.2); Carbon Dioxide 15 mmol/L (22-29); Chloride 91 mmol/L (96-108); Creatinine Clr Calc Pharmacy 24.4; Estimated Glomerular Filt Rate 17; Glucose Random 145 mg/dL (60-115); Lipase 40 U/L (8-78); Potassium 3.9 mmol/L (3.3-5.1); Sodium 122 mmol/L (135-145); Total Protein 4.1 g/dL (6.5-8.0)
--- NOTE | 2021-05-24 06:21 | PC.NURSE ---
Addendum entered by Robyn Haas 05/24/21 06:25: connected directly to dr morgan Original Note: contacted [facility] service @ [phone] villanueva request
[2021-05-24 06:31] LABS: SLIDE REVIEW VERIFIED
[2021-05-24 06:35] LABS: Bilirubin Direct 27.8 mg/dL (0.0-0.5)
--- NOTE | 2021-05-24 08:04 | PC.NURSE ---
der. morgan at bedside, pt/girlfriend aware of plan of care.
--- NOTE | 2021-05-24 08:21 | PM.CNGS ---
History of Present Illness Consult details Consult date: 05/24/21 Narrative: 51-year-old male who is well known to me. He has a long history of chronic liver disease secondary to alcohol intake. He has had hemorrhoids and ananal fistula in the past. He had undergone hemorrhoidectomy before for rectal bleeding. He was brought to the ER because of weakness, worsening jaundice, and edge of large amounts of bright blood per rectum. He has continued to engage in heavy alcohol use everyday.. According to his , his jaundice has been worsening the past few weeks. His also says that he has been developing ?red spots? all over his body. He has been progressively getting weak as well. He was noted to be anemic here in the ER. He has been seen in the ER as well last month for alcoholic hepatitis. Review of Systems Constitutional: Constitutional: Reports weakness Cardiovascular: Cardiovascular: Denies chest pain Respiratory: Respiratory: Denies cough and Denies hemoptysis Gastrointestinal: Gastrointestinal: Reports hematochezia Genitourinary: Genitourinary: Denies hematuria Musculoskeletal: Musculoskeletal: Denies back pain Neurologic: Denies Neuro-related abnormal movements and Reports weakness PMF Past Medical History Medical History (Updated 05/25/21 @ 10:45 by Manny Adhikari MD) Alcohol dependence Alcohol withdrawal seizure Anal fistula Asthma Carpal tunnel syndrome Chronic pain of right groin Degeneration, intervertebral disc, cervical Diarrhea, unspecified Disc degeneration, lumbar Elevated ALT measurement Epigastric pain GERD (gastroesophageal reflux disease) Hepatic steatosis History of anal fissures Internal and external bleeding hemorrhoids Mood disorder Pelvic abscess Rectal pain Screen for colon cancer (~04/11/20) Family History Family History Father No problems noted. Mother No problems noted. Brother No problems noted. Surgical History Surgical History H/O hemorrhoidectomy History of appendectomy History of colon resection History of colonoscopy Social History Social History Household Members: Significant Other and Other Household Members Other:: girlfriend Housing: House Do you presently have visiting nurse or other home services: No Alcohol intake: current Alcohol intake frequency: 3 or more drinks per day Alcohol type: hard liquor Patient Tobacco Use Status: Current everyday Tobacco user Tobacco use type: Cigarette Cigarette Packs Per Day: 0 Cigarettes Per Day: 5 Years Smoked: 40 Second Hand Smoke Exposure: Yes Substance Use Type: Marijuana Advance Directives Date on File: 12/14/20 service: No Current occupational status: unemployed Meds Allergies Allergy/AdvReac Type Severity Reaction Status Date / Time horse dander Allergy Intermediate hives Verified 05/14/21 13:29 pollen extracts Allergy Mild Runny Verified 05/14/21 13:29 nose, watery eyes dog dander [dogs] Allergy Unknown Verified 05/14/21 13:29 mold Allergy Unknown Verified 05/14/21 13:29 Active Medications: Current Medications Albumin Human (Kedbumin 25 %) 100 mls @ 100 mls/hr IV Q1H PHILL Stop: 05/24/21 10:14 Pharmacy Consult (Consult Rx Perform Med Rec) 1 each MISCELLANE ONCE PRN PRN Reason: Consult order Home Medications Medication Instructions Recorded Confirmed Last Taken Type olanzapine 2.5 mg tablet 2.5 tab PO BEDTIME 12/28/20 05/24/21 04/10/21 History artifi.tears(hypromellose)(PF) 0.3 1 drp OPHTHALMIC (EYE) Q4H PRN 04/11/21 05/24/21 05/22/21 History % eye drops olanzapine 2.5 mg tablet 2.5 mg PO DAILY PRN 04/11/21 05/24/21 Unknown History magnesium oxide 400 mg (241.3 mg 800 mg PO BID 05/24/21 05/24/21 05/22/21 History magnesium) tablet Physical Exam Vital Signs: Vital Signs: Last Vital Signs Temp 97.9 F 05/24/21 08:05 Pulse 103 H 05/24/21 08:05 Resp 16 05/24/21 08:05 BP 110/64 05/24/21 08:05 Pulse Ox 99 05/24/21 08:02 Body Mass Index 23.4 Const: Other: Generalized jaundice, appears very weak and drowsy, does answer some questions Eyes: Sclerae: scleral abnormal (Jaundiced) Resp: Effort & Inspection: normal respiratory effort Cardio: Rate: tachycardic Rhythm: regular rhythm GI: Other: With ascites, soft, no guarding rebound Skin: Other: Jaundiced, with hemorrhagic petechiae throughout especially on the torso Extrem: General: No edema Results Labs Result diagrams: 05/26/21 05:31 05/26/21 05:31 Labs: Abnormal lab results 05/24/21 05/24/21 05/24/21 Range/Units 05:43 05:44 05:44 WBC 15.2 H (4.8-10.8) X10*3/uL RBC 1.88 L (4.60-5.80) X10*6/uL Hgb 6.8 L* (14.0-18.0) g/dl Hct 19.9 L* (42.0-52.0) % MCV 105.9 H (80.0-98.0) fL MCH 36.2 H (27.0-33.0) pg RDW 18.0 H (11.0-16.0) % Plt Count 150 L (160-400) X10*3/uL Immature Gran % (Auto) 5.8 H (0.0-0.4) % Neut % (Auto) 82.6 H (45-73) % Lymph % (Auto) 2.7 L (20-40) % Lymph # (Auto) 0.4 L (1.2-4.9) X10*3/uL Abs Immat Gran (auto) 0.88 H (0.00-0.03) X10*3/uL Absolute Neuts (auto) 12.5 H (2.0-8.3) x10*3/uL PT (9.9-13.0) SEC INR (0.9-1.1) Sodium 122 L (135-145) mmol/L Chloride 91 L (96-108) mmol/L Carbon Dioxide 15 L (22-29) mmol/L BUN 51 H D (9-16) mg/dL Creatinine 3.69 H (0.5-1.4) mg/dL Random Glucose 145 H D (60-115) mg/dL Calcium 6.6 L D (8.4-10.2) mg/dL Total Bilirubin 35.6 H (0.0-1.0) mg/dL Direct Bilirubin 27.8 H (0.0-0.5) mg/dL AST 110 H (5-37) U/L ALT 56 H (0-40) U/L Alkaline Phosphatase 188 H D (39-117) U/L Total Protein 4.1 L D (6.5-8.0) g/dL Albumin 2.2 L D (3.5-5.0) g/dL Crossmatch See Detail 05/24/21 Range/Units 05:44 WBC (4.8-10.8) X10*3/uL RBC (4.60-5.80) X10*6/uL Hgb (14.0-18.0) g/dl Hct (42.0-52.0) % MCV (80.0-98.0) fL MCH (27.0-33.0) pg RDW (11.0-16.0) % Plt Count (160-400) X10*3/uL Immature Gran % (Auto) (0.0-0.4) % Neut % (Auto) (45-73) % Lymph % (Auto) (20-40) % Lymph # (Auto) (1.2-4.9) X10*3/uL Abs Immat Gran (auto) (0.00-0.03) X10*3/uL Absolute Neuts (auto) (2.0-8.3) x10*3/uL PT 23.0 H (9.9-13.0) SEC INR 2.0 H (0.9-1.1) Sodium (135-145) mmol/L Chloride (96-108) mmol/L Carbon Dioxide (22-29) mmol/L BUN (9-16) mg/dL Creatinine (0.5-1.4) mg/dL Random Glucose (60-115) mg/dL Calcium (8.4-10.2) mg/dL Total Bilirubin (0.0-1.0) mg/dL Direct Bilirubin (0.0-0.5) mg/dL AST (5-37) U/L ALT (0-40) U/L Alkaline Phosphatase (39-117) U/L Total Protein (6.5-8.0) g/dL Albumin (3.5-5.0) g/dL Crossmatch Short CBC 05/24/21 Range/Units 05:44 WBC 15.2 H (4.8-10.8) X10*3/uL Hgb 6.8 L* (14.0-18.0) g/dl Hct 19.9 L* (42.0-52.0) % Plt Count 150 L (160-400) X10*3/uL BMP 05/24/21 05:44 Sodium 122 L Potassium 3.9 Chloride 91 L Carbon Dioxide 15 L BUN 51 H D Creatinine 3.69 H Calcium 6.6 L D Liver Function 05/24/21 Range/Units 05:44 Total Bilirubin 35.6 H (0.0-1.0) mg/dL Direct Bilirubin 27.8 H (0.0-0.5) mg/dL AST 110 H (5-37) U/L ALT 56 H (0-40) U/L Alkaline Phosphatase 188 H D (39-117) U/L Albumin 2.2 L D (3.5-5.0) g/dL All other labs normal. Assessment and Plan (1) Painless rectal bleeding: Status: Acute He has overt liver failure secondary to his alcoholic liver disease with what appears to be acute fulminant alcohol hepatitis. The rectal bleeding is likely from his hemorrhoids although this is uncertain. He is at high risk for bleeding from various etiology with his liver failure with apparent portal hypertension. It may be best to do a full colonoscopy and endoscopy when he is medically stable. Currently, he does not appear to be bleeding actively anymore. Rectal exam shows some clots and old blood with no active bleeding. Management would require correction of his coagulopathy. He may also be going into hepatorenal syndrome so his kidney function should be monitored closely as well. I had a long discussion with his with regards to the above. She is aware that he potentially can be very severely ill. I have discussed the above with the emergency room physician. and the stripping shovel operator. The surgical service will follow along. Procedures Date of Service Date of Service: 05/24/21
[2021-05-24 08:22] LABS: COVID-19 Test Negative (Negative); IDNOW Serial# 9DD0AD1C
--- NOTE | 2021-05-24 08:47 | PM.CCN ---
Critical Care Event Note Summary Date of Service: 05/24/21 Code activated: No Narrative: 51-year-old gentleman, known to the service from prior admissions, alcoholic cirrhosis actively drinking, being admitted with worsening liver failure with hepatorenal syndrome and subacute anemia with rectal within. Initially hypotensive, with good response to colloid. On evaluation: awake, confused, mild tachycardia at 106, systolic blood pressure at 110, normoxemia on room air. MELD 40 of has 71% 3-months mortality. Does not require intensive care unit level of care at this time, please notify for re-evaluation, if patient's condition changes. Consider transfer to liver transplant center for evaluation or palliation. Critical Care Time (minutes): 0
--- NOTE | 2021-05-24 08:51 | PC.NURSE ---
pt is a/o x 3 no sob/gabrielle noted.
--- NOTE | 2021-05-24 09:46 | PHA.MEDREC ---
Addendum entered by Jerri Dominguez RPh 05/24/21 14:34: [facility] [place] confirm patient is on Olanzapine 2.5 mg at bedtime and daily PRN. He will not get any more prescripition until have see Jeannette Cary for an appointment Original Note: Pharmacy Consult ? Medication Reconciliation Pharmacy has completed the medication reconciliation. Patient's girlfriend verified patient medications. She was confused about his psych medications. I tried to contact [facility] to verify proper medications, left message for them to call back. Jerri Dominguez, PharmD
--- NOTE | 2021-05-24 10:36 | P.CNGI_ITS ---
History of Present Illness Data of Consult Service Date: 05/24/21 Primary Care Provider: Rita Edwards MD HPI Reason for consult: Liver failure, GI bleeding 51 YM with ESLD due to ongoing ETOH abuse seen at [facility] ED this morning with GI Bleeding: HPI narrative: Patient with increased jaundice and rectal bleeding.? Patient has had severe rectal bleeding and has a rectal instrument in place for hemorrhoids.? Patient has severe alcohol hepatitis now with increased jaundice.? Blood has been running out of his rectum for a few hours Onset (ago): week(s) Severity: severe Associated symptoms: hematochezia and other (jaundice) Patient denies symptoms of heartburn, dysphagia, nausea, vomiting. He admits to poor appetite with decreased PO intake for the past several days.? He has noted worsening abdominal distension. Pt admits to chronic diarrhea since his colon surgery 2 yrs ago and loss of control of bowel and bladder at times. Denies being on chronic anticoagulation. Patient denies known family history of colon polyps, colon cancer or other GI malignancies. 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 He lives with his GFVanessa - who worked as a Supplier Quality Manager at [facility] [place] in the past. Pt expressed anxiety and hx of nightmares. Attends AA meetings and denies inpatient rehab in the past. Review of Systems Constitutional: Constitutional: Reports fatigue, Denies fever(s), Denies headache(s) and Denies weight loss Eyes: Eyes: Denies eye discharge and Denies irritation ENT: Reports Normal hearing present, Denies dysphagia, Denies dizziness and Denies headache(s) Cardiovascular: Cardiovascular: Denies chest pain, Denies leg edema and Denies dyspnea on exertion Respiratory: Respiratory: Denies cough and Denies dyspnea on exertion Gastrointestinal: Gastrointestinal: Denies abdominal pain, Reports hematochezia, Denies change in bowel habits, Denies dysphagia and Denies heartburn Genitourinary: Genitourinary: Denies dysuria Musculoskeletal: Musculoskeletal: Denies back pain and Denies arthralgias Integumentary/Breasts: Skin/Breast: Denies pruritus, Denies rash and Denies jaundice Neurologic: Reports Normal hearing present, Reports confusion (slightly confused), Denies dizziness and Denies headache(s) Psychiatric: Psychiatric: Reports anxiety, Reports confusion (slightly confused) and Reports depression Endocrine: Endocrine: Denies cold intolerance, Reports fatigue, Denies flushing and Denies heat intolerance PMFSH Past Medical History Medical History (Updated 05/25/21 @ 10:45 by Manny Adhikari MD) Alcohol dependence Alcohol withdrawal seizure Anal fistula Asthma Carpal tunnel syndrome Chronic pain of right groin Degeneration, intervertebral disc, cervical Diarrhea, unspecified Disc degeneration, lumbar Elevated ALT measurement Epigastric pain GERD (gastroesophageal reflux disease) Hepatic steatosis History of anal fissures Internal and external bleeding hemorrhoids Mood disorder Pelvic abscess Rectal pain Screen for colon cancer (~04/11/20) Family History Family History Father No problems noted. Mother No problems noted. Brother No problems noted. Surgical History Surgical History H/O hemorrhoidectomy History of appendectomy History of colon resection History of colonoscopy Social History Social History Household Members: Significant Other and Other Household Members Other:: girlfriend Housing: House Do you presently have visiting nurse or other home services: No Alcohol intake: current Alcohol intake frequency: 3 or more drinks per day Alcohol type: hard liquor Patient Tobacco Use Status: Current everyday Tobacco user Tobacco use type: Cigarette Cigarette Packs Per Day: 0 Cigarettes Per Day: 5 Years Smoked: 40 Second Hand Smoke Exposure: Yes Substance Use Type: Marijuana Advance Directives Date on File: 12/14/20 service: No Current occupational status: unemployed Meds Allergies Allergy/AdvReac Type Severity Reaction Status Date / Time horse dander Allergy Intermediate hives Verified 05/14/21 13:29 pollen extracts Allergy Mild Runny Verified 05/14/21 13:29 nose, watery eyes dog dander [dogs] Allergy Unknown Verified 05/14/21 13:29 mold Allergy Unknown Verified 05/14/21 13:29 Active Medications: Current Medications Pharmacy Consult (Consult Rx Perform Med Rec) 1 each MISCELLANE ONCE PRN PRN Reason: Consult order Home Medications Medication Instructions Recorded Confirmed Last Taken Type olanzapine 2.5 mg tablet 2.5 tab PO BEDTIME 12/28/20 05/24/21 04/10/21 History artifi.tears(hypromellose)(PF) 0.3 1 drp OPHTHALMIC (EYE) Q4H PRN 04/11/21 1 07/24/20 05/22/21 History % eye drops olanzapine 2.5 mg tablet 2.5 mg PO DAILY PRN 04/11/21 05/24/21 Unknown History magnesium oxide 400 mg (241.3 mg 800 mg PO BID 05/24/21 05/24/21 05/22/21 History magnesium) tablet Physical Exam Vital Signs: Vital Signs: Last Vital Signs Temp 98.1 F 05/24/21 09:59 Pulse 108 H 05/24/21 09:59 Resp 16 05/24/21 09:59 BP 104/56 L 05/24/21 09:59 Pulse Ox 99 05/24/21 08:02 Body Mass Index 23.4 Const: General: no acute distress, confusion (slightly confused) and ill appearing Nutritional Appearance: average body habitus Orientation/consciousness: patient oriented x3 and confusion (slightly confused) Limitations: no limitations HENMT: Head: Yes normal to inspection Ears: hearing grossly normal bilaterally Mouth: Normal oral and palatal mucosa present Eyes: Sclerae: scleral abnormal (jaundice) Pupils: Equal, round and reactive pupils present Neck: Neck: Yes normal visual inspection Chest: Chest palpation & inspection: normal inspection of the chest Resp: Effort & Inspection: normal respiratory effort Auscultation: clear to auscultation bilaterally Cardio: Palpation: normal PMI Rate: regular rate Rhythm: regular rhythm Heart sounds: S1 normal heart sound present, S2 normal heart sound present and no murmurs GI: Inspection: Yes distended Palpation (GI): Soft to palpation, nontender, No hepatosplenomegaly present and Ascites present Auscultation: normal bowel sounds Rectal Exam - Male: Yes deferred Skin: General skin exam: no rashes or lesions noted, ecchymosis, jaundice and spider nevi (extensive spider angiomata on anterior neck and upper chest) Neuro: General: patient oriented x3, gait normal, moves all extremities and confusion (slightly confused) Cranial nerves: Yes Equal, round and reactive pupils present and Yes Normal hearing present Extrem: General: Yes pedal edema (trace pitting edema) and Yes other (tremors) Psych: Appearance: grossly normal Mental Status: mental status grossly normal Results Labs CBC & Chem 7: 05/26/21 05:31 05/26/21 05:31 Labs: Short CBC 05/24/21 Range/Units 05:44 WBC 15.2 H (4.8-10.8) X10*3/uL Hgb 6.8 L* (14.0-18.0) g/dl Hct 19.9 L* (42.0-52.0) % Plt Count 150 L (160-400) X10*3/uL BMP 05/24/21 05:44 Sodium 122 L Potassium 3.9 Chloride 91 L Carbon Dioxide 15 L BUN 51 H D Creatinine 3.69 H Calcium 6.6 L D Liver Function 05/24/21 Range/Units 05:44 Total Bilirubin 35.6 H (0.0-1.0) mg/dL Direct Bilirubin 27.8 H (0.0-0.5) mg/dL AST 110 H (5-37) U/L ALT 56 H (0-40) U/L Alkaline Phosphatase 188 H D (39-117) U/L Albumin 2.2 L D (3.5-5.0) g/dL Assessment and Plan (1) Acute liver failure: Qualifiers: Hepatic coma status: without hepatic coma Qualified Code(s): K72.00 - Acute and subacute hepatic failure without coma Status: Acute (2) Coagulopathy: Status: Acute (3) Painless rectal bleeding: Status: Acute (4) Hemorrhoids: Qualifiers: Hemorrhoid type: unspecified Qualified Code(s): K64.9 - Unspecified hemorrhoids Status: Acute (5) Ascites: Status: Acute ?51 YM with alcohol related liver disease complicated by ascites, asthma- COPD overlap syndrome came to [facility] ED with hematochezia consisting of BRBPR followed by some clotted blood since 3 am today. Pt has a known hx of hemorrhoids. Hematochezia can be due to rectal varices or esophageal or gastric varices. Rarely hemorrhoids can cause significant bleeding in the prescence of coagulopathy. Pt was hypotensive with tachcardia on arrival and has jaundice with worsening LFT, coagulopathy, thrombocytopenia and renal insufficiency (likely due to Type 1 HRS). MELD score is 40 He continues to drink a pint of hard liquor daily.? Blood ETOH level was 314 on a previous admission. Hepatitis A, B and C serologies were negative in 04/25 Abd US showed hepatomegaly and no ascites was detected. RECOMMENDATIONS: 1.? IV Octreotide infusion 50 mcg/hour for suspected variceal bleeding 2. Resuscitation with additional 2 U PRBC with target Hct of 21-24% 3. EGD and flexible sigmoidoscopy scheduled on 05/25/21 at 10 am after additional resuscitation and improvement in electrolyte imbalance (pt has severe hyponatremia). 4. Start lactulose for elevated ammonia level and confusion 5. Agree with midodrine, albumin and octreotide for HRS 6. He will need large volume paracentesis and ascitic fluid analysis for SBP once he is stable from GIB. 7. [facility] protocol for ETOH withdrawl. 8.? Needs ETOH rehab - pt has anxiety living in a place other than his own house. 9.? Pt has a FU appt with Dr Benitez on 06/10/21 Procedures Date of Service Date of Service: 05/24/21
[2021-05-24] MEDS: Albumin Human 25 % 100 ML IV ×2 (11:09→12:46)
--- NOTE | 2021-05-24 11:09 | P.HPHOSP_ITS ---
History of Present Illness Date of Service: 05/24/21 <ELDON Trinidad - Last Filed: 05/24/21 13:50> Attending physician on admission: Allen Urban <ELDON Trinidad - Last Filed: 05/24/21 13:50> Chief Complaint: rectal bleeding <ELDON Trinidad - Last Filed: 05/24/21 13:50> This is a 51 year old male with history of alcoholic liver cirrhosis who presents to the emergency department today with rectal bleeding. He had an episode of rectal bleeding yesterday and then got in the shower and the blood ?started pouring out.? He has also noticed becoming progressively jaundiced over the past 1 week. He was admitted in April due to elevated LFTs in hypomagnesemia, unfortunately he left against medical advice after 1 day. He continues to drink alcohol daily. Workup in the emergency department revealed numerous abnormalities. Sodium was 122, BUN 51, creatinine 3.69. Liver function numbers elevated as well with total bilirubin 35.6, direct bilirubin 27.8, AST 110, ALT 56. INR was 2. CBC showed leukocytosis of 15.2, H/H of 6.8/19.9. He was evaluated in the emergency department by General surgery due to his rectal bleeding, his rectal exam showed clots and old blood, but did not appear to be actively bleeding. His bleeding was thought to be secondary to hemorrhoids. He was treated with vitmain K and albumin. He was evlauated by the ICU attending who did not feel that he needed ICU level of care and the decision was made to admit him to the medical service. <ELDON Trinidad - Last Filed: 05/24/21 13:50> Review of Systems Review of Systems: endorses rectal pain , rectal bleeding denies abdominal pain, nausea, vomiting <ELDON Trinidad - Last Filed: 05/24/21 13:50> Yes all other systems are reviewed and are negative <ELDON Trinidad - Last Filed: 05/24/21 13:50> [facility] Medical History: Medical History Alcohol dependence Alcohol withdrawal seizure Anal fistula Asthma Carpal tunnel syndrome Chronic pain of right groin Degeneration, intervertebral disc, cervical Diarrhea, unspecified Disc degeneration, lumbar Elevated ALT measurement Epigastric pain GERD (gastroesophageal reflux disease) Hepatic steatosis History of anal fissures Internal and external bleeding hemorrhoids Mood disorder Pelvic abscess Rectal pain Screen for colon cancer (~04/11/20) <ELDON Trinidad - Last Filed: 05/24/21 13:50> Family History: Family History Father No problems noted. Mother No problems noted. Brother No problems noted. <ELDON Trinidad - Last Filed: 05/24/21 13:50> Pertinent family history: history of alcohol abuse <ELDON Trinidad - Last Filed: 05/24/21 13:50> Surgical History: Surgical History H/O hemorrhoidectomy History of appendectomy History of colon resection History of colonoscopy <ELDON Trinidad - Last Filed: 05/24/21 13:50> Social History: Social History Household Members: Significant Other and Other Household Members Other:: girlfriend Housing: House Do you presently have visiting nurse or other home services: No Alcohol intake: current Alcohol intake frequency: 3 or more drinks per day Alcohol type: hard liquor Patient Tobacco Use Status: Current everyday Tobacco user Tobacco use type: Cigarette Cigarette Packs Per Day: 0 Cigarettes Per Day: 5 Years Smoked: 40 Smoked in Last 30 Days: Yes Patient Interested in Nicotine Replacement: No Patient Given Instructions on How to Stop Smoking: Yes Date Education Initiated: 05/24/21 Second Hand Smoke Exposure: Yes Use of substances other than those prescribed or required for medical reasons: No Substance Use Type: Marijuana Have you been hit, kicked, punched, or otherwise hurt by someone within the past year? If so, by whom?: No Do you feel safe in your current relationship?: Yes Is there a partner from a previous relationship who is making you feel unsafe now?: No Are you made to feel afraid or neglected: No Advance Directives: Yes Advance Directives on File: Yes Advance Directives Date on File: 12/14/20 Do you have thoughts of harming others: None Do you have a plan to hurt others: No Plan Recently lost weight without trying: No Nutrition Risks: No Nutritional Risk Poor oral hygiene: No service: No Current occupational status: unemployed <ELDON Trinidad - Last Filed: 05/24/21 13:50> Meds Allergies/Adverse reactions: Allergies Allergy/AdvReac Type Severity Reaction Status Date / Time horse dander Allergy Intermediate hives Verified 05/14/21 13:29 pollen extracts Allergy Mild Runny Verified 05/14/21 13:29 nose, watery eyes dog dander [dogs] Allergy Unknown Verified 05/14/21 13:29 mold Allergy Unknown Verified 05/14/21 13:29 <ELDON Trinidad - Last Filed: 05/24/21 13:50> Active Medications: Current Medications Albumin Human (Kedbumin 25 %) 100 mls @ 200 mls/hr IV Q6H PHILL Stop: 05/27/21 11:14 Phytonadione 10 mg/ Sodium (Chloride) 51 mls @ 51 mls/hr IV ONCE ONE Stop: 05/24/21 12:44 Medication (No Benzodiazepines) 1 each MISCELLANE DAILY [facility] Midodrine (Midodrine Hcl 10 Mg Tablet) 10 mg PO TID PHILL Octreotide Acetate (Octreotide Acetate 100 Mcg/Ml Ampul) 200 mcg SUBCUT TID [facility] Pharmacy Consult (Consult Rx Perform Med Rec) 1 each MISCELLANE ONCE PRN PRN Reason: Consult order Pharmacy Consult (Consult Rx Etoh Phenob Dosing) 1 each MISCELLANE ONCE PRN; Protocol PRN Reason: Consult order Phenobarbital Sodium (Phenobarbital Sodium 130 Mg/Ml Vial) 234 mg IM ONCE ONE Stop: 05/24/21 11:31 Sodium Chloride (0.9 % Sodium Chloride Flush 3 Ml Syringe) 3 ml IVFLUSH QSHIFT [facility] <ELDON Trinidad - Last Filed: 05/24/21 13:50> Home medications: Home Medications Medication Instructions Recorded Confirmed Last Taken Type olanzapine 2.5 mg tablet 2.5 tab PO BEDTIME 12/28/20 05/24/21 04/10/21 History artifi.tears(hypromellose)(PF) 0.3 1 drp OPHTHALMIC (EYE) Q4H PRN 04/11/21 05/24/21 05/22/21 History % eye drops olanzapine 2.5 mg tablet 2.5 mg PO DAILY PRN 04/11/21 05/24/21 Unknown History magnesium oxide 400 mg (241.3 mg 800 mg PO BID 05/24/21 05/24/21 05/22/21 History magnesium) tablet <ELDON Trinidad - Last Filed: 05/24/21 13:50> Physical Exam Vital Signs and Narrative: Vital Signs: Last Vital Signs Temp 97.9 F 05/24/21 11:02 Pulse 110 H 05/24/21 11:02 Resp 20 05/24/21 11:02 BP 106/61 05/24/21 11:02 Pulse Ox 99 05/24/21 08:02 Body Mass Index 23.4 <ELDON Trinidad - Last Filed: 05/24/21 13:50> Const: General: comfortable, alert and awake <ELDON Trinidad - Last Filed: 05/24/21 13:50> Eyes: Sclerae: scleral abnormal bilateral (scleral icterus ) <ELDON Trinidad - Last Filed: 05/24/21 13:50> Pupils: Equal, round and reactive pupils present <ELDON Trinidad - Last Filed: 05/24/21 13:50> Resp: Effort & Inspection: normal respiratory effort and no respiratory distress <ELDON Trinidad - Last Filed: 05/24/21 13:50> Cardio: Rate: tachycardic <ELDON Trinidad - Last Filed: 05/24/21 13:50> Rhythm: regular rhythm <ELDON Trinidad - Last Filed: 05/24/21 13:50> GI: Palpation (GI): Soft to palpation and nontender <ELDON Trinidad - Last Filed: 05/24/21 13:50> Skin: General skin exam: jaundice <ELDON Trinidad - Last Filed: 05/24/21 13:50> Neuro: Cranial nerves: Yes Equal, round and reactive pupils present <ELDON Trinidad - Last Filed: 05/24/21 13:50> Extrem: Other: b/l leg edema <ELDON Trinidad - Last Filed: 05/24/21 13:50> Results Labs CBC and Chem 7: : 05/24/21 18:34 05/24/21 13:06 <ELDON Trinidad - Last Filed: 05/24/21 13:50> Labs: Laboratory Results - last 24 hr 05/24/21 05/24/21 05/24/21 05:43 05:44 05:44 MCV 105.9 H MCH 36.2 H MCHC 34.2 RDW 18.0 H Plt Count 150 L MPV 10.5 Immature Gran % (Auto) 5.8 H Neut % (Auto) 82.6 H Lymph % (Auto) 2.7 L Phelps % (Auto) 7.9 Eos % (Auto) 0.9 Baso % (Auto) 0.1 Lymph # (Auto) 0.4 L Phelps # (Auto) 1.2 Eos # (Auto) 0.1 Baso # (Auto) 0.0 Abs Immat Gran (auto) 0.88 H Absolute Neuts (auto) 12.5 H Absolute Nucleated RBC 0.000 Nucleated RBC % (auto) 0.0 Smear Tech's Comments VERIFIED PT INR Anion Gap 20 Estim Creat Clear Calc 24.4 Estimated GFR 17 Random Glucose 145 H D Calcium 6.6 L D Total Bilirubin 35.6 H Direct Bilirubin 27.8 H AST 110 H ALT 56 H Alkaline Phosphatase 188 H D Troponin I High Sens Total Protein 4.1 L D Albumin 2.2 L D Lipase 40 COVID-19 ([place]) COVID-19 Clin Com Blood Type O Positive Antibody Screen NEGATIVE Crossmatch See Detail 05/24/21 05/24/21 05/24/21 05:44 05:44 08:00 MCV MCH MCHC RDW Plt Count MPV Immature Gran % (Auto) Neut % (Auto) Lymph % (Auto) Phelps % (Auto) Eos % (Auto) Baso % (Auto) Lymph # (Auto) Phelps # (Auto) Eos # (Auto) Baso # (Auto) Abs Immat Gran (auto) Absolute Neuts (auto) Absolute Nucleated RBC Nucleated RBC % (auto) Smear Tech's Comments PT 23.0 H INR 2.0 H Anion Gap Estim Creat Clear Calc Estimated GFR Random Glucose Calcium Total Bilirubin Direct Bilirubin AST ALT Alkaline Phosphatase Troponin I High Sens < 3.5 Total Protein Albumin Lipase COVID-19 ([place]) Negative COVID-19 Clin Com See Note Blood Type Antibody Screen Crossmatch <ELDON Trinidad - Last Filed: 05/24/21 13:50> Assessment and Plan (1) Acute liver failure: Qualifiers: Hepatic coma status: without hepatic coma Qualified Code(s): K72.00 - Acute and subacute hepatic failure without coma <ELDON Trinidad - Last Filed: 05/24/21 13:50> Status: Acute <ELDON Trinidad - Last Filed: 05/24/21 13:50> (2) Coagulopathy: Status: Acute <ELDON Trinidad - Last Filed: 05/24/21 13:50> (3) Hemorrhoids: Qualifiers: Hemorrhoid type: unspecified Qualified Code(s): K64.9 - Unspecified hemorrhoids <ELDON Trinidad - Last Filed: 05/24/21 13:50> Status: Acute <ELDON Trinidad - Last Filed: 05/24/21 13:50> (4) Alcohol withdrawal: Status: Acute <ELDON Trinidad - Last Filed: 05/24/21 13:50> This is a 51-year-old male with history of alcoholic liver disease asthma/COPD, chronic pain, tobacco dependence, hemorrhoids who presents to the emergency department with weakness and rectal bleeding found to have multiple abnormalities Acute liver failure r/t etoh abuse MELD score 40 IV vit K, FFP given in ED -GI eval -trend LFTs Acute kidney injury concern for cardiorenal follow renal function nephrology consult -midodrine, octreotide, albumin Hyponatremia Hypervolemic hyponatremia Follow-up BMP Alcohol dependence with alcohol withdrawal -phenobarbital protocol -thiamine and folate supplementation -consider care team eval when more stable Coagulopathy INR 2.0 Related to underlying liver failure Given vitamin K, FFP Follow INR GIB likely hemorrhoidal H/H dropped from 12.1/34.6 to 6.8/19.9 No active bleeding at this time Seen by General surgery -GI consult Acute blood loss anemia Secondary to probable hemorrhoidal bleeding 2U rbc ordered in ED Tobacco dependence -NRT asthma/copd No acute exacerbation -continue home inhalers Due to severity of illness, multiple acute medical issues, borderline blood pressure, Low threshold for transfer to [facility]. Has been evaluated by ICU attending, does not require ICU level care at this time dvt ppx - mechanical devices Code status-full code Attending-Dr. Urban <ELDON Trinidad - Last Filed: 05/24/21 13:50> Quality Stroke Does the patient have a stroke diagnosis?: No <ELDON Trinidad - Last Filed: 05/24/21 13:50> VTE Prior VTE?: No <ELDON Trinidad - Last Filed: 05/24/21 13:50> VTE Risk Level:: Medical - moderate - high <ELDON Trinidad - Last Filed: 05/24/21 13:50> VTE Device Contraindication: N/A - Device Ordered <ELDON Trinidad - Last Filed: 05/24/21 13:50> VTE Drug Contraindication: Treatment Not Indicated <ELDON Trinidad - Last Filed: 05/24/21 13:50>
[2021-05-24 11:15] LABS: Bilirubin Total 35.7 mg/dL (0.0-1.0); Magnesium 2.4 mg/dL (1.6-2.6)
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
[2021-05-24] MEDS: Phytonadione (Vit K1) 10 MG in 0.9 % Sodium Chloride 50 ML 51 MG IV (11:59)
[2021-05-24] MEDS: Folic Acid 1 MG TABLET PO (12:31)
[2021-05-24] MEDS: Midodrine HCl 10 MG TABLET PO ×2 (12:31→17:14)
[2021-05-24] MEDS: Thiamine HCL 100 MG TABLET PO (12:31)
[2021-05-24] MEDS: Nicotine 21 MG PATCH.TD24 TRANSDERMA (12:31)
[2021-05-24] MEDS: PHENobarbitaL sodium 130 MG/ML VIAL 234 MG IM (12:33)
[2021-05-24 13:13] LABS: Mean Corpuscular HGB Conc 35.7 g/dl (31.0-36.0); Mean Corpuscular Hemoglobin 33.7 pg (27.0-33.0); Mean Corpuscular Volume 94.4 fL (80.0-98.0); Mean Platelet Volume 9.8 fL (9.4-12.4); Red Blood Count 1.96 X10*6/uL (4.60-5.80); Red Cell Distribution Width 21.6 % (11.0-16.0); White Blood Count 8.2 X10*3/uL (4.8-10.8)
[2021-05-24 13:15] LABS: Hemoglobin 6.6 g/dl (14.0-18.0)
[2021-05-24 13:16] LABS: Hematocrit 18.5 % (42.0-52.0); Platelet Count 65 X10*3/uL (160-400)
[2021-05-24 13:19] LABS: INTERNATIONAL NORM RATIO 1.7 (0.9-1.1); Prothrombin Time 19.8 SEC (9.9-13.0)
[2021-05-24 13:30] LABS: Creatinine Clr Calc Pharmacy 24.3; Estimated Glomerular Filt Rate 17
[2021-05-24 13:33] LABS: Anion Gap 18 (12-20); Blood Urea Nitrogen 56 mg/dL (9-16); Calcium 6.8 mg/dL (8.4-10.2); Carbon Dioxide 18 mmol/L (22-29); Chloride 94 mmol/L (96-108); Creatinine Clr Calc Pharmacy 24.1; Estimated Glomerular Filt Rate 17; Glucose Random 103 mg/dL (60-115); Sodium 126 mmol/L (135-145)
[2021-05-24 13:39] LABS: Ammonia 87 umol/L (13-55)
--- NOTE | 2021-05-24 16:03 | MHC.CM.PN ---
CM met with admitted patient with bed assignment pending and girlfriend/HCP Bambi Cesar ([phone]). No IMM necessary. HCP on file. PCP Rita Edwards. Pt is confused at times. Acutely jaundiced. Lives with girlfriend in [place]. Uses a cane. Has no services. Fully vaccinated with Moderna 10/29 and 11/26. Pt is acutely ill. Will need CARE/recovery services. D/C plan dependent on hospital course and recovery. CM to follow for d/c needs.
--- NOTE | 2021-05-24 16:13 | PC.NURSE ---
bedside rn to rn report given to grant. pt transferred to room 460.
--- NOTE | 2021-05-24 16:17 | PM.CNNEP ---
History of Present Illness Reason for Consult Consult date: 05/24/21 Reason for consult: TALISHA Chief Complaint Chief complaint: Liver failure, GIB, etoh withdrawal History of Present Illness Narrative: 51 year old male with history of alcoholic liver cirrhosis who presents to the emergency department today with rectal bleeding. He has also noticed becoming progressively jaundiced over the past 1 week. He continues to drink alcohol daily.? Workup in the emergency department revealed Sodium was 122, BUN 51, creatinine 3.69.? Liver function numbers elevated as well with total bilirubin 35.6, direct bilirubin 27.8, AST 110, ALT 56.? INR was 2.? CBC showed leukocytosis of 15.2, H/H of 6.8/19.9. Nephrology has been consulted to assist in his clinical management Review of Systems Review of Systems Yes all other systems are reviewed and are negative PMF Past Medical History Medical History Alcohol dependence Alcohol withdrawal seizure Anal fistula Asthma Carpal tunnel syndrome Chronic pain of right groin Degeneration, intervertebral disc, cervical Diarrhea, unspecified Disc degeneration, lumbar Elevated ALT measurement Epigastric pain GERD (gastroesophageal reflux disease) Hepatic steatosis History of anal fissures Internal and external bleeding hemorrhoids Mood disorder Pelvic abscess Rectal pain Screen for colon cancer (~04/11/20) Family History Family History Father No problems noted. Mother No problems noted. Brother No problems noted. Surgical History Surgical History H/O hemorrhoidectomy History of appendectomy History of colon resection History of colonoscopy Social History Social History Household Members: Significant Other Housing: House Do you presently have visiting nurse or other home services: No Alcohol intake: current Alcohol intake frequency: 3 or more drinks per day Alcohol type: hard liquor Cigarette Packs Per Day: 1 Cigarettes Per Day: 20.0 Years Smoked: 35 Second Hand Smoke Exposure: Yes Substance Use Type: Marijuana Advance Directives: Yes Advance Directives on File: Yes Advance Directives Date on File: 12/14/20 service: No Current occupational status: unemployed Meds Allergies Allergy/AdvReac Type Severity Reaction Status Date / Time horse dander Allergy Intermediate hives Verified 05/14/21 13:29 pollen extracts Allergy Mild Runny Verified 05/14/21 13:29 nose, watery eyes dog dander [dogs] Allergy Unknown Verified 05/14/21 13:29 mold Allergy Unknown Verified 05/14/21 13:29 Active Medications: Current Medications Albuterol Sulfate (Albuterol Sulfate 90 Mcg 8 Gm Inhaler) 2 puff INHALE Q6H PRN PRN Reason: Wheezing Albuterol/Ipratropium (Albuterol/Iprat 2.5/0.5mg 3 Ml Ampul.Neb) 3 ml INHALE Q6H PRN PRN Reason: wheezing Artificial Tears (Artificial Tears 15 Ml Drops) 1 drop EYE-BOTH Q4H PRN PRN Reason: Dry Eye(S) Fluticasone/Vilanterol (Fluticasone/Vilanterol 200/25 Blst.W.Dev) 1 puff INHALE DAILY [facility] Folic Acid (Folic Acid 1 Mg Tablet) 1 mg PO DAILY [facility] Last Admin: 05/24/21 12:31 Dose: 1 mg Documented by: Albumin Human (Kedbumin 25 %) 100 mls @ 200 mls/hr IV Q6H [facility] Stop: 05/27/21 16:59 Octreotide Acetate 500 mcg/ (Sodium Chloride) 501 mls @ 50.1 mls/hr IVCONT .Q10H [facility] Magnesium Oxide (Magnesium Oxide 400 Mg Tablet) 800 mg PO BID [facility] Medication (No Benzodiazepines) 1 each MISCELLANE DAILY [facility] Midodrine (Midodrine Hcl 10 Mg Tablet) 10 mg PO TID [facility] Last Admin: 05/24/21 12:31 Dose: 10 mg Documented by: Montelukast Sodium (Montelukast Sodium 10 Mg Tablet) 10 mg PO DAILY [facility] Nicotine (Nicotine 21 Mg Patch.Td24) 21 mg TRANSDERMA DAILY [facility] Last Admin: 05/24/21 12:31 Dose: 21 mg Documented by: Pantoprazole Sodium (Pantoprazole Sodium 40 Mg/10 Ml Vial) 40 mg IVPUSH BID@0630,1630 [facility] Pharmacy Consult (Consult Rx Perform Med Rec) 1 each MISCELLANE ONCE PRN PRN Reason: Consult order Pharmacy Consult (Consult Rx Etoh Phenob Dosing) 1 each MISCELLANE ONCE PRN; Protocol PRN Reason: Consult order Phenobarbital (Phenobarbital 15 Mg Tablet) 45 mg PO BID [facility]; Protocol Stop: 05/26/21 09:01 Phenobarbital (Phenobarbital 30 Mg Tablet) 30 mg PO BID [facility]; Protocol Stop: 05/28/21 09:01 Phenobarbital (Phenobarbital 30 Mg Tablet) 30 mg PO DAILY [facility]; Protocol Stop: 05/30/21 09:01 Phenobarbital Sodium (Phenobarbital Sodium 130 Mg/Ml Vial) 175.5 mg IM Q3H [facility]; Protocol Stop: 05/24/21 18:01 Sodium Chloride (0.9 % Sodium Chloride Flush 3 Ml Syringe) 3 ml IVFLUSH QSHIFT [facility] Last Admin: 05/24/21 15:16 Dose: Not Given Documented by: Thiamine HCl (Thiamine Hcl 100 Mg Tablet) 100 mg PO DAILY [facility] Last Admin: 05/24/21 12:31 Dose: 100 mg Documented by: Home Medications Medication Instructions Recorded Confirmed Last Taken Type olanzapine 2.5 mg tablet 2.5 tab PO BEDTIME 12/28/20 05/24/21 04/10/21 History artifi.tears(hypromellose)(PF) 0.3 1 drp OPHTHALMIC (EYE) Q4H PRN 04/11/21 05/24/21 05/22/21 History % eye drops olanzapine 2.5 mg tablet 2.5 mg PO DAILY PRN 04/11/21 05/24/21 Unknown History magnesium oxide 400 mg (241.3 mg 800 mg PO BID 05/24/21 05/24/21 05/22/21 History magnesium) tablet Physical Exam Vital Signs: Last Vital Signs Temp 98.2 F 05/24/21 16:15 Pulse 101 H 05/24/21 16:15 Resp 20 05/24/21 16:15 BP 138/69 05/24/21 16:15 Pulse Ox 96 05/24/21 16:15 Body Mass Index 23.4 Const Other: Jaundiced HENMT Head: Yes normocephalic Eyes EOM: EOMs intact bilaterally Neck Neck: Yes supple Resp Auscultation: diminished lung sounds Cardio Rate: regular rate GI Palpation (GI): Soft to palpation Neuro General: moves all extremities Results Lab Results Result Diagrams: 05/24/21 13:06 05/24/21 13:06 Lab results: Chemistry 05/24/21 05/24/21 05/24/21 05:44 13:05 13:06 Sodium 122 L 126 L Potassium 3.9 4.0 Carbon Dioxide 15 L 18 L BUN 51 H D 56 H Creatinine 3.69 H 3.73 H 3.71 H Calcium 6.6 L D 6.8 L Hematology 05/24/21 05/24/21 05:44 13:06 WBC 15.2 H 8.2 Hgb 6.8 L* 6.6 L* Plt Count 150 L 65 L D Assessment and Plan (1) TALISHA (acute kidney injury): Status: Acute TALISHA likely due to ATN DDX- HRS 1( might have been having HRS 2 at baseline) Urine sodium ordered Started on Midodrine/IV Albumin and Octreotide Aggressive resuscitation; Close monitoring of labs No indication for HD( will be a candidate given his age) Labs AM. Shall closely follow up Procedures Date of Service Date of Service: 05/24/21
[2021-05-24] MEDS: Octreotide Acetate 500 MCG in 0.9 % Sodium Chloride 500 ML 50.1 MCG IVCONT (17:07)
[2021-05-24] MEDS: Pantoprazole Sodium 40 MG/10 ML VIAL IVPUSH (17:13)
[2021-05-24] MEDS: PHENobarbitaL sodium 130 MG/ML VIAL 175.5 MG IM ×2 (17:13→21:02)
[2021-05-24] MEDS: Albumin Human 25 % 100 ML 200 ML IV (17:41)
[2021-05-24] MEDS: Albuterol/Iprat 2.5/0.5MG 3 ML AMPUL.NEB INHALE (18:02)
--- NOTE | 2021-05-24 18:09 | PC.NURSE ---
P fever 101.9 I Kareem More notified,ice pack for comfort E will monitor E
[2021-05-24] MEDS: Acetaminophen 325 MG TABLET 650 MG PO (18:34)
--- NOTE | 2021-05-24 18:38 | PC.NURSE ---
P fever ,HR 134 I Kareem GARCÍA notified,Tylenol administered,ice packs for comfort E will monitor
[2021-05-24 18:52] LABS: Hematocrit 25.3 % (42.0-52.0)
--- NOTE | 2021-05-24 19:38 | PM.EVENT ---
Event Note Date of Service: 05/25/21 Event Note: called to seepatient due to fever and tachycardia patient noted to be febrile tachycardic tachypneic on examination patient awake alert, mildly confused, no tremor icteric sclera /jaundiced lungs clear to auscultation abdomen obese nontender bowel sounds audible extremities no edema assessment and plan # fever/tachycardia question etiology, sepsis workup ordered will place patient on IV antibiotic for possible SBP, follow clinical course closely.Tachycardia likely due to fever and alcohol withdrawal # hepatic encephalopathy with confusion and elevated ammonia likely due to infection in GI bleed level continue lactulose, treat infection follow clinical course closely, due to multiple medical issues will have low threshold to transfer to ICU, patient will be followed closely by kimber
[2021-05-24 20:51] LABS: Lactic Acid 6.1 mmol/L (0.5-2.0)
[2021-05-24] MEDS: 0.9 % Sodium Chloride Flush 3 ML SYRINGE IVFLUSH (20:52)
[2021-05-24] MEDS: Lactulose 20 GM/30 ML SOLUTION PO (20:53)
[2021-05-24] MEDS: Magnesium Oxide 400 MG TABLET 800 MG PO (21:03)
[2021-05-24] MEDS: cefTRIAXone sodium 1 GM in 0.9 % Sodium Chloride 50 ML IV (21:07)
--- NOTE | 2021-05-24 21:21 | PM.EVENT ---
Event Note Date of Service: 05/24/21 Event Note: pt had 2 more episodes of bright blood per rectum. Pt is confused, diaphoretic, was febrile earlier. was started on iv abx. lactic acid is 6.1. BP obtained now is 91/50 and HR of 126, temp is 99 . His chest xray shows infiltrates bilaterally. 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
[2021-05-24 21:42] LABS: Hematocrit 21.3 % (42.0-52.0); Hemoglobin 7.2 g/dl (14.0-18.0)
[2021-05-24 21:57] LABS: Reflex Lactate? Lactic Acid Added
--- NOTE | 2021-05-24 22:05 | P.CONCC_ITS ---
History of Present Illness Data of Consult Service Date: 05/24/21 Requesting physician: Roderick Cabrera Primary Care Provider: Rita Edwards MD [facility] Past Medical History Medical History Alcohol dependence Alcohol withdrawal seizure Anal fistula Asthma Carpal tunnel syndrome Chronic pain of right groin Degeneration, intervertebral disc, cervical Diarrhea, unspecified Disc degeneration, lumbar Elevated ALT measurement Epigastric pain GERD (gastroesophageal reflux disease) Hepatic steatosis History of anal fissures Internal and external bleeding hemorrhoids Mood disorder Pelvic abscess Rectal pain Screen for colon cancer (~04/11/20) Family History Family History Father No problems noted. Mother No problems noted. Brother No problems noted. Surgical History Surgical History H/O hemorrhoidectomy History of appendectomy History of colon resection History of colonoscopy Social History Social History Household Members: Significant Other and Other Household Members Other:: girlfriend Housing: House Do you presently have visiting nurse or other home services: No Alcohol intake: current Alcohol intake frequency: 3 or more drinks per day Alcohol type: hard liquor Patient Tobacco Use Status: Current everyday Tobacco user Tobacco use type: Cigarette Cigarette Packs Per Day: 0 Cigarettes Per Day: 5 Years Smoked: 40 Smoked in Last 30 Days: Yes Patient Interested in Nicotine Replacement: No Patient Given Instructions on How to Stop Smoking: Yes Date Education Initiated: 05/24/21 Second Hand Smoke Exposure: Yes Use of substances other than those prescribed or required for medical reasons: No Substance Use Type: Marijuana Have you been hit, kicked, punched, or otherwise hurt by someone within the past year? If so, by whom?: No Do you feel safe in your current relationship?: Yes Is there a partner from a previous relationship who is making you feel unsafe now?: No Are you made to feel afraid or neglected: No Advance Directives: Yes Advance Directives on File: Yes Advance Directives Date on File: 12/14/20 Do you have thoughts of harming others: None Do you have a plan to hurt others: No Plan Recently lost weight without trying: No Nutrition Risks: No Nutritional Risk Poor oral hygiene: No service: No Current occupational status: unemployed Meds Allergies Allergy/AdvReac Type Severity Reaction Status Date / Time horse dander Allergy Intermediate hives Verified 05/14/21 13:29 pollen extracts Allergy Mild Runny Verified 05/14/21 13:29 nose, watery eyes dog dander [dogs] Allergy Unknown Verified 05/14/21 13:29 mold Allergy Unknown Verified 05/14/21 13:29 Active Medications: Current Medications Albuterol Sulfate (Albuterol Sulfate 90 Mcg 8 Gm Inhaler) 2 puff INHALE Q6H PRN PRN Reason: Wheezing Albuterol/Ipratropium (Albuterol/Iprat 2.5/0.5mg 3 Ml Ampul.Neb) 3 ml INHALE Q6H PRN PRN Reason: wheezing Last Admin: 05/24/21 18:02 Dose: 3 ml Documented by: Artificial Tears (Artificial Tears 15 Ml Drops) 1 drop EYE-BOTH Q4H PRN PRN Reason: Dry Eye(S) Fluticasone/Vilanterol (Fluticasone/Vilanterol 200/25 Blst.W.Dev) 1 puff INHALE DAILY [facility] Folic Acid (Folic Acid 1 Mg Tablet) 1 mg PO DAILY [facility] Last Admin: 05/24/21 12:31 Dose: 1 mg Documented by: Albumin Human (Kedbumin 25 %) 100 mls @ 200 mls/hr IV Q6H [facility] Stop: 05/27/21 16:59 Last Infusion: 05/24/21 18:19 Dose: Infused Documented by: Octreotide Acetate 500 mcg/ (Sodium Chloride) 501 mls @ 50.1 mls/hr IVCONT . Q10H [facility] Last Admin: 05/24/21 17:07 Dose: 50 mcg/hr, 50.1 mls/hr Documented by: Ampicillin Sodium 2 gm/ Sodium (Chloride) 100 mls @ 100 mls/hr IV ONCE ONE Stop: 05/25/21 09:59 Ceftriaxone Sodium 1 gm/ (Sodium Chloride) 50 mls @ 100 mls/hr IV Q24H [facility] Last Admin: 05/24/21 21:07 Dose: 100 mls/hr Documented by: Metronidazole (Flagyl) 500 mg in 100 mls @ 100 mls/hr IV Q8H [facility] Azithromycin 500 mg/ Sodium (Chloride) 250 mls @ 125 mls/hr IV Q24H [facility] Piperacillin Sod/Tazobactam (Sod 2.25 gm/ Sodium Chloride) 50 mls @ 100 mls/hr IV Q6H [facility] Lactulose (Lactulose 20 Gm/30 Ml Solution) 20 gm PO BID [facility] Last Admin: 05/24/21 20:53 Dose: 20 gm Documented by: Magnesium Oxide (Magnesium Oxide 400 Mg Tablet) 800 mg PO BID [facility] Last Admin: 05/24/21 21:03 Dose: 800 mg Documented by: Medication (No Benzodiazepines) 1 each MISCELLANE DAILY [facility] Metoprolol Tartrate (Metoprolol Tartrate 25 Mg Tablet) 25 mg PO BID [facility]; Protocol Last Admin: 05/24/21 21:04 Dose: Not Given Documented by: Midodrine (Midodrine Hcl 5 Mg Tablet) 5 mg PO TIDWM [facility] Montelukast Sodium (Montelukast Sodium 10 Mg Tablet) 10 mg PO DAILY [facility] Nicotine (Nicotine 21 Mg Patch.Td24) 21 mg TRANSDERMA DAILY [facility] Last Admin: 05/24/21 12:31 Dose: 21 mg Documented by: Pantoprazole Sodium (Pantoprazole Sodium 40 Mg/10 Ml Vial) 40 mg IVPUSH BID@0630,1630 [facility] Last Admin: 05/24/21 17:13 Dose: 40 mg Documented by: Pharmacy Consult (Consult Rx Perform Med Rec) 1 each MISCELLANE ONCE PRN PRN Reason: Consult order Pharmacy Consult (Consult Rx Etoh Phenob Dosing) 1 each MISCELLANE ONCE PRN; Protocol PRN Reason: Consult order Phenobarbital (Phenobarbital 30 Mg Tablet) 30 mg PO DAILY [facility]; Protocol Stop: 05/30/21 09:01 Phenobarbital (Phenobarbital 15 Mg Tablet) 45 mg PO BID [facility]; Protocol Stop: 05/26/21 21:01 Phenobarbital (Phenobarbital 30 Mg Tablet) 30 mg PO BID [facility]; Protocol Stop: 05/28/21 21:01 Phenobarbital Sodium (Phenobarbital Sodium 130 Mg/Ml Vial) 175.5 mg IM 1999,2300 [facility]; Protocol Stop: 05/24/21 23:01 Last Admin: 05/24/21 21:02 Dose: 175.5 mg Documented by: Sodium Biphosphate/Sodium Phosphate (Sodium Phosphate,[place]-Dibasic 133 Ml Enema) 133 ml SD ONCE PRN PRN Reason: Pre-Op Surgical Prep Sodium Chloride (0.9 % Sodium Chloride Flush 3 Ml Syringe) 3 ml IVFLUSH QSHIFT [facility] Last Admin: 05/24/21 20:52 Dose: 3 ml Documented by: Thiamine HCl (Thiamine Hcl 100 Mg Tablet) 100 mg PO DAILY [facility] Last Admin: 05/24/21 12:31 Dose: 100 mg Documented by: Home Medications Medication Instructions Recorded Confirmed Last Taken Type olanzapine 2.5 mg tablet 2.5 tab PO BEDTIME 12/28/20 05/24/21 04/10/21 History artifi.tears(hypromellose)(PF) 0.3 1 drp OPHTHALMIC (EYE) Q4H PRN 04/11/21 05/24/21 05/22/21 History % eye drops olanzapine 2.5 mg tablet 2.5 mg PO DAILY PRN 04/11/21 05/24/21 Unknown History magnesium oxide 400 mg (241.3 mg 800 mg PO BID 05/24/21 05/24/21 05/22/21 History magnesium) tablet Physical Exam Vital Signs: Vital Signs: Last Vital Signs Temp 103.3 F H 05/24/21 20:35 Pulse 126 H 05/24/21 21:04 Resp 22 H 05/24/21 20:00 BP 91/50 L 05/24/21 21:04 Pulse Ox 95 05/24/21 20:00 Body Mass Index 23.4 Results Labs CBC & Chem 7: 05/24/21 21:19 05/24/21 13:06 Labs: Short CBC 05/24/21 05/24/21 05/24/21 Range/Units 05:44 13:06 18:34 WBC 15.2 H 8.2 (4.8-10.8) X10*3/uL Hgb 6.8 L* 6.6 L* 9.0 L D (14.0-18.0) g/dl Hct 19.9 L* 18.5 L* 25.3 L D (42.0-52.0) % Plt Count 150 L 65 L D (160-400) X10*3/uL 05/24/21 Range/Units 21:19 WBC (4.8-10.8) X10*3/uL Hgb 7.2 L (14.0-18.0) g/dl Hct 21.3 L (42.0-52.0) % Plt Count (160-400) X10*3/uL BMP 05/24/21 05/24/21 05/24/21 05:44 13:05 13:06 Sodium 122 L 126 L Potassium 3.9 4.0 Chloride 91 L 94 L Carbon Dioxide 15 L 18 L BUN 51 H D 56 H Creatinine 3.69 H 3.73 H 3.71 H Calcium 6.6 L D 6.8 L Liver Function 05/24/21 Range/Units 05:44 Total Bilirubin 35.7 H (0.0-1.0) mg/dL Direct Bilirubin 27.8 H (0.0-0.5) mg/dL AST 110 H (5-37) U/L ALT 56 H (0-40) U/L Alkaline Phosphatase 188 H D (39-117) U/L Albumin 2.2 L D (3.5-5.0) g/dL
--- NOTE | 2021-05-24 22:16 | PM.CCN ---
Critical Care Event Note Summary Date of Service: 05/24/21 Code activated: No Narrative: This case had a high probability of a clinically significant, sudden, or life threatening deterioration of this patient's condition which required my full and direct attention, intervention and personal management. Critical Care Time (minutes): 90 Comment: 51-year-old male, with past medical history of alcoholic cirrhosis actively drinking, being admitted with worsening liver failure with hepatorenal syndrome and subacute anemia with rectal within. ?Seen by did ICU team earlier today, for hypotension that was responsive to colloids. Tonight, patient became more hypotensive, tachycardic, febrile to 103, with significant amount of bright red blood per rectum. Hemoglobin drop from 9 to 7.2 in 2 hours. Focused assessment at 2300: Patient was alert and oriented x person and place. Temp 97.8. Lungs with CTA. Satting 94-97% on room air , tachycardic to low 120s, S1-S2 present. No M/R/G. Normal capillary refill, pulses present in all extremities, abdomen soft, non tender to palpitation on upper quadrants, with some mild distention. Signifiacnt amount of blood present on sheets. + bowel sounds in all quadrants.?Skin Juandiced. Sclera jaundiced also noted. ? Patient admitted to the ICU, to a pack RBCs, 2 FFP and 1 of platelets was ordered.? Stat GI consult.? I spoke with Dr. Shabazz, who will come in to scope patient Plan: OR for EGD Transfuse blood products Cont fluid resuscitation
[2021-05-24 22:52] LABS: ~Lactic Acid-LAB USE ONLY 10.2 mmol/L (0.5-2.0)
--- NOTE | 2021-05-24 23:15 | PC.NURSE ---
At 19:10 Temp taken and pt. was 103.3. Overnight hospitalist came sand saw pt.He was cleaned up and noticed clotting blood from rectum. He was cleaned up numerous times throughout the night with the same results. Hospitalist shown pictures of the bleeding as well. A draw for H&H and lactic acid were drawn afterwards. Lactic acid came back critical at 6.1, hospitalist was notified and septic protocol was put in place. ICU WET END HELPER saw patient and was decided that we would be going down to the ICU. 1L bloused into pt and 18g in left forearm placed to receive blood. Patient BP ended up decreasing to 67/41 manually and then transferred to ICU.
--- NOTE | 2021-05-24 23:35 | PC.NURSE ---
end of ffp 1st transfusion VS 97.4 T, R24, HR114, BP116/70 sat 100%
[2021-05-24] MEDS: Lactated Ringers 1,000 ML 999 ML IV (23:41)
[2021-05-25] VITALS (45 sets, daily range): BP systolic 72–124; BP diastolic 38–80; PULSE 89–119; RESP 16–32; TEMP 32–37.2; O2SAT 90–100; BMI 25.0
[2021-05-25 00:33] LABS: Reflex Lactate? 2 Y
--- NOTE | 2021-05-25 00:47 | PC.NURSE ---
delay in 2nd FFP start due to sediment in bag, lab resaw bag, stated it was cryoprecipitate and we could still infuse. Also started after platelets.
[2021-05-25] MEDS: Albuterol/Iprat 2.5/0.5MG 3 ML AMPUL.NEB INHALE (00:51)
--- NOTE | 2021-05-25 00:55 | P.CONAN_ITS ---
HPI - Anesthesia Eval Consult details Narrative: acute gi bleed PMFSH Active Problems Active Problems: All Active Problems (Updated 05/24/21 @ 16:32 by Ankur Borrego MD) TALISHA (acute kidney injury) (Acute) Alcoholic cirrhosis of liver with ascites (Acute) Acute liver failure (Acute) Coagulopathy (Acute) Painless rectal bleeding (Acute) Hemorrhoids (Acute) Deep inguinal pain, right (Acute) Varicocele (Acute) Acute alcoholic hepatitis (Acute) Inguinal hernia (Acute) Hypomagnesemia (Acute) Degeneration, intervertebral disc, cervical (Acute) Chronic pain of right groin (Acute) Swollen leg (Acute) Ascites (Acute) Dyspnea on exertion (Acute) Acute alcoholic hepatitis (Acute) SEAN (obstructive sleep apnea) (Acute) Anal fistula (Acute) Incomplete emptying of bladder due to benign prostatic hyperplasia (Acute) BPH w urinary obs/LUTS (Acute) Right groin pain (Acute) Left arm pain (Acute) Unilateral primary osteoarthritis, right hip (Acute) Asthma-COPD overlap syndrome (Acute) Preop pulmonary/respiratory exam (Acute) DDD (degenerative disc disease), lumbar (Acute) Gross hematuria (Acute) E coli bacteremia (Acute) UTI (urinary tract infection) (Acute) Alcohol withdrawal (Acute) Electrolyte abnormality (Acute) Alcohol use disorder, severe, dependence (Acute) Environmental allergies (Acute) Bladder outlet obstruction (Acute) Disc degeneration, lumbar (Acute) Alcohol dependence (Acute) Carpal tunnel syndrome (Acute) Screen for colon cancer (Acute ~04/11/20) Past Medical History Medical History Alcohol dependence Alcohol withdrawal seizure Anal fistula Asthma Carpal tunnel syndrome Chronic pain of right groin Degeneration, intervertebral disc, cervical Diarrhea, unspecified Disc degeneration, lumbar Elevated ALT measurement Epigastric pain GERD (gastroesophageal reflux disease) Hepatic steatosis History of anal fissures Internal and external bleeding hemorrhoids Mood disorder Pelvic abscess Rectal pain Screen for colon cancer (~04/11/20) Family History Family History Father No problems noted. Mother No problems noted. Brother No problems noted. Surgical History Surgical History H/O hemorrhoidectomy History of appendectomy History of colon resection History of colonoscopy Social History Social History Household Members: Significant Other and Other Household Members Other:: girlfriend Housing: House Do you presently have visiting nurse or other home services: No Alcohol intake: current Alcohol intake frequency: 3 or more drinks per day Alcohol type: hard liquor Patient Tobacco Use Status: Current everyday Tobacco user Tobacco use type: Cigarette Cigarette Packs Per Day: 0 Cigarettes Per Day: 5 Years Smoked: 40 Smoked in Last 30 Days: Yes Patient Interested in Nicotine Replacement: No Patient Given Instructions on How to Stop Smoking: Yes Date Education Initiated: 05/24/21 Second Hand Smoke Exposure: Yes Use of substances other than those prescribed or required for medical reasons: No Substance Use Type: Marijuana Have you been hit, kicked, punched, or otherwise hurt by someone within the past year? If so, by whom?: No Do you feel safe in your current relationship?: Yes Is there a partner from a previous relationship who is making you feel unsafe now?: No Are you made to feel afraid or neglected: No Advance Directives: Yes Advance Directives on File: Yes Advance Directives Date on File: 12/14/20 Do you have thoughts of harming others: None Do you have a plan to hurt others: No Plan Recently lost weight without trying: No Nutrition Risks: No Nutritional Risk Poor oral hygiene: No service: No Current occupational status: unemployed Meds Allergies Allergy/AdvReac Type Severity Reaction Status Date / Time horse dander Allergy Intermediate hives Verified 05/14/21 13:29 pollen extracts Allergy Mild Runny Verified 05/14/21 13:29 nose, watery eyes dog dander [dogs] Allergy Unknown Verified 05/14/21 13:29 mold Allergy Unknown Verified 05/14/21 13:29 Active Medications: Current Medications Albuterol Sulfate (Albuterol Sulfate 90 Mcg 8 Gm Inhaler) 2 puff INHALE Q6H PRN PRN Reason: Wheezing Albuterol/Ipratropium (Albuterol/Iprat 2.5/0.5mg 3 Ml Ampul.Neb) 3 ml INHALE Q6H PRN PRN Reason: wheezing Last Admin: 05/24/21 18:02 Dose: 3 ml Documented by: Artificial Tears (Artificial Tears 15 Ml Drops) 1 drop EYE-BOTH Q4H PRN PRN Reason: Dry Eye(S) Fluticasone/Vilanterol (Fluticasone/Vilanterol 200/25 Blst.W.Dev) 1 puff INHALE DAILY [facility] Folic Acid (Folic Acid 1 Mg Tablet) 1 mg PO DAILY [facility] Last Admin: 05/24/21 12:31 Dose: 1 mg Documented by: Albumin Human (Kedbumin 25 %) 100 mls @ 200 mls/hr IV Q6H [facility] Stop: 05/27/21 16:59 Last Infusion: 05/24/21 18:19 Dose: Infused Documented by: Octreotide Acetate 500 mcg/ (Sodium Chloride) 501 mls @ 50.1 mls/hr IVCONT .Q10H [facility] Last Admin: 05/24/21 17:07 Dose: 50 mcg/hr, 50.1 mls/hr Documented by: Ampicillin Sodium 2 gm/ Sodium (Chloride) 100 mls @ 100 mls/hr IV ONCE ONE Stop: 05/25/21 09:59 Ceftriaxone Sodium 1 gm/ (Sodium Chloride) 50 mls @ 100 mls/hr IV Q24H [facility] Last Admin: 05/24/21 21:07 Dose: 100 mls/hr Documented by: Metronidazole (Flagyl) 500 mg in 100 mls @ 100 mls/hr IV Q8H [facility] Azithromycin 500 mg/ Sodium (Chloride) 250 mls @ 125 mls/hr IV Q24H [facility] Piperacillin Sod/Tazobactam (Sod 2.25 gm/ Sodium Chloride) 50 mls @ 100 mls/hr IV Q6H [facility] Norepinephrine Bitartrate (Levophed) 8 mg in 250 mls @ 0 mls/hr IVCONT .Q0M [facility]; Protocol Last Titration: 05/25/21 00:54 Dose: 0.1 mcg/kg/min, 13.88 mls/hr Documented by: Lactulose (Lactulose 20 Gm/30 Ml Solution) 20 gm PO BID [facility] Last Admin: 05/24/21 20:53 Dose: 20 gm Documented by: Magnesium Oxide (Magnesium Oxide 400 Mg Tablet) 800 mg PO BID [facility] Last Admin: 05/24/21 21:03 Dose: 800 mg Documented by: Medication (No Benzodiazepines) 1 each MISCELLANE DAILY [facility] Metoprolol Tartrate (Metoprolol Tartrate 25 Mg Tablet) 25 mg PO BID [facility]; Protocol Last Admin: 05/24/21 21:04 Dose: Not Given Documented by: Midodrine (Midodrine Hcl 5 Mg Tablet) 5 mg PO TIDWM [facility] Montelukast Sodium (Montelukast Sodium 10 Mg Tablet) 10 mg PO DAILY [facility] Nicotine (Nicotine 21 Mg Patch.Td24) 21 mg TRANSDERMA DAILY [facility] Last Admin: 05/24/21 12:31 Dose: 21 mg Documented by: Pantoprazole Sodium (Pantoprazole Sodium 40 Mg/10 Ml Vial) 40 mg IVPUSH BID@0630,1630 [facility] Last Admin: 05/24/21 17:13 Dose: 40 mg Documented by: Pharmacy Consult (Consult Rx Perform Med Rec) 1 each MISCELLANE ONCE PRN PRN Reason: Consult order Pharmacy Consult (Consult Rx Etoh Phenob Dosing) 1 each MISCELLANE ONCE PRN; P rotocol PRN Reason: Consult order Phenobarbital (Phenobarbital 30 Mg Tablet) 30 mg PO DAILY [facility]; Protocol Stop: 05/30/21 09:01 Phenobarbital (Phenobarbital 15 Mg Tablet) 45 mg PO BID [facility]; Protocol Stop: 05/26/21 21:01 Phenobarbital (Phenobarbital 30 Mg Tablet) 30 mg PO BID [facility]; Protocol Stop: 05/28/21 21:01 Sodium Biphosphate/Sodium Phosphate (Sodium Phosphate,Bay-Dibasic 133 Ml Enema) 133 ml [place] ONCE PRN PRN Reason: Pre-Op Surgical Prep Sodium Chloride (0.9 % Sodium Chloride Flush 3 Ml Syringe) 3 ml IVFLUSH QSHIFT [facility] Last Admin: 05/24/21 20:52 Dose: 3 ml Documented by: Thiamine HCl (Thiamine Hcl 100 Mg Tablet) 100 mg PO DAILY [facility] Last Admin: 05/24/21 12:31 Dose: 100 mg Documented by: Home Medications Medication Instructions Recorded Confirmed Last Taken Type olanzapine 2.5 mg tablet 2.5 tab PO BEDTIME 12/28/20 05/24/21 04/10/21 History artifi.tears(hypromellose)(PF) 0.3 1 drp OPHTHALMIC (EYE) Q4H PRN 04/11/21 05/24/21 05/22/21 History % eye drops olanzapine 2.5 mg tablet 2.5 mg PO DAILY PRN 04/11/21 05/24/21 Unknown History magnesium oxide 400 mg (241.3 mg 800 mg PO BID 05/24/21 05/24/21 05/22/21 History magnesium) tablet Exam Exam Date and Time: May 25, 2021 0055 Height,Weight and Vital Signs: Height 5 ft 10 in Weight 74.028 kg Last Vital Signs Temp 97.4 F 05/25/21 00:45 Pulse 108 H 05/25/21 00:45 Resp 32 H 05/25/21 00:45 BP 89/46 L 05/25/21 00:45 Pulse Ox 96 05/24/21 23:47 Pertinent Lab Results Pertinent Lab Results: Laboratory Tests 05/24/21 05/24/21 05/24/21 05:43 05:44 05:44 WBC 15.2 H RBC 1.88 L Hgb 6.8 L* Hct 19.9 L* MCV 105.9 H MCH 36.2 H MCHC 34.2 RDW 18.0 H Plt Count 150 L MPV 10.5 Immature Gran % (Auto) 5.8 H Neut % (Auto) 82.6 H Lymph % (Auto) 2.7 L Bay % (Auto) 7.9 Eos % (Auto) 0.9 Baso % (Auto) 0.1 Lymph # (Auto) 0.4 L Bay # (Auto) 1.2 Eos # (Auto) 0.1 Baso # (Auto) 0.0 Abs Immat Gran (auto) 0.88 H Absolute Neuts (auto) 12.5 H Absolute Nucleated RBC 0.000 Nucleated RBC % (auto) 0.0 Smear Tech's Comments VERIFIED Smear Path Review SEE NOTE PT INR Sodium 122 L Potassium 3.9 Chloride 91 L Carbon Dioxide 15 L Anion Gap 20 BUN 51 H D Creatinine 3.69 H Estim Creat Clear Calc 24.4 Estimated GFR 17 Random Glucose 145 H D Lactic Acid Lactic Acid Fup @ 2Hr Calcium 6.6 L D Magnesium 2.4 Total Bilirubin 35.7 H Direct Bilirubin 27.8 H AST 110 H ALT 56 H Alkaline Phosphatase 188 H D Ammonia Troponin I High Sens Total Protein 4.1 L D Albumin 2.2 L D Lipase 40 COVID-19 ([facility]) COVID-19 Clin Com Blood Type O Positive Antibody Screen NEGATIVE Crossmatch See Detail 05/24/21 05/24/21 05/24/21 05:44 05:44 08:00 WBC RBC Hgb Hct MCV MCH MCHC RDW Plt Count MPV Immature Gran % (Auto) Neut % (Auto) Lymph % (Auto) Bay % (Auto) Eos % (Auto) Baso % (Auto) Lymph # (Auto) Bay # (Auto) Eos # (Auto) Baso # (Auto) Abs Immat Gran (auto) Absolute Neuts (auto) Absolute Nucleated RBC Nucleated RBC % (auto) Smear Tech's Comments Smear Path Review PT 23.0 H INR 2.0 H Sodium Potassium Chloride Carbon Dioxide Anion Gap BUN Creatinine Estim Creat Clear Calc Estimated GFR Random Glucose Lactic Acid Lactic Acid Fup @ 2Hr Calcium Magnesium Total Bilirubin Direct Bilirubin AST ALT Alkaline Phosphatase Ammonia Troponin I High Sens < 3.5 Total Protein Albumin Lipase COVID-19 ([facility]) Negative COVID-19 [employer] See Note Blood Type Antibody Screen Crossmatch 05/24/21 05/24/21 05/24/21 13:05 13:05 13:06 WBC 8.2 RBC 1.96 L Hgb 6.6 L* Hct 18.5 L* MCV 94.4 D MCH 33.7 H MCHC 35.7 RDW 21.6 H Plt Count 65 L D MPV 9.8 Immature Gran % (Auto) Neut % (Auto) Lymph % (Auto) Bay % (Auto) Eos % (Auto) Baso % (Auto) Lymph # (Auto) Bay # (Auto) Eos # (Auto) Baso # (Auto) Abs Immat Gran (auto) Absolute Neuts (auto) Absolute Nucleated RBC 0.000 Nucleated RBC % (auto) 0.0 Smear Tech's Comments Smear Path Review PT INR Sodium 126 L Potassium 4.0 Chloride 94 L Carbon Dioxide 18 L Anion Gap 18 BUN 56 H Creatinine 3.73 H Estim Creat Clear Calc 24.1 Estimated GFR 17 Random Glucose 103 Lactic Acid Lactic Acid Fup @ 2Hr Calcium 6.8 L Magnesium Total Bilirubin Direct Bilirubin AST ALT Alkaline Phosphatase Ammonia 87 H Troponin I High Sens Total Protein Albumin Lipase COVID-19 ([place]) COVID-19 [employer] Com Blood Type Antibody Screen Crossmatch 05/24/21 05/24/21 05/24/21 13:06 13:06 18:34 WBC RBC Hgb 9.0 L D Hct 25.3 L D MCV MCH MCHC RDW Plt Count MPV Immature Gran % (Auto) Neut % (Auto) Lymph % (Auto) Bay % (Auto) Eos % (Auto) Baso % (Auto) Lymph # (Auto) Bay # (Auto) Eos # (Auto) Baso # (Auto) Abs Immat Gran (auto) Absolute Neuts (auto) Absolute Nucleated RBC Nucleated RBC % (auto) Smear Tech's Comments Smear Path Review PT 19.8 H INR 1.7 H Sodium Potassium Chloride Carbon Dioxide Anion Gap BUN Creatinine 3.71 H Estim Creat Clear Calc 24.3 Estimated GFR 17 Random Glucose Lactic Acid Lactic Acid Fup @ 2Hr Calcium Magnesium Total Bilirubin Direct Bilirubin AST ALT Alkaline Phosphatase Ammonia Troponin I High Sens Total Protein Albumin Lipase COVID-19 ([place]) COVID-[employer] Blood Type Antibody Screen Crossmatch 05/24/21 05/24/21 05/24/21 19:52 21:19 22:29 WBC RBC Hgb 7.2 L Hct 21.3 L MCV MCH MCHC RDW Plt Count MPV Immature Gran % (Auto) Neut % (Auto) Lymph % (Auto) Bay % (Auto) Eos % (Auto) Baso % (Auto) Lymph # (Auto) Bay # (Auto) Eos # (Auto) Baso # (Auto) Abs Immat Gran (auto) Absolute Neuts (auto) Absolute Nucleated RBC Nucleated RBC % (auto) Smear Tech's Comments Smear Path Review PT INR Sodium Potassium Chloride Carbon Dioxide Anion Gap BUN Creatinine Estim Creat Clear Calc Estimated GFR Random Glucose Lactic Acid 6.1 H* Lactic Acid Fup @ 2Hr 10.2 H* Calcium Magnesium Total Bilirubin Direct Bilirubin AST ALT Alkaline Phosphatase Ammonia Troponin I High Sens Total Protein Albumin Lipase COVID-19 ([facility]) COVID-[employer] Blood Type Antibody Screen Crossmatch Airway TM Dist: >3cm Heart: RRR Assessment and Plan Assessment Anesthesia Assessment: Anesthesia Plan Discussed Final Anesthetic Review NPO: Yes ASA Class: IV and Emergency Final Preanesthetic Review: Meds/Allgs Chart Reviewed Patient Risk: High Procedure Risk: Low Anesthetic Plan Anesthetic Plan: MAC: Disposition: Inp. Admit - ICU
--- NOTE | 2021-05-25 00:55 | W.PM.CCHP ---
Procedures Date of Service Date of Service: 05/25/21 Central Line Placement Right IJ: Central Line Comments: Patient hypotensive, requiring vasopressor. Central line placed Right internal jugular triple lumen central venous catheter placed in usual sterile conditions under ultrasound guidance for appropriate vascular access without immediate complications. Central line position verified with Chest XRAY. Time out performed: Yes Sterile Technique Used: Yes MD prep: mask, gown and gloves Central line prep: Chlorhexidine scrub Local anesthesia used: lidocaine 1% Ultrasound used for placement: Yes Central line lumen inserted: triple Post procedure: sutured in place, good blood return, all ports aspirated, flushed, capped and sterile dressing applied Post procedure x-ray: tip of catheter in good position and no pneumothorax seen Patient tolerated procedure: no complications
[2021-05-25 00:57] LABS: Mean Corpuscular HGB Conc 33.3 g/dl (31.0-36.0); Mean Corpuscular Hemoglobin 32.1 pg (27.0-33.0); Mean Corpuscular Volume 96.2 fL (80.0-98.0); Mean Platelet Volume 10.7 fL (9.4-12.4); NRBC Pct Auto 0.4 /100WBC (0.0-0.2); Platelet Count 100 X10*3/uL (160-400); Red Blood Count 2.09 X10*6/uL (4.60-5.80); Red Cell Distribution Width 21.1 % (11.0-16.0)
[2021-05-25 00:59] LABS: Hematocrit 20.1 % (42.0-52.0); Hemoglobin 6.7 g/dl (14.0-18.0)
--- NOTE | 2021-05-25 01:05 | PM.EVENT ---
Event Note Date of Service: 05/25/21 Event Note: Pt started having multiple bloody BMs with hypotension, tachycardia and worsening lactic acidosis. Transferred to ICU and transfused 2 Units PRBC, FFP and platelets and started on IV levophed for hypotension. Emergent EGD planned. Pt unable to give consent and unable to contact Vanessa, Patient's GF and HCP, despite multiple phone calls. Procedure declared emergent by Dr Lynne and myself.
[2021-05-25 01:13] LABS: ~Lactic Acid-LAB USE ONLY 11.9 mmol/L (0.5-2.0)
--- NOTE | 2021-05-25 01:16 | PC.NURSE ---
Addendum entered by Darrian Sierra RN 05/25/21 05:03: pt has been very restless throughout the night. not laying still tossing and turning and fidgeting with lines. Intermittent confusion. Addendum entered by Darrian Sierra RN 05/25/21 02:13: (continued from last entry.) pt then proceeded to get 1 more RBC 2 ffp and one platelet. Pt BP was still soft and trending down into the 80's levo was titrated to effect. GI was consulted and opted to do a bedside endo and sigmoidoscopy (~time 0130). during the procedure pt contiued to have large amounts of BRBPR with large clots.They found an arterial bleed on the lower GI section. They clipped and hemostat (~time 0215). Pt is currently receiving another 2 units rbc. Pt was sedated with ketamine and is currently speaking to nobody with eyes closed and making gestures. Non-sensical(~ time 0215). (~ time 0225) PT alert to place and self. pt has catheter in place, oliguric with minimal output. Pt reports significant improvement in pain after procedure 100% better . Pt forgetful of catheter and requires frequent reminding. Original Note: Pt was hypotensive on IMC transferred to ICU with initial SBP in the 60s. Pt recieved and was very jaundiced in the eyes and the skin. Pt was turned and cleaned. Immediately during cleaning pt BRBPR flowed out of anus with large clots. Pt had frequent episodes of bloody expulsion from rectum. pt started on RBC. PT was started on levo at 0.5 after 1st RBC and titrated to effect.
[2021-05-25 01:35] LABS: Band Neutrophils Percent 8 % (3-5); Eosinophils Absolute Manual 0.1 X10*3/uL (0.0-0.4); Eosinophils Percent Manual 1 % (0-4); Lymphocytes Absolute Manual 0.2 X10*3/uL (1.2-4.9); Lymphocytes Percent Manual 2 % (20-40); Monocytes Absolute Manual 0.2 X10*3/uL (0.1-1.2); Monocytes Percent Manual 2 % (2-11); Neutrophils Absolute Manual 10.5 X10*3/uL (2.0-8.3); Neutrophils Percent Manual 87 % (45-73)
[2021-05-25 01:36] LABS: Acanthocytes 1+ (0-2) /OIF; Basophilic Stippling 1+ (0-2) /OIF; Burr Cells 3+ (>5) /OIF; Nucleated Red Blood Cells 2 /100WBC (0-0); Ovalocytes 1+ (5-14) /OIF; Platelet Estimate DECREASED (NORMAL); Platelet Morphology Comment NORMAL; Polychromasia 2+ (3-5) /OIF; RBC Morphology NOTED; Toxic Granulation PRESENT; Toxic Vacuolation PRESENT
--- NOTE | 2021-05-25 01:58 | PM.OP ---
Brief Operative Note Date of Service: 05/25/21 Pre-op diagnosis: Gi Bleeding, alcoholic cirrhosis Post-op diagnosis: other (Non-bleeding esophageal varices, portal gastropathy, bleeding visible vessel in the distal rectum) Procedure: FLEXIBLE TRANSORAL UPPER GASTROINTESTINAL ENDOSCOPY AND FLEXIBLE SIGMOIDOSCOPY TILL 25 CMS WITH CONTROL OF BLEEDING WITH HEMOCLIP PLACEMENT AND HEMOSPRAY UPPER ENDOSCOPY Consent: Pt unable to give consent and unable to contact Vanessa, Patient's GF and HCP, despite multiple phone calls. Procedure declared emergent by Dr Lynne and myself and performed without consent. Instrument: Olympus GIF H 190 mid size upper endoscope Monitoring: Vital signs and clinical assessment, continuous EKG monitoring, Pulse oximetry, Carbon Dioxide monitoring and blood pressure monitoring were done throughout the procedure. Procedure: The patient was placed in the left lateral decubitis position and pre-procedure medications were administered and a bite block was placed. The endoscope was inserted into the mouth and advanced under direct vision to the third part of duodenum. A careful inspection was made as the upper endoscope was withdrawn including a retroflexed examination of the proximal stomach; Findings and interventions are described below. Findings: Esophagus: GE junction at 40 cms. Grade 3 single column varix without bleeding or high risk stigmata for bleeding. No esophagitis or Waller's. Stomach: Moderate portal hypertensive gastropathy without bleeding. No gastric varices seen and Grade 2 flap valve on retroflexed examination of the cardia. Duodenum: Normal bulb and descending duodenum Intervention: Biopsies as noted above FLEXIBLE SIGMOIDOSCOPY PROCEDURE NOTE Consent: Indications for the procedure and potential complications of bleeding, perforation, reaction to medications and missed diagnosis were discussed with the patient and informed consent was obtained. Instrument: Olympus PCF H 190 L variable stiffness pediatric colonoscope Monitoring: Vital signs and clinical assessment, intermittent blood pressure monitoring, continuous EKG monitoring, Pulse oximetry and Carbon Dioxide monitoring were done throughout the procedure. Procedure: The patient was placed in the left lateral decubitis position and pre-procedure medications were administered. After a digital rectal examination of the ano-rectum, the video colonoscope was inserted into the rectum and advanced through the colon to the cecum. The colonoscope was slowly withdrawn in a retrograde panoramic fashion and the colon mucosa was carefully examined including a retroflexed view of the rectum. Findings and interventions are described below. Findings: Sigmoid Colon: Pale yellow stools coating the fraser without blood Rectum: Fresh blood coating the fraser of the rectum. A visible vessel noted in the distal rectum just proximal to the anal verge with intermittent active spurting - controlled with placement of hemoclips x 2 followed by hemospray with cessation of bleeding Ano-rectum: Retroflexed examination was not performed. Moderate internal hemorrhoids on antegrade withdrawl with seton in place. Colon preparation: Good Impression and Post Procedure Diagnosis: Endoscopy Findings: ESOPHAGUS: Grade 3 single column varix without bleeding or high risk stigmata for bleeding. STOMACH: Moderate portal hypertensive gastropathy without bleeding. No gastric varices seen and Grade 2 flap valve on retroflexed examination of the cardia. No blood or potential source for bleeding noted in the UGI tract on EGD Flexible Sigmoidoscopy Findings: Rectum: Fresh blood coating the fraser of the rectum. A visible vessel noted in the distal rectum just proximal to the anal verge with intermittent active spurting - controlled with placement of hemoclips x 2 followed by hemospray with cessation of bleeding Ano-rectum: Retroflexed examination was not performed. Moderate internal hemorrhoids on antegrade withdrawl with seton in place. Plan: Montor H & H 2 hrs post transfusion and then every 8 hrly x next 24 hrs. Keep INR < 2 and platelet count > 50 by prn transfusion. Surgeon: Yanick Shabazz MD Anesthesia: MAC (Dr Lynne) Was an Cloth Bleaching Range Tender used for this Procedure?: No Estimated blood loss (mL): 50 Pathology: none sent Condition: critical Disposition: ICU
--- NOTE | 2021-05-25 02:17 | P.OP_ITS ---
Operative Note Operative Note Date of Service: 05/25/21 Narrative: Pre-op diagnosis:?Gi Bleeding, alcoholic cirrhosis Post-op diagnosis:?other (Non-bleeding esophageal varices, portal gastropathy, bleeding visible vessel in the distal rectum) Procedure:? FLEXIBLE TRANSORAL UPPER GASTROINTESTINAL ENDOSCOPY AND FLEXIBLE SIGMOIDOSCOPY TILL 25 CMS WITH CONTROL OF BLEEDING WITH HEMOCLIP PLACEMENT AND HEMOSPRAY UPPER ENDOSCOPY Consent:???Pt unable to give consent and unable to contact Vanessa, Patient's GF and HCP, despite multiple phone calls. Procedure declared emergent by Dr Lynne and myself and performed without consent. Procedure was performed at the bedside in the ICU due to critical condition of the patient. Instrument:?Olympus GIF H 190 mid size upper endoscope Monitoring: Vital signs and clinical assessment, continuous EKG monitoring, Pulse oximetry, Carbon Dioxide monitoring and blood pressure monitoring were done throughout the procedure. Procedure:?The patient was placed in the left lateral decubitis position and pre-procedure medications were administered and a bite block was placed. The endoscope was inserted into the mouth and advanced under direct vision to the third part of duodenum. A careful inspection was made as the upper endoscope was withdrawn including a retroflexed examination of the proximal stomach; Findings and interventions are described below. Findings: Esophagus:?GE junction at 40 cms.? Grade 3 single column varix without bleeding or high risk stigmata for bleeding.? No esophagitis or Waller's. Stomach:?Moderate portal hypertensive gastropathy without bleeding. No gastric varices seen and Grade 2 flap valve on retroflexed examination of the cardia. Duodenum:?Normal bulb and descending duodenum Intervention:?Biopsies as noted above FLEXIBLE SIGMOIDOSCOPY PROCEDURE NOTE Consent:?Indications for the procedure and potential complications of bleeding, perforation, reaction to medications and missed diagnosis were discussed with the patient and informed consent was obtained. Instrument:?Olympus PCF H 190 L variable stiffness pediatric colonoscope Monitoring:?Vital signs and clinical assessment, intermittent blood pressure monitoring, continuous EKG monitoring, Pulse oximetry and Carbon Dioxide monitoring were done throughout the procedure. Procedure:?The patient was placed in the left lateral decubitis position and pre-procedure medications were administered. After a digital rectal examination of the ano-rectum, the video colonoscope was inserted into the rectum and advanced through the colon to the cecum. The colonoscope was slowly withdrawn in a retrograde panoramic fashion and the colon mucosa was carefully examined including a retroflexed view of the rectum. Findings and interventions are described below. Findings: Sigmoid Colon:??Pale yellow stools coating the fraser without blood Rectum:??Fresh blood coating the fraser of the rectum.? A visible vessel noted in the distal rectum just proximal to the anal verge with intermittent active spurting - controlled with placement of hemoclips x 2 followed by hemospray with cessation of bleeding Ano-rectum:??Retroflexed examination was not performed. Moderate internal hemorrhoids on antegrade withdrawl with seton in place. Colon preparation:? Good? Impression and Post Procedure Diagnosis: Endoscopy Findings: ESOPHAGUS:?Grade 3 single column varix without bleeding or high risk stigmata for bleeding.? STOMACH:?Moderate portal hypertensive gastropathy without bleeding. No gastric varices seen and Grade 2 flap valve on retroflexed examination of the cardia. No blood or potential source for bleeding noted in the UGI tract on EGD Flexible Sigmoidoscopy Findings: Rectum:? Fresh blood coating the fraser of the rectum.? A visible vessel noted in the distal rectum just proximal to the anal verge with intermittent active spurting - controlled with placement of hemoclips x 2 followed by hemospray with cessation of bleeding Ano-rectum:? Retroflexed examination was not performed. Moderate internal hemorrhoids on antegrade withdrawl with seton in place. Plan: Montor H & H 2 hrs post transfusion and then every 8 hrly x next 24 hrs. Keep INR < 2 and platelet count > 50 by prn transfusion. Surgeon:?Yanick Shabazz MD Anesthesia:?MAC (Dr Lynne) Was an Patient Partner used for this Procedure?:?No Estimated blood loss (mL):?50 Pathology:?none sent Condition:?critical Disposition:?ICU
[2021-05-25] MEDS: Octreotide Acetate 500 MCG in 0.9 % Sodium Chloride 500 ML 50.1 MCG IVCONT (02:50)
[2021-05-25] MEDS: Albumin Human 25 % 100 ML 200 ML IV ×5 (02:54→22:41)
[2021-05-25] MEDS: Piperacillin Sodium/Tazobactam 2.25 GM in 0.9 % Sodium Chloride 50 ML IV ×4 (02:56→20:45)
[2021-05-25] MEDS: Furosemide 40 MG/4 ML VIAL IVPUSH (03:20)
--- NOTE | 2021-05-25 04:32 | PC.NURSE ---
Zosyn 05/24 @ 2130 was not given. 05/25 @ 0330 dose was given at 0340. pt is now on schedule
--- NOTE | 2021-05-25 05:38 | PC.NURSE ---
TRANSFERRED TO [facility] FOR HYPOTENSION/GI BLEED...AWAKE...CONVERSES BUT DISORIENTED..JAUNDICED...SINUS TACH...SANDOSTATIN 50 MCG/HR...MULTIPLE LARGE LIQUIED BLOODY STOOLS...ICU FLUE GAS ANALYST PRESENT....MULTIPLE UNITS PRBC/FFP/PLATELETS/ALBUMEN INFUSED PER TAR/SEP AFTER FLUE GAS ANALYST INSERTED RIGHT JUGULAR TLC..OR TEAM PRESENT AND UPPER ENDO AND COLONOSCOPY PERFORMED AT BEDSIDE...#16 [place] INSERTED W/O MEASURABLE OUTPUT OVERNIGHT. FLUE GAS ANALYST AWARE..FOR AM LABS...FLUE GAS ANALYST STATES ? NEED FOR DIALYSIS AND/OR PARACENTESIS TODAY...REMAINS SINUS TACH HR 100'S-110'S...LEVOPHED DRIP PER SEP
[2021-05-25] MEDS: Pantoprazole Sodium 40 MG/10 ML VIAL IVPUSH ×2 (05:42→15:32)
[2021-05-25 05:56] LABS: PLT CLUMP 1
[2021-05-25 05:58] LABS: Hematocrit 24.1 % (42.0-52.0); Hemoglobin 7.8 g/dl (14.0-18.0); Mean Corpuscular HGB Conc 32.4 g/dl (31.0-36.0); Mean Corpuscular Hemoglobin 30.8 pg (27.0-33.0); Mean Corpuscular Volume 95.3 fL (80.0-98.0); Mean Platelet Volume 11.3 fL (9.4-12.4); NRBC Pct Auto 0.2 /100WBC (0.0-0.2); Platelet Count 140 X10*3/uL (160-400); Red Blood Count 2.53 X10*6/uL (4.60-5.80); Red Cell Distribution Width 18.4 % (11.0-16.0); White Blood Count 24.1 X10*3/uL (4.8-10.8)
[2021-05-25 06:02] LABS: Ammonia 126 umol/L (13-55)
[2021-05-25 06:04] LABS: INTERNATIONAL NORM RATIO 2.1 (0.9-1.1); Prothrombin Time 24.4 SEC (9.9-13.0)
[2021-05-25 06:39] LABS: Alanine Aminotransferase 46 U/L (0-40); Albumin Level 3.1 g/dL (3.5-5.0); Alkaline Phosphatase 107 U/L (39-117); Anion Gap 28 (12-20); Aspartate Amino Transferase 191 U/L (5-37); Bilirubin Total 27.9 mg/dL (0.0-1.0); Blood Urea Nitrogen 57 mg/dL (9-16); Calcium 6.3 mg/dL (8.4-10.2); Carbon Dioxide 7 mmol/L (22-29); Chloride 100 mmol/L (96-108); Creatinine Clr Calc Pharmacy 20.6; Estimated Glomerular Filt Rate 14; Glucose Random 41 mg/dL (60-115); Magnesium 2.3 mg/dL (1.6-2.6); Phosphorus 5.5 mg/dL (2.7-4.5); Potassium 4.4 mmol/L (3.3-5.1); Sodium 131 mmol/L (135-145); Total Protein 4.3 g/dL (6.5-8.0)
[2021-05-25] MEDS: Sodium Bicarbonate 8.4% 50 MEQ/50 ML SYRINGE IVPUSH ×5 (06:44→20:45)
[2021-05-25 06:46] LABS: Bilirubin Direct 22.5 mg/dL (0.0-0.5)
[2021-05-25 06:48] LABS: Band Neutrophils Percent 9 % (3-5); Large Platelet PRESENT; Macrocytosis 1+ (5-14) /OIF; Metamyelocytes Absolute 0.5 X10*3/uL; Metamyelocytes Percent 2 %; Monocytes Absolute Manual 0.5 X10*3/uL (0.1-1.2); Monocytes Percent Manual 2 % (2-11); Neutrophils Absolute Manual 23.1 X10*3/uL (2.0-8.3); Neutrophils Percent Manual 87 % (45-73); Nucleated Red Blood Cells 1 /100WBC (0-0); Platelet Estimate SLIGHTLY DECREASED (NORMAL); Platelet Morphology Comment NOTED; RBC Morphology NOTED
[2021-05-25 06:50] LABS: Basophilic Stippling 1+ (0-2) /OIF; Pappenheimer Bodies PRESENT; Polychromasia 2+ (3-5) /OIF; Tear Drop Cells 1+ (0-2) /OIF; Toxic Granulation PRESENT; Toxic Vacuolation PRESENT
[2021-05-25] MEDS: 0.9 % Sodium Chloride Flush 3 ML SYRINGE IVFLUSH ×2 (07:34→12:02)
[2021-05-25] MEDS: PHENobarbitaL 15 MG TABLET 45 MG PO (07:38)
[2021-05-25] MEDS: Thiamine HCL 100 MG TABLET PO (07:38)
[2021-05-25] MEDS: Midodrine HCl 5 MG TABLET PO (07:38)
[2021-05-25 08:17] LABS: Appearance Urine HAZY; Color Urine YELLOW; Glucose Urine UA NEG (NEG); Leukocyte Esterase Urine NEG (NEG); Nitrite Urine NEG (NEG); Specific Gravity - Urine <= 1.005 (1.005-1.025); UACC Culture Trigger NO; Urine Blood 1+ (NEG); Urine Ketones NEG (NEG); Urine Protein 1+ MG/DL (NEG-TRACE)
[2021-05-25 08:22] LABS: Glucose, Whole Blood 59 mg/dL (60-115)
[2021-05-25 08:31] LABS: Bacteria Urine 2+ /LPF; Squamous Epithelial Cell Urine 1+ /LPF; WBC Urine 0 /HPF (0-4)
--- NOTE | 2021-05-25 08:31 | PM.PNGS ---
Subjective Subjective Date of Service: 05/25/21 Interval history: Patient awake but confused. Unable to answer questions. No rectal bleeding reported overnight since procedure. Patient underwent EGD and flex sig last night. Found to have a bleeding vessel in the anal mucosa, clipped x2. Physical Exam Vital Signs: Vital Signs: Last Vital Signs Temp 97.5 F 05/25/21 08:00 Pulse 109 H 05/25/21 08:00 Resp 23 H 05/25/21 08:00 BP 92/59 L 05/25/21 08:00 Pulse Ox 95 05/25/21 08:00 Body Mass Index 25.0 Const: General: confusion Orientation/consciousness: confusion Limitations: altered mental status Eyes: Other: Scleral icterus EOM: EOMs intact bilaterally Resp: Effort & Inspection: normal respiratory effort, no audible wheezes and no cough GI: Palpation (GI): Soft to palpation, nontender and no guarding Rectal Exam - Male: Yes visual inspection normal (Visible clip on anal mucosa. No bleeding identified.) Skin: General skin exam: jaundice Neuro: General: confusion Objective Data Active Medications Albuterol/Ipratropium (Albuterol/Iprat 2.5/0.5mg 3 Ml Ampul.Neb) 3 ml INHALE Q6H PRN PRN Reason: wheezing Last Admin: 05/24/21 18:02 Dose: 3 ml Documented by: WANDA Artificial Tears (Artificial Tears 15 Ml Drops) 1 drop EYE-BOTH Q4H PRN PRN Reason: Dry Eye(S) Albumin Human (Kedbumin 25 %) 100 mls @ 200 mls/hr IV Q6H [facility] Stop: 05/27/21 16:59 Last Infusion: 05/25/21 06:26 Dose: 200 mls/hr Documented by: DESIREE Octreotide Acetate 500 mcg/ (Sodium Chloride) 501 mls @ 50.1 mls/hr IVCONT .Q10H [facility] Last Admin: 05/25/21 02:50 Dose: 50 mcg/hr, 50.1 mls/hr Documented by: DESIREE Ampicillin Sodium 2 gm/ Sodium (Chloride) 100 mls @ 100 mls/hr IV ONCE ONE Stop: 05/25/21 09:59 Piperacillin Sod/Tazobactam (Sod 2.25 gm/ Sodium Chloride) 50 mls @ 100 mls/hr IV Q6H [facility] Last Admin: 05/25/21 04:31 Dose: Not Given Documented by: DESIREE Non-Admin Reason: Previously Administered Norepinephrine Bitartrate (Levophed) 8 mg in 250 mls @ 0 mls/hr IVCONT .Q0M [facility]; Protocol Last Admin: 05/25/21 07:23 Dose: 0.7 mcg/kg/min, 97.16 mls/hr Documented by: JETHRO Dextrose (D10) 1,000 mls @ 20 mls/hr IVCONT .Q24H [facility] Lactulose (Lactulose 20 Gm/30 Ml Solution) 20 gm PO BID [facility] Last Admin: 05/25/21 08:26 Dose: Not Given Documented by: JETHRO Non-Admin Reason: Physician Held Med Midodrine (Midodrine Hcl 5 Mg Tablet) 5 mg PO TIDWM [facility] Last Admin: 05/25/21 07:38 Dose: 5 mg Documented by: JETHRO Nicotine (Nicotine 21 Mg Patch.Td24) 21 mg TRANSDERMA DAILY [facility] Last Admin: 05/24/21 12:31 Dose: 21 mg Documented by: KAYLENE Pantoprazole Sodium (Pantoprazole Sodium 40 Mg/10 Ml Vial) 40 mg IVPUSH BID@0630,1630 [facility] Last Admin: 05/25/21 05:42 Dose: 40 mg Documented by: DESIREE Pharmacy Consult (Consult Rx Perform Med Rec) 1 each MISCELLANE ONCE PRN PRN Reason: Consult order Pharmacy Consult (Consult Rx Etoh Phenob Dosing) 1 each MISCELLANE ONCE PRN; Protocol PRN Reason: Consult order Phenobarbital (Phenobarbital 30 Mg Tablet) 30 mg PO DAILY [facility]; Protocol Stop: 05/30/21 09:01 Phenobarbital (Phenobarbital 15 Mg Tablet) 45 mg PO BID [facility]; Protocol Stop: 05/26/21 21:01 Last Admin: 05/25/21 07:38 Dose: 45 mg Documented by: JETHRO Phenobarbital (Phenobarbital 30 Mg Tablet) 30 mg PO BID [facility]; Protocol Stop: 05/28/21 21:01 Sodium Bicarbonate (Sodium Bicarbonate 8.4% 50 Meq/50 Ml Syringe) 50 meq IVPUSH Q4H [facility] Sodium Biphosphate/Sodium Phosphate (Sodium Phosphate,Grimes-Dibasic 133 Ml Enema) 133 ml GA ONCE PRN PRN Reason: Pre-Op Surgical Prep Sodium Chloride (0.9 % Sodium Chloride Flush 3 Ml Syringe) 3 ml IVFLUSH QSHIFT [facility] Last Admin: 05/25/21 07:34 Dose: 3 ml Documented by: JETHRO Thiamine HCl (Thiamine Hcl 100 Mg Tablet) 100 mg PO DAILY [facility] Last Admin: 05/25/21 07:38 Dose: 100 mg Documented by: JETHRO Labs CBC & Chem 7: 05/25/21 05:24 05/25/21 05:24 Labs: Laboratory Results - last 24 hr 05/24/21 05/24/21 05/24/21 05:43 05:44 05:44 MCV MCH MCHC RDW Plt Count MPV Immature Gran % (Auto) Neut % (Auto) Lymph % (Auto) Grimes % (Auto) Eos % (Auto) Baso % (Auto) Lymph # (Auto) Grimes # (Auto) Eos # (Auto) Baso # (Auto) Abs Immat Gran (auto) Absolute Neuts (auto) Absolute Nucleated RBC Nucleated RBC % (auto) Neutrophils % (Manual) Band Neutrophils % Lymphocytes % (Manual) Monocytes % (Manual) Eosinophils % (Manual) Metamyelocytes % Abs Neuts (Manual) Lymphocytes # (Manual) Monocytes # (Manual) Eosinophils # (Manual) Metamyelocytes # Nucleated RBCs Toxic Granulation Toxic Vacuolation Platelet Estimate Large Platelets Plt Morphology Comment RBC Morphology Polychromasia Basophilic Stippling Macrocytosis Pappenheimer Bodies Tear Drop Cells Ovalocytes Calumet Cells Acanthocytes (Spur) Smear Path Review SEE NOTE PT INR Anion Gap Estim Creat Clear Calc Estimated GFR POC Glucose Random Glucose Lactic Acid Lactic Acid Fup @ 2Hr Lactic Acid Fup @ 4Hr Calcium Phosphorus Magnesium 2.4 Total Bilirubin 35.7 H Direct Bilirubin AST ALT Alkaline Phosphatase Ammonia Total Protein Albumin Urine Color Urine Appearance Urine pH Ur Specific Henley Urine Protein Urine Glucose (UA) Urine Ketones Urine Blood Urine Nitrite Ur Leukocyte Esterase Ur Random Sodium Blood Type O Positive Antibody Screen NEGATIVE Crossmatch See Detail 05/24/21 05/24/21 05/24/21 13:05 13:05 13:06 MCV 94.4 D MCH 33.7 H MCHC 35.7 RDW 21.6 H Plt Count 65 L D MPV 9.8 Immature Gran % (Auto) Neut % (Auto) Lymph % (Auto) Grimes % (Auto) Eos % (Auto) Baso % (Auto) Lymph # (Auto) Grimes # (Auto) Eos # (Auto) Baso # (Auto) Abs Immat Gran (auto) Absolute Neuts (auto) Absolute Nucleated RBC 0.000 Nucleated RBC % (auto) 0.0 Neutrophils % (Manual) Band Neutrophils % Lymphocytes % (Manual) Monocytes % (Manual) Eosinophils % (Manual) Metamyelocytes % Abs Neuts (Manual) Lymphocytes # (Manual) Monocytes # (Manual) Eosinophils # (Manual) Metamyelocytes # Nucleated RBCs Toxic Granulation Toxic Vacuolation Platelet Estimate Large Platelets Plt Morphology Comment RBC Morphology Polychromasia Basophilic Stippling Macrocytosis Pappenheimer Bodies Tear Drop Cells Ovalocytes [place]umet Cells Acanthocytes (Spur) Smear Path Review PT INR Anion Gap 18 Estim Creat Clear Calc 24.1 Estimated GFR 17 POC Glucose Random Glucose 103 Lactic Acid Lactic Acid Fup @ 2Hr Lactic Acid Fup @ 4Hr Calcium 6.8 L Phosphorus Magnesium Total Bilirubin Direct Bilirubin AST ALT Alkaline Phosphatase Ammonia 87 H Total Protein Albumin Urine Color Urine Appearance Urine pH Ur Specific Henley Urine Protein Urine Glucose (UA) Urine Ketones Urine Blood Urine Nitrite Ur Leukocyte Esterase Ur Random Sodium Blood Type Antibody Screen Crossmatch 05/24/21 05/24/21 05/24/21 13:06 13:06 19:52 MCV MCH MCHC RDW Plt Count MPV Immature Gran % (Auto) Neut % (Auto) Lymph % (Auto) Grimes % (Auto) Eos % (Auto) Baso % (Auto) Lymph # (Auto) Grimes # (Auto) Eos # (Auto) Baso # (Auto) Abs Immat Gran (auto) Absolute Neuts (auto) Absolute Nucleated RBC Nucleated RBC % (auto) Neutrophils % (Manual) Band Neutrophils % Lymphocytes % (Manual) Monocytes % (Manual) Eosinophils % (Manual) Metamyelocytes % Abs Neuts (Manual) Lymphocytes # (Manual) Monocytes # (Manual) Eosinophils # (Manual) Metamyelocytes # Nucleated RBCs Toxic Granulation Toxic Vacuolation Platelet Estimate Large Platelets Plt Morphology Comment RBC Morphology Polychromasia Basophilic Stippling Macrocytosis Pappenheimer Bodies Tear Drop Cells Ovalocytes Shannon Cells Acanthocytes (Spur) Smear Path Review PT 19.8 H INR 1.7 H Anion Gap Estim Creat Clear Calc 24.3 Estimated GFR 17 POC Glucose Random Glucose Lactic Acid 6.1 H* Lactic Acid Fup @ 2Hr Lactic Acid Fup @ 4Hr Calcium Phosphorus Magnesium Total Bilirubin Direct Bilirubin AST ALT Alkaline Phosphatase Ammonia Total Protein Albumin Urine Color Urine Appearance Urine pH Ur Specific Henley Urine Protein Urine Glucose (UA) Urine Ketones Urine Blood Urine Nitrite Ur Leukocyte Esterase Ur Random Sodium Blood Type Antibody Screen Crossmatch 05/24/21 05/25/21 05/25/21 22:29 00:36 00:36 MCV 96.2 MCH 32.1 MCHC 33.3 RDW 21.1 H Plt Count 100 L D MPV 10.7 Immature Gran % (Auto) Cancelled Neut % (Auto) Cancelled Lymph % (Auto) Cancelled Grimes % (Auto) Cancelled Eos % (Auto) Cancelled Baso % (Auto) Cancelled Lymph # (Auto) Cancelled Grimes # (Auto) Cancelled Eos # (Auto) Cancelled Baso # (Auto) Cancelled Abs Immat Gran (auto) Cancelled Absolute Neuts (auto) Cancelled Absolute Nucleated RBC 0.040 H Nucleated RBC % (auto) 0.4 H Neutrophils % (Manual) 87 H Band Neutrophils % 8 H Lymphocytes % (Manual) 2 L Monocytes % (Manual) 2 Eosinophils % (Manual) 1 Metamyelocytes % Abs Neuts (Manual) 10.5 H Lymphocytes # (Manual) 0.2 L Monocytes # (Manual) 0.2 Eosinophils # (Manual) 0.1 Metamyelocytes # Nucleated RBCs 2 H Toxic Granulation PRESENT Toxic Vacuolation PRESENT Platelet Estimate DECREASED Large Platelets Plt Morphology Comment NORMAL RBC Morphology NOTED Polychromasia 2+ (3-5) Basophilic Stippling 1+ (0-2) Macrocytosis Pappenheimer Bodies Tear Drop Cells Ovalocytes 1+ (5-14) Shannon Cells 3+ (>5) Acanthocytes (Spur) 1+ (0-2) Smear Path Review PT INR Anion Gap Estim Creat Clear Calc Estimated GFR POC Glucose Random Glucose Lactic Acid Lactic Acid Fup @ 2Hr 10.2 H* Lactic Acid Fup @ 4Hr 11.9 H* Calcium Phosphorus Magnesium Total Bilirubin Direct Bilirubin AST ALT Alkaline Phosphatase Ammonia Total Protein Albumin Urine Color Urine Appearance Urine pH Ur Specific Henley Urine Protein Urine Glucose (UA) Urine Ketones Urine Blood Urine Nitrite Ur Leukocyte Esterase Ur Random Sodium Blood Type Antibody Screen Crossmatch 05/25/21 05/25/21 05/25/21 05:24 05:24 05:24 MCV 95.3 MCH 30.8 MCHC 32.4 RDW 18.4 H Plt Count 140 L D MPV 11.3 Immature Gran % (Auto) Cancelled Neut % (Auto) Cancelled Lymph % (Auto) Cancelled Grimes % (Auto) Cancelled Eos % (Auto) Cancelled Baso % (Auto) Cancelled Lymph # (Auto) Cancelled Grimes # (Auto) Cancelled Eos # (Auto) Cancelled Baso # (Auto) Cancelled Abs Immat Gran (auto) Cancelled Absolute Neuts (auto) Cancelled Absolute Nucleated RBC 0.060 H Nucleated RBC % (auto) 0.2 Neutrophils % (Manual) 87 H Band Neutrophils % 9 H Lymphocytes % (Manual) Monocytes % (Manual) 2 Eosinophils % (Manual) Metamyelocytes % 2 Abs Neuts (Manual) 23.1 H Lymphocytes # (Manual) Monocytes # (Manual) 0.5 Eosinophils # (Manual) Metamyelocytes # 0.5 Nucleated RBCs 1 H Toxic Granulation PRESENT Toxic Vacuolation PRESENT Platelet Estimate SLIGHTLY DECREASED Large Platelets PRESENT Plt Morphology Comment NOTED RBC Morphology NOTED Polychromasia 2+ (3-5) Basophilic Stippling 1+ (0-2) Macrocytosis 1+ (5-14) Pappenheimer Bodies PRESENT Tear Drop Cells 1+ (0-2) Ovalocytes Shannon Cells 3+ ( Acanthocytes (Spur) Smear Path Review PT 24.4 H INR 2.1 H Anion Gap 28 H Estim Creat Clear Calc 20.6 Estimated GFR 14 POC Glucose Random Glucose 41 L* Lactic Acid Lactic Acid Fup @ 2Hr Lactic Acid Fup @ 4Hr Calcium 6.3 L D Phosphorus 5.5 H Magnesium 2.3 Total Bilirubin 27.9 H Direct Bilirubin 22.5 H AST 191 H ALT 46 H Alkaline Phosphatase 107 D Ammonia Total Protein 4.3 L Albumin 3.1 L D Urine Color Urine Appearance Urine pH Ur Specific Henley Urine Protein Urine Glucose (UA) Urine Ketones Urine Blood Urine Nitrite Ur Leukocyte Esterase Ur Random Sodium Blood Type Antibody Screen Crossmatch 05/25/21 05/25/21 05/25/21 05:24 08:06 08:06 MCV MCH MCHC RDW Plt Count MPV Immature Gran % (Auto) Neut % (Auto) Lymph % (Auto) Grimes % (Auto) Eos % (Auto) Baso % (Auto) Lymph # (Auto) Grimes # (Auto) Eos # (Auto) Baso # (Auto) Abs Immat Gran (auto) Absolute Neuts (auto) Absolute Nucleated RBC Nucleated RBC % (auto) Neutrophils % (Manual) Band Neutrophils % Lymphocytes % (Manual) Monocytes % (Manual) Eosinophils % (Manual) Metamyelocytes % Abs Neuts (Manual) Lymphocytes # (Manual) Monocytes # (Manual) Eosinophils # (Manual) Metamyelocytes # Nucleated RBCs Toxic Granulation Toxic Vacuolation Platelet Estimate Large Platelets Plt Morphology Comment RBC Morphology Polychromasia Basophilic Stippling Macrocytosis Pappenheimer Bodies Tear Drop Cells Ovalocytes [place]um[place] Cells Acanthocytes (Spur) Smear Path Review PT INR Anion Gap Estim Creat Clear Calc Estimated GFR POC Glucose Random Glucose Lactic Acid Lactic Acid Fup @ 2Hr Lactic Acid Fup @ 4Hr Calcium Phosphorus Magnesium Total Bilirubin Direct Bilirubin AST ALT Alkaline Phosphatase Ammonia 126 H Total Protein Albumin Urine Color YELLOW Urine Appearance HAZY Urine pH 6.0 Ur Specific Henley <= 1.005 Urine Protein 1+ H Urine Glucose (UA) NEG Urine Ketones NEG Urine Blood 1+ H Urine Nitrite NEG Ur Leukocyte Esterase NEG Ur Random Sodium 140.0 Blood Type Antibody Screen Crossmatch 05/25/21 08:18 MCV MCH MCHC RDW Plt Count MPV Immature Gran % (Auto) Neut % (Auto) Lymph % (Auto) Grimes % (Auto) Eos % (Auto) Baso % (Auto) Lymph # (Auto) Grimes # (Auto) Eos # (Auto) Baso # (Auto) Abs Immat Gran (auto) Absolute Neuts (auto) Absolute Nucleated RBC Nucleated RBC % (auto) Neutrophils % (Manual) Band Neutrophils % Lymphocytes % (Manual) Monocytes % (Manual) Eosinophils % (Manual) Metamyelocytes % Abs Neuts (Manual) Lymphocytes # (Manual) Monocytes # (Manual) Eosinophils # (Manual) Metamyelocytes # Nucleated RBCs Toxic Granulation Toxic Vacuolation Platelet Estimate Large Platelets Plt Morphology Comment RBC Morphology Polychromasia Basophilic Stippling Macrocytosis Pappenheimer Bodies Tear Drop Cells Ovalocytes [place]um[place] Cells Acanthocytes (Spur) Smear Path Review PT INR Anion Gap Estim Creat Clear Calc Estimated GFR POC Glucose 59 L* Random Glucose Lactic Acid Lactic Acid Fup @ 2Hr Lactic Acid Fup @ 4Hr Calcium Phosphorus Magnesium Total Bilirubin Direct Bilirubin AST ALT Alkaline Phosphatase Ammonia Total Protein Albumin Urine Color Urine Appearance Urine pH Ur Specific Henley Urine Protein Urine Glucose (UA) Urine Ketones Urine Blood Urine Nitrite Ur Leukocyte Esterase Ur Random Sodium Blood Type Antibody Screen Crossmatch Microbiology Microbiology Results: Microbiology 05/24/21 19:52 Blood Culture - Preliminary Blood - Venous Prelim: GNR Gram Stain only 05/24/21 19:52 Blood Culture - Preliminary Blood - Venous Prelim: GPR Gram Stain only Procedures Date of Service Date of Service: 05/25/21 Progress Note: A&P Assessment and plan (1) Alcoholic cirrhosis of liver with ascites: Status: Acute (2) Coagulopathy: Status: Acute (3) Painless rectal bleeding: Status: Acute (4) Hemorrhoids: Status: Acute Assessment and Plan: 51-year-old male patient with alcoholic cirrhosis with portal hypertension, coagulopathy presenting with rectal bleeding found on endoscopy to have a bleeding vessel which was controlled with hemoclips. No active bleeding apparent at this time. Patient remains coagulopathic with an INR 2.1. Fall Risk Details Current Medications: Current Medications Albuterol/Ipratropium (Albuterol/Iprat 2.5/0.5mg 3 Ml Ampul.Neb) 3 ml INHALE Q6H PRN PRN Reason: wheezing Last Admin: 05/24/21 18:02 Dose: 3 ml Documented by: Artificial Tears (Artificial Tears 15 Ml Drops) 1 drop EYE-BOTH Q4H PRN PRN Reason: Dry Eye(S) Albumin Human (Kedbumin 25 %) 100 mls @ 200 mls/hr IV Q6H [facility] Stop: 05/27/21 16:59 Last Infusion: 05/25/21 06:26 Dose: Infused Documented by: Octreotide Acetate 500 mcg/ (Sodium Chloride) 501 mls @ 50.1 mls/hr IVCONT .Q10H [facility] Last Admin: 05/25/21 02:50 Dose: 50 mcg/hr, 50.1 mls/hr Documented by: Ampicillin Sodium 2 gm/ Sodium (Chloride) 100 mls @ 100 mls/hr IV ONCE ONE Stop: 05/25/21 09:59 Piperacillin Sod/Tazobactam (Sod 2.25 gm/ Sodium Chloride) 50 mls @ 100 mls/hr IV Q6H [facility] Last Admin: 05/25/21 04:31 Dose: Not Given Documented by: Norepinephrine Bitartrate (Levophed) 8 mg in 250 mls @ 0 mls/hr IVCONT .Q0M [facility]; Protocol Last Admin: 05/25/21 07:23 Dose: 0.7 mcg/kg/min, 97.16 mls/hr Documented by: Dextrose (D10) 1,000 mls @ 20 mls/hr IVCONT .Q24H [facility] Lactulose (Lactulose 20 Gm/30 Ml Solution) 20 gm PO BID [facility] Last Admin: 05/25/21 08:26 Dose: Not Given Documented by: Midodrine (Midodrine Hcl 5 Mg Tablet) 5 mg PO TIDWM [facility] Last Admin: 05/25/21 07:38 Dose: 5 mg Documented by: Nicotine (Nicotine 21 Mg Patch.Td24) 21 mg TRANSDERMA DAILY [facility] Last Admin: 05/24/21 12:31 Dose: 21 mg Documented by: Pantoprazole Sodium (Pantoprazole Sodium 40 Mg/10 Ml Vial) 40 mg IVPUSH BID@0630,1630 [facility] Last Admin: 05/25/21 05:42 Dose: 40 mg Documented by: Pharmacy Consult (Consult Rx Perform Med Rec) 1 each MISCELLANE ONCE PRN PRN Reason: Consult order Pharmacy Consult (Consult Rx Etoh Phenob Dosing) 1 each MISCELLANE ONCE PRN; Protocol PRN Reason: Consult order Phenobarbital (Phenobarbital 30 Mg Tablet) 30 mg PO DAILY [facility]; Protocol Stop: 05/30/21 09:01 Phenobarbital (Phenobarbital 15 Mg Tablet) 45 mg PO BID [facility]; Protocol Stop: 05/26/21 21:01 Last Admin: 05/25/21 07:38 Dose: 45 mg Documented by: Phenobarbital (Phenobarbital 30 Mg Tablet) 30 mg PO BID [facility]; Protocol Stop: 05/28/21 21:01 Sodium Bicarbonate (Sodium Bicarbonate 8.4% 50 Meq/50 Ml Syringe) 50 meq IVPUSH Q4H [facility] Sodium Biphosphate/Sodium Phosphate (Sodium Phosphate,Grimes-Dibasic 133 Ml Enema) 133 ml GA ONCE PRN PRN Reason: Pre-Op Surgical Prep Sodium Chloride (0.9 % Sodium Chloride Flush 3 Ml Syringe) 3 ml IVFLUSH QSHIFT [facility] Last Admin: 05/25/21 07:34 Dose: 3 ml Documented by: Thiamine HCl (Thiamine Hcl 100 Mg Tablet) 100 mg PO DAILY [facility] Last Admin: 05/25/21 07:38 Dose: 100 mg Documented by: Time Spent With Patient Time: Total time spent is greater than 50% in coordination of care (as documented) at patient's floor/unit and/or counseling patient: Time with patient: 15 - 24 minutes Quality Stroke Does the patient have a stroke diagnosis?: No VTE Prior VTE?: No VTE Risk Level:: Medical - moderate - high VTE Device Contraindication: N/A - Device Ordered VTE Drug Contraindication: Treatment Not Indicated
[2021-05-25] MEDS: Dextrose 10 % 1,000 ML 20 ML IVCONT (08:44)
[2021-05-25] MEDS: Albumin Human 25 % 100 ML IV ×2 (08:45→09:46)
--- NOTE | 2021-05-25 08:53 | P.PNNP_ITS ---
Subjective Subjective Date of Service: 05/25/21 Physical Exam Vital Signs: Vital Signs: Last Vital Signs Temp 97.5 F 05/25/21 08:00 Pulse 109 H 05/25/21 08:00 Resp 23 H 05/25/21 08:00 BP 92/59 L 05/25/21 08:00 Pulse Ox 95 05/25/21 08:00 Body Mass Index 25.0 Const: General: comfortable, no acute distress, alert, awake, confusion and ill appearing Nutritional Appearance: average body habitus Orientation/consciousness: oriented to person, patient oriented x3 and confusion Limitations: no limitations and altered mental status HENMT: Head: Yes normal to inspection and Yes normocephalic Ears: hearing grossly normal bilaterally and external ears normal General nose exam: Normal external nose present Mouth: Normal oral and palatal mucosa present and oropharynx normal Throat: Yes posterior oropharynx normal Eyes: Other: Scleral icterus Sclerae: scleral abnormal (jaundice) bilateral (scleral icterus ) Pupils: Equal, round and reactive pupils present EOM: EOMs intact bilaterally Neck: Neck: Yes normal visual inspection and Yes supple Chest: Chest palpation & inspection: normal inspection of the chest Resp: Effort & Inspection: normal respiratory effort, no audible wheezes, no cough and no respiratory distress Auscultation: clear to auscultation bilaterally and diminished lung sounds Cardio: Jugular venous distension: no JVD Palpation: normal PMI Rate: regular rate and tachycardic Rhythm: regular rhythm Heart sounds: S1 normal heart sound present, S2 normal heart sound present and no murmurs GI: Inspection: Yes normal to inspection and Yes distended Palpation (GI): Soft to palpation, nontender, no guarding, No hepatosplenomegaly present and Ascites present Auscultation: normal bowel sounds Rectal Exam - Male: Yes deferred and Yes visual inspection normal (Visible clip on anal mucosa. No bleeding identified.) Skin: General skin exam: no rashes or lesions noted, ecchymosis, jaundice and spider nevi (extensive spider angiomata on anterior neck and upper chest) Neuro: General: oriented to person, patient oriented x3, gait normal, moves all extremities and confusion Cranial nerves: Yes CN's II-XII intact bilaterally and Yes Equal, round and reactive pupils present Motor exam (neuro): 5/5 motor strength present throughout Sensory Exam: No Sensory deficit (Neuro) Extrem: General: Yes normal to inspection, No edema, Yes pedal edema (trace pitting edema) and Yes other (tremors) Psych: Appearance: grossly normal Mental Status: mental status grossly normal Objective Data Labs CBC & Chem 7: 05/25/21 05:24 05/25/21 05:24 Labs: Laboratory Results - last 24 hr 05/24/21 05/24/21 05/24/21 05:43 05:44 05:44 WBC RBC Hgb Hct MCV MCH MCHC RDW Plt Count MPV Immature Gran % (Auto) Neut % (Auto) Lymph % (Auto) [place] % (Auto) Eos % (Auto) Baso % (Auto) Lymph # (Auto) [place] # (Auto) Eos # (Auto) Baso # (Auto) Abs Immat Gran (auto) Absolute Neuts (auto) Absolute Nucleated RBC Nucleated RBC % (auto) Neutrophils % (Manual) Band Neutrophils % Lymphocytes % (Manual) Monocytes % (Manual) Eosinophils % (Manual) Metamyelocytes % Abs Neuts (Manual) Lymphocytes # (Manual) Monocytes # (Manual) Eosinophils # (Manual) Metamyelocytes # Nucleated RBCs Toxic Granulation Toxic Vacuolation Platelet Estimate Large Platelets Plt Morphology Comment RBC Morphology Polychromasia Basophilic Stippling Macrocytosis Pappenheimer Bodies Tear Drop Cells Ovalocytes [place] Cells Acanthocytes (Spur) Smear Path Review SEE NOTE PT INR Sodium Potassium Chloride Carbon Dioxide Anion Gap BUN Creatinine Estim Creat Clear Calc Estimated GFR POC Glucose Random Glucose Lactic Acid Lactic Acid Fup @ 2Hr Lactic Acid Fup @ 4Hr Calcium Phosphorus Magnesium 2.4 Total Bilirubin 35.7 H Direct Bilirubin AST ALT Alkaline Phosphatase Ammonia Total Protein Albumin Urine Color Urine Appearance Urine pH Ur Specific [place] Urine Protein Urine Glucose (UA) Urine Ketones Urine Blood Urine Nitrite Ur Leukocyte Esterase Urine RBC Urine WBC Ur Squamous Epith Cells Urine Bacteria Granular Casts Ur Random Sodium Blood Type O Positive Antibody Screen NEGATIVE Crossmatch See Detail 05/24/21 05/24/21 05/24/21 13:05 13:05 13:06 WBC 8.2 RBC 1.96 L Hgb 6.6 L* Hct 18.5 L* MCV 94.4 D MCH 33.7 H MCHC 35.7 RDW 21.6 H Plt Count 65 L D MPV 9.8 Immature Gran % (Auto) Neut % (Auto) Lymph % (Auto) [place] % (Auto) Eos % (Auto) Baso % (Auto) Lymph # (Auto) [place] # (Auto) Eos # (Auto) Baso # (Auto) Abs Immat Gran (auto) Absolute Neuts (auto) Absolute Nucleated RBC 0.000 Nucleated RBC % (auto) 0.0 Neutrophils % (Manual) Band Neutrophils % Lymphocytes % (Manual) Monocytes % (Manual) Eosinophils % (Manual) Metamyelocytes % Abs Neuts (Manual) Lymphocytes # (Manual) Monocytes # (Manual) Eosinophils # (Manual) Metamyelocytes # Nucleated RBCs Toxic Granulation Toxic Vacuolation Platelet Estimate Large Platelets Plt Morphology Comment RBC Morphology Polychromasia Basophilic Stippling Macrocytosis Pappenheimer Bodies Tear Drop Cells Ovalocytes [place] Cells Acanthocytes (Spur) Smear Path Review PT INR Sodium 126 L Potassium 4.0 Chloride 94 L Carbon Dioxide 18 L Anion Gap 18 BUN 56 H Creatinine 3.73 H Estim Creat Clear Calc 24.1 Estimated GFR 17 POC Glucose Random Glucose 103 Lactic Acid Lactic Acid Fup @ 2Hr Lactic Acid Fup @ 4Hr Calcium 6.8 L Phosphorus Magnesium Total Bilirubin Direct Bilirubin AST ALT Alkaline Phosphatase Ammonia 87 H Total Protein Albumin Urine Color Urine Appearance Urine pH Ur Specific [place] Urine Protein Urine Glucose (UA) Urine Ketones Urine Blood Urine Nitrite Ur Leukocyte Esterase Urine RBC Urine WBC Ur Squamous Epith Cells Urine Bacteria Granular Casts Ur Random Sodium Blood Type Antibody Screen Crossmatch 05/24/21 05/24/21 05/24/21 13:06 13:06 18:34 WBC RBC Hgb 9.0 L D Hct 25.3 L D MCV MCH MCHC RDW Plt Count MPV Immature Gran % (Auto) Neut % (Auto) Lymph % (Auto) [place] % (Auto) Eos % (Auto) Baso % (Auto) Lymph # (Auto) [place] # (Auto) Eos # (Auto) Baso # (Auto) Abs Immat Gran (auto) Absolute Neuts (auto) Absolute Nucleated RBC Nucleated RBC % (auto) Neutrophils % (Manual) Band Neutrophils % Lymphocytes % (Manual) Monocytes % (Manual) Eosinophils % (Manual) Metamyelocytes % Abs Neuts (Manual) Lymphocytes # (Manual) Monocytes # (Manual) Eosinophils # (Manual) Metamyelocytes # Nucleated RBCs Toxic Granulation Toxic Vacuolation Platelet Estimate Large Platelets Plt Morphology Comment RBC Morphology Polychromasia Basophilic Stippling Macrocytosis Pappenheimer Bodies Tear Drop Cells Ovalocytes [place] Cells Acanthocytes (Spur) Smear Path Review PT 19.8 H INR 1.7 H Sodium Potassium Chloride Carbon Dioxide Anion Gap BUN Creatinine 3.71 H Estim Creat Clear Calc 24.3 Estimated GFR 17 POC Glucose Random Glucose Lactic Acid Lactic Acid Fup @ 2Hr Lactic Acid Fup @ 4Hr Calcium Phosphorus Magnesium Total Bilirubin Direct Bilirubin AST ALT Alkaline Phosphatase Ammonia Total Protein Albumin Urine Color Urine Appearance Urine pH Ur Specific [place] Urine Protein Urine Glucose (UA) Urine Ketones Urine Blood Urine Nitrite Ur Leukocyte Esterase Urine RBC Urine WBC Ur Squamous Epith Cells Urine Bacteria Granular Casts Ur Random Sodium Blood Type Antibody Screen Crossmatch 05/24/21 05/24/21 05/24/21 19:52 21:19 22:29 WBC RBC Hgb 7.2 L Hct 21.3 L MCV MCH MCHC RDW Plt Count MPV Immature Gran % (Auto) Neut % (Auto) Lymph % (Auto) [place] % (Auto) Eos % (Auto) Baso % (Auto) Lymph # (Auto) [place] # (Auto) Eos # (Auto) Baso # (Auto) Abs Immat Gran (auto) Absolute Neuts (auto) Absolute Nucleated RBC Nucleated RBC % (auto) Neutrophils % (Manual) Band Neutrophils % Lymphocytes % (Manual) Monocytes % (Manual) Eosinophils % (Manual) Metamyelocytes % Abs Neuts (Manual) Lymphocytes # (Manual) Monocytes # (Manual) Eosinophils # (Manual) Metamyelocytes # Nucleated RBCs Toxic Granulation Toxic Vacuolation Platelet Estimate Large Platelets Plt Morphology Comment RBC Morphology Polychromasia Basophilic Stippling Macrocytosis Pappenheimer Bodies Tear Drop Cells Ovalocytes [place] Cells Acanthocytes (Spur) Smear Path Review PT INR Sodium Potassium Chloride Carbon Dioxide Anion Gap BUN Creatinine Estim Creat Clear Calc Estimated GFR POC Glucose Random Glucose Lactic Acid 6.1 H* Lactic Acid Fup @ 2Hr 10.2 H* Lactic Acid Fup @ 4Hr Calcium Phosphorus Magnesium Total Bilirubin Direct Bilirubin AST ALT Alkaline Phosphatase Ammonia Total Protein Albumin Urine Color Urine Appearance Urine pH Ur Specific [place] Urine Protein Urine Glucose (UA) Urine Ketones Urine Blood Urine Nitrite Ur Leukocyte Esterase Urine RBC Urine WBC Ur Squamous Epith Cells Urine Bacteria Granular Casts Ur Random Sodium Blood Type Antibody Screen Crossmatch 05/25/21 05/25/21 05/25/21 00:36 00:36 05:24 WBC 11.0 H 24.1 H RBC 2.09 L 2.53 L D Hgb 6.7 L* 7.8 L Hct 20.1 L* 24.1 L MCV 96.2 95.3 MCH 32.1 30.8 MCHC 33.3 32.4 RDW 21.1 H 18.4 H Plt Count 100 L D 140 L D MPV 10.7 11.3 Immature Gran % (Auto) Cancelled Cancelled Neut % (Auto) Cancelled Cancelled Lymph % (Auto) Cancelled Cancelled [place] % (Auto) Cancelled Cancelled Eos % (Auto) Cancelled Cancelled Baso % (Auto) Cancelled Cancelled Lymph # (Auto) Cancelled Cancelled [place] # (Auto) Cancelled Cancelled Eos # (Auto) Cancelled Cancelled Baso # (Auto) Cancelled Cancelled Abs Immat Gran (auto) Cancelled Cancelled Absolute Neuts (auto) Cancelled Cancelled Absolute Nucleated RBC 0.040 H 0.060 H Nucleated RBC % (auto) 0.4 H 0.2 Neutrophils % (Manual) 87 H 87 H Band Neutrophils % 8 H 9 H Lymphocytes % (Manual) 2 L Monocytes % (Manual) 2 2 Eosinophils % (Manual) 1 Metamyelocytes % 2 Abs Neuts (Manual) 10.5 H 23.1 H Lymphocytes # (Manual) 0.2 L Monocytes # (Manual) 0.2 0.5 Eosinophils # (Manual) 0.1 Metamyelocytes # 0.5 Nucleated RBCs 2 H 1 H Toxic Granulation PRESENT PRESENT Toxic Vacuolation PRESENT PRESENT Platelet Estimate DECREASED SLIGHTLY DECREASED Large Platelets PRESENT Plt Morphology Comment NORMAL NOTED RBC Morphology NOTED NOTED Polychromasia 2+ (3-5) 2+ (3-5) Basophilic Stippling 1+ (0-2) 1+ (0-2) Macrocytosis 1+ (5-14) Pappenheimer Bodies PRESENT Tear Drop Cells 1+ (0-2) Ovalocytes 1+ (5-14) [place] Cells 3+ (>5) 3+ ( Acanthocytes (Spur) 1+ (0-2) Smear Path Review PT INR Sodium Potassium Chloride Carbon Dioxide Anion Gap BUN Creatinine Estim Creat Clear Calc Estimated GFR POC Glucose Random Glucose Lactic Acid Lactic Acid Fup @ 2Hr Lactic Acid Fup @ 4Hr 11.9 H* Calcium Phosphorus Magnesium Total Bilirubin Direct Bilirubin AST ALT Alkaline Phosphatase Ammonia Total Protein Albumin Urine Color Urine Appearance Urine pH Ur Specific [place] Urine Protein Urine Glucose (UA) Urine Ketones Urine Blood Urine Nitrite Ur Leukocyte Esterase Urine RBC Urine WBC Ur Squamous Epith Cells Urine Bacteria Granular Casts Ur Random Sodium Blood Type Antibody Screen Crossmatch 05/25/21 05/25/21 05/25/21 05:24 05:24 05:24 WBC RBC Hgb Hct MCV MCH MCHC RDW Plt Count MPV Immature Gran % (Auto) Neut % (Auto) Lymph % (Auto) [place] % (Auto) Eos % (Auto) Baso % (Auto) Lymph # (Auto) [place] # (Auto) Eos # (Auto) Baso # (Auto) Abs Immat Gran (auto) Absolute Neuts (auto) Absolute Nucleated RBC Nucleated RBC % (auto) Neutrophils % (Manual) Band Neutrophils % Lymphocytes % (Manual) Monocytes % (Manual) Eosinophils % (Manual) Metamyelocytes % Abs Neuts (Manual) Lymphocytes # (Manual) Monocytes # (Manual) Eosinophils # (Manual) Metamyelocytes # Nucleated RBCs Toxic Granulation Toxic Vacuolation Platelet Estimate Large Platelets Plt Morphology Comment RBC Morphology Polychromasia Basophilic Stippling Macrocytosis Pappenheimer Bodies Tear Drop Cells Ovalocytes [place] Cells Acanthocytes (Spur) Smear Path Review PT 24.4 H INR 2.1 H Sodium 131 L Potassium 4.4 Chloride 100 Carbon Dioxide 7 L* D Anion Gap 28 H BUN 57 H Creatinine 4.36 H* Estim Creat Clear Calc 20.6 Estimated GFR 14 POC Glucose Random Glucose 41 L* Lactic Acid Lactic Acid Fup @ 2Hr Lactic Acid Fup @ 4Hr Calcium 6.3 L D Phosphorus 5.5 H Magnesium 2.3 Total Bilirubin 27.9 H Direct Bilirubin 22.5 H AST 191 H ALT 46 H Alkaline Phosphatase 107 D Ammonia 126 H Total Protein 4.3 L Albumin 3.1 L D Urine Color Urine Appearance Urine pH Ur Specific [place] Urine Protein Urine Glucose (UA) Urine Ketones Urine Blood Urine Nitrite Ur Leukocyte Esterase Urine RBC Urine WBC Ur Squamous Epith Cells Urine Bacteria Granular Casts Ur Random Sodium Blood Type Antibody Screen Crossmatch 05/25/21 05/25/21 05/25/21 08:06 08:06 08:18 WBC RBC Hgb Hct MCV MCH MCHC RDW Plt Count MPV Immature Gran % (Auto) Neut % (Auto) Lymph % (Auto) [place] % (Auto) Eos % (Auto) Baso % (Auto) Lymph # (Auto) [place] # (Auto) Eos # (Auto) Baso # (Auto) Abs Immat Gran (auto) Absolute Neuts (auto) Absolute Nucleated RBC Nucleated RBC % (auto) Neutrophils % (Manual) Band Neutrophils % Lymphocytes % (Manual) Monocytes % (Manual) Eosinophils % (Manual) Metamyelocytes % Abs Neuts (Manual) Lymphocytes # (Manual) Monocytes # (Manual) Eosinophils # (Manual) Metamyelocytes # Nucleated RBCs Toxic Granulation Toxic Vacuolation Platelet Estimate Large Platelets Plt Morphology Comment RBC Morphology Polychromasia Basophilic Stippling Macrocytosis Pappenheimer Bodies Tear Drop Cells Ovalocytes [place] Cells Acanthocytes (Spur) Smear Path Review PT INR Sodium Potassium Chloride Carbon Dioxide Anion Gap BUN Creatinine Estim Creat Clear Calc Estimated GFR POC Glucose 59 L* Random Glucose Lactic Acid Lactic Acid Fup @ 2Hr Lactic Acid Fup @ 4Hr Calcium Phosphorus Magnesium Total Bilirubin Direct Bilirubin AST ALT Alkaline Phosphatase Ammonia Total Protein Albumin Urine Color YELLOW Urine Appearance HAZY Urine pH 6.0 Ur Specific [place] <= 1.005 Urine Protein 1+ H Urine Glucose (UA) NEG Urine Ketones NEG Urine Blood 1+ H Urine Nitrite NEG Ur Leukocyte Esterase NEG Urine RBC 1-4 Urine WBC 0 Ur Squamous Epith Cells 1+ Urine Bacteria 2+ Granular Casts 1-4 Ur Random Sodium 140.0 Blood Type Antibody Screen Crossmatch Microbiology Microbiology Results: Microbiology 05/24/21 19:52 Blood - Venous Blood Culture - Preliminary Prelim: GNR Gram Stain only 05/24/21 19:52 Blood - Venous Blood Culture - Preliminary Prelim: GPR Gram Stain only Procedures Date of Service Date of Service: 05/25/21 Assessment & Plan Assessment and plan (1) Alcoholic cirrhosis of liver with ascites: Status: Acute (2) Coagulopathy: Status: Acute (3) Painless rectal bleeding: Status: Acute (4) Hemorrhoids: Status: Acute (5) TALISHA (acute kidney injury): Status: Acute Assessment and Plan: ?? TALISHA likely due to ATN DDX- HRS 1( might have been having HRS 2 at baseline) Urine sodium high c/w ATN Started on Midodrine/IV Albumin and Octreotide Aggressive resuscitation; Close monitoring of labs No indication for HD GI bleed last night Assessment and Plan: 51-year-old male patient with alcoholic cirrhosis with portal hypertension, coagulopathy presenting with rectal bleeding found on endoscopy to have a bleeding vessel which was controlled with hemoclips. No active bleeding apparent at this time. Patient remains coagulopathic with an INR 2.1. Time Spent With Patient Time: Total time spent is greater than 50% in coordination of care (as documented) at patient's floor/unit and/or counseling patient: Progress Note: Quality Stroke Does the patient have a stroke diagnosis?: No CKD ?51 year old male with history of alcoholic liver cirrhosis who presents to the emergency department today with rectal bleeding. He has also noticed becoming progressively jaundiced over the past 1 week. He continues to drink alcohol daily.? Workup in the emergency department revealed Sodium was 122, BUN 51, creatinine 3.69.? Liver function numbers elevated as well with total bilirubin 35.6, direct bilirubin 27.8, AST 110, ALT 56.? INR was 2.? CBC showed le ukocytosis of 15.2, H/H of 6.8/19.9. Nephrology has been consulted to assist in his clinical management
[2021-05-25 09:58] LABS: Total Protein 4.2 g/dL (6.5-8.0)
[2021-05-25] MEDS: Nicotine 21 MG PATCH.TD24 TRANSDERMA (09:59)
[2021-05-25 10:17] LABS: Lactate Dehydrogenase 562 U/L (118-273)
--- NOTE | 2021-05-25 10:23 | P.PNCC_ITS ---
Subjective Subjective Date of Service: 05/25/21 Interval History: 51-year-old gentleman with underlying alcoholic liver cirrhosis, still drinking alcohol, anal fistula with seton in place, asthma admitted on 05/24/2021 with lower GI bleed and hepatorenal syndrome initially to general medical bautista, however, over a course of his 1st hospital day his rectal bleeding has worsened significantly, he has required 6 units of blood, 4 units of FFP, and unit of platelets, patient has been transferred to intensive care unit. He was re-evaluated by Gastroenterology service and has had urgent endoscopy that showed no upper GI bleed, and sigmoidoscopy that showed an actively bleeding anorectal vessel requiring clipping for hemostasis. Overnight with worsening shock with blood cultures growing Gram-negative and Gram-positive rods, requiring placement of central venous access and vasopressor support. Critical Care Time (minutes): 60 Physical Exam Vital Signs: Vital Signs: Last Vital Signs Temp 97.5 F 05/25/21 08:00 Pulse 106 H 05/25/21 10:00 Resp 22 H 05/25/21 10:00 BP 98/40 L 05/25/21 10:00 Pulse Ox 95 05/25/21 10:00 Body Mass Index 25.0 Const: General: confusion, ill appearing, lethargic and other ( jaundiced) Orientation/consciousness: confusion and lethargic Eyes: Sclerae: scleral abnormal bilateral ( icteric) EOM: EOMs intact bilaterally Neck: Neck: Yes no lymphadenopathy, Yes trachea midline and Yes supple Resp: Effort & Inspection: normal respiratory effort and no respiratory distress Auscultation: crackles ( mild diffuse) Cardio: Rate: tachycardic Rhythm: regular rhythm Heart sounds: no gallops, no murmurs and no rubs GI: Inspection: Yes distended Palpation (GI): Firmness to palpation present (GI) and Other GI palpation findings present ( Nontender) Auscultation: normal bowel sounds Neuro: General: confusion Extrem: General: No clubbing, No cyanosis and Yes pedal edema ( trace bilateral) Objective Data Labs CBC & Chem 7: 05/25/21 05:24 05/25/21 05:24 Labs: Laboratory Results - last 24 hr 05/24/21 05/24/21 05/24/21 05:43 05:44 05:44 WBC RBC Hgb Hct MCV MCH MCHC RDW Plt Count MPV Immature Gran % (Auto) Neut % (Auto) Lymph % (Auto) [place] % (Auto) Eos % (Auto) Baso % (Auto) Lymph # (Auto) [place] # (Auto) Eos # (Auto) Baso # (Auto) Abs Immat Gran (auto) Absolute Neuts (auto) Absolute Nucleated RBC Nucleated RBC % (auto) Neutrophils % (Manual) Band Neutrophils % Lymphocytes % (Manual) Monocytes % (Manual) Eosinophils % (Manual) Metamyelocytes % Abs Neuts (Manual) Lymphocytes # (Manual) Monocytes # (Manual) Eosinophils # (Manual) Metamyelocytes # Nucleated RBCs Toxic Granulation Toxic Vacuolation Platelet Estimate Large Platelets Plt Morphology Comment RBC Morphology Polychromasia Basophilic Stippling Macrocytosis Pappenheimer Bodies Tear Drop Cells Ovalocytes [place] Cells Acanthocytes (Spur) Smear Path Review SEE NOTE PT INR Sodium Potassium Chloride Carbon Dioxide Anion Gap BUN Creatinine Estim Creat Clear Calc Estimated GFR POC Glucose Random Glucose Lactic Acid Lactic Acid Fup @ 2Hr Lactic Acid Fup @ 4Hr Calcium Phosphorus Magnesium 2.4 Total Bilirubin 35.7 H Direct Bilirubin AST ALT Alkaline Phosphatase Ammonia Lactate Dehydrogenase Total Protein Albumin Urine Color Urine Appearance Urine pH Ur Specific [place] Urine Protein Urine Glucose (UA) Urine Ketones Urine Blood Urine Nitrite Ur Leukocyte Esterase Urine RBC Urine WBC Ur Squamous Epith Cells Urine Bacteria Granular Casts Ur Random Sodium Blood Type O Positive Antibody Screen NEGATIVE Crossmatch See Detail 05/24/21 05/24/21 05/24/21 13:05 13:05 13:06 WBC 8.2 RBC 1.96 L Hgb 6.6 L* Hct 18.5 L* MCV 94.4 D MCH 33.7 H MCHC 35.7 RDW 21.6 H Plt Count 65 L D MPV 9.8 Immature Gran % (Auto) Neut % (Auto) Lymph % (Auto) [place] % (Auto) Eos % (Auto) Baso % (Auto) Lymph # (Auto) [place] # (Auto) Eos # (Auto) Baso # (Auto) Abs Immat Gran (auto) Absolute Neuts (auto) Absolute Nucleated RBC 0.000 Nucleated RBC % (auto) 0.0 Neutrophils % (Manual) Band Neutrophils % Lymphocytes % (Manual) Monocytes % (Manual) Eosinophils % (Manual) Metamyelocytes % Abs Neuts (Manual) Lymphocytes # (Manual) Monocytes # (Manual) Eosinophils # (Manual) Metamyelocytes # Nucleated RBCs Toxic Granulation Toxic Vacuolation Platelet Estimate Large Platelets Plt Morphology Comment RBC Morphology Polychromasia Basophilic Stippling Macrocytosis Pappenheimer Bodies Tear Drop Cells Ovalocytes [place] Cells Acanthocytes (Spur) Smear Path Review PT INR Sodium 126 L Potassium 4.0 Chloride 94 L Carbon Dioxide 18 L Anion Gap 18 BUN 56 H Creatinine 3.73 H Estim Creat Clear Calc 24.1 Estimated GFR 17 POC Glucose Random Glucose 103 Lactic Acid Lactic Acid Fup @ 2Hr Lactic Acid Fup @ 4Hr Calcium 6.8 L Phosphorus Magnesium Total Bilirubin Direct Bilirubin AST ALT Alkaline Phosphatase Ammonia 87 H Lactate Dehydrogenase Total Protein Albumin Urine Color Urine Appearance Urine pH Ur Specific [place] Urine Protein Urine Glucose (UA) Urine Ketones Urine Blood Urine Nitrite Ur Leukocyte Esterase Urine RBC Urine WBC Ur Squamous Epith Cells Urine Bacteria Granular Casts Ur Random Sodium Blood Type Antibody Screen Crossmatch 05/24/21 05/24/21 05/24/21 13:06 13:06 18:34 WBC RBC Hgb 9.0 L D Hct 25.3 L D MCV MCH MCHC RDW Plt Count MPV Immature Gran % (Auto) Neut % (Auto) Lymph % (Auto) [place] % (Auto) Eos % (Auto) Baso % (Auto) Lymph # (Auto) [place] # (Auto) Eos # (Auto) Baso # (Auto) Abs Immat Gran (auto) Absolute Neuts (auto) Absolute Nucleated RBC Nucleated RBC % (auto) Neutrophils % (Manual) Band Neutrophils % Lymphocytes % (Manual) Monocytes % (Manual) Eosinophils % (Manual) Metamyelocytes % Abs Neuts (Manual) Lymphocytes # (Manual) Monocytes # (Manual) Eosinophils # (Manual) Metamyelocytes # Nucleated RBCs Toxic Granulation Toxic Vacuolation Platelet Estimate Large Platelets Plt Morphology Comment RBC Morphology Polychromasia Basophilic Stippling Macrocytosis Pappenheimer Bodies Tear Drop Cells Ovalocytes [place] Cells Acanthocytes (Spur) Smear Path Review PT 19.8 H INR 1.7 H Sodium Potassium Chloride Carbon Dioxide Anion Gap BUN Creatinine 3.71 H Estim Creat Clear Calc 24.3 Estimated GFR 17 POC Glucose Random Glucose Lactic Acid Lactic Acid Fup @ 2Hr Lactic Acid Fup @ 4Hr Calcium Phosphorus Magnesium Total Bilirubin Direct Bilirubin AST ALT Alkaline Phosphatase Ammonia Lactate Dehydrogenase Total Protein Albumin Urine Color Urine Appearance Urine pH Ur Specific [place] Urine Protein Urine Glucose (UA) Urine Ketones Urine Blood Urine Nitrite Ur Leukocyte Esterase Urine RBC Urine WBC Ur Squamous Epith Cells Urine Bacteria Granular Casts Ur Random Sodium Blood Type Antibody Screen Crossmatch 05/24/21 05/24/21 05/24/21 19:52 21:19 22:29 WBC RBC Hgb 7.2 L Hct 21.3 L MCV MCH MCHC RDW Plt Count MPV Immature Gran % (Auto) Neut % (Auto) Lymph % (Auto) [place] % (Auto) Eos % (Auto) Baso % (Auto) Lymph # (Auto) [place] # (Auto) Eos # (Auto) Baso # (Auto) Abs Immat Gran (auto) Absolute Neuts (auto) Absolute Nucleated RBC Nucleated RBC % (auto) Neutrophils % (Manual) Band Neutrophils % Lymphocytes % (Manual) Monocytes % (Manual) Eosinophils % (Manual) Metamyelocytes % Abs Neuts (Manual) Lymphocytes # (Manual) Monocytes # (Manual) Eosinophils # (Manual) Metamyelocytes # Nucleated RBCs Toxic Granulation Toxic Vacuolation Platelet Estimate Large Platelets Plt Morphology Comment RBC Morphology Polychromasia Basophilic Stippling Macrocytosis Pappenheimer Bodies Tear Drop Cells Ovalocytes [place] Cells Acanthocytes (Spur) Smear Path Review PT INR Sodium Potassium Chloride Carbon Dioxide Anion Gap BUN Creatinine Estim Creat Clear Calc Estimated GFR POC Glucose Random Glucose Lactic Acid 6.1 H* Lactic Acid Fup @ 2Hr 10.2 H* Lactic Acid Fup @ 4Hr Calcium Phosphorus Magnesium Total Bilirubin Direct Bilirubin AST ALT Alkaline Phosphatase Ammonia Lactate Dehydrogenase Total Protein Albumin Urine Color Urine Appearance Urine pH Ur Specific [place] Urine Protein Urine Glucose (UA) Urine Ketones Urine Blood Urine Nitrite Ur Leukocyte Esterase Urine RBC Urine WBC Ur Squamous Epith Cells Urine Bacteria Granular Casts Ur Random Sodium Blood Type Antibody Screen Crossmatch 05/25/21 05/25/21 05/25/21 00:36 00:36 05:24 WBC 11.0 H 24.1 H RBC 2.09 L 2.53 L D Hgb 6.7 L* 7.8 L Hct 20.1 L* 24.1 L MCV 96.2 95.3 MCH 32.1 30.8 MCHC 33.3 32.4 RDW 21.1 H 18.4 H Plt Count 100 L D 140 L D MPV 10.7 11.3 Immature Gran % (Auto) Cancelled Cancelled Neut % (Auto) Cancelled Cancelled Lymph % (Auto) Cancelled Cancelled [place] % (Auto) Cancelled Cancelled Eos % (Auto) Cancelled Cancelled Baso % (Auto) Cancelled Cancelled Lymph # (Auto) Cancelled Cancelled [place] # (Auto) Cancelled Cancelled Eos # (Auto) Cancelled Cancelled Baso # (Auto) Cancelled Cancelled Abs Immat Gran (auto) Cancelled Cancelled Absolute Neuts (auto) Cancelled Cancelled Absolute Nucleated RBC 0.040 H 0.060 H Nucleated RBC % (auto) 0.4 H 0.2 Neutrophils % (Manual) 87 H 87 H Band Neutrophils % 8 H 9 H Lymphocytes % (Manual) 2 L Monocytes % (Manual) 2 2 Eosinophils % (Manual) 1 Metamyelocytes % 2 Abs Neuts (Manual) 10.5 H 23.1 H Lymphocytes # (Manual) 0.2 L Monocytes # (Manual) 0.2 0.5 Eosinophils # (Manual) 0.1 Metamyelocytes # 0.5 Nucleated RBCs 2 H 1 H Toxic Granulation PRESENT PRESENT Toxic Vacuolation PRESENT PRESENT Platelet Estimate DECREASED SLIGHTLY DECREASED Large Platelets PRESENT Plt Morphology Comment NORMAL NOTED RBC Morphology NOTED NOTED Polychromasia 2+ (3-5) 2+ (3-5) Basophilic Stippling 1+ (0-2) 1+ (0-2) Macrocytosis 1+ (5-14) Pappenheimer Bodies PRESENT Tear Drop Cells 1+ (0-2) Ovalocytes 1+ (5-14) [place] Cells 3+ (>5) 3+ ( Acanthocytes (Spur) 1+ (0-2) Smear Path Review PT INR Sodium Potassium Chloride Carbon Dioxide Anion Gap BUN Creatinine Estim Creat Clear Calc Estimated GFR POC Glucose Random Glucose Lactic Acid Lactic Acid Fup @ 2Hr Lactic Acid Fup @ 4Hr 11.9 H* Calcium Phosphorus Magnesium Total Bilirubin Direct Bilirubin AST ALT Alkaline Phosphatase Ammonia Lactate Dehydrogenase Total Protein Albumin Urine Color Urine Appearance Urine pH Ur Specific [place] Urine Protein Urine Glucose (UA) Urine Ketones Urine Blood Urine Nitrite Ur Leukocyte Esterase Urine RBC Urine WBC Ur Squamous Epith Cells Urine Bacteria Granular Casts Ur Random Sodium Blood Type Antibody Screen Crossmatch 05/25/21 05/25/21 05/25/21 05:24 05:24 05:24 WBC RBC Hgb Hct MCV MCH MCHC RDW Plt Count MPV Immature Gran % (Auto) Neut % (Auto) Lymph % (Auto) [place] % (Auto) Eos % (Auto) Baso % (Auto) Lymph # (Auto) [place] # (Auto) Eos # (Auto) Baso # (Auto) Abs Immat Gran (auto) Absolute Neuts (auto) Absolute Nucleated RBC Nucleated RBC % (auto) Neutrophils % (Manual) Band Neutrophils % Lymphocytes % (Manual) Monocytes % (Manual) Eosinophils % (Manual) Metamyelocytes % Abs Neuts (Manual) Lymphocytes # (Manual) Monocytes # (Manual) Eosinophils # (Manual) Metamyelocytes # Nucleated RBCs Toxic Granulation Toxic Vacuolation Platelet Estimate Large Platelets Plt Morphology Comment RBC Morphology Polychromasia Basophilic Stippling Macrocytosis Pappenheimer Bodies Tear Drop Cells Ovalocytes [place] Cells Acanthocytes (Spur) Smear Path Review PT 24.4 H INR 2.1 H Sodium 131 L Potassium 4.4 Chloride 100 Carbon Dioxide 7 L* D Anion Gap 28 H BUN 57 H Creatinine 4.36 H* Estim Creat Clear Calc 20.6 Estimated GFR 14 POC Glucose Random Glucose 41 L* Lactic Acid Lactic Acid Fup @ 2Hr Lactic Acid Fup @ 4Hr Calcium 6.3 L D Phosphorus 5.5 H Magnesium 2.3 Total Bilirubin 27.9 H Direct Bilirubin 22.5 H AST 191 H ALT 46 H Alkaline Phosphatase 107 D Ammonia 126 H Lactate Dehydrogenase Total Protein 4.3 L Albumin 3.1 L D Urine Color Urine Appearance Urine pH Ur Specific [place] Urine Protein Urine Glucose (UA) Urine Ketones Urine Blood Urine Nitrite Ur Leukocyte Esterase Urine RBC Urine WBC Ur Squamous Epith Cells Urine Bacteria Granular Casts Ur Random Sodium Blood Type Antibody Screen Crossmatch 05/25/21 05/25/21 05/25/21 08:06 08:06 08:06 WBC RBC Hgb Hct MCV MCH MCHC RDW Plt Count MPV Immature Gran % (Auto) Neut % (Auto) Lymph % (Auto) [place] % (Auto) Eos % (Auto) Baso % (Auto) Lymph # (Auto) [place] # (Auto) Eos # (Auto) Baso # (Auto) Abs Immat Gran (auto) Absolute Neuts (auto) Absolute Nucleated RBC Nucleated RBC % (auto) Neutrophils % (Manual) Band Neutrophils % Lymphocytes % (Manual) Monocytes % (Manual) Eosinophils % (Manual) Metamyelocytes % Abs Neuts (Manual) Lymphocytes # (Manual) Monocytes # (Manual) Eosinophils # (Manual) Metamyelocytes # Nucleated RBCs Toxic Granulation Toxic Vacuolation Platelet Estimate Large Platelets Plt Morphology Comment RBC Morphology Polychromasia Basophilic Stippling Macrocytosis Pappenheimer Bodies Tear Drop Cells Ovalocytes [place] Cells Acanthocytes (Spur) Smear Path Review PT INR Sodium Potassium Chloride Carbon Dioxide Anion Gap BUN Creatinine Estim Creat Clear Calc Estimated GFR POC Glucose Random Glucose Lactic Acid Lactic Acid Fup @ 2Hr Lactic Acid Fup @ 4Hr Calcium Phosphorus Magnesium Total Bilirubin Direct Bilirubin AST ALT Alkaline Phosphatase Ammonia Lactate Dehydrogenase Total Protein Albumin Urine Color YELLOW Cancelled Urine Appearance HAZY Cancelled Urine pH 6.0 Cancelled Ur Specific [place] <= 1.005 Cancelled Urine Protein 1+ H Cancelled Urine Glucose (UA) NEG Cancelled Urine Ketones NEG Cancelled Urine Blood 1+ H Cancelled Urine Nitrite NEG Cancelled Ur Leukocyte Esterase NEG Cancelled Urine RBC 1-4 Urine WBC 0 Ur Squamous Epith Cells 1+ Urine Bacteria 2+ Granular Casts 1-4 Ur Random Sodium 140.0 Blood Type Antibody Screen Crossmatch 05/25/21 05/25/21 08:18 09:21 WBC RBC Hgb Hct MCV MCH MCHC RDW Plt Count MPV Immature Gran % (Auto) Neut % (Auto) Lymph % (Auto) [place] % (Auto) Eos % (Auto) Baso % (Auto) Lymph # (Auto) [place] # (Auto) Eos # (Auto) Baso # (Auto) Abs Immat Gran (auto) Absolute Neuts (auto) Absolute Nucleated RBC Nucleated RBC % (auto) Neutrophils % (Manual) Band Neutrophils % Lymphocytes % (Manual) Monocytes % (Manual) Eosinophils % (Manual) Metamyelocytes % Abs Neuts (Manual) Lymphocytes # (Manual) Monocytes # (Manual) Eosinophils # (Manual) Metamyelocytes # Nucleated RBCs Toxic Granulation Toxic Vacuolation Platelet Estimate Large Platelets Plt Morphology Comment RBC Morphology Polychromasia Basophilic Stippling Macrocytosis Pappenheimer Bodies Tear Drop Cells Ovalocytes [place] Cells Acanthocytes (Spur) Smear Path Review PT INR Sodium Potassium Chloride Carbon Dioxide Anion Gap BUN Creatinine Estim Creat Clear Calc Estimated GFR POC Glucose 59 L* Random Glucose Lactic Acid Lactic Acid Fup @ 2Hr Lactic Acid Fup @ 4Hr Calcium Phosphorus Magnesium Total Bilirubin Direct Bilirubin AST ALT Alkaline Phosphatase Ammonia Lactate Dehydrogenase 562 H Total Protein 4.2 L Albumin Urine Color Urine Appearance Urine pH Ur Specific [place] Urine Protein Urine Glucose (UA) Urine Ketones Urine Blood Urine Nitrite Ur Leukocyte Esterase Urine RBC Urine WBC Ur Squamous Epith Cells Urine Bacteria Granular Casts Ur Random Sodium Blood Type Antibody Screen Crossmatch Microbiology Microbiology Results: Microbiology 05/24/21 19:52 Blood - Venous Blood Culture - Preliminary Prelim: GPR Gram Stain only Prelim: GNR Gram Stain only 05/24/21 19:52 Blood - Venous Blood Culture - Preliminary Prelim: GNR Gram Stain only Progress Note: A&P Assessment and plan (1) TALISHA (acute kidney injury): Status: Acute (2) Alcoholic cirrhosis of liver with ascites: Status: Acute (3) Acute liver failure: Status: Acute (4) Coagulopathy: Status: Acute (5) Lower GI bleed: Status: Acute (6) Hepatorenal syndrome: Status: Acute (7) Gram-negative bacteremia: Status: Acute (8) Anal fistula: Status: Acute (9) SEAN (obstructive sleep apnea): Status: Acute (10) Asthma-COPD overlap syndrome: Status: Acute (11) Alcohol dependence: Status: Acute Assessment and Plan: Assessment: 51-year-old gentleman with underlying alcoholic liver cirrhosis admitted with hemorrhagic shock from lower GI bleed with hospital course further complicated by gram-negative bacteremia Plan: Neuro: hepatic encephalopathy, expect to improve with lactulose. Cardiac: Hemorrhagic shock from lower GI bleed further complicated by gram- negative bacteremia, continue to titrate off pressors as tolerated. Pulmonary: No acute issues. Renal: Acute renal failure, hepatorenal syndrome and/ or ATN. Nephrology service care appreciated. Oliguric. Continue to monitor renal indices and urine output. May require hemodialysis. Endo: No acute issues. GI: Lower GI bleed status post sigmoidoscopy with clipping. EGD with no upper source. Gastroenterology service care appreciated. Underlying alcoholic liver cirrhosis. Will discontinue octreotide and continue PPI. Continue lactulose. ascites, status post paracentesis with removal of 1.5 L. Ascitic fluid studies are pending. Underlying history of anal fistula with seton in place. General surgery service care appreciated. ID: Gram-negative bacteremia with likely GI source. Cultures are pending. Empirically covered with Zosyn. Gram-positive rods likely a contaminant. Heme/Onc: Hemorrhagic shock secondary to lower GI bleed, status post 6 units of packed red blood cells, 4 of FFP, and 1 platelets. Hemoglobin is stabilizing. Continue to monitor blood counts. Underlying liver disease related thrombocytopenia and coagulopathy. Continue vitamin K. Psych: No acute issues. Miscellaneous: No acute issues. Prophylaxis: Intermittent pneumatic compression Diet: NPO Critical care time spent: 60 minutes excluding separately billable procedures Quality Stroke Does the patient have a stroke diagnosis?: No VTE Prior VTE?: No VTE Risk Level:: Medical - moderate - high VTE Device Contraindication: N/A - Device Ordered VTE Drug Contraindication: Treatment Not Indicated
[2021-05-25 11:01] LABS: MN% 56.4 %; PMN% 43.6 %; RBC Peritoneal Fluid 0.003 X10*6/uL; WBC Peritoneal Fluid 0.134 X10*3/uL
--- NOTE | 2021-05-25 11:07 | W.PM.CCHP ---
Procedures Date of Service Date of Service: 05/25/21 Paracentesis Paracentesis Comments: Bedside diagnostic/therapeutic paracentesis performed under ultrasound guidance in the right lower quadrant under usual sterile conditions with drainage of 1.5 L of ascitic fluid with sample sent for laboratory testing. Patient tolerated the procedure well. Consent for Procedure: Emergent-no informed consent obtained
[2021-05-25] MEDS: Lactulose 20 GM/30 ML SOLUTION 30 GM PO (11:49)
[2021-05-25] MEDS: Haloperidol Lactate 5 MG/ML VIAL 2 MG IV (11:51)
[2021-05-25 12:31] LABS: Mean Corpuscular Hemoglobin 31.5 pg (27.0-33.0); Mean Corpuscular Volume 92.5 fL (80.0-98.0); NRBC Pct Auto 0.2 /100WBC (0.0-0.2); Red Blood Count 2.13 X10*6/uL (4.60-5.80)
[2021-05-25 12:42] LABS: Hemoglobin 6.7 g/dl (14.0-18.0); Platelet Count 90 X10*3/uL (160-400); WBC ABN SCTR FOR CBC 1
[2021-05-25 12:43] LABS: Hematocrit 19.7 % (42.0-52.0); White Blood Count 24.2 X10*3/uL (4.8-10.8)
[2021-05-25 12:46] LABS: Anion Gap 31 (12-20); Blood Urea Nitrogen 57 mg/dL (9-16); Calcium 6.5 mg/dL (8.4-10.2); Carbon Dioxide 9 mmol/L (22-29); Chloride 99 mmol/L (96-108); Creatinine Clr Calc Pharmacy 19.7; Estimated Glomerular Filt Rate 14; Glucose Random 48 mg/dL (60-115); Potassium 4.2 mmol/L (3.3-5.1); Sodium 135 mmol/L (135-145)
[2021-05-25 13:09] LABS: Glucose, Whole Blood 45 mg/dL (60-115)
[2021-05-25] MEDS: Calcium Gluconate/NaCl,Iso-Osm 2 GM/100 ML PLAST..BAG IV (13:17)
[2021-05-25 14:00] LABS: BF Shift QC OK YES; Lymphocyte Peritoneal Fl 41 %; Monocytes Peritoneal Fl 9 %; Neutrophils Peritoneal Fluid 49 %; Other Peritioneal Fl 1 %
[2021-05-25 14:12] LABS: Band Neutrophils Percent 21 % (3-5); Lymphocytes Absolute Manual 0.2 X10*3/uL (1.2-4.9); Lymphocytes Percent Manual 1 % (20-40); Monocytes Absolute Manual 1.2 X10*3/uL (0.1-1.2); Monocytes Percent Manual 5 % (2-11); Neutrophils Absolute Manual 22.7 X10*3/uL (2.0-8.3); Neutrophils Percent Manual 73 % (45-73)
[2021-05-25 14:13] LABS: Acanthocytes 3+ (>5) /OIF; RBC Morphology NOTED
[2021-05-25 14:14] LABS: Howell Jolly Bodies PRESENT; Macrocytosis 1+ (5-14) /OIF; Polychromasia 1+ (0-2) /OIF; Schistocytes 2+ (3-5) /OIF
[2021-05-25 14:15] LABS: Platelet Estimate DECREASED (NORMAL); Platelet Morphology Comment NORMAL; Toxic Granulation PRESENT; Toxic Vacuolation PRESENT
--- NOTE | 2021-05-25 14:45 | HO.POSTANES ---
Post Anesthesia Evaluation Post Anesthesia Evaluation Vital Signs: Vital Signs Temp Pulse Resp BP Pulse Ox 05/25/21 14:00 105 H 28 H 108/51 L 90 L 05/25/21 13:29 72/51 L 05/25/21 13:27 97.7 F 106 H 25 H 72/51 L 05/25/21 13:09 97.5 F 106 H 24 H 87/47 L 05/25/21 13:00 108 H 22 H 101/45 L 91 L 05/25/21 12:00 106 H 32 H 93/41 L 96 05/25/21 11:00 97.0 F 107 H 24 H 101/49 L 95 05/25/21 10:00 106 H 22 H 98/40 L 95 05/25/21 09:00 109 H 22 H 93/49 L 94 05/25/21 08:00 97.5 F 109 H 23 H 92/59 L 95 05/25/21 07:38 112 H 96/49 L 05/25/21 07:00 111 H 28 H 101/46 L 94 05/25/21 05:58 97.4 F 112 H 28 H 98/38 L 97 05/25/21 05:00 97.4 F 111 H 28 H 119/80 97 05/25/21 04:43 97.3 F 111 H 20 100/45 L 05/25/21 04:00 97.4 F 111 H 24 H 116/55 L 95 05/25/21 03:59 97.4 F 109 H 24 H 100/52 L 05/25/21 03:54 96.9 F 108 H 24 H 104/49 L 05/25/21 03:00 97.4 F 108 H 24 H 101/44 L 99 Anesthesia: Monitored Mental Status: Sedated (mildly disoriented) Pain Control: Satisfactory Nausea/Vomiting: None Hydration: Adequate Anesthesia-Related Issues: No Anes. Related Issues
[2021-05-25 15:42] LABS: Glucose, Whole Blood 80 mg/dL (60-115)
--- NOTE | 2021-05-25 17:16 | PC.NURSE ---
Addendum entered by Krystyna Soto RN 05/25/21 18:02: WESTON NOTED FOR 2 ML = NEW TOTAL OF 8 ML. MD NOTIFIED. Original Note: PT ALERT TO SELF, VAUGE/OCCASIONALLY DISORIENTED TO TIME/PLACE/SITUATION. TELESITTER AND RESTRAINTS IN PLACE FOR SAFETY/ ATTEMPTING TO REMOVE TLC. AFEBRILE. BP SUPPORTED WITH LEVOPHED AND VASOPRESSION. SEE EMAR. RLQ PARCENTESIS PERFORMED BY MD. 1,500 ML REMOVED - SAMPLE SENT TO LAB. 2 ADDITIONAL DOSES OF ALBUMIN ORDERED AND ADMINISTERED POST PARACENTESIS. WESTON OUTPUT = 6 ML TOTAL FROM 0700-NOW. URINE SENT FOR LABS. MD AND NEPHROLOGY AWARE. POCS REMAIN LOW - D10 STARTED AT 20 ML/HR. RECHECKED REMAINS LOW - D50 X 1 AND D10 INCREASED TO 50 ML/HR. PT NOTED TO BE EXTRA RESTLESS - HALDOL 2MG IVP ADMINISTERED WITH SOME EFFECT. 1200 LABS REPORTED LOW H&H AND LOW CALCIUM. CALCIUM GLUCONATE 2G ADMINISTERED. 1RBC ADMINISTERED. DURING TRANSFUSION PT NOTED TO DESAT TO 82&, RR INCREASED TO 28-32, SBP REMAINED LOW. LS IN&EX WHEEZES IN UPPERS - FINE CRACKLES IN BASES. MD NOTIFIED. NC APPLIED AT 2L AND INCREASED TO 4L. PER MD PLACE ON HIGH FLOW. HIGH FLOW APPLIED AT 1520. STARTED AT 55L/35%. OVER TIME HIGH FLOW INCREASED TO MAX PLUS NRB 100%. MD NOTIFIED OF CHANGES. STAT CXR ORDERED. PLACED ON BIPAP 15/8 ON 50% AT 1710. CURRENTLY TOLERATING BIPAP. CURRENT 02 = 94%. PATIENT NOTED TO BE MORE SLEEPY, BUT AROUSABLE AND ANSWERS APPROPRIATELY. UPDATED ON CURRENT STATE. WILL CONTINUE TO MONITOR. DINO (PTS GIRLFRIEND [phone]) CALLED AND UPDATED BY AND RN ON CHANGE IN CONDITION. CURRENTLY BEDSIDE.
[2021-05-25 18:37] LABS: Hematocrit 22.5 % (42.0-52.0); Hemoglobin 7.6 g/dl (14.0-18.0); Mean Corpuscular HGB Conc 33.8 g/dl (31.0-36.0); Mean Corpuscular Hemoglobin 32.1 pg (27.0-33.0); Mean Corpuscular Volume 94.9 fL (80.0-98.0); Mean Platelet Volume 11.1 fL (9.4-12.4); NRBC Pct Auto 0.3 /100WBC (0.0-0.2); Red Blood Count 2.37 X10*6/uL (4.60-5.80); Red Cell Distribution Width 19.7 % (11.0-16.0)
[2021-05-25 18:39] LABS: Platelet Count 91 X10*3/uL (160-400)
[2021-05-25 18:40] LABS: WBC ABN SCTR FOR CBC 1
[2021-05-25 18:51] LABS: Anion Gap 28 (12-20); Blood Urea Nitrogen 58 mg/dL (9-16); Calcium 6.7 mg/dL (8.4-10.2); Carbon Dioxide 12 mmol/L (22-29); Chloride 100 mmol/L (96-108); Creatinine Clr Calc Pharmacy 18.4; Estimated Glomerular Filt Rate 13; Glucose Random 71 mg/dL (60-115); Potassium 4.6 mmol/L (3.3-5.1); Sodium 135 mmol/L (135-145)
[2021-05-25 19:08] LABS: Band Neutrophils Percent 15 % (3-5); Lymphocytes Percent Manual 1 % (20-40); Metamyelocytes Percent 2 %; Monocytes Percent Manual 7 % (2-11); Neutrophils Percent Manual 75 % (45-73)
[2021-05-25 19:09] LABS: Macrocytosis 1+ (5-14) /OIF; RBC Morphology NOTED
[2021-05-25 19:10] LABS: Acanthocytes 3+ (>5) /OIF; Howell Jolly Bodies PRESENT; Large Platelet PRESENT; Platelet Estimate DECREASED (NORMAL); Platelet Morphology Comment NORMAL; Polychromasia 1+ (0-2) /OIF; Schistocytes 1+ (0-2) /OIF; Toxic Granulation PRESENT; Toxic Vacuolation PRESENT
[2021-05-25 19:11] LABS: Lymphocytes Absolute Manual 0.3 X10*3/uL (1.2-4.9); Metamyelocytes Absolute 0.5 X10*3/uL; Monocytes Absolute Manual 1.9 X10*3/uL (0.1-1.2); White Blood Count 26.7 X10*3/uL (4.8-10.8)
[2021-05-25 20:21] LABS: Glucose, Whole Blood 56 mg/dL (60-115)
--- NOTE | 2021-05-25 21:20 | W.PM.CCHP ---
Procedures Date of Service Date of Service: 05/25/21 Intubation Intubation Comments: Patient with acute respiratory distress, hypoxic with worsening menation refractory to BIPAP, requiring emergent intubation. Patient intubated with 7.5 cuffed ET tube under glide scope guidance with visualization of vocal cords, without immediate complications. ET tube position verified with Chest XRAY. Patient partner Vanessa, updated of patient status Consent for Procedure: Emergent-no informed consent obtained Time out performed: Yes Sedative: propofol Mg given: 100 Laryngoscope: fiber optic video scope ET tube size: 7.5 ET tube uncuffed: No Tube secured depth (cm): 27 Tube secured location: lips Tube placement confirmation: visualized tube passing through cords, equal breath sounds bilaterally, no breath sounds over epigastrium and confirmation by capnometry Patient tolerated procedure: well and no complications Intubation complications: none
[2021-05-25 21:29] LABS: Glucose, Whole Blood 53 mg/dL (60-115)
[2021-05-25] MEDS: Metoclopramide HCl 10 MG/2 ML VIAL IVPUSH (21:46)
[2021-05-25] MEDS: propofoL 1,000 MG/100 ML VIAL 9.5 MG IVCONT (21:46)
[2021-05-25] MEDS: propofoL 200 MG/20 ML VIAL 100 MG IVPUSH (21:47)
[2021-05-25] MEDS: Chlorhexidine Gluc Oral Rinse 15 ML MOUTHWASH BUCCAL (23:02)
[2021-05-26] VITALS (11 sets, daily range): BP systolic 83–130; BP diastolic 38–93; PULSE 71–142; RESP 22–24; TEMP 32–36.9; O2SAT 92–95; BMI 25.0
[2021-05-26] MEDS: Sodium Bicarbonate 8.4% 50 MEQ/50 ML SYRINGE IVPUSH ×4 (00:34→05:18)
[2021-05-26] MEDS: Dextrose 10 % 1,000 ML 100 ML IVCONT (00:34)
[2021-05-26 00:58] LABS: Glucose, Whole Blood 98 mg/dL (60-115)
[2021-05-26] MEDS: propofoL 1,000 MG/100 ML VIAL 7.13 MG IVCONT (02:38)
[2021-05-26] MEDS: EPINEPHrine 5 MG in Dextrose 5 % 250 ML 48.47 MG IVCONT (02:43)
[2021-05-26] MEDS: Piperacillin Sodium/Tazobactam 2.25 GM in 0.9 % Sodium Chloride 50 ML IV (02:44)
--- NOTE | 2021-05-26 03:06 | PC.NURSE ---
Addendum entered by Darrian Sierra RN 05/26/21 05:55: 0555 HCP at bedside, decision of care made: DNR, continue treatment/do not escalate care, ensure comfort. Original Note: Received patient during report. pt found to be very obtunded on bipap, jaundiced. Not answering questions appropriately, not following simple commands (open eyes). LS very wet. receiving D10, vasopressin and levo. Pt levo was upgraded to 4x strength to reduce fluid volume received out of concern for 3rd spacing. Pt sats began to drop while on bipap despite increasing o2 requirements, increased RR, and mottled in the legs and upper chest. Pt was intubated at approximately 2120. intubated with 7.5 ETT, 25@lip, OG tube was placed as well. (settings AC R-14, TV,-450, Peep-5, 70% o2) RT suctioned through the ET tube and large amounts of mustard yellow colored, thick sputum was suctioned out. OG was connected to suction removing approximately 500mls of clear fluid followed by yellow and sanguineous fluid. 900 total mls was removed by approximately midnight. Pt was started on propofol with other previously mentioned medications. pt has required multiple amps of bicarb. pt continues to put out from the OG and it is mostly sanguineous at this time. Mottling has increased throughout the body and face. Pt has had no output through the catheter. pt HR dropped from 100-120 to 70s. SBP in the 80s and 90s. Pt started on EPI. 0320 Pt PH came back at 6.9. Propofol turned off, pt flaccid and unresponsive to stimuli.
[2021-05-26 03:11] LABS: Venous Blood Gas Refer to POC result
[2021-05-26 03:11] LABS: VBG HCO3 6 mmol/L (22-26); VBG pCO2 29 mmHg; VBG pH 6.93 (7.32-7.43); VBG pO2 72 mmHg
[2021-05-26 03:33] LABS: Hematocrit 22.1 % (42.0-52.0); Hemoglobin 7.1 g/dl (14.0-18.0); Mean Corpuscular HGB Conc 32.1 g/dl (31.0-36.0); Mean Corpuscular Hemoglobin 31.3 pg (27.0-33.0); Mean Corpuscular Volume 97.4 fL (80.0-98.0); Mean Platelet Volume 11.6 fL (9.4-12.4); NRBC Pct Auto 0.9 /100WBC (0.0-0.2); Red Blood Count 2.27 X10*6/uL (4.60-5.80); Red Cell Distribution Width 20.2 % (11.0-16.0); White Blood Count 29.8 X10*3/uL (4.8-10.8)
[2021-05-26 03:38] LABS: Platelet Count 73 X10*3/uL (160-400)
[2021-05-26 03:40] LABS: Anion Gap 32 (12-20); Blood Urea Nitrogen 60 mg/dL (9-16); Calcium 6.4 mg/dL (8.4-10.2); Carbon Dioxide 9 mmol/L (22-29); Chloride 98 mmol/L (96-108); Creatinine Clr Calc Pharmacy 17.4; Estimated Glomerular Filt Rate 12; Glucose Random 93 mg/dL (60-115); Potassium 5.4 mmol/L (3.3-5.1); Sodium 134 mmol/L (135-145)
[2021-05-26 03:56] LABS: Glucose, Whole Blood 76 mg/dL (60-115)
[2021-05-26] MEDS: Albumin Human 25 % 100 ML 200 ML IV (04:09)
[2021-05-26] MEDS: Calcium Chloride 1 GM/10 ML SYRINGE IVPUSH (04:27)
[2021-05-26] MEDS: Calcium Gluconate/NaCl,Iso-Osm 2 GM/100 ML PLAST..BAG IV (04:27)
[2021-05-26 04:45] LABS: Prothrombin Time 35.1 SEC (9.9-13.0)
[2021-05-26 05:02] LABS: Lactic Acid 17.1 mmol/L (0.5-2.0)
[2021-05-26 05:43] LABS: Venous Blood Gas Refer to POC result
[2021-05-26 05:44] LABS: VBG Base Excess -21.3 mmol/L; VBG HCO3 8 mmol/L (22-26); VBG pCO2 35 mmHg; VBG pH 6.98 (7.32-7.43); VBG pO2 59 mmHg
[2021-05-26 05:45] LABS: Mean Corpuscular Volume 97.1 fL (80.0-98.0); PLT CLUMP 1
[2021-05-26 05:46] LABS: Mean Corpuscular HGB Conc 32.7 g/dl (31.0-36.0); Mean Corpuscular Hemoglobin 31.7 pg (27.0-33.0); Mean Platelet Volume 11.1 fL (9.4-12.4); Red Blood Count 2.05 X10*6/uL (4.60-5.80); Red Cell Distribution Width 20.1 % (11.0-16.0)
--- NOTE | 2021-05-26 05:54 | PM.EVENT ---
Event Note Date of Service: 05/26/21 Event Note: Overnight, patient's status worsened. Goals of care conversation help with healthcare proxy Vanessa, who would like to make patient DNR with no escalation of care at this time.
[2021-05-26 05:58] LABS: NRBC Pct Auto 1.5 /100WBC (0.0-0.2); Platelet Count 67 X10*3/uL (160-400); WBC ABN SCTR FOR CBC 1
[2021-05-26 06:06] LABS: Ammonia 115 umol/L (13-55)
[2021-05-26 06:08] LABS: Hematocrit 19.9 % (42.0-52.0); Hemoglobin 6.5 g/dl (14.0-18.0)
[2021-05-26] MEDS: Pantoprazole Sodium 40 MG/10 ML VIAL IVPUSH (06:17)
[2021-05-26 06:19] LABS: Alanine Aminotransferase 329 U/L (0-40); Albumin Level 3.5 g/dL (3.5-5.0); Alkaline Phosphatase 91 U/L (39-117); Anion Gap 36 (12-20); Aspartate Amino Transferase 3311 U/L (5-37); Bilirubin Total 23.8 mg/dL (0.0-1.0); Blood Urea Nitrogen 59 mg/dL (9-16); Calcium 7.6 mg/dL (8.4-10.2); Carbon Dioxide 11 mmol/L (22-29); Chloride 97 mmol/L (96-108); Estimated Glomerular Filt Rate 11; Glucose Random 77 mg/dL (60-115); Magnesium 2.6 mg/dL (1.6-2.6); Phosphorus 11.2 mg/dL (2.7-4.5); Potassium 5.6 mmol/L (3.3-5.1); Sodium 138 mmol/L (135-145); Total Protein 4.3 g/dL (6.5-8.0)
[2021-05-26 06:24] LABS: Acanthocytes 1+ (0-2) /OIF; Band Neutrophils Percent 4 % (3-5); Basophilic Stippling 1+ (0-2) /OIF; Burr Cells 3+ (>5) /OIF; Lymphocytes Absolute Manual 2.2 X10*3/uL (1.2-4.9); Lymphocytes Percent Manual 8 % (20-40); Macrocytosis 1+ (5-14) /OIF; Monocytes Absolute Manual 3.1 X10*3/uL (0.1-1.2); Monocytes Percent Manual 11 % (2-11); Neutrophils Absolute Manual 22.7 X10*3/uL (2.0-8.3); Neutrophils Percent Manual 77 % (45-73); Platelet Estimate DECREASED (NORMAL); Platelet Morphology Comment NORMAL; Polychromasia 1+ (0-2) /OIF; RBC Morphology NOTED; Tear Drop Cells 2+ (3-5) /OIF; Toxic Granulation PRESENT; Toxic Vacuolation PRESENT
[2021-05-26 06:33] LABS: Reflex Lactate? Lactic Acid Added
[2021-05-26 07:21] LABS: Albumin Peritoneal Fluid 0.3; Glucose Peritoneal Fluid 67; LDH Peritoneal Fluid 109; Total Protein Peritoneal Fluid 0.7
[2021-05-26] MEDS: Chlorhexidine Gluc Oral Rinse 15 ML MOUTHWASH BUCCAL (07:25)
--- NOTE | 2021-05-26 07:55 | PM.PNNEP ---
Subjective Subjective Date of Service: 05/26/21 Physical Exam Vital Signs: Vital Signs: Last Vital Signs Temp 98.4 F 05/26/21 02:48 Pulse 77 05/26/21 07:00 Resp 22 H 05/26/21 07:00 BP 93/50 L 05/26/21 07:22 Pulse Ox 92 05/26/21 07:00 Body Mass Index 25.0 Const: General: ill appearing, patient obtunded and other ( jaundiced) Nutritional Appearance: average body habitus Orientation/consciousness: oriented to person, patient oriented x3 and patient obtunded Limitations: no limitations and altered mental status HENMT: Head: Yes normal to inspection and Yes normocephalic Ears: hearing grossly normal bilaterally and external ears normal General nose exam: Normal external nose present Mouth: Normal oral and palatal mucosa present and oropharynx normal Throat: Yes posterior oropharynx normal Eyes: Sclerae: scleral abnormal bilateral ( icteric) Pupils: Equal, round and reactive pupils present EOM: EOMs intact bilaterally Neck: Neck: Yes normal visual inspection, Yes no lymphadenopathy, Yes trachea midline and Yes supple Chest: Chest palpation & inspection: normal inspection of the chest Resp: Effort & Inspection: normal respiratory effort, no audible wheezes, no cough and no respiratory distress Auscultation: clear to auscultation bilaterally, crackles ( mild diffuse) and diminished lung sounds Cardio: Jugular venous distension: no JVD Palpation: normal PMI Rate: regular rate and tachycardic Rhythm: regular rhythm Heart sounds: S1 normal heart sound present, S2 normal heart sound present, no gallops, no murmurs and no rubs GI: Inspection: Yes normal to inspection and Yes distended Palpation (GI): Soft to palpation, Firmness to palpation present (GI), nontender, no guarding, No hepatosplenomegaly present, Ascites present and Other GI palpation findings present ( Nontender) Auscultation: normal bowel sounds Rectal Exam - Male: Yes deferred and Yes visual inspection normal (Visible clip on anal mucosa. No bleeding identified.) Skin: General skin exam: no rashes or lesions noted, ecchymosis, jaundice and spider nevi (extensive spider angiomata on anterior neck and upper chest) Neuro: General: oriented to person, patient oriented x3, gait normal, moves all extremities and patient obtunded Cranial nerves: Yes CN's II-XII intact bilaterally and Yes Equal, round and reactive pupils present Motor exam (neuro): 5/5 motor strength present throughout Sensory Exam: No Sensory deficit (Neuro) Extrem: General: Yes normal to inspection, No clubbing, No cyanosis, No edema, Yes pedal edema ( trace bilateral) and Yes other (tremors) Psych: Appearance: grossly normal Mental Status: mental status grossly normal Objective Data Labs CBC & Chem 7: 05/26/21 05:31 05/26/21 05:31 Labs: Laboratory Results - last 24 hr 05/24/21 05/25/21 05/25/21 05:43 08:06 08:06 WBC RBC Hgb Hct MCV MCH MCHC RDW Plt Count MPV Immature Gran % (Auto) Neut % (Auto) Lymph % (Auto) [place] % (Auto) Eos % (Auto) Baso % (Auto) Lymph # (Auto) [place] # (Auto) Eos # (Auto) Baso # (Auto) Abs Immat Gran (auto) Absolute Neuts (auto) Absolute Nucleated RBC Nucleated RBC % (auto) Neutrophils % (Manual) Band Neutrophils % Lymphocytes % (Manual) Monocytes % (Manual) Metamyelocytes % Abs Neuts (Manual) Lymphocytes # (Manual) Monocytes # (Manual) Metamyelocytes # Toxic Granulation Toxic Vacuolation Platelet Estimate Large Platelets Plt Morphology Comment RBC Morphology Polychromasia Basophilic Stippling Macrocytosis Tear Drop Cells [place] Bodies [place] Cells Acanthocytes (Spur) Schistocytes PT INR VBG pH VBG pCO2 VBG pO2 VBG HCO3 VBG O2 Saturation VBG Base Excess Sodium Potassium Chloride Carbon Dioxide Anion Gap BUN Creatinine Estim Creat Clear Calc Estimated GFR POC Glucose Random Glucose Lactic Acid Calcium Phosphorus Magnesium Total Bilirubin AST ALT Alkaline Phosphatase Ammonia Lactate Dehydrogenase Total Protein Albumin Urine Color YELLOW Urine Appearance HAZY Urine pH 6.0 Ur Specific [place] <= 1.005 Urine Protein 1+ H Urine Glucose (UA) NEG Urine Ketones NEG Urine Blood 1+ H Urine Nitrite NEG Ur Leukocyte Esterase NEG Urine RBC 1-4 Urine WBC 0 Ur Squamous Epith Cells 1+ Urine Bacteria 2+ Granular Casts 1-4 Ur Random Sodium 140.0 Peritoneal WBC Peritoneal RBC Periton Neutrophils Periton Lymphocytes Peritoneal Monocytes Peritoneal Other Cells Peritoneal Tot Protein Peritoneal Albumin Peritoneal LDH Peritoneal Glucose Blood Type O Positive Antibody Screen NEGATIVE Crossmatch See Detail 05/25/21 05/25/21 05/25/21 08:06 08:18 09:21 WBC RBC Hgb Hct MCV MCH MCHC RDW Plt Count MPV Immature Gran % (Auto) Neut % (Auto) Lymph % (Auto) [place] % (Auto) Eos % (Auto) Baso % (Auto) Lymph # (Auto) [place] # (Auto) Eos # (Auto) Baso # (Auto) Abs Immat Gran (auto) Absolute Neuts (auto) Absolute Nucleated RBC Nucleated RBC % (auto) Neutrophils % (Manual) Band Neutrophils % Lymphocytes % (Manual) Monocytes % (Manual) Metamyelocytes % Abs Neuts (Manual) Lymphocytes # (Manual) Monocytes # (Manual) Metamyelocytes # Toxic Granulation Toxic Vacuolation Platelet Estimate Large Platelets Plt Morphology Comment RBC Morphology Polychromasia Basophilic Stippling Macrocytosis Tear Drop Cells [place] Bodies [place] Cells Acanthocytes (Spur) Schistocytes PT INR VBG pH VBG pCO2 VBG pO2 VBG HCO3 VBG O2 Saturation VBG Base Excess Sodium Potassium Chloride Carbon Dioxide Anion Gap BUN Creatinine Estim Creat Clear Calc Estimated GFR POC Glucose 59 L* Random Glucose Lactic Acid Calcium Phosphorus Magnesium Total Bilirubin AST ALT Alkaline Phosphatase Ammonia Lactate Dehydrogenase 562 H Total Protein 4.2 L Albumin Urine Color Cancelled Urine Appearance Cancelled Urine pH Cancelled Ur Specific [place] Cancelled Urine Protein Cancelled Urine Glucose (UA) Cancelled Urine Ketones Cancelled Urine Blood Cancelled Urine Nitrite Cancelled Ur Leukocyte Esterase Cancelled Urine RBC Urine WBC Ur Squamous Epith Cells Urine Bacteria Granular Casts Ur Random Sodium Peritoneal WBC Peritoneal RBC Periton Neutrophils Periton Lymphocytes Peritoneal Monocytes Peritoneal Other Cells Peritoneal Tot Protein Peritoneal Albumin Peritoneal LDH Peritoneal Glucose Blood Type Antibody Screen Crossmatch 05/25/21 05/25/21 05/25/21 09:22 09:22 12:16 WBC 24.2 H RBC 2.13 L Hgb 6.7 L* Hct 19.7 L* MCV 92.5 MCH 31.5 MCHC 34.0 RDW 19.0 H Plt Count 90 L D MPV 11.0 Immature Gran % (Auto) Cancelled Neut % (Auto) Cancelled Lymph % (Auto) Cancelled [place] % (Auto) Cancelled Eos % (Auto) Cancelled Baso % (Auto) Cancelled Lymph # (Auto) Cancelled [place] # (Auto) Cancelled Eos # (Auto) Cancelled Baso # (Auto) Cancelled Abs Immat Gran (auto) Cancelled Absolute Neuts (auto) Cancelled Absolute Nucleated RBC 0.060 H Nucleated RBC % (auto) 0.2 Neutrophils % (Manual) 73 Band Neutrophils % 21 H Lymphocytes % (Manual) 1 L Monocytes % (Manual) 5 Metamyelocytes % Abs Neuts (Manual) 22.7 H Lymphocytes # (Manual) 0.2 L Monocytes # (Manual) 1.2 Metamyelocytes # Toxic Granulation PRESENT Toxic Vacuolation PRESENT Platelet Estimate DECREASED Large Platelets Plt Morphology Comment NORMAL RBC Morphology NOTED Polychromasia 1+ (0-2) Basophilic Stippling Macrocytosis 1+ (5-14) Tear Drop Cells [place] Bodies PRESENT [place] Cells Acanthocytes (Spur) 3+ (>5) Schistocytes 2+ (3-5) PT INR VBG pH VBG pCO2 VBG pO2 VBG HCO3 VBG O2 Saturation VBG Base Excess Sodium Potassium Chloride Carbon Dioxide Anion Gap BUN Creatinine Estim Creat Clear Calc Estimated GFR POC Glucose Random Glucose Lactic Acid Calcium Phosphorus Magnesium Total Bilirubin AST ALT Alkaline Phosphatase Ammonia Lactate Dehydrogenase Total Protein Albumin Urine Color Urine Appearance Urine pH Ur Specific [place] Urine Protein Urine Glucose (UA) Urine Ketones Urine Blood Urine Nitrite Ur Leukocyte Esterase Urine RBC Urine WBC Ur Squamous Epith Cells Urine Bacteria Granular Casts Ur Random Sodium Peritoneal WBC 0.134 Peritoneal RBC 0.003 Periton Neutrophils 49 Periton Lymphocytes 41 Peritoneal Monocytes 9 Peritoneal Other Cells 1 Peritoneal Tot Protein 0.7 Peritoneal Albumin 0.3 Peritoneal LDH 109 Peritoneal Glucose 67 Blood Type Antibody Screen Crossmatch 05/25/21 05/25/21 05/25/21 12:16 12:47 15:38 WBC RBC Hgb Hct MCV MCH MCHC RDW Plt Count MPV Immature Gran % (Auto) Neut % (Auto) Lymph % (Auto) [place] % (Auto) Eos % (Auto) Baso % (Auto) Lymph # (Auto) [place] # (Auto) Eos # (Auto) Baso # (Auto) Abs Immat Gran (auto) Absolute Neuts (auto) Absolute Nucleated RBC Nucleated RBC % (auto) Neutrophils % (Manual) Band Neutrophils % Lymphocytes % (Manual) Monocytes % (Manual) Metamyelocytes % Abs Neuts (Manual) Lymphocytes # (Manual) Monocytes # (Manual) Metamyelocytes # Toxic Granulation Toxic Vacuolation Platelet Estimate Large Platelets Plt Morphology Comment RBC Morphology Polychromasia Basophilic Stippling Macrocytosis Tear Drop Cells [place] Bodies [place] Cells Acanthocytes (Spur) Schistocytes PT INR VBG pH VBG pCO2 VBG pO2 VBG HCO3 VBG O2 Saturation VBG Base Excess Sodium 135 Potassium 4.2 Chloride 99 Carbon Dioxide 9 L* D Anion Gap 31 H BUN 57 H Creatinine 4.57 H* Estim Creat Clear Calc 19.7 Estimated GFR 14 POC Glucose 45 L* 80 Random Glucose 48 L* Lactic Acid Calcium 6.5 L Phosphorus Magnesium Total Bilirubin AST ALT Alkaline Phosphatase Ammonia Lactate Dehydrogenase Total Protein Albumin Urine Color Urine Appearance Urine pH Ur Specific [place] Urine Protein Urine Glucose (UA) Urine Ketones Urine Blood Urine Nitrite Ur Leukocyte Esterase Urine RBC Urine WBC Ur Squamous Epith Cells Urine Bacteria Granular Casts Ur Random Sodium Peritoneal WBC Peritoneal RBC Periton Neutrophils Periton Lymphocytes Peritoneal Monocytes Peritoneal Other Cells Peritoneal Tot Protein Peritoneal Albumin Peritoneal LDH Peritoneal Glucose Blood Type Antibody Screen Crossmatch 05/25/21 05/25/21 05/25/21 18:00 18:00 20:15 WBC 26.7 H RBC 2.37 L Hgb 7.6 L Hct 22.5 L MCV 94.9 MCH 32.1 MCHC 33.8 RDW 19.7 H Plt Count 91 L MPV 11.1 Immature Gran % (Auto) Cancelled Neut % (Auto) Cancelled Lymph % (Auto) Cancelled [place] % (Auto) Cancelled Eos % (Auto) Cancelled Baso % (Auto) Cancelled Lymph # (Auto) Cancelled [place] # (Auto) Cancelled Eos # (Auto) Cancelled Baso # (Auto) Cancelled Abs Immat Gran (auto) Cancelled Absolute Neuts (auto) Cancelled Absolute Nucleated RBC 0.090 H Nucleated RBC % (auto) 0.3 H Neutrophils % (Manual) 75 H Band Neutrophils % 15 H Lymphocytes % (Manual) 1 L Monocytes % (Manual) 7 Metamyelocytes % 2 Abs Neuts (Manual) 24.0 H Lymphocytes # (Manual) 0.3 L Monocytes # (Manual) 1.9 H Metamyelocytes # 0.5 Toxic Granulation PRESENT Toxic Vacuolation PRESENT Platelet Estimate DECREASED Large Platelets PRESENT Plt Morphology Comment NORMAL RBC Morphology NOTED Polychromasia 1+ (0-2) Basophilic Stippling Macrocytosis 1+ (5-14) Tear Drop Cells [place] Bodies PRESENT [place] Cells Acanthocytes (Spur) 3+ (>5) Schistocytes 1+ (0-2) PT INR VBG pH VBG pCO2 VBG pO2 VBG HCO3 VBG O2 Saturation VBG Base Excess Sodium 135 Potassium 4.6 Chloride 100 Carbon Dioxide 12 L Anion Gap 28 H BUN 58 H Creatinine 4.88 H* Estim Creat Clear Calc 18.4 Estimated GFR 13 POC Glucose 56 L* Random Glucose 71 D Lactic Acid Calcium 6.7 L Phosphorus Magnesium Total Bilirubin AST ALT Alkaline Phosphatase Ammonia Lactate Dehydrogenase Total Protein Albumin Urine Color Urine Appearance Urine pH Ur Specific [place] Urine Protein Urine Glucose (UA) Urine Ketones Urine Blood Urine Nitrite Ur Leukocyte Esterase Urine RBC Urine WBC Ur Squamous Epith Cells Urine Bacteria Granular Casts Ur Random Sodium Peritoneal WBC Peritoneal RBC Periton Neutrophils Periton Lymphocytes Peritoneal Monocytes Peritoneal Other Cells Peritoneal Tot Protein Peritoneal Albumin Peritoneal LDH Peritoneal Glucose Blood Type Antibody Screen Crossmatch 05/25/21 05/26/21 05/26/21 21:25 00:53 02:59 WBC 29.8 H RBC 2.27 L Hgb 7.1 L Hct 22.1 L MCV 97.4 MCH 31.3 MCHC 32.1 RDW 20.2 H Plt Count 73 L MPV 11.6 Immature Gran % (Auto) Neut % (Auto) Lymph % (Auto) [place] % (Auto) Eos % (Auto) Baso % (Auto) Lymph # (Auto) [place] # (Auto) Eos # (Auto) Baso # (Auto) Abs Immat Gran (auto) Absolute Neuts (auto) Absolute Nucleated RBC 0.280 H Nucleated RBC % (auto) 0.9 H Neutrophils % (Manual) Band Neutrophils % Lymphocytes % (Manual) Monocytes % (Manual) Metamyelocytes % Abs Neuts (Manual) Lymphocytes # (Manual) Monocytes # (Manual) Metamyelocytes # Toxic Granulation Toxic Vacuolation Platelet Estimate Large Platelets Plt Morphology Comment RBC Morphology Polychromasia Basophilic Stippling Macrocytosis Tear Drop Cells [place] Bodies [place] Cells Acanthocytes (Spur) Schistocytes PT INR VBG pH VBG pCO2 VBG pO2 VBG HCO3 VBG O2 Saturation VBG Base Excess Sodium Potassium Chloride Carbon Dioxide Anion Gap BUN Creatinine Estim Creat Clear Calc Estimated GFR POC Glucose 53 L* 98 Random Glucose Lactic Acid Calcium Phosphorus Magnesium Total Bilirubin AST ALT Alkaline Phosphatase Ammonia Lactate Dehydrogenase Total Protein Albumin Urine Color Urine Appearance Urine pH Ur Specific [place] Urine Protein Urine Glucose (UA) Urine Ketones Urine Blood Urine Nitrite Ur Leukocyte Esterase Urine RBC Urine WBC Ur Squamous Epith Cells Urine Bacteria Granular Casts Ur Random Sodium Peritoneal WBC Peritoneal RBC Periton Neutrophils Periton Lymphocytes Peritoneal Monocytes Peritoneal Other Cells Peritoneal Tot Protein Peritoneal Albumin Peritoneal LDH Peritoneal Glucose Blood Type Antibody Screen Crossmatch 05/26/21 05/26/21 05/26/21 02:59 03:00 03:03 WBC RBC Hgb Hct MCV MCH MCHC RDW Plt Count MPV Immature Gran % (Auto) Neut % (Auto) Lymph % (Auto) [place] % (Auto) Eos % (Auto) Baso % (Auto) Lymph # (Auto) [place] # (Auto) Eos # (Auto) Baso # (Auto) Abs Immat Gran (auto) Absolute Neuts (auto) Absolute Nucleated RBC Nucleated RBC % (auto) Neutrophils % (Manual) Band Neutrophils % Lymphocytes % (Manual) Monocytes % (Manual) Metamyelocytes % Abs Neuts (Manual) Lymphocytes # (Manual) Monocytes # (Manual) Metamyelocytes # Toxic Granulation Toxic Vacuolation Platelet Estimate Large Platelets Plt Morphology Comment RBC Morphology Polychromasia Basophilic Stippling Macrocytosis Tear Drop Cells [place] Bodies [place] Cells Acanthocytes (Spur) Schistocytes PT INR VBG pH 6.93 L* VBG pCO2 29 VBG pO2 72 VBG HCO3 6 L VBG O2 Saturation 90.0 VBG Base Excess -24.0 Sodium 134 L Potassium 5.4 H Chloride 98 Carbon Dioxide 9 L* D Anion Gap 32 H BUN 60 H Creatinine 5.18 H* Estim Creat Clear Calc 17.4 Estimated GFR 12 POC Glucose 76 Random Glucose 93 Lactic Acid Calcium 6.4 L Phosphorus Magnesium Total Bilirubin AST ALT Alkaline Phosphatase Ammonia Lactate Dehydrogenase Total Protein Albumin Urine Color Urine Appearance Urine pH Ur Specific [place] Urine Protein Urine Glucose (UA) Urine Ketones Urine Blood Urine Nitrite Ur Leukocyte Esterase Urine RBC Urine WBC Ur Squamous Epith Cells Urine Bacteria Granular Casts Ur Random Sodium Peritoneal WBC Peritoneal RBC Periton Neutrophils Periton Lymphocytes Peritoneal Monocytes Peritoneal Other Cells Peritoneal Tot Protein Peritoneal Albumin Peritoneal LDH Peritoneal Glucose Blood Type Antibody Screen Crossmatch 05/26/21 05/26/21 05/26/21 04:28 04:28 05:31 WBC 28.0 H RBC 2.05 L Hgb 6.5 L* Hct 19.9 L* MCV 97.1 MCH 31.7 MCHC 32.7 RDW 20.1 H Plt Count 67 L MPV 11.1 Immature Gran % (Auto) Cancelled Neut % (Auto) Cancelled Lymph % (Auto) Cancelled [place] % (Auto) Cancelled Eos % (Auto) Cancelled Baso % (Auto) Cancelled Lymph # (Auto) Cancelled [place] # (Auto) Cancelled Eos # (Auto) Cancelled Baso # (Auto) Cancelled Abs Immat Gran (auto) Cancelled Absolute Neuts (auto) Cancelled Absolute Nucleated RBC 0.410 H Nucleated RBC % (auto) 1.5 H Neutrophils % (Manual) 77 H Band Neutrophils % 4 Lymphocytes % (Manual) 8 L Monocytes % (Manual) 11 Metamyelocytes % Abs Neuts (Manual) 22.7 H Lymphocytes # (Manual) 2.2 Monocytes # (Manual) 3.1 H Metamyelocytes # Toxic Granulation PRESENT Toxic Vacuolation PRESENT Platelet Estimate DECREASED Large Platelets Plt Morphology Comment NORMAL RBC Morphology NOTED Polychromasia 1+ (0-2) Basophilic Stippling 1+ (0-2) Macrocytosis 1+ (5-14) Tear Drop Cells 2+ (3-5) [place] Bodies [place] Cells 3+ (>5) Acanthocytes (Spur) 1+ (0-2) Schistocytes PT 35.1 H INR 3.0 H VBG pH VBG pCO2 VBG pO2 VBG HCO3 VBG O2 Saturation VBG Base Excess Sodium Potassium Chloride Carbon Dioxide Anion Gap BUN Creatinine Estim Creat Clear Calc Estimated GFR POC Glucose Random Glucose Lactic Acid 17.1 H* Calcium Phosphorus Magnesium Total Bilirubin AST ALT Alkaline Phosphatase Ammonia Lactate Dehydrogenase Total Protein Albumin Urine Color Urine Appearance Urine pH Ur Specific [place] Urine Protein Urine Glucose (UA) Urine Ketones Urine Blood Urine Nitrite Ur Leukocyte Esterase Urine RBC Urine WBC Ur Squamous Epith Cells Urine Bacteria Granular Casts Ur Random Sodium Peritoneal WBC Peritoneal RBC Periton Neutrophils Periton Lymphocytes Peritoneal Monocytes Peritoneal Other Cells Peritoneal Tot Protein Peritoneal Albumin Peritoneal LDH Peritoneal Glucose Blood Type Antibody Screen Crossmatch 05/26/21 05/26/21 05/26/21 05:31 05:34 05:35 WBC RBC Hgb Hct MCV MCH MCHC RDW Plt Count MPV Immature Gran % (Auto) Neut % (Auto) Lymph % (Auto) [place] % (Auto) Eos % (Auto) Baso % (Auto) Lymph # (Auto) [place] # (Auto) Eos # (Auto) Baso # (Auto) Abs Immat Gran (auto) Absolute Neuts (auto) Absolute Nucleated RBC Nucleated RBC % (auto) Neutrophils % (Manual) Band Neutrophils % Lymphocytes % (Manual) Monocytes % (Manual) Metamyelocytes % Abs Neuts (Manual) Lymphocytes # (Manual) Monocytes # (Manual) Metamyelocytes # Toxic Granulation Toxic Vacuolation Platelet Estimate Large Platelets Plt Morphology Comment RBC Morphology Polychromasia Basophilic Stippling Macrocytosis Tear Drop Cells [place] Bodies [place] Cells Acanthocytes ([place]) Schistocytes PT INR VBG pH 6.98 L* VBG pCO2 35 VBG pO2 59 VBG HCO3 8 L VBG O2 Saturation 84.0 VBG Base Excess -21.3 Sodium 138 Potassium 5.6 H Chloride 97 Carbon Dioxide 11 L Anion Gap 36 H BUN 59 H Creatinine 5.30 H* Estim Creat Clear Calc 17.0 Estimated GFR 11 POC Glucose Random Glucose 77 Lactic Acid Calcium 7.6 L D Phosphorus 11.2 H Magnesium 2.6 Total Bilirubin 23.8 H AST 3311 H ALT 329 H Alkaline Phosphatase 91 Ammonia 115 H Lactate Dehydrogenase Total Protein 4.3 L Albumin 3.5 Urine Color Urine Appearance Urine pH Ur Specific [place] Urine Protein Urine Glucose (UA) Urine Ketones Urine Blood Urine Nitrite Ur Leukocyte Esterase Urine RBC Urine WBC Ur Squamous Epith Cells Urine Bacteria Granular Casts Ur Random Sodium Peritoneal WBC Peritoneal RBC Periton Neutrophils Periton Lymphocytes Peritoneal Monocytes Peritoneal Other Cells Peritoneal Tot Protein Peritoneal Albumin Peritoneal LDH Peritoneal Glucose Blood Type Antibody Screen Crossmatch Microbiology Microbiology Results: Microbiology 05/25/21 09:22 Paracentesis Fluid Gram Stain - Final 05/24/21 19:52 Blood - Venous Blood Culture - Preliminary Prelim: GPR Gram Stain only Prelim: GNR Gram Stain only 05/24/21 19:52 Blood - Venous Blood Culture - Preliminary Prelim: GNR Gram Stain only Procedures Date of Service Date of Service: 05/26/21 Assessment & Plan Assessment and plan (1) TALISHA (acute kidney injury): Status: Acute Assessment and Plan: now intubated worseining lactic acidosis anuric the would like to withdraw support [employer] (2) Alcoholic cirrhosis of liver with ascites: Status: Acute (3) Acute liver failure: Status: Acute (4) Coagulopathy: Status: Acute (5) Lower GI bleed: Status: Acute (6) Hepatorenal syndrome: Status: Acute (7) Gram-negative bacteremia: Status: Acute (8) Anal fistula: Status: Acute (9) SEAN (obstructive sleep apnea): Status: Acute (10) Asthma-COPD overlap syndrome: Status: Acute (11) Alcohol dependence: Status: Acute Assessment and Plan: Assessment: 51-year-old gentleman with underlying alcoholic liver cirrhosis admitted with hemorrhagic shock from lower GI bleed with hospital course further complicated by gram-negative bacteremia Plan: Neuro: hepatic encephalopathy, expect to improve with lactulose. Cardiac: Hemorrhagic shock from lower GI bleed further complicated by gram-negative bacteremia, continue to titrate off pressors as tolerated. Pulmonary: No acute issues. Renal: Acute renal failure, hepatorenal syndrome and/ or ATN. Nephrology service care appreciated. Oliguric. Continue to monitor renal indices and urine output. May require hemodialysis. Endo: No acute issues. GI: Lower GI bleed status post sigmoidoscopy with clipping. EGD with no upper source. Gastroenterology service care appreciated. Underlying alcoholic liver cirrhosis. Will discontinue octreotide and continue PPI. Continue lactulose. ascites, status post paracentesis with removal of 1.5 L. Ascitic fluid studies are pending. Underlying history of anal fistula with seton in place. General surgery service care appreciated. ID: Gram-negative bacteremia with likely GI source. Cultures are pending. Empirically covered with Zosyn. Gram-positive rods likely a contaminant. Heme/Onc: Hemorrhagic shock secondary to lower GI bleed, status post 6 units of packed red blood cells, 4 of FFP, and 1 platelets. Hemoglobin is stabilizing. Continue to monitor blood counts. Underlying liver disease related thrombocytopenia and coagulopathy. Continue vitamin K. Psych: No acute issues. Miscellaneous: No acute issues. Prophylaxis: Intermittent pneumatic compression Diet: NPO Critical care time spent: 60 minutes excluding separately billable procedures Time Spent With Patient Time: Total time spent is greater than 50% in coordination of care (as documented) at patient's floor/unit and/or counseling patient: Progress Note: Quality Stroke Does the patient have a stroke diagnosis?: No
[2021-05-26] MEDS: EPINEPHrine 5 MG in Dextrose 5 % 250 ML 48.35 MG IVCONT (07:57)
--- NOTE | 2021-05-26 08:28 | PM.CCN ---
Critical Care Event Note Summary Date of Service: 05/26/21 Code activated: No Narrative: Overnight events including progressive deterioration and essentially terminal prognosis discussed with healthcare proxy and decision has been reached to switch goals of care to palliation. Code status changed to comfort measures only. Critical Care Time (minutes): 0
--- NOTE | 2021-05-26 09:06 | P.DN_ITS ---
Discharge Sum: Prov Provider Primary care physician: Rita Edwards MD Consults: 05/24/21 10:16 Consult to Gastroenterology Routine Consulting Provider: Yanick Shabazz Reason for consultation: liver failure Has provider been notified: No 05/24/21 10:17 Consult to General Surgery Routine Consulting Provider: Carlos Mao Reason for consultation: rectal bleeding Has provider been notified: No Consult to Nephrology Routine Consulting Provider: Ankur Borrego Reason for consultation: renal failure Has provider been notified: No Pronouncing clinician: Manny Adhikari Discharge Sum: Diag Contributing Factors (1) TALISHA (acute kidney injury): (2) Alcoholic cirrhosis of liver with ascites: (3) Acute liver failure: (4) Coagulopathy: (5) Lower GI bleed: (6) Hepatorenal syndrome: (7) Gram-negative bacteremia: (8) Anal fistula: (9) SEAN (obstructive sleep apnea): (10) Asthma-COPD overlap syndrome: (11) Alcohol dependence: Discharge Sum: Summary Date and Time Date of admission: 05/24/21 10:57 Date of : 05/26/21 Time of : 08:40 Summary Details: 51-year-old gentleman with underlying alcoholic liver cirrhosis, still drinking alcohol, anal fistula with seton in place, asthma admitted on 05/24/2021 with lower GI bleed and hepatorenal syndrome initially to general medical bautista, however, over a course of his 1st hospital day his rectal bleeding has worsened significantly, he has required 6 units of blood, 4 units of FFP, and unit of platelets, patient has been transferred to intensive care unit. He was re-evaluated by Gastroenterology service and has had urgent endoscopy that showed no upper GI bleed, and sigmoidoscopy that showed an actively bleeding anorectal vessel requiring clipping for hemostasis. Hospital course further complicated by Gram-negative bacteremia with shock refractory to 3 pressor support requiring intubation for acute hypoxic respiratory failure from development of pulmonary edema. his clinical status continue to decline and several meetings with healthcare proxy were held. Overall essentially terminal prognosis was discussed and decision has been re ached to switch goals of care to palliation. Patient code status was changed to comfort measures only and he passed peacefully on 05/26/2021 at 8:40 a.m. with health proxy at bedside. Additional Data Confirmation of as documented by pronouncing clinician: no pulse, no respirations, no heart sounds and pupils fixed and dilated Family: at bedside Attending physician: Manny Adhikari MD
--- NOTE | 2021-05-26 11:45 | PC.NURSE ---
Decision made by HCP to withdraw care. All drips turned off per emar. Vanessa-hcp at bedside. pt passed at 0840, [facility] notified at 0910, case declined- . Vanessa took pt belongings, will call back with home
--- NOTE | 2021-06-20 13:12 | P.CDIR_ITS ---
Documented by User: Tana Fontenot CCS, CDIS 06/20/21 13:19 Retrospective Query PHYSICIAN'S DOCUMENTATION REQUEST Date of Query: 06/20/21 1098 Patient Name: Gustabo Morrow Admit Date: 05/24/21 Dear Doctor, A review of the medical record indicates additional documentation may be needed. Please review below and update the documentation accordingly. Clinical Indicators: Risk Factors/Clinical Indicators/Treatments PN: 05/24 - Temp, tachycardic, tachypneic, confused and jaundiced. Sepsis workup, IV antibiotics. LA 6.1/17.1 HR 101/142 BP 101/53 83/32 RR 25 ATN, Hepatic encephalopathy, Alcoholic liver cirrhosis. BRBPR hgb dropped from 9 to 7.2 in 2 hours, Transfused. ICU progress note 05/24 - Does not require ICU admit at this time. Please clarify which of the following most accurately describes the above abnormalities: PRESENT ON ARRIVAL: * Sepsis * Severe sepsis with septic shock (hemorrhagic or other etiology) * Systemic manifestations of infection, with 2 or more SIRS criteria which include: -Fever > 100.4F or hypothermia < 96.8 F -Leukocytosis - WBC > 12,000 or leukopenia, WBC < 4,000 or > 10% bands -Tachycardia > 90 beats/minute -Tachypnea - RR > 20 breaths/minute or PaCO2 < 32mmHg * Indicate the knows or suspected organism * Indicate the known or suspected underlying infection * Indicate if a suspected bacteria infection of unknown source * Indicate if there is associated organ dysfunction, such as renal or respiratory failure * Other * Unable to determine Use of terms such as suspected, likely, concern for, or probable (associated with a specific diagnosis that is being evaluated, monitored, or treated as if it exists) are acceptable and can be coded in the inpatient setting, when documented at the time of discharge. Thank you, Tana Fei Corie SOLIS, CDIS Extension: [phone] Please use your independent medical judgment in providing your response. THIS QUERY IS PART OF THE PERMANENT MEDICAL RECORD Documented by User: Manny Adhikari MD 07/07/21 09:54 Retrospective Query Provider Response: Other (Hemorrhagic shock)
== END 2021-05-26 08:40 | disposition expired | DRG 952 ==
LOC: HO.ED 07:12 → HO.EDOVER 11:07 → HO.IMC 14:45 → HO.ICU 22:01
PROVIDERS: Internal Medicine; Internal Medicine Gastroenterology; Internal Medicine Nephrology; Registered Nurse Community Health; Admitting Provider Physician Assistant Medical; Emergency Provider Emergency Medicine; PCP Family Medicine; Visit Provider Internal Medicine Pulmonary Disease
PROC: 0DJ08ZZ Inspection of Upper Intestinal Tract, Via Natural or Artificial Opening Endoscopic (ICD-10-PCS; CPT 43235; principal; 2021-05-25 12:45)
DX: N17.0 Acute kidney failure with tubular necrosis (principal); R57.8 Other shock; K76.7 Hepatorenal syndrome; K70.40 Alcoholic hepatic failure without coma; D68.9 Coagulation defect, unspecified; I95.9 Hypotension, unspecified; I85.10 Secondary esophageal varices without bleeding; E87.1 Hypo-osmolality and hyponatremia; K70.31 Alcoholic cirrhosis of liver with ascites; K21.9 Gastro-esophageal reflux disease without esophagitis; J45.909 Unspecified asthma, uncomplicated; F10.239 Alcohol dependence with withdrawal, unspecified; K76.6 Portal hypertension; K31.89 Other diseases of stomach and duodenum; R78.81 Bacteremia; K64.8 Other hemorrhoids; F17.210 Nicotine dependence, cigarettes, uncomplicated; Z20.822 Contact with and (suspected) exposure to COVID-19; Z71.6 Tobacco abuse counseling; Z79.51 Long term (current) use of inhaled steroids; Z79.899 Other long term (current) drug therapy; Z66 Do not resuscitate
CPT/HCPCS: 36415; 36430; 71045; 80048; 80053; 80076; 81001; 82042; 82140; 82565; 82803; 82945; 82947; 83605; 83615; 83690; 83735; 84100; 84155; 84157; 84300; 84484; 85007; 85014; 85018; 85025; 85027; 85610; 86850; 86900; 86901; 86923; 87040; 87071; 87073; 87076; 87077; 87186; 87205; 87635; 89051; 93005; 94002; 94003; 94640; 94660; 96361; 96365; 96366; 96367; 99285; C1758; J0171; J0610; J0696; J1940; J2354; J2543; J2560; J2765; J3010; J3430; P9016; P9017; P9035; P9047